=== PATIENT | male | born 1940 | race Caucasian/White ===

== ENCOUNTER 2016-11-02 13:10 | Inpatient (IN) | payer MEDICARE ==
[~2016-11-02] VITALS: Ht 172.7 cm; Wt 81.1 kg
[~2016-11-02 13:10] MED LIST: ASPI81TA45 PO; CILO100T PO; DOCU1CAP39 PO; OMEGCAP21 PO; OXYC1SOL5 PO; PRAV80TA PO; PRIN10TA PO; SPIRCAP INH; VITA-13 PO
[2016-11-02 13:11] VITALS: BP 148/79; PULSE 100; RESP 20; TEMP 97.9; O2SAT 97
--- NOTE | 2016-11-02 13:21 | PD ---
Physical Exam Date Seen by Provider: Nov 02, 2016 Time Seen by Provider: 13:13 Narrative 76 y/o male with Hx Kidney cancer followed by Dr. Leung presents to the ED with Reports of weakness and Low WBC in recent labs. Patient has been cancer free for the past 1.5 years. recently he has been having a flair of his chronic back pain, and recently saw his PCP for his regular check-up, which is why he had his labs drawn. Patient denies fever, chills or other acute complaint. Patient reports diarrhea for the past several weeks. Patient not currently on Chemotherapy. V/S stable. Cardiac Protocals ordered. Patient awaiting Med Bed Placement. Data Data Last Documented VS Vital Signs Date Time Temp Pulse Resp B/P Pulse Ox O2 Delivery O2 Flow Rate FiO2 11/02/16 13:11 97.9 100 20 148/79 97 Room Air [facility] Medical Record Reviewed: Yes Supervised Visit with FARAZ: Yes Condition: Stable Matt Tyson Nov 02, 2016 13:20
[2016-11-02 13:55] LABS: HEMATOCRIT 32.3 % (39.0-51.0); MEAN CORPUSCULAR HGB CONC 34.8 % (32.0-36.0); PLATELET COUNT 84 TH/MM3 (150-450); RED CELL DISTRIBUTION WIDTH 14.5 % (11.6-17.2); WHITE BLOOD COUNT 0.7 TH/MM3 (4.0-11.0)
[2016-11-02 13:57] LABS: HEMO FLAGS AUTO DIFF
[2016-11-02 14:10] VITALS: BP 178/84; PULSE 83; RESP 18; O2SAT 96
[2016-11-02 14:23] LABS: ANION GAP 7 MEQ/L (5-15); BANDS 4 % (0-6); BLOOD UREA NITROGEN 35 MG/DL (7-18); CHLORIDE 112 MEQ/L (98-107); GLOMERULAR FILTRATION RATE 28 ML/MIN (>89); POLYS (SEG NEUTROPHILS) 60 % (16-70); POTASSIUM 4.7 MEQ/L (3.5-5.1); SODIUM (NA) 138 MEQ/L (136-145); WBC DIFF SAMPLE 50
[2016-11-02 14:24] VITALS: RESP 18; O2SAT 96
[2016-11-02 14:24] LABS: PLATELET ESTIMATE SMEAR LOW (NORMAL); PLATELET MORPHOLOGY NORMAL (NORMAL); SCAN/DIFF FINAL DIFF MANUAL
[2016-11-02 14:25] LABS: CREATINE KINASE 155 U/L (39-308)
[2016-11-02 14:31] LABS: NEUTROPHIL # MANUAL DIFF 0.4 TH/MM3 (1.8-7.7)
[2016-11-02] MEDS ORDERED: OMEGCAP21 PO (14:33)
[2016-11-02] MEDS ORDERED: ASPI81TA11 PO (14:33)
[2016-11-02] MEDS ORDERED: SPIRCAP INH (14:33)
[2016-11-02] MEDS ORDERED: PRAV40TA2 PO (14:33)
[2016-11-02] MEDS ORDERED: D31000TA PO (14:33)
[2016-11-02] MEDS ORDERED: CILO100T PO (14:33)
[2016-11-02 14:41] LABS: CKMB 3.4 NG/ML (0.5-3.6)
--- NOTE | 2016-11-02 14:54 | PD ---
HPI Chief Complaint: Abnormal Results Time Seen by Provider: 14:05 Travel History International Travel<30 days: No Contact w/Intl Traveler<30days: No Traveled to known affect area: No History of Present Illness HPI Patient is a 76-year-old male presenting to the emergency department on the advice of his physician due to abnormal labs. Patient also reports feeling dizzy, generally weak, with severe back pain. He also reports loose stools for the last several days as well. He denies any appetite disturbance, fevers, chills, nausea, vomiting, chest pain or shortness of breath. Patient states he has a history of chronic back pain however for the last few weeks and exacerbated and unrelieved by his normal therapies. Patient has a history of renal cell carcinoma with a right nephrectomy. He's been in remission for a year and a half. He is followed by Dr. Jayro Canales his primary doctor as well as Dr. Palacios. [facility] Past Medical History Cancer: Yes (RIGHT KIDNEY) Cardiovascular Problems: Yes (PVD) COPD: Yes Diabetes: No Endocrine: No Glaucoma: No Genitourinary: No Hepatitis: No Hiatal Hernia: No Hypertension: Yes Immune Disorder: No Musculoskeletal: Yes (PSEUDO GOUT) Neurologic: No Psychiatric: No Thyroid Disease: No Tetanus Vaccination: > 5 Years Influenza Vaccination: No Past Surgical History AICD: No Body Medical Devices: STENTS LEGS Joint Replacement: No Pacemaker: No Other Surgery: Yes (right nephrectomy) Social History Alcohol Use: No Tobacco Use: No (QUIT ONE MONTH AGO) Substance Use: No Allergies-Medications (Allergen,Severity, Reaction): Coded Allergies: Penicillin (Unverified Allergy, Severe, ITCH, 11/02/16) Reported Meds & Prescriptions Reported Meds & Active Scripts Active Reported Spiriva Handihaler (Tiotropium Inh) 18 Mcg Cap 18 Mcg INH DAILY PRN 1 capsule = 18 mcg Pravastatin 40 Mg Tab 40 Mg PO HS Hm Marina-3-6-9 Fatty Acid (Marina 3 Fatty Acids-Marina 6 FA) 1 Cap Cap 1 Cap PO HS Cilostazol 100 Mg Tab 100 Mg PO HS D3 (Cholecalciferol) 1,000 Unit Tab 1,000 Units PO HS Aspirin EC (Aspirin) 81 Mg Tabdr 81 Mg PO HS Review of Systems Except as stated in HPI: all other systems reviewed are Neg General / Constitutional: No: Fever HENT: No: Headaches Cardiovascular: No: Chest Pain or Discomfort Respiratory: No: Shortness of Breath Gastrointestinal: Positive: Diarrhea (loose stools) Musculoskeletal: Positive: Myalgias, Pain (lower back) Neurologic: Positive: Weakness, Dizziness Physical Exam Narrative GENERAL: Well-developed, well-nourished, alert elderly gentleman. Resting comfortably in no acute distress. SKIN: Focused skin assessment warm/dry. HEAD: Atraumatic. Normocephalic. EYES: Pupils equal and round. No scleral icterus. No injection or drainage. ENT: No nasal bleeding or discharge. Mucous membranes pink and moist. NECK: Trachea midline. No JVD. CARDIOVASCULAR: Regular rate and rhythm. No murmur appreciated. RESPIRATORY: No accessory muscle use. Clear to auscultation. Breath sounds equal bilaterally. GASTROINTESTINAL: Abdomen soft, non-tender, nondistended. Hepatic and splenic margins not palpable. MUSCULOSKELETAL: No obvious deformities. No clubbing. No cyanosis. No edema. No spinal tenderness over lumbar spine, no step-off noted. NEUROLOGICAL: Awake and alert. No obvious cranial nerve deficits. Motor grossly within normal limits. Normal speech. PSYCHIATRIC: Appropriate mood and affect; insight and judgment normal. Data Data Last Documented VS Vital Signs Date Time Temp Pulse Resp B/P Pulse Ox O2 Delivery O2 Flow Rate FiO2 11/02/16 14:24 18 96 Room Air 11/02/16 14:10 83 178/84 11/02/16 13:11 97.9 Orders Electrocardiogram (11/02/16 13:18) Complete Blood Count With Diff (11/02/16 13:18) Basic Metabolic Panel (Bmp) (11/02/16 13:18) Ckmb (Isoenzyme) Profile (11/02/16 13:18) Chest, Pa & Lat (11/02/16 ) Iv Access Insert/Monitor (11/02/16 14:06) Oximetry (11/02/16 14:06) Urinalysis - C+S If Indicated (11/02/16 14:06) Ecg Monitoring (11/02/16 14:06) CKMB (11/02/16 13:29) CKMB% (11/02/16 13:29) Alkaline Phosphatase (11/02/16 14:48) Hepatic Functional Panel (11/02/16 14:48) Ct Abd/Pel W/O Iv Contrast (11/02/16 ) Ct Lumb Spine W/O Contrast (11/02/16 ) Admit Order (Ed Use Only) (11/02/16 16:46) Labs Laboratory Tests Test 11/02/16 11/02/16 11/02/16 13:29 14:26 15:00 White Blood Count 0.7 TH/MM3 Red Blood Count 3.40 MIL/MM3 Hemoglobin 11.2 GM/DL Hematocrit 32.3 % Mean Corpuscular Volume 95.0 FL Mean Corpuscular Hemoglobin 33.0 PG Mean Corpuscular Hemoglobin 34.8 % Concent Red Cell Distribution Width 14.5 % Platelet Count 84 TH/MM3 Mean Platelet Volume 7.4 FL Neutrophils (%) (Auto) % Lymphocytes (%) (Auto) % Monocytes (%) (Auto) % Eosinophils (%) (Auto) % Basophils (%) (Auto) % Neutrophils # (Auto) TH/MM3 Lymphocytes # (Auto) TH/MM3 Monocytes # (Auto) TH/MM3 Eosinophils # (Auto) TH/MM3 Basophils # (Auto) TH/MM3 CBC Comment AUTO DIFF Differential Total Cells 50 Counted Neutrophils % (Manual) 60 % Band Neutrophils % 4 % Lymphocytes % 34 % Monocytes % 2 % Neutrophils # (Manual) 0.4 TH/MM3 Differential Comment FINAL DIFF MANUAL Platelet Estimate LOW Platelet Morphology Comment NORMAL Red Cell Morphology Comment NORMAL Sodium Level 138 MEQ/L Potassium Level 4.7 MEQ/L Chloride Level 112 MEQ/L Carbon Dioxide Level 19.0 MEQ/L Anion Gap 7 MEQ/L Blood Urea Nitrogen 35 MG/DL Creatinine 2.24 MG/DL Estimat Glomerular Filtration 28 ML/MIN Rate Random Glucose 138 MG/DL Calcium Level 8.4 MG/DL Total Creatine Kinase 155 U/L Creatine Kinase MB 3.4 NG/ML Urine Color LIGHT-YELLOW Urine Turbidity CLEAR Urine pH 5.0 Urine Specific [place] 1.012 Urine Protein 30 mg/dL Urine Glucose (UA) NEG mg/dL Urine Ketones NEG mg/dL Urine Occult Blood SMALL Urine Nitrite NEG Urine Bilirubin NEG Urine Urobilinogen LESS THAN 2.0 MG/DL Urine Leukocyte Esterase NEG Urine RBC 2 /hpf Urine WBC LESS THAN 1 /hpf Urine Hyaline Casts 1 /lpf Urine Mucus FEW /lpf Microscopic Urinalysis Comment CULT NOT INDICATED Total Bilirubin 0.3 MG/DL Direct Bilirubin 0.1 MG/DL Indirect Bilirubin 0.2 MG/DL Aspartate Amino Transf 20 U/L (AST/SGOT) Alanine Aminotransferase 29 U/L (ALT/SGPT) Alkaline Phosphatase 103 U/L Total Protein 7.3 GM/DL Albumin 3.9 GM/DL MDM Medical Decision Making Medical Screen Exam Complete: Yes Emergency Medical Condition: Yes Medical Record Reviewed: Yes Interpretation(s) Vital Signs Date Time Temp Pulse Resp B/P Pulse Ox O2 Delivery O2 Flow Rate FiO2 11/02/16 14:24 18 96 Room Air 11/02/16 14:10 83 18 178/84 96 Room Air 11/02/16 14:05 85 18 96 Room Air 11/02/16 13:11 97.9 100 20 148/79 97 Room Air Differential Diagnosis Neutropenia versus malignancy versus blood disorder versus other Narrative Course Patient is a 76-year-old male presenting to the emergency department due to abnormal labs. Patient's vital signs are stable. at bedside. Labs and imaging ordered and pending. CBC with a white count of 0.7, neutrophils 0.4 Chemistry is unremarkable Urinalysis is unremarkable CT abdomen and pelvis shows a left parapelvic cyst and low-density lesion of the lower pole a solitary left kidney similar to prior in August 2015. It also shows bilateral adrenal lesions low-density in the right, intermediate density in the left. There is a 4.2 distal abdominal aortic aneurysm, bilateral iliac stents are in place. And significant spondylolisthesis at L5 to S1. Chest x-ray shows no acute disease CT lumbar spine shows chronic bilateral pars defect at L5 to S1 with associated significant spondylolisthesis and hypertrophic changes in the posterior elements. It also shows advanced discogenic degenerative disease is at L2 to S1 left lumbar scoliosis, moderately large left-sided disc protrusion at L2 to 3 causing probable neural impingement. Discussed findings and plan of care with patient and his . Patient will be admitted for further evaluation and management. Dr. Ma accepted admission. Diagnosis Primary Impression: Neutropenia Qualified Code: D70.9 - Neutropenia, unspecified type Additional Impression: Weakness generalized Admitting Information Admitting Physician Requests: Admit Condition: Stable Lis Domingo Piper CODY Nov 02, 2016 14:53
--- NOTE | 2016-11-02 15:20 | RADRPT ---
EXAM DATE/TIME: 11/02/2016 14:37 [facility] COMPARISON: No previous studies available for comparison. INDICATIONS : Weakness, Nutropenia conditions MEDICAL HISTORY : Renal cell carcinoma. Hypertension SURGICAL HISTORY : Nephrectomy, right. ENCOUNTER: Initial ACUITY: 1 day PAIN SCORE: 0/10 LOCATION: Bilateral chest FINDINGS: PA and lateral views of the chest demonstrate the lungs to be symmetrically aerated without evidence of mass, infiltrate or effusion. There is moderate tortuosity of the descending thoracic aorta. Hea rt size is normal. Osseous structures are intact. CONCLUSION: No acute cardiopulmonary disease. Lam Parrish MD on November 02, 2016 at 15:17 Board Certified Radiologist. This report was verified electronically.
[2016-11-02 15:33] LABS: BLOOD, URINE SMALL (NEG); COMMENT (UR) CULT NOT INDICATED; CULTURE IF INDICATED CULT NOT INDICATED; GLUCOSE,URINE NEG (NEG); HYALINE CAST, URINE 1 /lpf (RARE); KETONE, URINE NEG (NEG); MUCUS URINE FEW /lpf (OCC); NITRITE,URINE NEG (NEG); URINE COLOR LIGHT-YELLOW (YELLW/STRAW)
[2016-11-02 15:41] LABS: INDIRECT BILIRUBIN 0.2 MG/DL (0.0-0.8); TOTAL BILIRUBIN ADULT 0.3 MG/DL (0.2-1.0)
--- NOTE | 2016-11-02 16:13 | RADRPT ---
EXAM DATE/TIME: 11/02/2016 15:10 [facility] COMPARISON: CT NEEDLE BIOPSY RENAL, LEFT, August 21, 2015, 14:01. CT GUIDED CRYO ABLATION RENAL, LEFT, 2015, 14:01. INDICATIONS : Abdomen pain. ORAL CONTRAST: No oral contrast ingested. RADIATION DOSE: 9.96 CTDIvol (mGy) MEDICAL HISTORY : Chronic obstructive pulmonary disease. Carcinoma; renal. SURGICAL HISTORY : None. ENCOUNTER: Initial ACUITY: 1 day PAIN SCALE: 5/10 LOCATION: Bilateral abdomen. TECHNIQUE: Volumetric scanning of the abdomen and pelvis was performed. Using automated exposure control and ad justment of the mA and/or kV according to patient size, radiation dose was kept as low as reasonably achievable to obtain optimal diagnostic quality images. FINDINGS: Patient has history of right renal cell carcinoma and nephrectomy. Patient underwent cryoablation of a lesion in the lower pole of the left kidney in August 2015. The lower pole lesion is bilobed an d cystic, measuring 1.7 cm, having similar appearance to the images from the cryoablation. There is also a parapelvic cyst in the midpole which measures 5 cm, similar in size and appearance to the prio r exam in August 2015. Some vascular calcification about the segmental arterials in the left kidne y are unchanged. The liver, spleen, and pancreas are unremarkable for noncontrast technique. The right adrenal gland contains a 1.2 cm low density lesion, best seen on image #22. The left adrenal gland contains a 1.6 cm intermediate density nodule which appears to arise from the medial crux. Bilateral iliac stents i n place. The distal aorta is aneurysmally dilated and measures 4.3 cm in oblique dimension. The fat about the distal dome is intact. Loops of small large bowel are normal in diameter. A few small diverticula in the sigmoid colon with out radiographic evidence of diverticulitis. Urinary bladder margins are smooth. The prostate gland is enlarged measuring 6.2 cm in width and causing a mild indentation on the base of the bladder. No evidence of retroperitoneal or inguinal adenopathy. The visualized lower lungs are clear. Wide w indows for bony detail demonstrate the osseous structures to be intact without evidence of expansile or cystic lesions. Bilateral pars defects at L5-S1 with significant spondylolisthesis. CONCLUSION: 1. Left parapelvic cyst and a low density lesion lower pole of the solitary left kidney are similar t o images from a prior cryoablation in August 2015. 2. Bilateral adrenal lesions, low density in the right and intermediate density on the left. Recomme nd correlation with outside prior imaging studies to see if this is a new or old finding. 3. 4.2 cm distal abdominal aortic aneurysm. Bilaterally iliac stents in place. 4. Significant spondylolisthesis at L5-S1 with bilateral pars defects. Lam Parrish MD on November 02, 2016 at 16:01 Board Certified Radiologist. This report was verified electronically.
--- NOTE | 2016-11-02 16:18 | RADRPT ---
EXAM DATE/TIME: 11/02/2016 15:10 [facility] COMPARISON: No previous studies available for comparison. INDICATIONS : Abdomen pain. RADIATION DOSE: ; Reconstructed from previous dataset MEDICAL HISTORY : Carcinoma; renal. SURGICAL HISTORY : None. ENCOUNTER: Initial ACUITY: 1 day PAIN SCALE: 5/10 LOCATION: Bilateral Lumbar. TECHNIQUE: Volumetric scanning of the lumbar spine was performed. Multiplanar reconstructions in the sagittal, coronal and oblique axial planes were performed. Using automated exposure control and adjustment of the mA and/or kV according to patient size, radiation dose was kept as low as reasonably achievable t o obtain optimal diagnostic quality images. FINDINGS: There is 1.4 cm anterolisthesis of L5 with respect to S1 (on the borderline between grade 1 and grade 2) with associated bilateral pars interarticularis defects. The defects have surrounding sclerosis suggesting that this is chronic. There is marked narrowing of the L1-2, L2-3, L3-4, L4-5, and L5-S1 interspaces with vacuum phenomenon at L2-3, L3-4, and L4-5, and moderately prominent anterior paravertebral ossification at all levels. Posterior paravertebral osteophytes are present at L2-3 and L4-5. There is moderate severity scoli osis of the lumbar spine convex to the left with associated increased sclerosis along the inner curva ture of the scoliosis. The transverse processes and spinous processes are intact. No fracture is se en. The visualized portion of the sacrum is intact. At L2-3, there is protrusion of the disc into the neural foramen on the left side, moderate in size. At L3-4, there is bilateral bony neural foraminal stenosis and broad-based bulging of the disc. At L4-5, there is broad-based bulging of the disc and moderate bilateral bony neuroforaminal stenosis. At L5-S1 (the level of the spondylolisthesis, the thecal sac is normal in AP dimension and there is m oderate bilateral neuroforaminal stenosis. CONCLUSION: 1. Chronic bilateral pars defects at L5-S1 with associated significant spondylolisthesis and hypertro phic changes in the posterior elements. 2. Advanced discogenic degenerative changes from L2-S1, left lumbar scoliosis, and a moderately large left-sided disc protrusion at L2-3 causing probable neural impingement. Lam Parrish MD on November 02, 2016 at 16:11 Board Certified Radiologist. This report was verified electronically.
[2016-11-02 17:25] VITALS: BP 169/68; PULSE 86; RESP 18; O2SAT 96
[2016-11-02] MEDS ORDERED: BISACODYL 10 MG SUPP RECTAL PRN (18:00)
[2016-11-02] MEDS ORDERED: NALOXONE HCL 0.4 MG/ML AMP IV PRN (18:00)
[2016-11-02] MEDS ORDERED: TIOTROPIUM BROMIDE 18 MCG INH INH PRN (18:00)
[2016-11-02] MEDS ORDERED: TEMAZEPAM 15 MG CAP PO PRN (18:00)
[2016-11-02] MEDS ORDERED: ACETAMINOPHEN 325 MG TAB PO PRN (18:00)
--- NOTE | 2016-11-02 18:00 | HHI.HP ---
HPI Service [facility] Hospitalists Primary Care Physician Jayro Canales MD Admission Diagnosis NEUTROPENIA Chief Complaint: Sent by doctor to er for severe neutropenia and weakness Travel History International Travel<30 Days: No Contact w/Intl Traveler <30 Da: No Traveled to Known Affected Are: No History of Present Illness Patient is a 76-year-old male presenting to the emergency department on the advice of his physician due to abnormal labs. Patient also reports feeling dizzy, generally weak, with severe back pain. He also reports loose stools for the last several days as well. He denies any appetite disturbance, fevers, chills, nausea, vomiting, chest pain or shortness of breath. Patient states he has a history of chronic back pain however for the last few weeks and exacerbated and unrelieved by his normal therapies. Patient has a history of renal cell carcinoma with a right nephrectomy. He's been in remission for a year and a half. On lab work has WBC count at.8 with plt<80 will admit for hematology evaluation note normal cbc earlier this year. Review of Systems Constitutional: COMPLAINS OF: Fatigue Past Family Social History Past Medical History PCCVD,HTN,renal cell ca s/p nephrectomy,pseudogout Past Surgical History rt nephrectomy,stents in legs Reported Medications spiriva,pravasatin,cilostazol asa Allergies: Coded Allergies: Penicillin (Unverified Allergy, Severe, ITCH, 11/02/16) Social History stop smoking 1 month ago Physical Exam Vital Signs Vital Signs Date Time Temp Pulse Resp B/P Pulse Ox O2 Delivery O2 Flow Rate FiO2 11/02/16 17:25 86 18 169/68 96 Room Air 11/02/16 14:24 18 96 Room Air 11/02/16 14:10 83 18 178/84 96 Room Air 11/02/16 14:05 85 18 96 Room Air 11/02/16 13:11 97.9 100 20 148/79 97 Room Air Physical Exam GENERAL: This is a well-nourished, well-developed patient, in no apparent distress. SKIN: No rashes, ecchymoses or lesions. Cool and dry. HEAD: Atraumatic. Normocephalic. No temporal or scalp tenderness. EYES: Pupils equal round and reactive. Extraocular motions intact. No scleral icterus. No injection or drainage. ENT: Nose without bleeding, purulent drainage or septal hematoma. Throat without erythema, tonsillar hypertrophy or exudate. Uvula midline. Airway patent. NECK: Trachea midline. No JVD or lymphadenopathy. Supple, nontender, no meningeal signs. CARDIOVASCULAR: Regular rate and rhythm without murmurs, gallops, or rubs. RESPIRATORY: Clear to auscultation. Breath sounds equal bilaterally. No wheezes , rales, or rhonchi. GASTROINTESTINAL: Abdomen soft, non-tender, nondistended. No hepato-splenomegaly , or palpable masses. No guarding. MUSCULOSKELETAL: Extremities without clubbing, cyanosis, or edema. No joint tenderness, effusion, or edema noted. No calf tenderness. Negative Homans sign bilaterally. NEUROLOGICAL: Awake and alert. Cranial nerves II through XII intact. Motor and sensory grossly within normal limits. Five out of 5 muscle strength in all muscle groups. Normal speech. Laboratory Laboratory Tests Test 11/02/16 11/02/16 11/02/16 13:29 14:26 15:00 White Blood Count 0.7 Red Blood Count 3.40 Hemoglobin 11.2 Hematocrit 32.3 Mean Corpuscular Volume 95.0 Mean Corpuscular Hemoglobin 33.0 Mean Corpuscular Hemoglobin 34.8 Concent Red Cell Distribution Width 14.5 Platelet Count 84 Mean Platelet Volume 7.4 Neutrophils (%) (Auto) Lymphocytes (%) (Auto) Monocytes (%) (Auto) Eosinophils (%) (Auto) Basophils (%) (Auto) Neutrophils # (Auto) Lymphocytes # (Auto) Monocytes # (Auto) Eosinophils # (Auto) Basophils # (Auto) CBC Comment AUTO DIFF Differential Total Cells 50 Counted Neutrophils % (Manual) 60 Band Neutrophils % 4 Lymphocytes % 34 Monocytes % 2 Neutrophils # (Manual) 0.4 Differential Comment FINAL DIFF MANUAL Platelet Estimate LOW Platelet Morphology Comment NORMAL Red Cell Morphology Comment NORMAL Sodium Level 138 Potassium Level 4.7 Chloride Level 112 Carbon Dioxide Level 19.0 Anion Gap 7 Blood Urea Nitrogen 35 Creatinine 2.24 Estimat Glomerular Filtration 28 Rate Random Glucose 138 Calcium Level 8.4 Total Creatine Kinase 155 Creatine Kinase MB 3.4 Urine Color LIGHT-YELLOW Urine Turbidity CLEAR Urine pH 5.0 Urine Specific [place] 1.012 Urine Protein 30 Urine Glucose (UA) NEG Urine Ketones NEG Urine Occult Blood SMALL Urine Nitrite NEG Urine Bilirubin NEG Urine Urobilinogen LESS THAN 2.0 Urine Leukocyte Esterase NEG Urine RBC 2 Urine WBC LESS THAN 1 Urine Hyaline Casts 1 Urine Mucus FEW Microscopic Urinalysis Comment CULT NOT INDICATED Total Bilirubin 0.3 Direct Bilirubin 0.1 Indirect Bilirubin 0.2 Aspartate Amino Transf 20 (AST/SGOT) Alanine Aminotransferase 29 (ALT/SGPT) Alkaline Phosphatase 103 Total Protein 7.3 Albumin 3.9 Result Diagram: 11/02/16 1329 11/02/16 1329 Imaging Last 24 hours Impressions Lumbar Spine CT 11/02/16 0000 Signed Impressions: Service Date/Time: Wednesday, November 02, 2016 15:10 - CONCLUSION: 1. Chronic bilateral pars defects at L5-S1 with associated significant spondylolisthesis and hypertrophic changes in the posterior elements. 2. Advanced discogenic degenerative changes from L2-S1, left lumbar scoliosis, and a moderately large left-sided disc protrusion at L2-3 causing probable neural impingement. Lam Parrish MD Chest X-Ray 11/02/16 0000 Signed Impressions: Service Date/Time: Wednesday, November 02, 2016 14:37 - CONCLUSION: No acute cardiopulmonary disease. Lam Parrish MD Abdomen/Pelvis CT 11/02/16 0000 Signed Impressions: Service Date/Time: Wednesday, November 02, 2016 15:10 - CONCLUSION: 1. Left parapelvic cyst and a low density lesion lower pole of the solitary left kidney are similar to images from a prior cryoablation in August 2015. 2. Bilateral adrenal lesions, low density in the right and intermediate density on the left. Recommend correlation with outside prior imaging studies to see if this is a new or old finding. 3. 4.2 cm distal abdominal aortic aneurysm. Bilaterally iliac stents in place. 4. Significant spondylolisthesis at L5-S1 with bilateral pars defects. Lam Parrish MD Assessment and Plan Problem List: (1) Neutropenia Status: Acute Plan: will follow labs hematology consult (2) Weakness generalized Status: Acute Plan: related to abnormal labs will follow (3) Renal cell carcinoma Status: Chronic Plan: has some abnormalities on CT scan but appear stable when compared to earlier scans await hematology evaluation Assessment and Plan further plan as case develops Code Status full Discussed Condition With patient Physician Certification 2 Midnight Certification Type: Admission for Inpatient Services Order for Inpatient Services The services are ordered in accordance with Medicare regulations or non- Medicare payer requirements, as applicable. In the case of services not specified as inpatient-only, they are appropriately provided as inpatient services in accordance with the 2-midnight benchmark. Estimated LOS (days): 3 3 days is the estimated time the patient will need to remain in the hospital, assuming treatment plan goals are met and no additional complications. Post-Hospital Plan: Not yet determined Problem Qualifiers (1) Neutropenia: Qualified Code: D70.9 - Neutropenia, unspecified type Conrad Alves MD Nov 02, 2016 18:00
[2016-11-02 19:17] VITALS: BP 167/79; PULSE 80; RESP 17; O2SAT 97
[2016-11-02 21:00] VITALS: BP 124/79; PULSE 93; RESP 18; TEMP 98; O2SAT 97
[2016-11-02] MEDS: CHOLECALCIFEROL (VIT D3) 1000 UNIT TAB PO SCH (21:00)
[2016-11-02] MEDS: PRAVASTATIN SOD 40 MG TAB PO SCH (21:18)
[2016-11-02] MEDS: SODIUM CHLORIDE 0.9% FLUSH 10 ML FLUSH IV FLUSH SCH (21:19)
[2016-11-03] VITALS: BP 133/82; PULSE 79; RESP 18; TEMP 97.2; O2SAT 96
[2016-11-03 04:00] VITALS: BP 140/75; PULSE 76; RESP 17; TEMP 96; O2SAT 96
[2016-11-03 07:02] LABS: AUTOMATED NEUTROPHIL # 0.2 TH/MM3 (1.8-7.7); BASOPHIL % 2.1 % (0.0-2.0); EOSINOPHIL % 0.5 % (0.0-4.0); HEMATOCRIT 34.5 % (39.0-51.0); LYMPHOCYTE # 0.3 TH/MM3 (1.0-4.8); MEAN CORPUSCULAR HEMOGLOBIN 32.1 PG (27.0-34.0); MEAN CORPUSCULAR HGB CONC 33.8 % (32.0-36.0); NEUT % 38.4 % (16.0-70.0); PLATELET COUNT 82 TH/MM3 (150-450); RED BLOOD COUNT 3.63 MIL/MM3 (4.50-5.90); RED CELL DISTRIBUTION WIDTH 14.7 % (11.6-17.2); WHITE BLOOD COUNT 0.6 TH/MM3 (4.0-11.0)
[2016-11-03 07:11] LABS: HEMO FLAGS AUTO DIFF
[2016-11-03 07:42] LABS: BICARBONATE 19.6 MEQ/L (21.0-32.0)
[2016-11-03 07:50] VITALS: BP 173/89; PULSE 87; RESP 20; TEMP 97.3; O2SAT 98
[2016-11-03] MEDS: SODIUM CHLORIDE 0.9% FLUSH 10 ML FLUSH IV FLUSH SCH ×2 (08:51→21:21)
--- NOTE | 2016-11-03 09:26 | HHI.PR ---
Subjective Remarks has been having diarrhea at home but now overnight over 10 times. yellow to clear. no abdomen pain. thought it was lactose intolerance initially. Objective Vitals heart reg lung cta abd s/nt ext no edema Vital Signs Date Time Temp Pulse Resp B/P Pulse Ox O2 Delivery O2 Flow Rate FiO2 11/03/16 04:00 96.0 76 17 140/75 96 11/03/16 00:00 97.2 79 18 133/82 96 11/02/16 21:00 98.0 93 18 124/79 97 11/02/16 19:17 80 17 167/79 97 Room Air 11/02/16 17:25 86 18 169/68 96 Room Air 11/02/16 14:24 18 96 Room Air 11/02/16 14:10 83 18 178/84 96 Room Air 11/02/16 14:05 85 18 96 Room Air 11/02/16 13:11 97.9 100 20 148/79 97 Room Air 11/02/16 11/02/16 11/03/16 15:00 23:00 07:00 Intake Total 240 ml 240 ml Balance 240 ml 240 ml Intake Oral 240 ml 240 ml # Voids 2 Result Diagram: 11/03/16 0611 11/03/16 0611 Imaging Last 24 hours Impressions Lumbar Spine CT 11/02/16 0000 Signed Impressions: Service Date/Time: Wednesday, November 02, 2016 15:10 - CONCLUSION: 1. Chronic bilateral pars defects at L5-S1 with associated significant spondylolisthesis and hypertrophic changes in the posterior elements. 2. Advanced discogenic degenerative changes from L2-S1, left lumbar scoliosis, and a moderately large left-sided disc protrusion at L2-3 causing probable neural impingement. Lam Parrish MD Chest X-Ray 11/02/16 0000 Signed Impressions: Service Date/Time: Wednesday, November 02, 2016 14:37 - CONCLUSION: No acute cardiopulmonary disease. Lam Parrish MD Abdomen/Pelvis CT 11/02/16 0000 Signed Impressions: Service Date/Time: Wednesday, November 02, 2016 15:10 - CONCLUSION: 1. Left parapelvic cyst and a low density lesion lower pole of the solitary left kidney are similar to images from a prior cryoablation in August 2015. 2. Bilateral adrenal lesions, low density in the right and intermediate density on the left. Recommend correlation with outside prior imaging studies to see if this is a new or old finding. 3. 4.2 cm distal abdominal aortic aneurysm. Bilaterally iliac stents in place. 4. Significant spondylolisthesis at L5-S1 with bilateral pars defects. 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 and cryoablation on left denies hx chemoradiation. Has ckd 3 Pt c/o diarrhea for months but suddently worsened and up to 10x last night. nonbloody. Found to have pancytopenia with neutropenia on labwork. no fevers or chills. ct a/p noted to have AAA 4.2cm and val adrenal lesions..?new. hematology consulted to assist in etiology of pancytopenia. ?MDS or infiltrative process. will check vitamin level. tsh and viral studies.denies any new medications or known viral illness. stool cx's, bacterial and parasite ivf. immodium if no cdiff. (2) Diarrhea Status: Acute Plan: see above (3) Neutropenia Status: Acute Plan: see above (4) Weakness generalized Status: Acute Plan: see above (5) Renal cell carcinoma Status: Resolved Plan: see above (6) Hypertension Status: Chronic (7) PAD (peripheral artery disease) Status: Chronic Plan: pad..5 stents in lower ext. (8) copd Status: Chronic (9) CKD (chronic kidney disease) stage 3, GFR 30-59 ml/min Status: Chronic Problem Qualifiers (1) Neutropenia: Qualified Code: D70.9 - Neutropenia, unspecified type Leonid Ma MD Nov 03, 2016 09:26
[2016-11-03 09:37] LABS: BASOPHILS 1 % (0-2); EOSINOPHILS 1 % (0-4); POLYS (SEG NEUTROPHILS) 39 % (16-70); WBC DIFF SAMPLE 100
[2016-11-03 09:42] LABS: NEUTROPHIL # MANUAL DIFF 0.2 TH/MM3 (1.8-7.7); PLATELET ESTIMATE SMEAR LOW (NORMAL); PLATELET MORPHOLOGY NORMAL (NORMAL); SCAN/DIFF FINAL DIFF MANUAL
--- NOTE | 2016-11-03 10:04 | PD.CONS ---
History of Present Illness Service Hematology/Oncology Consult Requested By Hospitalist service Reason for Consult Pancytopenia with severe neutropenia; unexplained. 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 Primary Care Physician Jayro Canales MD Diagnoses: (1) Renal cell carcinoma (2) Pancytopenia History of Present Illness Chief complaint: Generalized fatigue for the past 3 weeks. Decreased appetite. History of present illness: Patient is 76 years old, he reports being in his usual fair state of health up until about a month ago and has since felt generalized fatigue and weakness without concomitant fevers, chills, night sweats or recently diagnosed infections or vital syndromes. Patient reports seeing his primary care physician ; Dr. Jayro Canales for evaluation and was recommended blood work. Blood work revealed pancytopenia with severe neutropenia and the patient was therefore recommended evaluation at [facility] where he presented last night. Upon presentation his absolute neutrophil count was 0.4, over the next 12 hours the ANC has dropped down to 0.2. He also has mild thrombocytopenia and mild normocytic anemia. From an oncologic standpoint, the patient has a history of papillary renal carcinoma, he initially presented with a right renal mass in 2014 and for this he underwent a radical right nephrectomy. In the summer of 2015 he was found to have a lesion involving the left kidney, this was biopsied and found to be consistent with papillary renal cell carcinoma and this was treated with cryoablation. Presently he appears to be in remission as far as renal cell carcinomas concerned. Review of Systems Constitutional: COMPLAINS OF: Fatigue, Weight loss, Change in appetite ( decreased), DENIES: Diaphoretic episodes, Fever, Weight gain, Chills, Dizziness , Night Sweats Endocrine: DENIES: Heat/cold intolerance, Polydipsia, Polyuria, Polyphagia Eyes: DENIES: Blurred vision, Diplopia, Eye inflammation, Eye pain, Vision loss , Photosensitivity, Double Vision Ears, nose, mouth, throat: DENIES: Tinnitus, Hearing loss, Vertigo, Nasal discharge, Oral lesions, Throat pain, Ear Pain, Running Nose, Epistaxis, Sinus Pain, Toothache, Odynophagia Respiratory: DENIES: Apneas, Cough, Snoring, Wheezing, Hemoptysis, Sputum production, Shortness of breath Cardiovascular: COMPLAINS OF: Dyspnea on Exertion, DENIES: Chest pain, Palpitations, Syncope, PND, Lower Extremity Edema, Orthopnea, Claudication Gastrointestinal: DENIES: Abdominal pain, Black stools, Bloody stools, Constipation, Diarrhea, Nausea, Vomiting, Difficulty Swallowing, Anorexia Genitourinary: DENIES: Sexual dysfunction, Urinary frequency, Urinary incontinence, Urgency, Hematuria, Dysuria, Nocturia, Penile Discharge, Testicular Pain, Testicular Swelling Musculoskeletal: DENIES: Joint pain, Muscle aches, Stiffness, Joint Swelling, Back pain, Neck pain Integumentary: DENIES: Abnormal pigmentation, Nail changes, Pruritus, Rash Hematologic/lymphatic: DENIES: Bruising, Lymphadenopathy Immunologic/allergic: DENIES: Eczema, Urticaria Neurologic: DENIES: Abnormal gait, Headache, Localized weakness, Paresthesias, Seizures, Speech Problems, Tremor Psychiatric: DENIES: Anxiety, Confusion, Mood changes, Depression, Hallucinations, Agitation, Suicidal Ideation, Homicidal Ideation, Delusions Except as stated in HPI: all other systems reviewed are Neg Past Family Social History Allergies: Coded Allergies: Penicillin (Unverified Allergy, Severe, ITCH, 11/02/16) Past Medical History Personal history tobaccoism Peripheral arterial disease COPD 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 50 mg by mouth every 4 hours as needed for fever Dulcolax suppository 10 mg per rectal as needed for constipation Vitamin D3 1000 units orally daily Pravastatin 40 mg by mouth daily at bedtime Spiriva 18 g inhaled daily Restoril 15 mg by mouth daily at bedtime as needed for insomnia Family History Mother at the age of 90 Father of ALS Brother at the age of 49 of alcohol abuse No known oncologic diagnoses and family Social History Patient lives at home with his . 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 He has 2 adult children. Patient reports formally being a smoker but quit about 8 years ago; all in all he smoked over 50 years. Physical Exam Vital Signs Vital Signs Date Time Temp Pulse Resp B/P Pulse Ox O2 Delivery O2 Flow Rate FiO2 11/03/16 04:00 96.0 76 17 140/75 96 11/03/16 00:00 97.2 79 18 133/82 96 11/02/16 21:00 98.0 93 18 124/79 97 11/02/16 19:17 80 17 167/79 97 Room Air 11/02/16 17:25 86 18 169/68 96 Room Air 11/02/16 14:24 18 96 Room Air 11/02/16 14:10 83 18 178/84 96 Room Air 11/02/16 14:05 85 18 96 Room Air 11/02/16 13:11 97.9 100 20 148/79 97 Room Air Physical Exam GENERAL: Elderly male, pleasant disposition, coughs frequently. This is a well- nourished, well-developed patient, in no apparent distress. SKIN: No rashes, ecchymoses or lesions. Cool and dry. HEAD: Atraumatic. Normocephalic. No temporal or scalp tenderness. EYES: Pupils equal round and reactive. Extraocular motions intact. No scleral icterus. No injection or drainage. ENT: Nose without bleeding, purulent drainage or septal hematoma. Throat without erythema, tonsillar hypertrophy or exudate. Uvula midline. Airway patent. NECK: Trachea midline. No JVD or lymphadenopathy. Supple, nontender, no meningeal signs. CARDIOVASCULAR: Regular rate and rhythm without murmurs, gallops, or rubs. RESPIRATORY: Prolonged expiratory phase, disbursed crackles occasional rhonchi. GASTROINTESTINAL: Abdomen soft, non-tender, nondistended. No hepato-splenomegaly , or palpable masses. No guarding. MUSCULOSKELETAL: Extremities without clubbing, cyanosis, or edema. No joint tenderness, effusion, or edema noted. No calf tenderness. Negative Homans sign bilaterally. NEUROLOGICAL: Awake and alert. Cranial nerves II through XII intact. Motor and sensory grossly within normal limits. Five out of 5 muscle strength in all muscle groups. Normal speech. Laboratory Laboratory Tests Test 11/02/16 11/02/16 11/02/16 11/03/16 13:29 14:26 15:00 06:11 White Blood Count 0.7 0.6 Red Blood Count 3.40 3.63 Hemoglobin 11.2 11.7 Hematocrit 32.3 34.5 Mean Corpuscular Volume 95.0 95.0 Mean Corpuscular Hemoglobin 33.0 32.1 Mean Corpuscular Hemoglobin 34.8 33.8 Concent Red Cell Distribution Width 14.5 14.7 Platelet Count 84 82 Mean Platelet Volume 7.4 7.5 Neutrophils (%) (Auto) 38.4 Lymphocytes (%) (Auto) 55.0 Monocytes (%) (Auto) 4.0 Eosinophils (%) (Auto) 0.5 Basophils (%) (Auto) 2.1 Neutrophils # (Auto) 0.2 Lymphocytes # (Auto) 0.3 Monocytes # (Auto) 0.0 Eosinophils # (Auto) 0.0 Basophils # (Auto) 0.0 CBC Comment AUTO DIFF AUTO DIFF Differential Total Cells 50 100 Counted Neutrophils % (Manual) 60 39 Band Neutrophils % 4 Lymphocytes % 34 55 Monocytes % 2 4 Neutrophils # (Manual) 0.4 0.2 Differential Comment FINAL DIFF FINAL DIFF MANUAL MANUAL Platelet Estimate LOW LOW Platelet Morphology Comment NORMAL NORMAL Red Cell Morphology Comment NORMAL Sodium Level 138 141 Potassium Level 4.7 5.0 Chloride Level 112 113 Carbon Dioxide Level 19.0 19.6 Anion Gap 7 8 Blood Urea Nitrogen 35 32 Creatinine 2.24 1.91 Estimat Glomerular Filtration 28 34 Rate Random Glucose 138 81 Calcium Level 8.4 8.7 Total Creatine Kinase 155 Creatine Kinase MB 3.4 Urine Color LIGHT-YELLOW Urine Turbidity CLEAR Urine pH 5.0 Urine Specific Hugo 1.012 Urine Protein 30 Urine Glucose (UA) NEG Urine Ketones NEG Urine Occult Blood SMALL Urine Nitrite NEG Urine Bilirubin NEG Urine Urobilinogen LESS THAN 2.0 Urine Leukocyte Esterase NEG Urine RBC 2 Urine WBC LESS THAN 1 Urine Hyaline Casts 1 Urine Mucus FEW Microscopic Urinalysis Comment CULT NOT INDICATED Total Bilirubin 0.3 Direct Bilirubin 0.1 Indirect Bilirubin 0.2 Aspartate Amino Transf 20 (AST/SGOT) Alanine Aminotransferase 29 (ALT/SGPT) Alkaline Phosphatase 103 Total Protein 7.3 Albumin 3.9 Eosinophils % 1 Basophils % 1 Result Diagram: 11/03/1611 11/03/16610 Imaging Chest x-ray dated 11/02/2016: No acute cardiopulmonary abnormalities. CT scan of the abdomen and pelvis: Without contrast dated 11/02/2016: Left parapelvic cyst and low density lesion in the lower pole of the left kidney is similar to previous images from August 2015. Bilateral adrenal lesions, low density on the right side and intermediate density on the left. Recommend correlation with outside prior imaging to see if these are new oral findings. 4.2 cm distal abdominal aortic aneurysm. Bilateral iliac stents in place Spondylolithiasis at L5-S1 with bilateral pars defects. Assessment and Plan Assessment and Plan 76-year-old male presenting with symptoms of fatigue and weakness and unexplained pancytopenia. He has a prior history of right and left kidney papillary carcinoma; status post right nephrectomy in 2015 and cryoablation of the left renal papillary carcinoma in 2016. Now presenting with pancytopenia with severe neutropenia associated with mild thrombocytopenia and anemia. Hematology service is been asked to see this patient to rule out an underlying primary hematologic disorder. Additional abnormalities noted on imaging scans and workup thus far indicates bilateral adrenal lesions the chronicity of which is not yet known. Plan: 1. Pancytopenia: Peripheral smear will be reviewed, bone marrow biopsy later today to rule out a high-grade primary bone marrow disorder such as myelodysplastic syndrome/acute myeloid leukemia. 2. Await results of vitamin B12 levels, folic acid levels, TSH. Problem Qualifiers (1) Renal cell carcinoma: Qualified Code: C64.9 - Renal cell carcinoma, unspecified laterality Michael Haley MD Nov 03, 2016 10:04
[2016-11-03 11:50] VITALS: BP 138/65; PULSE 81; RESP 20; TEMP 96.5; O2SAT 96
[2016-11-03] MEDS: SODIUM CHLOR 0.9% 1000 ML INJ 1,000 ML IV SCH ×2 (11:54→21:22)
[2016-11-03 12:11] LABS: C. DIFF EPI 027 PRESUMPTIVE NEGATIVE (NEGATIVE); C. DIFF TOXIN PCR NEGATIVE (NEGATIVE)
[2016-11-03 12:43] LABS: BONE MARROW PROCESSING COMPLETE; IRON STAIN DONE; JENNER GIEMSA STAIN DONE
--- NOTE | 2016-11-03 13:35 | EKG ---
Date Performed: 11/02/2016 Time Performed: 13:26:13 PTAGE: 76 years EKG: Sinus rhythm WITH OCCASIONAL SUPRAVENTRICULAR PREMATURE COMPLEXES POSSIBLE RIGHT VENTRICULAR CONDUCTION DELAY Com pared to prior tracing no significant change BORDERLINE ECG PREVIOUS TRACING : 12/26/2014 07.12 DOCTOR: Jayro Duenas Interpretating Date/Time 11/05/2016 08:11:10
[2016-11-03 15:50] VITALS: BP 152/76; PULSE 80; RESP 20; TEMP 97.5; O2SAT 97
[2016-11-03 20:00] VITALS: BP 170/81; PULSE 76; RESP 19; TEMP 96.3; O2SAT 95
[2016-11-03] MEDS: PRAVASTATIN SOD 40 MG TAB PO SCH (21:20)
[2016-11-03] MEDS: CHOLECALCIFEROL (VIT D3) 1000 UNIT TAB PO SCH (21:21)
[2016-11-04] VITALS: BP 154/76; PULSE 79; RESP 18; TEMP 96.7; O2SAT 97
[2016-11-04 04:00] VITALS: BP 138/72; PULSE 73; RESP 18; TEMP 96.8; O2SAT 97
[2016-11-04 08:00] VITALS: BP 147/65; PULSE 93; RESP 16; TEMP 97.1; O2SAT 95
--- NOTE | 2016-11-04 09:27 | HHI.PR ---
Subjective Remarks pt still with alot of diarrhea. Objective Vitals heart reg lung cta abd s;nt ext no edema Vital Signs Date Time Temp Pulse Resp B/P Pulse Ox O2 Delivery O2 Flow Rate FiO2 11/04/16 04:00 96.8 73 18 138/72 97 11/04/16 00:00 96.7 79 18 154/76 97 11/03/16 20:00 96.3 76 19 170/81 95 11/03/16 15:50 97.5 80 20 152/76 97 11/03/16 11:50 96.5 81 20 138/65 96 11/03/16 11/03/16 11/04/16 15:00 23:00 07:00 Intake Total 480 ml 480 ml 665 ml Output Total 550 ml Balance 480 ml 480 ml 115 ml Intake Oral 480 ml 480 ml 240 ml IV Total 425 ml Output Urine Total 550 ml # Voids 6 5 2 # Bowel Movements 6 Result Diagram: 11/03/16 0611 11/03/16 0611 Imaging Last 24 hours Impressions Lumbar Spine CT 11/02/16 0000 Signed Impressions: Service Date/Time: Wednesday, November 02, 2016 15:10 - CONCLUSION: 1. Chronic bilateral pars defects at L5-S1 with associated significant spondylolisthesis and hypertrophic changes in the posterior elements. 2. Advanced discogenic degenerative changes from L2-S1, left lumbar scoliosis, and a moderately large left-sided disc protrusion at L2-3 causing probable neural impingement. Lam Parrish MD Chest X-Ray 11/02/16 0000 Signed Impressions: Service Date/Time: Wednesday, November 02, 2016 14:37 - CONCLUSION: No acute cardiopulmonary disease. Lam Parrish MD Abdomen/Pelvis CT 11/02/16 0000 Signed Impressions: Service Date/Time: Wednesday, November 02, 2016 15:10 - CONCLUSION: 1. Left parapelvic cyst and a low density lesion lower pole of the solitary left kidney are similar to images from a prior cryoablation in August 2015. 2. Bilateral adrenal lesions, low density in the right and intermediate density on the left. Recommend correlation with outside prior imaging studies to see if this is a new or old finding. 3. 4.2 cm distal abdominal aortic aneurysm. Bilaterally iliac stents in place. 4. Significant spondylolisthesis at L5-S1 with bilateral pars defects. 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 and cryoablation on left denies hx chemoradiation. Has ckd 3 Pt c/o diarrhea for months but suddently worsened and up to 10x/day nonbloody. Found to have pancytopenia with neutropenia on labwork. no fevers or chills. ct a/p noted to have AAA 4.2cm and val adrenal lesions..?new. hematology consulted to assist in etiology of pancytopenia. ?MDS or infiltrative process.? ?AML will check vitamin level. tsh, hiv, hepatitis stool cx's, bacterial and parasite pending c.diff neg. start immodium s/p bone marrow bx..discussed with Dr Haley..pt could be discharged and f/u arranged in clinic later this week for results.. pt and would like to stay tonight to exclude infectious diarrhea and to get control of diarrhea before d/c ivf. (2) Diarrhea Status: Acute Plan: see above (3) Neutropenia Status: Acute Plan: see above (4) Weakness generalized Status: Acute Plan: see above (5) Renal cell carcinoma Status: Resolved Plan: see above (6) Hypertension Status: Chronic (7) PAD (peripheral artery disease) Status: Chronic Plan: pad..5 stents in lower ext. (8) copd Status: Chronic (9) CKD (chronic kidney disease) stage 3, GFR 30-59 ml/min Status: Chronic Problem Qualifiers (1) Neutropenia: Qualified Code: D70.9 - Neutropenia, unspecified type (2) Renal cell carcinoma: Qualified Code: C64.9 - Renal cell carcinoma, unspecified laterality Leonid Ma MD Nov 04, 2016 09:27
[2016-11-04] MEDS ORDERED: LOPERAMIDE HCL 2 MG CAP PO ONE (09:30)
[2016-11-04 09:31] LABS: AUTOMATED NEUTROPHIL # 0.3 TH/MM3 (1.8-7.7); BASOPHIL % 0.6 % (0.0-2.0); EOSINOPHIL % 0.2 % (0.0-4.0); LYMPHOCYTE # 0.4 TH/MM3 (1.0-4.8); MEAN CELL VOLUME 96.1 FL (80.0-100.0); MEAN CORPUSCULAR HEMOGLOBIN 32.5 PG (27.0-34.0); MEAN CORPUSCULAR HGB CONC 33.8 % (32.0-36.0); MONO % 2.7 % (0.0-8.0); NEUT % 45.5 % (16.0-70.0); PLATELET COUNT 82 TH/MM3 (150-450); RED BLOOD COUNT 3.85 MIL/MM3 (4.50-5.90); RED CELL DISTRIBUTION WIDTH 14.5 % (11.6-17.2); WHITE BLOOD COUNT 0.7 TH/MM3 (4.0-11.0)
[2016-11-04 09:38] LABS: HEMO FLAGS AUTO DIFF
[2016-11-04 10:19] LABS: BANDS 1 % (0-6); EOSINOPHILS 1 % (0-4); NEUTROPHIL # MANUAL DIFF 0.4 TH/MM3 (1.8-7.7); PLATELET ESTIMATE SMEAR LOW (NORMAL); PLATELET MORPHOLOGY NORMAL (NORMAL); POLYS (SEG NEUTROPHILS) 52 % (16-70); SCAN/DIFF FINAL DIFF MANUAL; WBC DIFF SAMPLE 100
[2016-11-04 10:33] LABS: ANION GAP 9 MEQ/L (5-15); BLOOD UREA NITROGEN 35 MG/DL (7-18); CHLORIDE 112 MEQ/L (98-107); GLOMERULAR FILTRATION RATE 36 ML/MIN (>89); POTASSIUM 5.2 MEQ/L (3.5-5.1); SODIUM (NA) 140 MEQ/L (136-145)
[2016-11-04] MEDS: SODIUM CHLORIDE 0.9% FLUSH 10 ML FLUSH IV FLUSH SCH ×2 (10:46→21:00)
[2016-11-04] MEDS: SODIUM CHLOR 0.9% 1000 ML INJ 1,000 ML IV SCH (10:47)
[2016-11-04 12:00] VITALS: BP 136/91; PULSE 72; RESP 16; TEMP 97.2; O2SAT 97
[2016-11-04 16:00] VITALS: BP 137/74; PULSE 72; RESP 16; TEMP 96.9; O2SAT 97
[2016-11-04] MEDS ORDERED: TRETINOIN PO SCH (18:45)
[2016-11-04] MEDS ORDERED: predniSONE 20 MG TAB PO ONE (18:45)
--- NOTE | 2016-11-04 19:08 | PD.ONC.PN ---
Subjective Subjective Remarks Pt denies complaints reports feeling well. Denies bleeding, fevers, chills, night sweats. Does have significant diarrhea. 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 Objective Data Date Time Temp Pulse Resp B/P Pulse Ox O2 Delivery O2 Flow Rate FiO2 11/04/16 16:00 96.9 72 16 137/74 97 11/04/16 12:00 97.2 72 16 136/91 97 11/04/16 08:00 97.1 93 16 147/65 95 11/04/16 04:00 96.8 73 18 138/72 97 11/04/16 00:00 96.7 79 18 154/76 97 11/03/16 20:00 96.3 76 19 170/81 95 11/04/16 11/04/16 11/04/16 07:00 15:00 23:00 Intake Total 665 ml 1303 ml Output Total 550 ml Balance 115 ml 1303 ml Result Diagram: 11/04/16 0817 11/04/16 0814 Laboratory Results Laboratory Tests Test 11/04/16 11/04/16 08:14 08:17 Sodium Level 140 MEQ/L Potassium Level 5.2 MEQ/L Chloride Level 112 MEQ/L Carbon Dioxide Level 19.0 MEQ/L Anion Gap 9 MEQ/L Blood Urea Nitrogen 35 MG/DL Creatinine 1.84 MG/DL Estimat Glomerular Filtration 36 ML/MIN Rate Random Glucose 90 MG/DL Calcium Level 8.8 MG/DL Vitamin B12 Level GREATER THAN 2000 PG/ML Thyroid Stimulating Hormone 0.861 uIU/ML 3rd Gen White Blood Count 0.7 TH/MM3 Red Blood Count 3.85 MIL/MM3 Hemoglobin 12.5 GM/DL Hematocrit 37.0 % Mean Corpuscular Volume 96.1 FL Mean Corpuscular Hemoglobin 32.5 PG Mean Corpuscular Hemoglobin 33.8 % Concent Red Cell Distribution Width 14.5 % Platelet Count 82 TH/MM3 Mean Platelet Volume 7.4 FL Neutrophils (%) (Auto) 45.5 % Lymphocytes (%) (Auto) 51.0 % Monocytes (%) (Auto) 2.7 % Eosinophils (%) (Auto) 0.2 % Basophils (%) (Auto) 0.6 % Neutrophils # (Auto) 0.3 TH/MM3 Lymphocytes # (Auto) 0.4 TH/MM3 Monocytes # (Auto) 0.0 TH/MM3 Eosinophils # (Auto) 0.0 TH/MM3 Basophils # (Auto) 0.0 TH/MM3 CBC Comment AUTO DIFF Differential Total Cells 100 Counted Neutrophils % (Manual) 52 % Band Neutrophils % 1 % Lymphocytes % 45 % Monocytes % 1 % Eosinophils % 1 % Neutrophils # (Manual) 0.4 TH/MM3 Differential Comment FINAL DIFF MANUAL Platelet Estimate LOW Platelet Morphology Comment NORMAL Red Cell Morphology Comment NORMAL Hepatitis A IgM Antibody NEGATIVE Hepatitis B Surface Antigen NEGATIVE Hepatitis B Core IgM Antibody NEGATIVE Hepatitis C Antibody NEGATIVE HIV (1&2) Antibody REFLEX Culture Results Microbiology Date/Time Procedure Status Source Growth 11/03/16 09:20 - Final Complete Stool Stool NO ENTERIC PATHOGENS DETECTED BY PCR... 11/03/16 09:20 Cryptosporidium Exam Received Stool Stool Pending 11/03/16 09:20 Giardia Antigen (BINDU) Received Stool Stool Pending Administered Medications Medications (Trade) Dose Ordered Sig/Sowmya Route PRN Reason Start Time Stop Time Status Last Admin Dose Admin Sodium Chloride (NS Flush) 2 ml BID IV FLUSH 11/02/16 21:00 11/04/16 10:46 Pravastatin Sodium (Pravachol) 40 mg HS PO 11/02/16 21:00 11/03/16 21:20 Cholecalciferol 1000 units 1,000 units HS PO 11/02/16 21:00 11/03/16 21:21 Sodium Chloride (NS 1000 ml Inj) 1,000 ml @ 84 mls/hr [id number] IV 11/03/16 10:00 11/04/16 10:47 Objective Remarks GENERAL: Elderly male, pleasant disposition, coughs frequently. This is a well- nourished, well-developed patient, in no apparent distress. SKIN: No rashes, ecchymoses or lesions. Cool and dry. HEAD: Atraumatic. Normocephalic. No temporal or scalp tenderness. EYES: Pupils equal round and reactive. Extraocular motions intact. No scleral icterus. No injection or drainage. ENT: Nose without bleeding, purulent drainage or septal hematoma. Throat without erythema, tonsillar hypertrophy or exudate. Uvula midline. Airway patent. NECK: Trachea midline. No JVD or lymphadenopathy. Supple, nontender, no meningeal signs. CARDIOVASCULAR: Regular rate and rhythm without murmurs, gallops, or rubs. RESPIRATORY: Prolonged expiratory phase, disbursed crackles occasional rhonchi. GASTROINTESTINAL: Abdomen soft, non-tender, nondistended. No hepato-splenomegaly , or palpable masses. No guarding. MUSCULOSKELETAL: Extremities without clubbing, cyanosis, or edema. No joint tenderness, effusion, or edema noted. No calf tenderness. Negative Homans sign bilaterally. NEUROLOGICAL: Awake and alert. Cranial nerves II through XII intact. Motor and sensory grossly within normal limits. Five out of 5 muscle strength in all muscle groups. Normal speech. 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 Confirmatory testing including FISH for translocation 15; 17. He has previous history of papillary renal carcinoma, right kidney and left kidney. Plan 1. 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 Baseline EKG reviewed, no evidence of prolonged intervals. I requested the pharmacy to obtain arsenic trioxide which will be dosed at 0.5 mg/kg IV over 1 hour daily until remission is achieved. I did explain the diagnosis to the patient (in person) and his over the telephone. Tumor lysis syndrome labs; phosphorus and magnesium levels have been ordered to be drawn daily. No evidence of DIC or differentiation syndrome noted at this time. Michael Haley MD Nov 04, 2016 19:08
[2016-11-04] MEDS: CHOLECALCIFEROL (VIT D3) 1000 UNIT TAB PO SCH (21:12)
[2016-11-04] MEDS: ALLOPURINOL 300 MG TAB PO SCH (21:12)
[2016-11-04] MEDS: PRAVASTATIN SOD 40 MG TAB PO SCH (21:12)
[2016-11-04 22:00] VITALS: BP 130/63; PULSE 71; RESP 16; TEMP 97; O2SAT 97
[2016-11-05 01:15] VITALS: BP 133/66; PULSE 80; RESP 16; TEMP 96.9; O2SAT 96
[2016-11-05 04:00] VITALS: BP 149/75; PULSE 82; RESP 16; TEMP 97.5; O2SAT 97
--- NOTE | 2016-11-05 07:49 | PD.ONC.PN ---
Subjective Subjective Remarks Patient seen and examined, he reports feeling well this morning, diarrhea has resolved completely. Denies fevers, chills, night sweats, bleeding, bruising hematochezia or melena. Denies difficulty breathing, chest pain, abdominal pain or cramping or neurologic deficits. Objective Data Date Time Temp Pulse Resp B/P Pulse Ox O2 Delivery O2 Flow Rate FiO2 11/05/16 04:00 97.5 82 16 149/75 97 11/05/16 01:15 96.9 80 16 133/66 96 11/04/16 22:00 97.0 71 16 130/63 97 11/04/16 16:00 96.9 72 16 137/74 97 11/04/16 12:00 97.2 72 16 136/91 97 11/04/16 08:00 97.1 93 16 147/65 95 11/05/16 11/05/16 11/05/16 07:00 15:00 23:00 Intake Total 240 ml Balance 240 ml Result Diagram: 11/04/1617 11/04/16 0814 Laboratory Results Laboratory Tests Test 11/04/16 11/04/16 08:14 08:17 Sodium Level 140 MEQ/L Potassium Level 5.2 MEQ/L Chloride Level 112 MEQ/L Carbon Dioxide Level 19.0 MEQ/L Anion Gap 9 MEQ/L Blood Urea Nitrogen 35 MG/DL Creatinine 1.84 MG/DL Estimat Glomerular Filtration 36 ML/MIN Rate Random Glucose 90 MG/DL Calcium Level 8.8 MG/DL Lactate Dehydrogenase 197 U/L Vitamin B12 Level GREATER THAN 2000 PG/ML Thyroid Stimulating Hormone 0.861 uIU/ML 3rd Gen White Blood Count 0.7 TH/MM3 Red Blood Count 3.85 MIL/MM3 Hemoglobin 12.5 GM/DL Hematocrit 37.0 % Mean Corpuscular Volume 96.1 FL Mean Corpuscular Hemoglobin 32.5 PG Mean Corpuscular Hemoglobin 33.8 % Concent Red Cell Distribution Width 14.5 % Platelet Count 82 TH/MM3 Mean Platelet Volume 7.4 FL Neutrophils (%) (Auto) 45.5 % Lymphocytes (%) (Auto) 51.0 % Monocytes (%) (Auto) 2.7 % Eosinophils (%) (Auto) 0.2 % Basophils (%) (Auto) 0.6 % Neutrophils # (Auto) 0.3 TH/MM3 Lymphocytes # (Auto) 0.4 TH/MM3 Monocytes # (Auto) 0.0 TH/MM3 Eosinophils # (Auto) 0.0 TH/MM3 Basophils # (Auto) 0.0 TH/MM3 CBC Comment AUTO DIFF Differential Total Cells 100 Counted Neutrophils % (Manual) 52 % Band Neutrophils % 1 % Lymphocytes % 45 % Monocytes % 1 % Eosinophils % 1 % Neutrophils # (Manual) 0.4 TH/MM3 Differential Comment FINAL DIFF MANUAL Platelet Estimate LOW Platelet Morphology Comment NORMAL Red Cell Morphology Comment NORMAL Hepatitis A IgM Antibody NEGATIVE Hepatitis B Surface Antigen NEGATIVE Hepatitis B Core IgM Antibody NEGATIVE Hepatitis C Antibody NEGATIVE HIV (1&2) Antibody REFLEX Culture Results Microbiology Date/Time Procedure Status Source Growth 11/03/16 09:20 - Final Complete Stool Stool NO ENTERIC PATHOGENS DETECTED BY PCR... 11/03/16 09:20 Cryptosporidium Exam Received Stool Stool Pending 11/03/16 09:20 Giardia Antigen (BINDU) Received Stool Stool Pending Administered Medications Medications (Trade) Dose Ordered Sig/Sowmya Route PRN Reason Start Time Stop Time Status Last Admin Dose Admin Sodium Chloride (NS Flush) 2 ml BID IV FLUSH 11/02/16 21:00 11/04/16 10:46 Pravastatin Sodium (Pravachol) 40 mg HS PO 11/02/16 21:00 11/04/16 21:12 Cholecalciferol 1000 units 1,000 units HS PO 11/02/16 21:00 11/04/16 21:12 Sodium Chloride (NS 1000 ml Inj) 1,000 ml @ 84 mls/hr [id number] IV 11/03/16 10:00 11/04/16 10:47 Allopurinol (Zyloprim) 300 mg BID PO 11/04/16 21:00 11/04/16 21:12 Objective Remarks GENERAL: Elderly male, pleasant disposition, coughs frequently. This is a well- nourished, well-developed patient, in no apparent distress. SKIN: No rashes, ecchymoses or lesions. Cool and dry. HEAD: Atraumatic. Normocephalic. No temporal or scalp tenderness. EYES: Pupils equal round and reactive. Extraocular motions intact. No scleral icterus. No injection or drainage. ENT: Nose without bleeding, purulent drainage or septal hematoma. Throat without erythema, tonsillar hypertrophy or exudate. Uvula midline. Airway patent. NECK: Trachea midline. No JVD or lymphadenopathy. Supple, nontender, no meningeal signs. CARDIOVASCULAR: Regular rate and rhythm without murmurs, gallops, or rubs. RESPIRATORY: Prolonged expiratory phase, disbursed crackles occasional rhonchi. GASTROINTESTINAL: Abdomen soft, non-tender, nondistended. No hepato-splenomegaly , or palpable masses. No guarding. MUSCULOSKELETAL: Extremities without clubbing, cyanosis, or edema. No joint tenderness, effusion, or edema noted. No calf tenderness. Negative Homans sign bilaterally. NEUROLOGICAL: Awake and alert. Cranial nerves II through XII intact. Motor and sensory grossly within normal limits. Five out of 5 muscle strength in all muscle groups. Normal speech. 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 Confirmatory testing including FISH for translocation 15; 17 is pending. Plan to start ATRA today. Corticosteroids started today. Tumor lysis syndrome prophylaxis with allopurinol was initiated on 11/04/2016. Continue hydration. Initiate arsenic trioxide once this is made available over the next 24-48 hours (this will be started after FISH studies confirm presence of translocation 15; 17). Plan 1. APL on bone marrow flow cytometry: NCCN guidelines templates were reviewed, printed and placed in the chart. Start ATRA 45 mg per metered squared twice a day, prednisone 0.5 mg/kg daily, allopurinol 300 mg twice daily for tumor lysis syndrome prophylaxis. Baseline EKG reviewed, no evidence of prolonged intervals QTc: 383 ms. I requested the pharmacy to obtain arsenic trioxide which will be dosed at 0.15 mg/kg IV over 1 hour daily until remission is achieved. His BSA is 1.93 m. ATRA will be dosed at 40 mg twice daily. Prednisone will be dosed at 40 mg daily. Arsenic trioxide will be dosed at 11.85 mg intravenously daily. PICC line has been ordered and this should be placed today. Michael Haley MD Nov 05, 2016 07:49
[2016-11-05 08:00] VITALS: BP 147/84; PULSE 102; RESP 18; TEMP 96.5; O2SAT 98
[2016-11-05 08:01] LABS: MAGNESIUM 2.3 MG/DL (1.5-2.5)
--- NOTE | 2016-11-05 08:50 | EKG ---
Date Performed: 11/04/2016 Time Performed: 20:12:28 PTAGE: 76 years EKG: Sinus rhythm POSSIBLE INFERIOR MYOCARDIAL INFARCTION , PROBABLY OLD BORDERLINE ECG PREVIOUS TRACING : 11/02/2016 13.26 No significant change from previous tracing noted. DOCTOR: Mane Foy Interpretating Date/Time 11/05/2016 08:49:53
--- NOTE | 2016-11-05 09:53 | HHI.PR ---
Subjective Remarks Pt reports that he is not having any further diarrhea since yesterday Afebrile Pt having PICC line placed today Objective Vitals Vital Signs Date Time Temp Pulse Resp B/P Pulse Ox O2 Delivery O2 Flow Rate FiO2 11/05/16 08:00 96.5 102 18 147/84 98 11/05/16 04:00 97.5 82 16 149/75 97 11/05/16 01:15 96.9 80 16 133/66 96 11/04/16 22:00 97.0 71 16 130/63 97 11/04/16 16:00 96.9 72 16 137/74 97 11/04/16 12:00 97.2 72 16 136/91 97 11/04/16 11/04/16 11/05/16 15:00 23:00 07:00 Intake Total 1303 ml 480 ml 240 ml Balance 1303 ml 480 ml 240 ml Intake Oral 480 ml 240 ml IV Total 1303 ml # Voids 3 1 Result Diagram: 11/04/16 0817 11/04/16 0814 Other Results Laboratory Tests Test 11/03/16 11/04/16 11/04/16 11/05/16 11:00 08:14 08:17 05:38 Bone Marrow Immunophenotyping Sodium Level 140 MEQ/L Potassium Level 5.2 MEQ/L Chloride Level 112 MEQ/L Carbon Dioxide Level 19.0 MEQ/L Anion Gap 9 MEQ/L Blood Urea Nitrogen 35 MG/DL Creatinine 1.84 MG/DL Estimat Glomerular Filtration 36 ML/MIN Rate Random Glucose 90 MG/DL Calcium Level 8.8 MG/DL Lactate Dehydrogenase 197 U/L Vitamin B12 Level GREATER THAN 2000 PG/ML Thyroid Stimulating Hormone 0.861 uIU/ML 3rd Gen White Blood Count 0.7 TH/MM3 Red Blood Count 3.85 MIL/MM3 Hemoglobin 12.5 GM/DL Hematocrit 37.0 % Mean Corpuscular Volume 96.1 FL Mean Corpuscular Hemoglobin 32.5 PG Mean Corpuscular Hemoglobin 33.8 % Concent Red Cell Distribution Width 14.5 % Platelet Count 82 TH/MM3 Mean Platelet Volume 7.4 FL Neutrophils (%) (Auto) 45.5 % Lymphocytes (%) (Auto) 51.0 % Monocytes (%) (Auto) 2.7 % Eosinophils (%) (Auto) 0.2 % Basophils (%) (Auto) 0.6 % Neutrophils # (Auto) 0.3 TH/MM3 Lymphocytes # (Auto) 0.4 TH/MM3 Monocytes # (Auto) 0.0 TH/MM3 Eosinophils # (Auto) 0.0 TH/MM3 Basophils # (Auto) 0.0 TH/MM3 CBC Comment AUTO DIFF Differential Total Cells 100 Counted Neutrophils % (Manual) 52 % Band Neutrophils % 1 % Lymphocytes % 45 % Monocytes % 1 % Eosinophils % 1 % Neutrophils # (Manual) 0.4 TH/MM3 Differential Comment FINAL DIFF MANUAL Platelet Estimate LOW Platelet Morphology Comment NORMAL Red Cell Morphology Comment NORMAL Hepatitis A IgM Antibody NEGATIVE Hepatitis B Surface Antigen NEGATIVE Hepatitis B Core IgM Antibody NEGATIVE Hepatitis C Antibody NEGATIVE HIV (1&2) Antibody REFLEX Phosphorus Level 3.3 MG/DL Magnesium Level 2.3 MG/DL Imaging Last 24 hours Impressions [address] Spine CT 11/02/16 0000 Signed Impressions: Service Date/Time: Wednesday, November 02, 2016 15:10 - CONCLUSION: 1. Chronic bilateral pars defects at L5-S1 with associated significant spondylolisthesis and hypertrophic changes in the posterior elements. 2. Advanced discogenic degenerative changes from L2-S1, left lumbar scoliosis, and a moderately large left-sided disc protrusion at L2-3 causing probable neural impingement. Lam Parrish MD Chest X-Ray 11/02/16 0000 Signed Impressions: Service Date/Time: Wednesday, November 02, 2016 14:37 - CONCLUSION: No acute cardiopulmonary disease. Lam Parrish MD Abdomen/Pelvis CT 11/02/16 0000 Signed Impressions: Service Date/Time: Wednesday, November 02, 2016 15:10 - CONCLUSION: 1. Left parapelvic cyst and a low density lesion lower pole of the solitary left kidney are similar to images from a prior cryoablation in August 2015. 2. Bilateral adrenal lesions, low density in the right and intermediate density on the left. Recommend correlation with outside prior imaging studies to see if this is a new or old finding. 3. 4.2 cm distal abdominal aortic aneurysm. Bilaterally iliac stents in place. 4. Significant spondylolisthesis at L5-S1 with bilateral pars defects. 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 He reported that he had been having diarrhea for months but this suddenly worsened and was having up to 10x/day, nonbloody. - Labs at admission found the pt to have pancytopenia with neutropenia. No fevers or chills. - CT Abd/pelvis (11/02) noted to have AAA 4.2cm and val adrenal lesions. - Hematology was consulted to assist in etiology of pancytopenia. 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 - Pt is being started on ATRA at 40 mg twice daily, Prednisone 40 mg daily, Arsenic trioxide at 11.85 mg intravenously daily per Heme/Onc recommendations. - PICC line to be placed today - Discussed the case with Hematology today and they would like to keep the pt hospitalized for at least the first week following initiation of treatment to monitor for DIC (2) Pancytopenia Status: Acute Plan: - See above. (3) Neutropenia Status: Acute Plan: - See above (4) Diarrhea Status: Acute Plan: - Diarrhea is resolving. - Stools are negative for C. diff - Stools for cryptosporidium and Giardia are pending. (5) Weakness generalized Status: Acute Plan: - See above (6) Renal cell carcinoma Status: Resolved Plan: - See above (7) Hypertension Status: Chronic Plan: - BP is stable. (8) PAD (peripheral artery disease) Status: Chronic Plan: - Pt with hx of PAD s/p 5 stents in lower ext. (9) copd Status: Chronic (10) CKD (chronic kidney disease) stage 3, GFR 30-59 ml/min Status: Chronic Assessment and Plan Patient examined. Assessment and plan formulated with Vanita Son PA-C. I agree with the above. Problem Qualifiers (1) Neutropenia: Qualified Code: D70.9 - Neutropenia, unspecified type (2) Renal cell carcinoma: Qualified Code: C64.9 - Renal cell carcinoma, unspecified laterality Vanita Son Nov 05, 2016 09:53 Kayden Quintana DO Nov 10, 2016 10:49
[2016-11-05] MEDS: predniSONE 20 MG TAB PO SCH (10:08)
[2016-11-05] MEDS: ALLOPURINOL 300 MG TAB PO SCH ×2 (10:08→20:31)
[2016-11-05] MEDS: SODIUM CHLORIDE 0.9% FLUSH 10 ML FLUSH IV FLUSH SCH ×2 (10:13→20:34)
[2016-11-05] MEDS: SODIUM CHLOR 0.9% 1000 ML INJ 1,000 ML IV SCH ×3 (10:14→20:34)
[2016-11-05] MEDS ORDERED: SODIUM CHLORIDE 0.9% FLUSH 10 ML FLUSH IV FLUSH PRN (10:45)
[2016-11-05] MEDS ORDERED: SODIUM CHLORIDE 0.9% IV SCH (11:00)
[2016-11-05] MEDS: SODIUM CHLOR 0.9% 250 ML INJ 250 ML IV SCH (11:00)
[2016-11-05] MEDS ORDERED: [UNRECOGNIZED DRUG - OTHER] IV SCH (11:00)
[2016-11-05 11:32] LABS: HIV 1/2 AG AND AB SCREEN Negative (Negative)
--- NOTE | 2016-11-05 12:37 | RADRPT ---
EXAM DATE/TIME: 11/05/2016 11:53 [facility] COMPARISON: CHEST PA & LAT, November 02, 2016, 14:37. INDICATIONS : PICC Line Placement. MEDICAL HISTORY : Carcinoma; renal. SURGICAL HISTORY : None. ENCOUNTER: Subsequent ACUITY: 4 - 6 days PAIN SCORE: 0/10 LOCATION: Bilateral chest FINDINGS: A single view of the chest demonstrates the lungs to be symmetrically aerated without evidence of mas s, infiltrate or effusion. The cardiomediastinal contours are unremarkable. Osseous structures are intact. There is a right-sided PICC line in place with the tip projected over the superior vena cava. There are mild atherosclerotic changes in the aorta. CONCLUSION: No acute disease. Interval placement of right-sided PICC line. Des Mary MD on November 05, 2016 at 12:35 Board Certified Radiologist. This report was verified electronically.
[2016-11-05 16:00] VITALS: BP 146/80; PULSE 86; RESP 18; TEMP 96.2; O2SAT 97
[2016-11-05] MEDS: PRAVASTATIN SOD 40 MG TAB PO SCH (20:32)
[2016-11-05] MEDS: CHOLECALCIFEROL (VIT D3) 1000 UNIT TAB PO SCH (20:33)
[2016-11-05 21:00] VITALS: BP 197/88; PULSE 94; RESP 20; TEMP 96.8; O2SAT 98
[2016-11-06] VITALS (8 sets, daily range): BP systolic 147–187; BP diastolic 64–81; PULSE 73–88; RESP 18–20; TEMP 96.5–97.3; O2SAT 95–98
[2016-11-06 06:10] LABS: HEMATOCRIT 28.5 % (39.0-51.0); MEAN CELL VOLUME 95.7 FL (80.0-100.0); MEAN CORPUSCULAR HEMOGLOBIN 33.4 PG (27.0-34.0); MEAN CORPUSCULAR HGB CONC 34.9 % (32.0-36.0); PLATELET COUNT 67 TH/MM3 (150-450); RED BLOOD COUNT 2.97 MIL/MM3 (4.50-5.90); RED CELL DISTRIBUTION WIDTH 14.8 % (11.6-17.2); WHITE BLOOD COUNT 0.7 TH/MM3 (4.0-11.0)
[2016-11-06 06:12] LABS: HEMO FLAGS AUTO DIFF
[2016-11-06 06:32] LABS: ALKALINE PHOSPHATASE 85 U/L (45-117); ALT (GPT) 26 U/L (12-78); ANION GAP 8 MEQ/L (5-15); AST (GOT) 14 U/L (15-37); BICARBONATE 17.7 MEQ/L (21.0-32.0); BLOOD UREA NITROGEN 40 MG/DL (7-18); CHLORIDE 116 MEQ/L (98-107); GLOMERULAR FILTRATION RATE 37 ML/MIN (>89); POTASSIUM 4.6 MEQ/L (3.5-5.1); SODIUM (NA) 142 MEQ/L (136-145); TOTAL BILIRUBIN ADULT 0.2 MG/DL (0.2-1.0)
--- NOTE | 2016-11-06 07:51 | PD.ONC.PN ---
Subjective Subjective Remarks Patient denies acute complaints, specifically denies fevers, chills, night sweats, bruising, bleeding. His diarrhea has resolved. ATRA to start this morning. Per pharmacy BING will arrive on 11/07. Bone marrow biopsy aspirate PCR for translocation 15; 17 was positive therefore confirming the diagnosis of acute promyelocytic leukemia. Objective Data Date Time Temp Pulse Resp B/P Pulse Ox O2 Delivery O2 Flow Rate FiO2 11/06/16 04:00 96.7 74 18 148/72 98 11/06/16 00:00 96.5 79 18 154/74 97 11/05/16 21:00 96.8 94 20 197/88 98 11/05/16 16:00 96.2 86 18 146/80 97 11/05/16 08:00 96.5 102 18 147/84 98 11/06/16 11/06/16 11/06/16 07:00 15:00 23:00 Intake Total 1580 ml Balance 1580 ml Result Diagram: 11/06/16 0455 11/06/16 0455 Laboratory Results Laboratory Tests Test 11/06/16 04:55 White Blood Count 0.7 TH/MM3 Red Blood Count 2.97 MIL/MM3 Hemoglobin 9.9 GM/DL Hematocrit 28.5 % Mean Corpuscular Volume 95.7 FL Mean Corpuscular Hemoglobin 33.4 PG Mean Corpuscular Hemoglobin 34.9 % Concent Red Cell Distribution Width 14.8 % Platelet Count 67 TH/MM3 Mean Platelet Volume 7.2 FL Neutrophils (%) (Auto) % Lymphocytes (%) (Auto) % Monocytes (%) (Auto) % Eosinophils (%) (Auto) % Basophils (%) (Auto) % Neutrophils # (Auto) TH/MM3 Lymphocytes # (Auto) TH/MM3 Monocytes # (Auto) TH/MM3 Eosinophils # (Auto) TH/MM3 Basophils # (Auto) TH/MM3 CBC Comment AUTO DIFF Sodium Level 142 MEQ/L Potassium Level 4.6 MEQ/L Chloride Level 116 MEQ/L Carbon Dioxide Level 17.7 MEQ/L Anion Gap 8 MEQ/L Blood Urea Nitrogen 40 MG/DL Creatinine 1.79 MG/DL Estimat Glomerular Filtration 37 ML/MIN Rate Random Glucose 105 MG/DL Calcium Level 8.3 MG/DL Phosphorus Level 2.8 MG/DL Magnesium Level 2.0 MG/DL Total Bilirubin 0.2 MG/DL Aspartate Amino Transf 14 U/L (AST/SGOT) Alanine Aminotransferase 26 U/L (ALT/SGPT) Alkaline Phosphatase 85 U/L Total Protein 6.0 GM/DL Albumin 3.0 GM/DL Culture Results Microbiology Date/Time Procedure Status Source Growth 11/03/16 09:20 - Final Complete Stool Stool NO ENTERIC PATHOGENS DETECTED BY PCR... 11/03/16 09:20 Cryptosporidium Exam - Final Complete Stool Stool NEGATIVE - NO CRYPTOSPORIDIUM ANTIGEN... 11/03/16 09:20 Giardia Antigen (BINDU) - Final Complete Stool Stool NEGATIVE - NO GIARDIA ANTIGEN DETECTE... Administered Medications Medications (Trade) Dose Ordered Sig/Sowmya Route PRN Reason Start Time Stop Time Status Last Admin Dose Admin Sodium Chloride (NS Flush) 2 ml BID IV FLUSH 11/02/16 21:00 11/05/16 20:34 Pravastatin Sodium (Pravachol) 40 mg HS PO 11/02/16 21:00 11/05/16 20:32 Cholecalciferol 1000 units 1,000 units HS PO 11/02/16 21:00 11/05/16 20:33 Sodium Chloride (NS 1000 ml Inj) 1,000 ml @ 84 mls/hr [id number] IV 11/03/16 10:00 11/05/16 20:34 Allopurinol (Zyloprim) 300 mg BID PO 11/04/16 21:00 11/05/16 20:31 Prednisone (Deltasone) 40 mg DAILY PO 11/05/16 09:00 11/05/16 10:08 Objective Remarks GENERAL: Elderly male, pleasant disposition, coughs frequently. This is a well- nourished, well-developed patient, in no apparent distress. SKIN: No rashes, ecchymoses or lesions. Cool and dry. HEAD: Atraumatic. Normocephalic. No temporal or scalp tenderness. EYES: Pupils equal round and reactive. Extraocular motions intact. No scleral icterus. No injection or drainage. ENT: Nose without bleeding, purulent drainage or septal hematoma. Throat without erythema, tonsillar hypertrophy or exudate. Uvula midline. Airway patent. NECK: Trachea midline. No JVD or lymphadenopathy. Supple, nontender, no meningeal signs. CARDIOVASCULAR: Regular rate and rhythm without murmurs, gallops, or rubs. RESPIRATORY: Prolonged expiratory phase, disbursed crackles occasional rhonchi. GASTROINTESTINAL: Abdomen soft, non-tender, nondistended. No hepato-splenomegaly , or palpable masses. No guarding. MUSCULOSKELETAL: Extremities without clubbing, cyanosis, or edema. No joint tenderness, effusion, or edema noted. No calf tenderness. Negative Homans sign bilaterally. NEUROLOGICAL: Awake and alert. Cranial nerves II through XII intact. Motor and sensory grossly within normal limits. Five out of 5 muscle strength in all muscle groups. Normal speech. Assessment/Plan Assessment 76-year-old male presenting with pancytopenia, bone marrow biopsy performed on with marrow aspiration indicates findings diagnostic for acute promyelocytic leukemia bone marrow aspirate flow cytometry indicates 81% blasts with features of acute promyelocytic leukemia. Confirmatory testing including PCR for translocation 15; 17 is was positive. Plan to start ATRA today day 1 will be 11/06/2016. Arsenic trioxide will likely start on 11/07/2016 Corticosteroids started on 11/05/2016. Tumor lysis syndrome prophylaxis with allopurinol was initiated on 11/04/2016. Continue hydration. Plan 1. APL on bone marrow flow cytometry: NCCN guidelines templates were reviewed, printed and placed in the chart. Start ATRA 45 mg per metered squared twice a day, arsenic trioxide which will be dosed at 0.15 mg/kg IV over 1 hour daily until remission is achieved, prednisone 0.5 mg/kg daily, allopurinol 300 mg twice daily for tumor lysis syndrome prophylaxis. Baseline EKG reviewed, no evidence of prolonged intervals QTc: 383 ms. His BSA is 1.93 m. ATRA will be dosed at 40 mg twice daily. Prednisone will be dosed at 40 mg daily. Arsenic trioxide will be dosed at 10 mg intravenously daily. PICC line has been ordered and this should be placed for 30/11/2016. Low sodium bicarbonate levels noted; I have started him on oral sodium bicarbonate 325 mg 3 times a day. Low platelet levels noted; likely secondary to early DIC. PT/PTT/INR and fibrinogen levels have been ordered. He is at risk for differentiation syndrome due to maturation of large quantities of neutrophils and lysis of neutrophils with resultant release of inflammatory mediators resulting in DIC. Michael Haley MD Nov 06, 2016 07:51
[2016-11-06 08:29] LABS: BANDS 6 % (0-6); NEUTROPHIL # MANUAL DIFF 0.5 TH/MM3 (1.8-7.7); POLYS (SEG NEUTROPHILS) 67 % (16-70); WBC DIFF SAMPLE 100
[2016-11-06 08:30] LABS: OVALOCYTES 1+ (NORMAL); PLATELET ESTIMATE SMEAR LOW (NORMAL); PLATELET MORPHOLOGY NORMAL (NORMAL); SCAN/DIFF FINAL DIFF MANUAL
[2016-11-06] MEDS: SODIUM CHLORIDE 0.9% FLUSH 10 ML FLUSH IV FLUSH SCH ×3 (09:00→21:00)
[2016-11-06] MEDS: SODIUM CHLOR 0.9% 1000 ML INJ 1,000 ML IV SCH ×2 (09:30→21:43)
[2016-11-06] MEDS: SODIUM BICARBONATE 325 MG TAB PO SCH ×3 (10:48→21:39)
[2016-11-06] MEDS: predniSONE 20 MG TAB PO SCH (10:48)
[2016-11-06] MEDS: LOPERAMIDE HCL 2 MG CAP PO PRN (10:55)
[2016-11-06] MEDS: ALLOPURINOL 300 MG TAB PO SCH ×2 (10:55→21:39)
[2016-11-06] MEDS: SODIUM CHLOR 0.9% 250 ML INJ 250 ML IV SCH (11:00)
[2016-11-06 11:06] LABS: APTT (PATIENT) 25.7 SEC (24.3-30.1); INTERNATIONAL NORMALIZED RATIO 1.1 RATIO; PROTHROMBIN TIME - PATIENT 12.2 SEC (9.8-11.6)
--- NOTE | 2016-11-06 15:36 | HHI.PR ---
Subjective Remarks No new complaints Objective Vitals Vital Signs Date Time Temp Pulse Resp B/P Pulse Ox O2 Delivery O2 Flow Rate FiO2 11/06/16 12:20 97.3 76 18 147/81 96 11/06/16 10:00 156/64 11/06/16 07:50 96.9 73 20 187/77 97 11/06/16 04:00 96.7 74 18 148/72 98 11/06/16 00:00 96.5 79 18 154/74 97 11/05/16 21:00 96.8 94 20 197/88 98 11/05/16 16:00 96.2 86 18 146/80 97 11/05/16 11/05/16 11/06/16 15:00 23:00 07:00 Intake Total 960 ml 480 ml 1580 ml Balance 960 ml 480 ml 1580 ml Intake Oral 960 ml 480 ml 480 ml IV Total 1100 ml # Voids 3 2 2 # Bowel Movements 0 1 Result Diagram: 11/06/16 0455 11/06/16 0455 Other Results Laboratory Tests Test 11/05/16 11/06/16 11/06/16 05:38 04:55 10:19 Phosphorus Level 3.3 MG/DL 2.8 MG/DL Magnesium Level 2.3 MG/DL 2.0 MG/DL White Blood Count 0.7 TH/MM3 Red Blood Count 2.97 MIL/MM3 Hemoglobin 9.9 GM/DL Hematocrit 28.5 % Mean Corpuscular Volume 95.7 FL Mean Corpuscular Hemoglobin 33.4 PG Mean Corpuscular Hemoglobin 34.9 % Concent Red Cell Distribution Width 14.8 % Platelet Count 67 TH/MM3 Mean Platelet Volume 7.2 FL Neutrophils (%) (Auto) % Lymphocytes (%) (Auto) % Monocytes (%) (Auto) % Eosinophils (%) (Auto) % Basophils (%) (Auto) % Neutrophils # (Auto) TH/MM3 Lymphocytes # (Auto) TH/MM3 Monocytes # (Auto) TH/MM3 Eosinophils # (Auto) TH/MM3 Basophils # (Auto) TH/MM3 CBC Comment AUTO DIFF Differential Total Cells 100 Counted Neutrophils % (Manual) 67 % Band Neutrophils % 6 % Lymphocytes % 22 % Monocytes % 5 % Neutrophils # (Manual) 0.5 TH/MM3 Differential Comment FINAL DIFF MANUAL Platelet Estimate LOW Platelet Morphology Comment NORMAL Ovalocytes 1+ Sodium Level 142 MEQ/L Potassium Level 4.6 MEQ/L Chloride Level 116 MEQ/L Carbon Dioxide Level 17.7 MEQ/L Anion Gap 8 MEQ/L Blood Urea Nitrogen 40 MG/DL Creatinine 1.79 MG/DL Estimat Glomerular Filtration 37 ML/MIN Rate Random Glucose 105 MG/DL Calcium Level 8.3 MG/DL Total Bilirubin 0.2 MG/DL Aspartate Amino Transf 14 U/L (AST/SGOT) Alanine Aminotransferase 26 U/L (ALT/SGPT) Alkaline Phosphatase 85 U/L Total Protein 6.0 GM/DL Albumin 3.0 GM/DL Prothrombin Time 12.2 SEC Prothromb Time International 1.1 RATIO Ratio Activated Partial 25.7 SEC Thromboplast Time Fibrinogen 159 mg/dL Uric Acid 6.7 MG/DL Imaging Last 24 hours Impressions Lum[address] Spine CT 11/02/16 0000 Signed Impressions: Service Date/Time: Wednesday, November 02, 2016 15:10 - CONCLUSION: 1. Chronic bilateral pars defects at L5-S1 with associated significant spondylolisthesis and hypertrophic changes in the posterior elements. 2. Advanced discogenic degenerative changes from L2-S1, left lumbar scoliosis, and a moderately large left-sided disc protrusion at L2-3 causing probable neural impingement. Lam Parrish MD Chest X-Ray 11/02/16 0000 Signed Impressions: Service Date/Time: Wednesday, November 02, 2016 14:37 - CONCLUSION: No acute cardiopulmonary disease. Lam Parrish MD Abdomen/Pelvis CT 11/02/16 0000 Signed Impressions: Service Date/Time: Wednesday, November 02, 2016 15:10 - CONCLUSION: 1. Left parapelvic cyst and a low density lesion lower pole of the solitary left kidney are similar to images from a prior cryoablation in August 2015. 2. Bilateral adrenal lesions, low density in the right and intermediate density on the left. Recommend correlation with outside prior imaging studies to see if this is a new or old finding. 3. 4.2 cm distal abdominal aortic aneurysm. Bilaterally iliac stents in place. 4. Significant spondylolisthesis at L5-S1 with bilateral pars defects. 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 He reported that he had been having diarrhea for months but this suddenly worsened and was having up to 10x/day, nonbloody. - Labs at admission found the pt to have pancytopenia with neutropenia. No fevers or chills. - CT Abd/pelvis (11/02) noted to have AAA 4.2cm and vla adrenal lesions. - Hematology was consulted to assist in etiology of pancytopenia. 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 - Pt is being started on ATRA at 40 mg twice daily, Prednisone 40 mg daily, Arsenic trioxide at 11.85 mg intravenously daily per Heme/Onc recommendations. - PICC line to be placed on 11/05/16 - Hematology plans to keep the pt hospitalized for at least the first week following initiation of treatment to monitor for DIC - Monitor labs (2) Pancytopenia Status: Acute Plan: - See above. (3) Neutropenia Status: Acute Plan: - See above (4) Diarrhea Status: Acute Plan: - Diarrhea is resolving. - Stools are negative for C. diff - Stools for cryptosporidium and Giardia are negative (5) Weakness generalized Status: Acute Plan: - See above (6) Renal cell carcinoma Status: Resolved Plan: - See above (7) Hypertension Status: Chronic Plan: - BP is stable. (8) PAD (peripheral artery disease) Status: Chronic Plan: - Pt with hx of PAD s/p 5 stents in lower ext. (9) copd Status: Chronic (10) CKD (chronic kidney disease) stage 3, GFR 30-59 ml/min Status: Chronic Assessment and Plan Patient examined. Assessment and plan formulated with Vanita Son PA-C. I agree with the above. Problem Qualifiers (1) Neutropenia: Qualified Code: D70.9 - Neutropenia, unspecified type (2) Renal cell carcinoma: Qualified Code: C64.9 - Renal cell carcinoma, unspecified laterality Vanita Son Nov 06, 2016 15:36 Kayden Quintana DO Nov 10, 2016 10:50
[2016-11-06] MEDS: [UNRECOGNIZED DRUG - OTHER] IV SCH (16:45)
[2016-11-06] MEDS: SODIUM CHLORIDE 0.9% IV SCH (16:45)
[2016-11-06] MEDS: CHOLECALCIFEROL (VIT D3) 1000 UNIT TAB PO SCH (21:39)
[2016-11-06] MEDS: PRAVASTATIN SOD 40 MG TAB PO SCH (21:39)
[2016-11-07] VITALS (7 sets, daily range): BP systolic 120–176; BP diastolic 68–79; PULSE 73–96; RESP 16–20; TEMP 96.3–98.7; O2SAT 94–99
[2016-11-07] MEDS: SODIUM BICARBONATE 325 MG TAB PO SCH ×3 (05:06→20:15)
[2016-11-07 05:35] LABS: HEMATOCRIT 26.9 % (39.0-51.0); MEAN CELL VOLUME 95.2 FL (80.0-100.0); MEAN CORPUSCULAR HEMOGLOBIN 33.8 PG (27.0-34.0); MEAN CORPUSCULAR HGB CONC 35.5 % (32.0-36.0); PLATELET COUNT 60 TH/MM3 (150-450); RED BLOOD COUNT 2.82 MIL/MM3 (4.50-5.90); RED CELL DISTRIBUTION WIDTH 14.9 % (11.6-17.2); WHITE BLOOD COUNT 0.7 TH/MM3 (4.0-11.0)
[2016-11-07 05:42] LABS: HEMO FLAGS AUTO DIFF
[2016-11-07 07:43] LABS: BANDS 1 % (0-6); NEUTROPHIL # MANUAL DIFF 0.5 TH/MM3 (1.8-7.7); PLATELET ESTIMATE SMEAR LOW (NORMAL); PLATELET MORPHOLOGY NORMAL (NORMAL); POLYS (SEG NEUTROPHILS) 65 % (16-70); ROULEAUX PRESENT (NORMAL); SCAN/DIFF FINAL DIFF MANUAL; WBC DIFF SAMPLE 100
--- NOTE | 2016-11-07 08:44 | HHI.PR ---
Subjective Remarks No new complaints. Objective Vitals Vital Signs Date Time Temp Pulse Resp B/P Pulse Ox O2 Delivery O2 Flow Rate FiO2 11/07/16 04:30 96.3 75 16 120/68 97 11/07/16 00:00 96.5 80 18 156/72 97 11/06/16 20:30 97.0 88 18 163/78 95 11/06/16 16:28 167/78 11/06/16 15:50 96.7 77 20 170/80 98 11/06/16 12:20 97.3 76 18 147/81 96 11/06/16 10:00 156/64 11/06/16 11/06/16 11/07/16 15:00 23:00 07:00 Intake Total 480 ml 2064 ml 1079 ml Balance 480 ml 2064 ml 1079 ml Intake Oral 480 ml 720 ml 240 ml IV Total 1344 ml 839 ml # Voids 5 4 3 # Bowel Movements 2 Result Diagram: 11/07/16 0510 11/06/16 0455 Other Results Laboratory Tests Test 11/06/16 11/06/16 11/07/16 04:55 10:19 05:10 White Blood Count 0.7 TH/MM3 0.7 TH/MM3 Red Blood Count 2.97 MIL/MM3 2.82 MIL/MM3 Hemoglobin 9.9 GM/DL 9.5 GM/DL Hematocrit 28.5 % 26.9 % Mean Corpuscular Volume 95.7 FL 95.2 FL Mean Corpuscular Hemoglobin 33.4 PG 33.8 PG Mean Corpuscular Hemoglobin 34.9 % 35.5 % Concent Red Cell Distribution Width 14.8 % 14.9 % Platelet Count 67 TH/MM3 60 TH/MM3 Mean Platelet Volume 7.2 FL 7.5 FL Neutrophils (%) (Auto) % % Lymphocytes (%) (Auto) % % Monocytes (%) (Auto) % % Eosinophils (%) (Auto) % % Basophils (%) (Auto) % % Neutrophils # (Auto) TH/MM3 TH/MM3 Lymphocytes # (Auto) TH/MM3 TH/MM3 Monocytes # (Auto) TH/MM3 TH/MM3 Eosinophils # (Auto) TH/MM3 TH/MM3 Basophils # (Auto) TH/MM3 TH/MM3 CBC Comment AUTO DIFF AUTO DIFF Differential Total Cells 100 100 Counted Neutrophils % (Manual) 67 % 65 % Band Neutrophils % 6 % 1 % Lymphocytes % 22 % 31 % Monocytes % 5 % 3 % Neutrophils # (Manual) 0.5 TH/MM3 0.5 TH/MM3 Differential Comment FINAL DIFF FINAL DIFF MANUAL MANUAL Platelet Estimate LOW LOW Platelet Morphology Comment NORMAL NORMAL Ovalocytes 1+ Sodium Level 142 MEQ/L Potassium Level 4.6 MEQ/L Chloride Level 116 MEQ/L Carbon Dioxide Level 17.7 MEQ/L Anion Gap 8 MEQ/L Blood Urea Nitrogen 40 MG/DL Creatinine 1.79 MG/DL Estimat Glomerular Filtration 37 ML/MIN Rate Random Glucose 105 MG/DL Calcium Level 8.3 MG/DL Phosphorus Level 2.8 MG/DL 2.7 MG/DL Magnesium Level 2.0 MG/DL 2.0 MG/DL Total Bilirubin 0.2 MG/DL Aspartate Amino Transf 14 U/L (AST/SGOT) Alanine Aminotransferase 26 U/L (ALT/SGPT) Alkaline Phosphatase 85 U/L Total Protein 6.0 GM/DL Albumin 3.0 GM/DL Prothrombin Time 12.2 SEC Prothromb Time International 1.1 RATIO Ratio Activated Partial 25.7 SEC Thromboplast Time Fibrinogen 159 mg/dL Uric Acid 6.7 MG/DL [facility] PRESENT Imaging Last 24 hours Impressions Lumbar Spine CT 11/02/16 0000 Signed Impressions: Service Date/Time: Wednesday, November 02, 2016 15:10 - CONCLUSION: 1. Chronic bilateral pars defects at L5-S1 with associated significant spondylolisthesis and hypertrophic changes in the posterior elements. 2. Advanced discogenic degenerative changes from L2-S1, left lumbar scoliosis, and a moderately large left-sided disc protrusion at L2-3 causing probable neural impingement. Lam Parrish MD Chest X-Ray 11/02/16 0000 Signed Impressions: Service Date/Time: Wednesday, November 02, 2016 14:37 - CONCLUSION: No acute cardiopulmonary disease. Lam Parrish MD Abdomen/Pelvis CT 11/02/16 0000 Signed Impressions: Service Date/Time: Wednesday, November 02, 2016 15:10 - CONCLUSION: 1. Left parapelvic cyst and a low density lesion lower pole of the solitary left kidney are similar to images from a prior cryoablation in August 2015. 2. Bilateral adrenal lesions, low density in the right and intermediate density on the left. Recommend correlation with outside prior imaging studies to see if this is a new or old finding. 3. 4.2 cm distal abdominal aortic aneurysm. Bilaterally iliac stents in place. 4. Significant spondylolisthesis at L5-S1 with bilateral pars defects. 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 He reported that he had been having diarrhea for months but this suddenly worsened and was having up to 10x/day, nonbloody. - Labs at admission found the pt to have pancytopenia with neutropenia. No fevers or chills. - CT Abd/pelvis (11/02) noted to have AAA 4.2cm and val adrenal lesions. - Hematology was consulted to assist in etiology of pancytopenia. 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 - Pt is being started on ATRA at 40 mg twice daily, Prednisone 40 mg daily, Arsenic trioxide at 11.85 mg intravenously daily per Heme/Onc recommendations. - PICC line to be placed on 11/05/16 - Chemo regimen started on 11/06/16 - Hematology plans to keep the pt hospitalized for at least the first week following initiation of treatment to monitor for DIC - Monitor labs (2) Pancytopenia Status: Acute Plan: - See above. (3) Neutropenia Status: Acute Plan: - See above (4) Diarrhea Status: Acute Plan: - Diarrhea is resolving. - Stools are negative for C. diff - Stools for cryptosporidium and Giardia are negative (5) Weakness generalized Status: Acute Plan: - See above (6) Renal cell carcinoma Status: Resolved Plan: - See above (7) Hypertension Status: Chronic Plan: - BP is stable. (8) PAD (peripheral artery disease) Status: Chronic Plan: - Pt with hx of PAD s/p 5 stents in lower ext. (9) copd Status: Chronic (10) CKD (chronic kidney disease) stage 3, GFR 30-59 ml/min Status: Chronic Assessment and Plan Patient examined. Assessment and plan formulated with Vanita Son PA-C. I agree with the above. Problem Qualifiers (1) Neutropenia: Qualified Code: D70.9 - Neutropenia, unspecified type (2) Renal cell carcinoma: Qualified Code: C64.9 - Renal cell carcinoma, unspecified laterality Vanita Son Nov 07, 2016 08:44 Kayden Quintana DO Nov 10, 2016 10:50
[2016-11-07] MEDS: TRETINOIN PO SCH ×3 (09:00→18:49)
[2016-11-07] MEDS: SODIUM CHLORIDE 0.9% FLUSH 10 ML FLUSH IV FLUSH SCH ×3 (09:00→20:15)
--- NOTE | 2016-11-07 09:06 | HHI.PR ---
Subjective Remarks Pt c/o acid reflux last night. otherwise doing well. Objective Vitals Vital Signs Date Time Temp Pulse Resp B/P Pulse Ox O2 Delivery O2 Flow Rate FiO2 11/07/16 04:30 96.3 75 16 120/68 97 11/07/16 00:00 96.5 80 18 156/72 97 11/06/16 20:30 97.0 88 18 163/78 95 11/06/16 16:28 167/78 11/06/16 15:50 96.7 77 20 170/80 98 11/06/16 12:20 97.3 76 18 147/81 96 11/06/16 10:00 156/64 11/06/16 11/06/16 11/07/16 15:00 23:00 07:00 Intake Total 480 ml 2064 ml 1079 ml Balance 480 ml 2064 ml 1079 ml Intake Oral 480 ml 720 ml 240 ml IV Total 1344 ml 839 ml # Voids 5 4 3 # Bowel Movements 2 Result Diagram: 11/07/16 0510 11/06/16 0455 Imaging Last 24 hours Impressions Lumbar Spine CT 11/02/16 0000 Signed Impressions: Service Date/Time: Wednesday, November 02, 2016 15:10 - CONCLUSION: 1. Chronic bilateral pars defects at L5-S1 with associated significant spondylolisthesis and hypertrophic changes in the posterior elements. 2. Advanced discogenic degenerative changes from L2-S1, left lumbar scoliosis, and a moderately large left-sided disc protrusion at L2-3 causing probable neural impingement. Lam Parrish MD Chest X-Ray 11/02/16 0000 Signed Impressions: Service Date/Time: Wednesday, November 02, 2016 14:37 - CONCLUSION: No acute cardiopulmonary disease. Lam Parrish MD Abdomen/Pelvis CT 11/02/16 0000 Signed Impressions: Service Date/Time: Wednesday, November 02, 2016 15:10 - CONCLUSION: 1. Left parapelvic cyst and a low density lesion lower pole of the solitary left kidney are similar to images from a prior cryoablation in August 2015. 2. Bilateral adrenal lesions, low density in the right and intermediate density on the left. Recommend correlation with outside prior imaging studies to see if this is a new or old finding. 3. 4.2 cm distal abdominal aortic aneurysm. Bilaterally iliac stents in place. 4. Significant spondylolisthesis at L5-S1 with bilateral pars defects. 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 He reported that he had been having diarrhea for months but this suddenly worsened and was having up to 10x/day, nonbloody. - Labs at admission found the pt to have pancytopenia with neutropenia. No fevers or chills. - CT Abd/pelvis (11/02) noted to have AAA 4.2cm and val adrenal lesions. - Hematology was consulted to assist in etiology of pancytopenia. 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 - Pt is being started on ATRA at 40 mg twice daily, Prednisone 40 mg daily, Arsenic trioxide at 11.85 mg intravenously daily per Heme/Onc recommendations. - PICC line to be placed on 11/05/16 - Chemo regimen started on 11/06/16 - Hematology plans to keep the pt hospitalized for at least the first week following initiation of treatment to monitor for DIC - Monitor labs 11/07/16 - Pt interviewed and examined - continue current treatment plan as outlined above. (2) GERD (gastroesophageal reflux disease) Status: Acute Plan: - start protonix - tums prn (3) Pancytopenia Status: Acute Plan: - See above. (4) Neutropenia Status: Acute Plan: - See above (5) Diarrhea Status: Acute Plan: - Diarrhea is resolving. - Stools are negative for C. diff - Stools for cryptosporidium and Giardia are negative (6) Weakness generalized Status: Acute Plan: - See above (7) Renal cell carcinoma Status: Resolved Plan: - See above (8) Hypertension Status: Chronic Plan: - BP is stable. (9) PAD (peripheral artery disease) Status: Chronic Plan: - Pt with hx of PAD s/p 5 stents in lower ext. (10) copd Status: Chronic (11) CKD (chronic kidney disease) stage 3, GFR 30-59 ml/min Status: Chronic Problem Qualifiers (1) GERD (gastroesophageal reflux disease): Qualified Code: K21.9 - Gastroesophageal reflux disease, esophagitis presence not specified (2) Neutropenia: Qualified Code: D70.9 - Neutropenia, unspecified type (3) Renal cell carcinoma: Qualified Code: C64.9 - Renal cell carcinoma, unspecified laterality Kayden Quintana DO Nov 07, 2016 09:06
[2016-11-07] MEDS ORDERED: CALCIUM CARBONATE 500 MG CHEWABLE TAB CHEW PRN (09:15)
[2016-11-07] MEDS: PANTOPRAZOLE SOD 40 MG DELAYED RELEASE TAB PO SCH (09:30)
[2016-11-07] MEDS: ALLOPURINOL 300 MG TAB PO SCH ×2 (09:30→20:15)
[2016-11-07] MEDS: predniSONE 20 MG TAB PO SCH (09:30)
--- NOTE | 2016-11-07 15:11 | PD.ONC.PN ---
Subjective Subjective Remarks Mr. Rainey was seen and examined today at 12:45pm. He was having lunch at the time. His was in the room visiting. The patient was started on BING on 11/06. ATRA started this AM. He denies acute complaints; fevers, chills, bruising, bleeding, chest pain or PND. Objective Data Date Time Temp Pulse Resp B/P Pulse Ox O2 Delivery O2 Flow Rate FiO2 11/07/16 13:00 130/78 11/07/16 11:50 98.7 92 20 169/79 94 11/07/16 07:50 96.9 73 20 140/70 11/07/16 04:30 96.3 75 16 120/68 97 11/07/16 00:00 96.5 80 18 156/72 97 11/06/16 20:30 97.0 88 18 163/78 95 11/06/16 16:28 167/78 11/06/16 15:50 96.7 77 20 170/80 98 11/07/16 11/07/16 11/07/16 07:00 15:00 23:00 Intake Total 1079 ml Balance 1079 ml Result Diagram: 11/07/16 0510 11/06/16 0455 Laboratory Results Laboratory Tests Test 11/07/16 05:10 White Blood Count 0.7 TH/MM3 Red Blood Count 2.82 MIL/MM3 Hemoglobin 9.5 GM/DL Hematocrit 26.9 % Mean Corpuscular Volume 95.2 FL Mean Corpuscular Hemoglobin 33.8 PG Mean Corpuscular Hemoglobin 35.5 % Concent Red Cell Distribution Width 14.9 % Platelet Count 60 TH/MM3 Mean Platelet Volume 7.5 FL Neutrophils (%) (Auto) % Lymphocytes (%) (Auto) % Monocytes (%) (Auto) % Eosinophils (%) (Auto) % Basophils (%) (Auto) % Neutrophils # (Auto) TH/MM3 Lymphocytes # (Auto) TH/MM3 Monocytes # (Auto) TH/MM3 Eosinophils # (Auto) TH/MM3 Basophils # (Auto) TH/MM3 CBC Comment AUTO DIFF Differential Total Cells 100 Counted Neutrophils % (Manual) 65 % Band Neutrophils % 1 % Lymphocytes % 31 % Monocytes % 3 % Neutrophils # (Manual) 0.5 TH/MM3 Differential Comment FINAL DIFF MANUAL Platelet Estimate LOW Platelet Morphology Comment NORMAL [place]le[place] PRESENT Phosphorus Level 2.7 MG/DL Magnesium Level 2.0 MG/DL Administered Medications Medications (Trade) Dose Ordered Sig/Sowmya Route PRN Reason Start Time Stop Time Status Last Admin Dose Admin Sodium Chloride (NS Flush) 2 ml BID IV FLUSH 11/02/16 21:00 11/06/16 09:30 Pravastatin Sodium (Pravachol) 40 mg HS PO 11/02/16 21:00 11/06/16 21:39 Cholecalciferol 1000 units 1,000 units HS PO 11/02/16 21:00 11/06/16 21:39 Sodium Chloride (NS 1000 ml Inj) 1,000 ml @ 84 mls/hr [id number] IV 11/03/16 10:00 11/06/16 21:43 Loperamide HCl (Imodium) 2 mg Q4H PRN PO after each episode diarrhea 11/04/16 09:30 11/06/16 10:55 Allopurinol (Zyloprim) 300 mg BID PO 11/04/16 21:00 11/07/16 09:30 Prednisone (Deltasone) 40 mg DAILY PO 11/05/16 09:00 11/07/16 09:30 Tretinoin 40 mg 40 mg BIDPC PO 11/05/16 09:00 11/07/16 09:34 Sodium Chloride (NS 250 ml Inj) 250 ml @ 84 mls/hr Q24H IV 11/05/16 11:00 11/06/16 11:00 Sodium Bicarbonate 325 mg 325 mg Q8HR PO 11/06/16 08:00 11/07/16 05:06 Arsenic Trioxide/ Sodium Chloride (Trisenox Inj/NS 250 ml Inj) 260 ml @ 130.925 mls/hr Q24H IV 11/06/16 14:00 11/30/16 16:00 11/06/16 16:45 Pantoprazole Sodium (Protonix) 40 mg DAILY PO 11/07/16 09:15 11/07/16 09:30 Calcium Carbonate (Tums Chew) 500 mg Q2H PRN CHEW dyspepsia 11/07/16 09:15 11/07/16 09:30 Objective Remarks GENERAL: Elderly male, pleasant disposition, coughs frequently. This is a well- nourished, well-developed patient, in no apparent distress. SKIN: No rashes, ecchymoses or lesions. Cool and dry. HEAD: Atraumatic. Normocephalic. No temporal or scalp tenderness. EYES: Pupils equal round and reactive. Extraocular motions intact. No scleral icterus. No injection or drainage. ENT: Nose without bleeding, purulent drainage or septal hematoma. Throat without erythema, tonsillar hypertrophy or exudate. Uvula midline. Airway patent. NECK: Trachea midline. No JVD or lymphadenopathy. Supple, nontender, no meningeal signs. CARDIOVASCULAR: Regular rate and rhythm without murmurs, gallops, or rubs. RESPIRATORY: Prolonged expiratory phase, disbursed crackles occasional rhonchi. GASTROINTESTINAL: Abdomen soft, non-tender, nondistended. No hepato-splenomegaly , or palpable masses. No guarding. MUSCULOSKELETAL: Extremities without clubbing, cyanosis, or edema. No joint tenderness, effusion, or edema noted. No calf tenderness. Negative Homans sign bilaterally. NEUROLOGICAL: Awake and alert. Cranial nerves II through XII intact. Motor and sensory grossly within normal limits. Five out of 5 muscle strength in all muscle groups. Normal speech. Assessment/Plan Assessment 76-year-old male presenting with pancytopenia, bone marrow biopsy performed on with marrow aspiration indicates findings diagnostic for acute promyelocytic leukemia bone marrow aspirate flow cytometry indicates 81% blasts with features of acute promyelocytic leukemia. Confirmatory testing including PCR for translocation 15; 17 is was positive. Plan to start ATRA today day 1 will be 11/06/2016. Arsenic trioxide will likely start on 11/07/2016 Corticosteroids started on 11/05/2016. Tumor lysis syndrome prophylaxis with allopurinol was initiated on 11/04/2016. Continue hydration. Plan 1. 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 Start ATRA 45 mg per metered squared twice a day (Day 1 on 11/07), arsenic trioxide which will be dosed at 0.15 mg/kg IV over 1 hour daily until remission is achieved (Day 1 on 11/06), prednisone 0.5 mg/kg daily, allopurinol 300 mg twice daily for tumor lysis syndrome prophylaxis. Baseline EKG reviewed, no evidence of prolonged intervals QTc: 383 ms. His BSA is 1.93 m. Low sodium bicarbonate levels noted; I have started him on oral sodium bicarbonate 325 mg 3 times a day. 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 He is tolerating treatment well thus far. Michael Haley MD Nov 07, 2016 15:11
[2016-11-07] MEDS: [UNRECOGNIZED DRUG - OTHER] IV SCH (16:35)
[2016-11-07] MEDS: SODIUM CHLORIDE 0.9% IV SCH (16:35)
[2016-11-07] MEDS: SODIUM CHLOR 0.9% 250 ML INJ 250 ML IV SCH (16:45)
[2016-11-07] MEDS: SODIUM CHLOR 0.9% 1000 ML INJ 1,000 ML IV SCH (20:11)
[2016-11-07] MEDS: PRAVASTATIN SOD 40 MG TAB PO SCH (20:15)
[2016-11-07] MEDS: CHOLECALCIFEROL (VIT D3) 1000 UNIT TAB PO SCH (20:15)
[2016-11-08] VITALS: BP 136/64; PULSE 84; RESP 19; TEMP 97.8; O2SAT 95
[2016-11-08 04:00] VITALS: BP 130/66; PULSE 68; RESP 18; TEMP 97; O2SAT 95
[2016-11-08] MEDS: SODIUM BICARBONATE 325 MG TAB PO SCH ×3 (04:54→22:11)
[2016-11-08 06:11] LABS: HEMATOCRIT 25.3 % (39.0-51.0); MEAN CELL VOLUME 95.5 FL (80.0-100.0); MEAN CORPUSCULAR HEMOGLOBIN 33.4 PG (27.0-34.0); PLATELET COUNT 52 TH/MM3 (150-450); RED BLOOD COUNT 2.65 MIL/MM3 (4.50-5.90); RED CELL DISTRIBUTION WIDTH 14.6 % (11.6-17.2); WHITE BLOOD COUNT 0.7 TH/MM3 (4.0-11.0)
[2016-11-08 06:16] LABS: HEMO FLAGS AUTO DIFF
[2016-11-08 06:27] LABS: ALT (GPT) 28 U/L (12-78); ANION GAP 7 MEQ/L (5-15); AST (GOT) 17 U/L (15-37); BICARBONATE 21.2 MEQ/L (21.0-32.0); BLOOD UREA NITROGEN 39 MG/DL (7-18); CHLORIDE 116 MEQ/L (98-107); GLOMERULAR FILTRATION RATE 35 ML/MIN (>89); POTASSIUM 4.2 MEQ/L (3.5-5.1); SODIUM (NA) 144 MEQ/L (136-145)
[2016-11-08 06:30] LABS: ALKALINE PHOSPHATASE 77 U/L (45-117); TOTAL BILIRUBIN ADULT 0.2 MG/DL (0.2-1.0)
[2016-11-08 07:45] LABS: EOSINOPHILS 1 % (0-4); NEUTROPHIL # MANUAL DIFF 0.4 TH/MM3 (1.8-7.7); POLYS (SEG NEUTROPHILS) 52 % (16-70); WBC DIFF SAMPLE 75
[2016-11-08 07:46] LABS: PLATELET ESTIMATE SMEAR LOW (NORMAL); PLATELET MORPHOLOGY NORMAL (NORMAL); SCAN/DIFF FINAL DIFF MANUAL
[2016-11-08 08:00] VITALS: BP 143/97; PULSE 93; RESP 20; TEMP 96.7; O2SAT 97
[2016-11-08] MEDS: PANTOPRAZOLE SOD 40 MG DELAYED RELEASE TAB PO SCH (09:17)
[2016-11-08] MEDS: TRETINOIN PO SCH ×2 (09:17→22:17)
[2016-11-08] MEDS: ALLOPURINOL 300 MG TAB PO SCH (09:17)
[2016-11-08] MEDS: predniSONE 20 MG TAB PO SCH (09:18)
[2016-11-08] MEDS: SODIUM CHLOR 0.9% 1000 ML INJ 1,000 ML IV SCH ×2 (09:20→21:58)
[2016-11-08] MEDS: SODIUM CHLORIDE 0.9% FLUSH 10 ML FLUSH IV FLUSH SCH ×3 (09:20→21:57)
[2016-11-08 12:00] VITALS: BP 162/72; PULSE 95; RESP 22; TEMP 96.4; O2SAT 96
--- NOTE | 2016-11-08 15:24 | PD.ONC.PN ---
Subjective Subjective Remarks Patient was seen and examined her earlier this morning, he reports feeling well , tolerated treatment without difficulties yesterday. He denies fevers but did have a brief sensation of chills last night. Denies difficulty breathing, cough, hemoptysis, bruising. 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 Platelet count continues to decline. Objective Data Date Time Temp Pulse Resp B/P Pulse Ox O2 Delivery O2 Flow Rate FiO2 11/08/16 12:00 96.4 95 22 162/72 96 11/08/16 08:00 96.7 93 20 143/97 97 11/08/16 04:00 97.0 68 18 130/66 95 11/08/16 00:00 97.8 84 19 136/64 95 11/07/16 20:00 97.9 96 19 176/79 94 11/07/16 16:51 98.1 92 20 154/70 99 Result Diagram: 11/08/16 0500 11/08/16 0500 Laboratory Results Laboratory Tests Test 11/08/16 05:00 White Blood Count 0.7 TH/MM3 Red Blood Count 2.65 MIL/MM3 Hemoglobin 8.8 GM/DL Hematocrit 25.3 % Mean Corpuscular Volume 95.5 FL Mean Corpuscular Hemoglobin 33.4 PG Mean Corpuscular Hemoglobin 35.0 % Concent Red Cell Distribution Width 14.6 % Platelet Count 52 TH/MM3 Mean Platelet Volume 7.8 FL Neutrophils (%) (Auto) % Lymphocytes (%) (Auto) % Monocytes (%) (Auto) % Eosinophils (%) (Auto) % Basophils (%) (Auto) % Neutrophils # (Auto) TH/MM3 Lymphocytes # (Auto) TH/MM3 Monocytes # (Auto) TH/MM3 Eosinophils # (Auto) TH/MM3 Basophils # (Auto) TH/MM3 CBC Comment AUTO DIFF Differential Total Cells 75 Counted Neutrophils % (Manual) 52 % Lymphocytes % 44 % Monocytes % 3 % Eosinophils % 1 % Neutrophils # (Manual) 0.4 TH/MM3 Differential Comment FINAL DIFF MANUAL Platelet Estimate LOW Platelet Morphology Comment NORMAL Red Cell Morphology Comment NORMAL Sodium Level 144 MEQ/L Potassium Level 4.2 MEQ/L Chloride Level 116 MEQ/L Carbon Dioxide Level 21.2 MEQ/L Anion Gap 7 MEQ/L Blood Urea Nitrogen 39 MG/DL Creatinine 1.89 MG/DL Estimat Glomerular Filtration 35 ML/MIN Rate Random Glucose 89 MG/DL Calcium Level 8.3 MG/DL Total Bilirubin 0.2 MG/DL Aspartate Amino Transf 17 U/L (AST/SGOT) Alanine Aminotransferase 28 U/L (ALT/SGPT) Alkaline Phosphatase 77 U/L Total Protein 5.4 GM/DL Albumin 2.8 GM/DL Administered Medications Medications (Trade) Dose Ordered Sig/Sowmya Route PRN Reason Start Time Stop Time Status Last Admin Dose Admin Sodium Chloride (NS Flush) 2 ml BID IV FLUSH 11/02/16 21:00 11/06/16 09:30 Pravastatin Sodium (Pravachol) 40 mg HS PO 11/02/16 21:00 11/07/16 20:15 Cholecalciferol 1000 units 1,000 units HS PO 11/02/16 21:00 11/07/16 20:15 Sodium Chloride (NS 1000 ml Inj) 1,000 ml @ 84 mls/hr [id number] IV 11/03/16 10:00 11/08/16 09:20 Loperamide HCl (Imodium) 2 mg Q4H PRN PO after each episode diarrhea 11/04/16 09:30 11/06/16 10:55 Tretinoin 40 mg 40 mg BIDPC PO 11/05/16 09:00 11/08/16 09:17 Sodium Chloride (NS 250 ml Inj) 250 ml @ 84 mls/hr Q24H IV 11/05/16 11:00 11/07/16 16:45 Sodium Bicarbonate 325 mg 325 mg Q8HR PO 11/06/16 08:00 11/08/16 04:54 Arsenic Trioxide/ Sodium Chloride (Trisenox Inj/NS 250 ml Inj) 260 ml @ 130.925 mls/hr Q24H IV 11/06/16 14:00 11/30/16 16:00 11/07/16 16:35 Pantoprazole Sodium (Protonix) 40 mg DAILY PO 11/07/16 09:15 11/08/16 09:17 Calcium Carbonate (Tums Chew) 500 mg Q2H PRN CHEW dyspepsia 11/07/16 09:15 11/07/16 09:30 Allopurinol (Zyloprim) 300 mg DAILY PO 11/08/16 09:00 11/08/16 09:17 Objective Remarks GENERAL: Elderly male, pleasant disposition, coughs frequently. This is a well- nourished, well-developed patient, in no apparent distress. SKIN: No rashes, ecchymoses or lesions. Cool and dry. HEAD: Atraumatic. Normocephalic. No temporal or scalp tenderness. EYES: Pupils equal round and reactive. Extraocular motions intact. No scleral icterus. No injection or drainage. ENT: Nose without bleeding, purulent drainage or septal hematoma. Throat without erythema, tonsillar hypertrophy or exudate. Uvula midline. Airway patent. NECK: Trachea midline. No JVD or lymphadenopathy. Supple, nontender, no meningeal signs. CARDIOVASCULAR: Regular rate and rhythm without murmurs, gallops, or rubs. RESPIRATORY: Prolonged expiratory phase, disbursed crackles occasional rhonchi. GASTROINTESTINAL: Abdomen soft, non-tender, nondistended. No hepato-splenomegaly , or palpable masses. No guarding. MUSCULOSKELETAL: Extremities without clubbing, cyanosis, or edema. No joint tenderness, effusion, or edema noted. No calf tenderness. Negative Homans sign bilaterally. NEUROLOGICAL: Awake and alert. Cranial nerves II through XII intact. Motor and sensory grossly within normal limits. Five out of 5 muscle strength in all muscle groups. Normal speech. Assessment/Plan Assessment 76-year-old male presenting with pancytopenia, bone marrow biopsy performed on with marrow aspiration indicates findings diagnostic for acute promyelocytic leukemia bone marrow aspirate flow cytometry indicates 81% blasts with features of acute promyelocytic leukemia. Confirmatory testing including PCR for translocation 15; 17 is was positive. Plan to start ATRA today day 1 will be 11/06/2016. Arsenic trioxide will likely start on 11/07/2016 Corticosteroids started on 11/05/2016. Tumor lysis syndrome prophylaxis with allopurinol was initiated on 11/04/2016. Continue hydration. Plan 1. 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 Start ATRA 45 mg per metered squared twice a day (Day 1 on 11/07). Arsenic trioxide dosed at 0.15 mg/kg IV over 1 hour daily until remission is achieved (Day 1 on 11/06) Prednisone 0.5 mg/kg daily; 40 mg daily. Allopurinol 300 mg daily for tumor lysis syndrome prophylaxis. Baseline EKG reviewed, no evidence of prolonged intervals QTc: 383 ms. His BSA is 1.93 m. Low sodium bicarbonate levels noted; I have started him on oral sodium bicarbonate 325 mg 3 times a day. 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 However without evidence of respiratory symptoms. At the earliest sign of respiratory compromise or respiratory distress he ought to be initiated on dexamethasone 10 mg IV twice daily. Prednisone should be discontinued at this time should this occur. He is tolerating treatment well thus far. Disposition: Continue inpatient treatment. Daily CBC and chemistries have been ordered. Repeat PT / PTT /INR/fibrinogen ordered for 2 more morning. Tumor lysis labs including uric acid and magnesium have also been ordered for tomorrow morning. Michael Haley MD Nov 08, 2016 15:24
--- NOTE | 2016-11-08 15:40 | HHI.PR ---
Subjective Remarks No new complaints. Objective Vitals Vital Signs Date Time Temp Pulse Resp B/P Pulse Ox O2 Delivery O2 Flow Rate FiO2 11/08/16 12:00 96.4 95 22 162/72 96 11/08/16 08:00 96.7 93 20 143/97 97 11/08/16 04:00 97.0 68 18 130/66 95 11/08/16 00:00 97.8 84 19 136/64 95 11/07/16 20:00 97.9 96 19 176/79 94 11/07/16 16:51 98.1 92 20 154/70 99 11/07/16 11/07/16 11/08/16 15:00 23:00 07:00 Intake Total 500 ml 600 ml 672 ml Balance 500 ml 600 ml 672 ml Intake Oral 500 ml IV Total 600 ml 672 ml # Voids 3 # Bowel Movements 1 Result Diagram: 11/08/16 0500 11/08/16 0500 Imaging Last 24 hours Impressions Lumbar Spine CT 11/02/16 0000 Signed Impressions: Service Date/Time: Wednesday, November 02, 2016 15:10 - CONCLUSION: 1. Chronic bilateral pars defects at L5-S1 with associated significant spondylolisthesis and hypertrophic changes in the posterior elements. 2. Advanced discogenic degenerative changes from L2-S1, left lumbar scoliosis, and a moderately large left-sided disc protrusion at L2-3 causing probable neural impingement. Lam Parrish MD Chest X-Ray 11/02/16 0000 Signed Impressions: Service Date/Time: Wednesday, November 02, 2016 14:37 - CONCLUSION: No acute cardiopulmonary disease. Lam Parrish MD Abdomen/Pelvis CT 11/02/16 0000 Signed Impressions: Service Date/Time: Wednesday, November 02, 2016 15:10 - CONCLUSION: 1. Left parapelvic cyst and a low density lesion lower pole of the solitary left kidney are similar to images from a prior cryoablation in August 2015. 2. Bilateral adrenal lesions, low density in the right and intermediate density on the left. Recommend correlation with outside prior imaging studies to see if this is a new or old finding. 3. 4.2 cm distal abdominal aortic aneurysm. Bilaterally iliac stents in place. 4. Significant spondylolisthesis at L5-S1 with bilateral pars defects. 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 He reported that he had been having diarrhea for months but this suddenly worsened and was having up to 10x/day, nonbloody. - Labs at admission found the pt to have pancytopenia with neutropenia. No fevers or chills. - CT Abd/pelvis (11/02) noted to have AAA 4.2cm and val adrenal lesions. - Hematology was consulted to assist in etiology of pancytopenia. 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 - Pt is being started on ATRA at 40 mg twice daily, Prednisone 40 mg daily, Arsenic trioxide at 11.85 mg intravenously daily per Heme/Onc recommendations. - PICC line to be placed on 11/05/16 - Chemo regimen started on 11/06/16 - Hematology plans to keep the pt hospitalized for at least the first week following initiation of treatment to monitor for DIC - Monitor labs 11/08/16 - case d/w Oncology service - early DIC - PO prednisone, may need to convert to IV solumedrol - sodium bicarb - allopurinol (2) GERD (gastroesophageal reflux disease) Status: Acute Plan: - start protonix - tums prn (3) Pancytopenia Status: Acute Plan: - See above. (4) Neutropenia Status: Acute Plan: - See above (5) Diarrhea Status: Acute Plan: - Diarrhea is resolving. - Stools are negative for C. diff - Stools for cryptosporidium and Giardia are negative (6) Weakness generalized Status: Acute Plan: - See above (7) Renal cell carcinoma Status: Resolved Plan: - See above (8) Hypertension Status: Chronic Plan: - BP is stable. (9) PAD (peripheral artery disease) Status: Chronic Plan: - Pt with hx of PAD s/p 5 stents in lower ext. (10) copd Status: Chronic (11) CKD (chronic kidney disease) stage 3, GFR 30-59 ml/min Status: Chronic Problem Qualifiers (1) GERD (gastroesophageal reflux disease): Qualified Code: K21.9 - Gastroesophageal reflux disease, esophagitis presence not specified (2) Neutropenia: Qualified Code: D70.9 - Neutropenia, unspecified type (3) Renal cell carcinoma: Qualified Code: C64.9 - Renal cell carcinoma, unspecified laterality Kayden Quintana DO Nov 08, 2016 15:40
[2016-11-08 16:00] VITALS: BP 137/74; PULSE 92; RESP 20; TEMP 96.5; O2SAT 97
--- NOTE | 2016-11-08 16:54 | RADRPT ---
EXAM DATE/TIME: 11/08/2016 15:57 [facility] COMPARISON: CHEST SINGLE AP, November 05, 2016, 11:53. INDICATIONS : Cough. Evaluate PICC line position. MEDICAL HISTORY : Carcinoma, renal. SURGICAL HISTORY : None. ENCOUNTER: Subsequent ACUITY: 2 days PAIN SCORE: 0/10 LOCATION: Bilateral chest FINDINGS: A single view of the chest demonstrates the lungs to be symmetrically aerated without evidence of mas s, infiltrate or effusion. The cardiomediastinal contours are unremarkable. A right-sided PICC line is in place with the tip projected over the superior vena cava. Osseous structures are intact. CONCLUSION: 1. No acute cardiopulmonary disease. There is no evidence of pneumonia. 2. Right-sided PICC line in place. Des Mary MD on November 08, 2016 at 16:52 Board Certified Radiologist. This report was verified electronically.
--- NOTE | 2016-11-08 19:50 | RADRPT ---
EXAM DATE/TIME: 11/08/2016 19:07 [facility] COMPARISON: CHEST SINGLE AP, November 08, 2016, 15:57. INDICATIONS : PICC line placement MEDICAL HISTORY : Carcinoma, renal. SURGICAL HISTORY : None. ENCOUNTER: Initial ACUITY: 1 day PAIN SCORE: 0/10 LOCATION: Bilateral chest FINDINGS: A single view of the chest demonstrates the lungs to be symmetrically aerated without evidence of mas s, infiltrate or effusion. There is a PICC line in place from the right arm with the tip overlying t he SVC. The cardiomediastinal contours are unremarkable. Osseous structures are intact. CONCLUSION: PICC line in good position. Boo Riojas MD on November 08, 2016 at 19:48 Board Certified Radiologist. This report was verified electronically.
[2016-11-08 20:00] VITALS: BP 167/74; PULSE 96; RESP 19; TEMP 98.3; O2SAT 95
[2016-11-08] MEDS: PRAVASTATIN SOD 40 MG TAB PO SCH (21:55)
[2016-11-08] MEDS: CHOLECALCIFEROL (VIT D3) 1000 UNIT TAB PO SCH (21:55)
[2016-11-08] MEDS: SODIUM CHLOR 0.9% 250 ML INJ 250 ML IV SCH (21:58)
[2016-11-08] MEDS: SODIUM CHLORIDE 0.9% IV SCH (22:19)
[2016-11-08] MEDS: [UNRECOGNIZED DRUG - OTHER] IV SCH (22:19)
[2016-11-09] VITALS (9 sets, daily range): BP systolic 99–174; BP diastolic 54–91; PULSE 60–92; RESP 16–18; TEMP 96.9–98.5; O2SAT 95–97
[2016-11-09] MEDS: SODIUM BICARBONATE 325 MG TAB PO SCH ×3 (05:51→20:29)
[2016-11-09 07:35] LABS: HEMATOCRIT 24.4 % (39.0-51.0); MEAN CELL VOLUME 95.5 FL (80.0-100.0); MEAN CORPUSCULAR HEMOGLOBIN 33.2 PG (27.0-34.0); MEAN CORPUSCULAR HGB CONC 34.8 % (32.0-36.0); PLATELET COUNT 52 TH/MM3 (150-450); RED BLOOD COUNT 2.55 MIL/MM3 (4.50-5.90); RED CELL DISTRIBUTION WIDTH 14.9 % (11.6-17.2); WHITE BLOOD COUNT 0.7 TH/MM3 (4.0-11.0)
[2016-11-09 07:47] LABS: HEMO FLAGS AUTO DIFF
[2016-11-09 07:49] LABS: MAGNESIUM 1.9 MG/DL (1.5-2.5); POTASSIUM 3.9 MEQ/L (3.5-5.1); URIC ACID 4.8 MG/DL (2.6-7.2)
[2016-11-09 07:57] LABS: APTT (PATIENT) 28.7 SEC (24.3-30.1); INTERNATIONAL NORMALIZED RATIO 1.1 RATIO
[2016-11-09] MEDS: SODIUM CHLORIDE 0.9% FLUSH 10 ML FLUSH IV FLUSH SCH ×3 (09:00→20:30)
[2016-11-09] MEDS ORDERED: predniSONE 20 MG TAB PO SCH (09:00)
--- NOTE | 2016-11-09 09:01 | PD.ONC.PN ---
Subjective Subjective Remarks Afebrile overnight. Patient feeling well today. Denies bleed, cough, hemoptysis. Ate breakfast this morning, walked several laps around the floor. He has chronic dyspnea due to copd, but notes he is at his baseline and has not noticed any worsening shortness of breath, or more difficulty taking laps around the floor. Objective Data Date Time Temp Pulse Resp B/P Pulse Ox O2 Delivery O2 Flow Rate FiO2 11/09/16 04:00 97.5 74 18 106/57 96 11/09/16 00:00 96.9 72 18 125/58 97 11/08/16 20:00 98.3 96 19 167/74 95 11/08/16 16:00 96.5 92 20 137/74 97 11/08/16 12:00 96.4 95 22 162/72 96 11/09/16 11/09/16 11/09/16 07:00 15:00 23:00 Intake Total 1244 ml Balance 1244 ml Result Diagram: 11/09/16 0550 11/09/16 0550 Laboratory Results Laboratory Tests Test 11/09/16 05:50 White Blood Count 0.7 TH/MM3 Red Blood Count 2.55 MIL/MM3 Hemoglobin 8.5 GM/DL Hematocrit 24.4 % Mean Corpuscular Volume 95.5 FL Mean Corpuscular Hemoglobin 33.2 PG Mean Corpuscular Hemoglobin 34.8 % Concent Red Cell Distribution Width 14.9 % Platelet Count 52 TH/MM3 Mean Platelet Volume 8.2 FL Neutrophils (%) (Auto) % Lymphocytes (%) (Auto) % Monocytes (%) (Auto) % Eosinophils (%) (Auto) % Basophils (%) (Auto) % Neutrophils # (Auto) TH/MM3 Lymphocytes # (Auto) TH/MM3 Monocytes # (Auto) TH/MM3 Eosinophils # (Auto) TH/MM3 Basophils # (Auto) TH/MM3 CBC Comment AUTO DIFF Prothrombin Time 12.0 SEC Prothromb Time International 1.1 RATIO Ratio Activated Partial 28.7 SEC Thromboplast Time Fibrinogen 133 mg/dL Sodium Level 144 MEQ/L Potassium Level 3.9 MEQ/L Chloride Level 115 MEQ/L Carbon Dioxide Level 21.0 MEQ/L Anion Gap 8 MEQ/L Blood Urea Nitrogen 40 MG/DL Creatinine 1.91 MG/DL Estimat Glomerular Filtration 34 ML/MIN Rate Random Glucose 94 MG/DL Uric Acid 4.8 MG/DL Calcium Level 8.1 MG/DL Magnesium Level 1.9 MG/DL Imaging Studies Last 24 hours Impressions Chest X-Ray 11/08/16 1607 Signed Impressions: Service Date/Time: Tuesday, November 08, 2016 15:57 - CONCLUSION: 1. No acute cardiopulmonary disease. There is no evidence of pneumonia. 2. Right-sided PICC line in place. Des Mary MD Administered Medications Medications (Trade) Dose Ordered Sig/Sowmya Route PRN Reason Start Time Stop Time Status Last Admin Dose Admin Sodium Chloride (NS Flush) 2 ml BID IV FLUSH 11/02/16 21:00 11/08/16 21:57 Pravastatin Sodium (Pravachol) 40 mg HS PO 11/02/16 21:00 11/08/16 21:55 Cholecalciferol 1000 units 1,000 units HS PO 11/02/16 21:00 11/08/16 21:55 Sodium Chloride (NS 1000 ml Inj) 1,000 ml @ 84 mls/hr [id number] IV 11/03/16 10:00 11/08/16 21:58 Loperamide HCl (Imodium) 2 mg Q4H PRN PO after each episode diarrhea 11/04/16 09:30 11/06/16 10:55 Tretinoin 40 mg 40 mg BIDPC PO 11/05/16 09:00 11/08/16 22:17 Sodium Chloride (NS 250 ml Inj) 250 ml @ 84 mls/hr Q24H IV 11/05/16 11:00 11/08/16 21:58 Sodium Bicarbonate 325 mg 325 mg Q8HR PO 11/06/16 08:00 11/09/16 05:51 Arsenic Trioxide/ Sodium Chloride (Trisenox Inj/NS 250 ml Inj) 260 ml @ 130.925 mls/hr Q24H IV 11/06/16 14:00 11/30/16 16:00 11/08/16 22:19 Pantoprazole Sodium (Protonix) 40 mg DAILY PO 11/07/16 09:15 11/08/16 09:17 Calcium Carbonate (Tums Chew) 500 mg Q2H PRN CHEW dyspepsia 11/07/16 09:15 11/07/16 09:30 Allopurinol (Zyloprim) 300 mg DAILY PO 11/08/16 09:00 11/08/16 09:17 Objective Remarks GENERAL: Pleasant, jovial elderly male, well-appearing. He is sitting up in chair next to bed, reading. SKIN: Warm and dry. PICC line in place, right arm. small bruise inferior to the PICC line. no bleeding or erythema HEAD: Normocephalic. EYES: No injection or drainage. NECK: Supple, trachea midline. CARDIOVASCULAR: Regular rate and rhythm RESPIRATORY: Breath sounds equal bilaterally. No accessory muscle use. GASTROINTESTINAL: Abdomen soft, non-tender, nondistended. EXTREMITIES: No cyanosis NEUROLOGICAL: No obvious focal deficit. Awake, alert, and oriented x3. Assessment/Plan Assessment 76-year-old male presenting with pancytopenia, bone marrow biopsy performed on with marrow aspiration indicates findings diagnostic for acute promyelocytic leukemia bone marrow aspirate flow cytometry indicates 81% blasts with features of acute promyelocytic leukemia. Confirmatory testing including PCR for translocation 15;17 is was positive. Plan to start ATRA today day 1 will be 11/06/2016. Arsenic trioxide will likely start on 11/07/2016 Corticosteroids(Prednisone, 40mg PO daily) started on 11/05/2016. Tumor lysis syndrome prophylaxis with allopurinol was initiated on 11/04/2016. hydration: NS @84cc/hr sodium bicarbonate 325mg PO TID Plan 1. APL: today is day #4. continue Arsenic/ATRA combination. 2. 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 monitor for bleeding. fibrinogen 133. will hold off on transfusion of cryo at this point, monitor. Attending Statement first nose blled this evening. Recheck CBC and fibrinogen. Give cryo d/w pt, RN and Dr pate. Allyn Evangelista Nov 09, 2016 09:01 Margaret Maria MD Nov 09, 2016 18:24
[2016-11-09] MEDS: predniSONE 20 MG TAB PO SCH (09:33)
[2016-11-09] MEDS: PANTOPRAZOLE SOD 40 MG DELAYED RELEASE TAB PO SCH (09:33)
[2016-11-09] MEDS: ALLOPURINOL 300 MG TAB PO SCH (09:33)
[2016-11-09] MEDS: TRETINOIN PO SCH ×2 (09:37→18:47)
[2016-11-09 11:34] LABS: BANDS 1 % (0-6); NEUTROPHIL # MANUAL DIFF 0.4 TH/MM3 (1.8-7.7); OVALOCYTES 1+ (NORMAL); PLATELET ESTIMATE SMEAR LOW (NORMAL); PLATELET MORPHOLOGY NORMAL (NORMAL); POLYS (SEG NEUTROPHILS) 57 % (16-70); SCAN/DIFF FINAL DIFF MANUAL; WBC DIFF SAMPLE 100
--- NOTE | 2016-11-09 17:33 | HHI.PR ---
Subjective Remarks Pt c/o epistaxis Objective Vitals Vital Signs Date Time Temp Pulse Resp B/P Pulse Ox O2 Delivery O2 Flow Rate FiO2 11/09/16 13:06 98.5 83 18 161/85 95 11/09/16 09:12 97.5 73 18 139/72 95 11/09/16 04:00 97.5 74 18 106/57 96 11/09/16 00:00 96.9 72 18 125/58 97 11/08/16 20:00 98.3 96 19 167/74 95 11/08/16 11/08/16 11/09/16 15:00 23:00 07:00 Intake Total 952 ml 240 ml 1244 ml Balance 952 ml 240 ml 1244 ml Intake Oral 240 ml 240 ml IV Total 952 ml 1004 ml # Voids 7 4 # Bowel Movements 3 Result Diagram: 11/09/16 0550 11/09/16 0550 Imaging Last 24 hours Impressions Lumbar Spine CT 11/02/16 0000 Signed Impressions: Service Date/Time: Wednesday, November 02, 2016 15:10 - CONCLUSION: 1. Chronic bilateral pars defects at L5-S1 with associated significant spondylolisthesis and hypertrophic changes in the posterior elements. 2. Advanced discogenic degenerative changes from L2-S1, left lumbar scoliosis, and a moderately large left-sided disc protrusion at L2-3 causing probable neural impingement. Lam Parrish MD Chest X-Ray 11/02/16 0000 Signed Impressions: Service Date/Time: Wednesday, November 02, 2016 14:37 - CONCLUSION: No acute cardiopulmonary disease. Lam Parrish MD Abdomen/Pelvis CT 11/02/16 0000 Signed Impressions: Service Date/Time: Wednesday, November 02, 2016 15:10 - CONCLUSION: 1. Left parapelvic cyst and a low density lesion lower pole of the solitary left kidney are similar to images from a prior cryoablation in August 2015. 2. Bilateral adrenal lesions, low density in the right and intermediate density on the left. Recommend correlation with outside prior imaging studies to see if this is a new or old finding. 3. 4.2 cm distal abdominal aortic aneurysm. Bilaterally iliac stents in place. 4. Significant spondylolisthesis at L5-S1 with bilateral pars defects. 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 He reported that he had been having diarrhea for months but this suddenly worsened and was having up to 10x/day, nonbloody. - Labs at admission found the pt to have pancytopenia with neutropenia. No fevers or chills. - CT Abd/pelvis (11/02) noted to have AAA 4.2cm and val adrenal lesions. - Hematology was consulted to assist in etiology of pancytopenia. 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 - Pt is being started on ATRA at 40 mg twice daily, Prednisone 40 mg daily, Arsenic trioxide at 11.85 mg intravenously daily per Heme/Onc recommendations. - PICC line to be placed on 11/05/16 - Chemo regimen started on 11/06/16 - Hematology plans to keep the pt hospitalized for at least the first week following initiation of treatment to monitor for DIC - Monitor labs 11/09/16 - case d/w Oncology service (11/08/16) - early DIC - PO prednisone, may need to convert to IV solumedrol - sodium bicarb - allopurinol - supportive care (2) GERD (gastroesophageal reflux disease) Status: Acute Plan: - start protonix - tums prn (3) Pancytopenia Status: Acute Plan: - See above. (4) Neutropenia Status: Acute Plan: - See above (5) Diarrhea Status: Acute Plan: - Diarrhea is resolving. - Stools are negative for C. diff - Stools for cryptosporidium and Giardia are negative (6) Weakness generalized Status: Acute Plan: - See above (7) Renal cell carcinoma Status: Resolved Plan: - See above (8) Hypertension Status: Chronic Plan: - BP is stable. (9) PAD (peripheral artery disease) Status: Chronic Plan: - Pt with hx of PAD s/p 5 stents in lower ext. (10) copd Status: Chronic (11) CKD (chronic kidney disease) stage 3, GFR 30-59 ml/min Status: Chronic Problem Qualifiers (1) GERD (gastroesophageal reflux disease): Qualified Code: K21.9 - Gastroesophageal reflux disease, esophagitis presence not specified (2) Neutropenia: Qualified Code: D70.9 - Neutropenia, unspecified type (3) Renal cell carcinoma: Qualified Code: C64.9 - Renal cell carcinoma, unspecified laterality Kayden Quintana DO Nov 09, 2016 17:33
[2016-11-09] MEDS ORDERED: SODIUM CHLOR 0.9% 250 ML INJ 250 ML IV ONE (18:30)
[2016-11-09] MEDS: SODIUM CHLOR 0.9% 1000 ML INJ 1,000 ML IV SCH ×2 (18:44→20:30)
[2016-11-09] MEDS: cloNIDine HCL 0.2 MG TAB PO PRN (19:46)
[2016-11-09] MEDS: CHOLECALCIFEROL (VIT D3) 1000 UNIT TAB PO SCH (20:29)
[2016-11-09] MEDS: PRAVASTATIN SOD 40 MG TAB PO SCH (20:29)
[2016-11-09] MEDS ORDERED: diphenhydrAMINE HCL 50 MG CAP PO ONE (20:30)
[2016-11-09] MEDS: SODIUM CHLOR 0.9% 250 ML INJ 250 ML IV SCH (20:32)
[2016-11-09] MEDS: [UNRECOGNIZED DRUG - OTHER] IV SCH (23:03)
[2016-11-09] MEDS: SODIUM CHLORIDE 0.9% IV SCH (23:03)
[2016-11-10] VITALS: BP 112/60; PULSE 77; RESP 18; TEMP 96.4; O2SAT 98
[2016-11-10 01:45] LABS: HEMATOCRIT 22.7 % (39.0-51.0); MEAN CELL VOLUME 96.7 FL (80.0-100.0); MEAN CORPUSCULAR HEMOGLOBIN 32.7 PG (27.0-34.0); MEAN CORPUSCULAR HGB CONC 33.8 % (32.0-36.0); PLATELET COUNT 48 TH/MM3 (150-450); RED BLOOD COUNT 2.35 MIL/MM3 (4.50-5.90); RED CELL DISTRIBUTION WIDTH 14.6 % (11.6-17.2); WHITE BLOOD COUNT 0.5 TH/MM3 (4.0-11.0)
[2016-11-10 01:47] LABS: REVIEW FLAG FINAL
[2016-11-10 04:00] VITALS: BP 112/60; PULSE 77; RESP 18; TEMP 96.4; O2SAT 98
[2016-11-10] MEDS: SODIUM BICARBONATE 325 MG TAB PO SCH ×3 (04:52→21:10)
[2016-11-10 05:52] LABS: BASOPHIL % 0.1 % (0.0-2.0); EOSINOPHIL % 0.1 % (0.0-4.0); HEMATOCRIT 23.7 % (39.0-51.0); LYMPH % 48.4 % (9.0-44.0); LYMPHOCYTE # 0.3 TH/MM3 (1.0-4.8); MEAN CELL VOLUME 96.5 FL (80.0-100.0); MEAN CORPUSCULAR HEMOGLOBIN 32.2 PG (27.0-34.0); MEAN CORPUSCULAR HGB CONC 33.4 % (32.0-36.0); MONO % 2.1 % (0.0-8.0); NEUT % 49.3 % (16.0-70.0); PLATELET COUNT 46 TH/MM3 (150-450); RED BLOOD COUNT 2.45 MIL/MM3 (4.50-5.90); RED CELL DISTRIBUTION WIDTH 14.8 % (11.6-17.2); WHITE BLOOD COUNT 0.7 TH/MM3 (4.0-11.0)
[2016-11-10 05:58] LABS: HEMO FLAGS AUTO DIFF
[2016-11-10 06:03] LABS: APTT (PATIENT) 28.9 SEC (24.3-30.1); AUTOMATED NEUTROPHIL # 0.3 TH/MM3 (1.8-7.7); INTERNATIONAL NORMALIZED RATIO 1.1 RATIO; PROTHROMBIN TIME - PATIENT 11.7 SEC (9.8-11.6)
[2016-11-10 08:00] VITALS: BP 172/76; PULSE 78; RESP 22; TEMP 96.8; O2SAT 98
[2016-11-10] MEDS: SODIUM CHLORIDE 0.9% FLUSH 10 ML FLUSH IV FLUSH SCH ×3 (08:45→21:11)
[2016-11-10] MEDS: predniSONE 20 MG TAB PO SCH (08:49)
[2016-11-10] MEDS: ALLOPURINOL 300 MG TAB PO SCH (08:49)
[2016-11-10] MEDS: PANTOPRAZOLE SOD 40 MG DELAYED RELEASE TAB PO SCH (08:49)
[2016-11-10] MEDS: cloNIDine HCL 0.2 MG TAB PO PRN ×2 (08:52→19:31)
[2016-11-10] MEDS: TRETINOIN PO SCH ×2 (08:58→19:31)
--- NOTE | 2016-11-10 10:40 | HHI.PR ---
Subjective Remarks No repeat epistaxis. Pt had a few episodes of small volume hemoptysis when he awoke. Then his sputum cleared and no further hemoptysis. Pt has COPD with frequent sputum production when he awakens in the AM. No increased SOB. Objective Vitals Vital Signs Date Time Temp Pulse Resp B/P Pulse Ox O2 Delivery O2 Flow Rate FiO2 11/10/16 08:00 96.8 78 22 172/76 98 11/10/16 04:00 96.4 77 18 112/60 98 11/09/16 22:40 97.1 60 16 109/60 97 11/09/16 21:31 97.6 65 16 99/56 96 11/09/16 21:26 97.2 65 99/54 96 11/09/16 20:00 97.8 79 18 170/77 97 11/09/16 18:20 97.9 92 18 174/91 95 11/09/16 13:06 98.5 83 18 161/85 95 11/09/16 11/09/16 11/10/16 15:00 23:00 07:00 Intake Total 1488 ml 480 ml 240 ml Balance 1488 ml 480 ml 240 ml Intake Oral 480 ml 240 ml IV Total 1488 ml # Voids 6 4 # Bowel Movements 1 Result Diagram: 11/10/16 0500 11/09/16 0550 Imaging Last 24 hours Impressions Lumbar Spine CT 11/02/16 0000 Signed Impressions: Service Date/Time: Wednesday, November 02, 2016 15:10 - CONCLUSION: 1. Chronic bilateral pars defects at L5-S1 with associated significant spondylolisthesis and hypertrophic changes in the posterior elements. 2. Advanced discogenic degenerative changes from L2-S1, left lumbar scoliosis, and a moderately large left-sided disc protrusion at L2-3 causing probable neural impingement. Lam Parrish MD Chest X-Ray 11/02/16 0000 Signed Impressions: Service Date/Time: Wednesday, November 02, 2016 14:37 - CONCLUSION: No acute cardiopulmonary disease. Lam Parrish MD Abdomen/Pelvis CT 11/02/16 0000 Signed Impressions: Service Date/Time: Wednesday, November 02, 2016 15:10 - CONCLUSION: 1. Left parapelvic cyst and a low density lesion lower pole of the solitary left kidney are similar to images from a prior cryoablation in August 2015. 2. Bilateral adrenal lesions, low density in the right and intermediate density on the left. Recommend correlation with outside prior imaging studies to see if this is a new or old finding. 3. 4.2 cm distal abdominal aortic aneurysm. Bilaterally iliac stents in place. 4. Significant spondylolisthesis at L5-S1 with bilateral pars defects. 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 He reported that he had been having diarrhea for months but this suddenly worsened and was having up to 10x/day, nonbloody. - Labs at admission found the pt to have pancytopenia with neutropenia. No fevers or chills. - CT Abd/pelvis (11/02) noted to have AAA 4.2cm and val adrenal lesions. - Hematology was consulted to assist in etiology of pancytopenia. - Bone marrow biopsy performed on 11/03/2016 with marrow aspiration indicated acute promyelocytic leukemia bone marrow aspirate flow cytometry indicates 81% blasts most consistent with acute promyelocytic leukemia. - Pt is being started on ATRA at 40 mg twice daily, Prednisone 40 mg daily, Arsenic trioxide at 11.85 mg intravenously daily per Heme/Onc recommendations. - PICC line placed on 11/05/16 - Chemo regimen started on 11/06/16 - Hematology plans to keep the pt hospitalized for at least the first week following initiation of treatment to monitor for DIC - Monitor labs 11/10/16 - case d/w Dr. Maria (11/09/16) - early DIC - PO prednisone, may need to convert to IV solumedrol - sodium bicarb - allopurinol - received cryoprecipitate 11/09/16 - supportive care (3) GERD (gastroesophageal reflux disease) Status: Acute Plan: - improved - protonix - tums prn (4) Pancytopenia Status: Acute Plan: - See above. (5) Neutropenia Status: Acute Plan: - See above (6) Diarrhea Status: Acute Plan: - Diarrhea resolved - Stools are negative for C. diff - Stools for cryptosporidium and Giardia are negative (7) Weakness generalized Status: Acute Plan: - See above (8) Renal cell carcinoma Status: Resolved Plan: - See above (9) Hypertension Status: Chronic Plan: - BP is stable. (10) PAD (peripheral artery disease) Status: Chronic Plan: - Pt with hx of PAD s/p 5 stents in lower ext. (11) copd Status: Chronic (12) CKD (chronic kidney disease) stage 3, GFR 30-59 ml/min Status: Chronic Problem Qualifiers (1) GERD (gastroesophageal reflux disease): Qualified Code: K21.9 - Gastroesophageal reflux disease, esophagitis presence not specified (2) Neutropenia: Qualified Code: D70.9 - Neutropenia, unspecified type (3) Renal cell carcinoma: Qualified Code: C64.9 - Renal cell carcinoma, unspecified laterality Kayden Quintana DO Nov 10, 2016 10:40
--- NOTE | 2016-11-10 11:39 | PD.ONC.PN ---
Subjective Subjective Remarks Afebrile overnight. patient walked his laps this morning. He feels good. He coughs up sputum regularly as part of copd. This morning when he coughed up sputum there were a few globs of blood in it. Then when he coughed again, the sputum came up clear. He also had a sore throat this morning, which has improved since he ate breakfast. Objective Data Date Time Temp Pulse Resp B/P Pulse Ox O2 Delivery O2 Flow Rate FiO2 11/10/16 08:00 96.8 78 22 172/76 98 11/10/16 04:00 96.4 77 18 112/60 98 11/09/16 22:40 97.1 60 16 109/60 97 11/09/16 21:31 97.6 65 16 99/56 96 11/09/16 21:26 97.2 65 99/54 96 11/09/16 20:00 97.8 79 18 170/77 97 11/09/16 18:20 97.9 92 18 174/91 95 11/09/16 13:06 98.5 83 18 161/85 95 11/10/16 11/10/16 11/10/16 07:00 15:00 23:00 Intake Total 240 ml Balance 240 ml Result Diagram: 11/10/16 0500 11/09/16 0550 Laboratory Results Laboratory Tests Test 11/09/16 11/10/16 11/10/16 18:24 01:20 05:00 Blood Bank Comment White Blood Count 0.5 TH/MM3 0.7 TH/MM3 Red Blood Count 2.35 MIL/MM3 2.45 MIL/MM3 Hemoglobin 7.7 GM/DL 7.9 GM/DL Hematocrit 22.7 % 23.7 % Mean Corpuscular Volume 96.7 FL 96.5 FL Mean Corpuscular Hemoglobin 32.7 PG 32.2 PG Mean Corpuscular Hemoglobin 33.8 % 33.4 % Concent Red Cell Distribution Width 14.6 % 14.8 % Platelet Count 48 TH/MM3 46 TH/MM3 Mean Platelet Volume 8.0 FL 7.9 FL Fibrinogen 173 mg/dL 167 mg/dL Neutrophils (%) (Auto) 49.3 % Lymphocytes (%) (Auto) 48.4 % Monocytes (%) (Auto) 2.1 % Eosinophils (%) (Auto) 0.1 % Basophils (%) (Auto) 0.1 % Neutrophils # (Auto) 0.3 TH/MM3 Lymphocytes # (Auto) 0.3 TH/MM3 Monocytes # (Auto) 0.0 TH/MM3 Eosinophils # (Auto) 0.0 TH/MM3 Basophils # (Auto) 0.0 TH/MM3 CBC Comment AUTO DIFF Prothrombin Time 11.7 SEC Prothromb Time International 1.1 RATIO Ratio Activated Partial 28.9 SEC Thromboplast Time Administered Medications Medications (Trade) Dose Ordered Sig/Sowmya Route PRN Reason Start Time Stop Time Status Last Admin Dose Admin Sodium Chloride (NS Flush) 2 ml BID IV FLUSH 11/02/16 21:00 11/08/16 21:57 Acetaminophen (Tylenol) 650 mg Q4H PRN PO TEMP > 100.4 11/02/16 18:00 11/09/16 20:29 Pravastatin Sodium (Pravachol) 40 mg HS PO 11/02/16 21:00 11/09/16 20:29 Cholecalciferol 1000 units 1,000 units HS PO 11/02/16 21:00 11/09/16 20:29 Sodium Chloride (NS 1000 ml Inj) 1,000 ml @ 84 mls/hr [id number] IV 11/03/16 10:00 11/09/16 20:30 Loperamide HCl (Imodium) 2 mg Q4H PRN PO after each episode diarrhea 11/04/16 09:30 11/06/16 10:55 Tretinoin 40 mg 40 mg BIDPC PO 11/05/16 09:00 11/10/16 08:58 Sodium Chloride (NS 250 ml Inj) 250 ml @ 84 mls/hr Q24H IV 11/05/16 11:00 11/09/16 20:32 Sodium Bicarbonate (Sodium Bicarbonate) 325 mg Q8HR PO 11/06/16 08:00 11/10/16 04:52 Clonidine (Catapres) 0.2 mg Q6H PRN PO SBP above 160 11/06/16 16:45 11/10/16 08:52 Pantoprazole Sodium (Protonix) 40 mg DAILY PO 11/07/16 09:15 11/10/16 08:49 Calcium Carbonate (Tums Chew) 500 mg Q2H PRN CHEW dyspepsia 11/07/16 09:15 11/07/16 09:30 Allopurinol (Zyloprim) 300 mg DAILY PO 11/08/16 09:00 11/10/16 08:49 Prednisone 40 mg 40 mg DAILY PO 11/09/16 09:00 11/10/16 08:49 Arsenic Trioxide/ Sodium Chloride (Trisenox Inj/NS 250 ml Inj) 260 ml @ 130.925 mls/hr Q24H IV 11/09/16 22:00 12/01/16 00:00 11/09/16 23:03 Objective Remarks GENERAL: Elderly male, sitting up in chair [facility] to [facility]. SKIN: Warm and dry. HEAD: Normocephalic. EYES: No injection or drainage. NECK: Supple, trachea midline. CARDIOVASCULAR: Regular rate and rhythm RESPIRATORY: Breath sounds equal bilaterally. No accessory muscle use. GASTROINTESTINAL: Abdomen soft, non-tender, nondistended. EXTREMITIES: No cyanosis NEUROLOGICAL: awake and alert, normal speech. moving extremities. Assessment/Plan Assessment 76-year-old male presenting with pancytopenia, bone marrow biopsy performed on with marrow aspiration indicates findings diagnostic for acute promyelocytic leukemia bone marrow aspirate flow cytometry indicates 81% blasts with features of acute promyelocytic leukemia. Confirmatory testing including PCR for translocation 15;17 is was positive. Plan to start ATRA today day 1 was 11/06/2016. Arsenic trioxide will likely start on 11/07/2016 Corticosteroids(Prednisone, 40mg PO daily) started on 11/05/2016. Tumor lysis syndrome prophylaxis with allopurinol was initiated on 11/04/2016. hydration: NS @84cc/hr sodium bicarbonate 325mg PO TID Plan 1. APL: today is day #5. continue Arsenic/ATRA combination. 2. 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 Hemoptysis/sore throat--I think this is due to the nosebleed the patient had last night. sore throat is gone. will check chest x-ray. continue Prednisone for prophylaxis. Attending Statement c/o sorethroat and hemoptysis this morning. Resolved now. No more nose Bleed. doing well so far. Had cryo yesterday. d/w pt regarding further treatment plan. The exam, history, and the medical decision-making described in the above note were completed with the assistance of the mid-level provider. I reviewed and agree with the findings presented. I attest that I had a [id number] encounter with the patient on the same day, and personally performed and documented my assessment and findings in the medical record. Allyn Evangelista Nov 10, 2016 11:38 Margaret Maria MD Nov 10, 2016 22:39
[2016-11-10] MEDS: SODIUM CHLOR 0.9% 1000 ML INJ 1,000 ML IV SCH ×2 (11:49→21:11)
[2016-11-10 12:00] VITALS: BP 137/65; PULSE 67; RESP 20; TEMP 96.1; O2SAT 95
[2016-11-10 12:03] LABS: BANDS 2 % (0-6); POLYS (SEG NEUTROPHILS) 53 % (16-70); WBC DIFF SAMPLE 100
[2016-11-10 12:04] LABS: NEUTROPHIL # MANUAL DIFF 0.4 TH/MM3 (1.8-7.7)
[2016-11-10 12:05] LABS: KERATOCYTES OCC (NORMAL); OVALOCYTES 1+ (NORMAL); PLATELET ESTIMATE SMEAR LOW (NORMAL); PLATELET MORPHOLOGY NORMAL (NORMAL); SCAN/DIFF FINAL DIFF MANUAL
--- NOTE | 2016-11-10 12:51 | RADRPT ---
EXAM DATE/TIME: 11/10/2016 11:48 [facility] COMPARISON: CHEST SINGLE AP, November 08, 2016, 19:07. INDICATIONS : Hemoptysis. MEDICAL HISTORY : Carcinoma; renal. SURGICAL HISTORY : None. ENCOUNTER: Subsequent ACUITY: 1 week PAIN SCORE: 0/10 LOCATION: Bilateral chest FINDINGS: Single AP view of the chest. Right-sided PICC line remains in place. The lungs are clear. Cardiomedia stinal silhouette within normal limits. No evidence of pleural effusion or pneumothorax. CONCLUSION: No acute cardiopulmonary disease identified. Arturo Serrano MD on November 10, 2016 at 12:48 Board Certified Radiologist. This report was verified electronically.
[2016-11-10 16:48] VITALS: BP 133/69; PULSE 86; RESP 18; TEMP 96.8; O2SAT 96
[2016-11-10 20:00] VITALS: BP 180/86; PULSE 80; RESP 21; TEMP 97.1; O2SAT 95
[2016-11-10] MEDS: PRAVASTATIN SOD 40 MG TAB PO SCH (21:10)
[2016-11-10] MEDS: CHOLECALCIFEROL (VIT D3) 1000 UNIT TAB PO SCH (21:10)
[2016-11-10] MEDS: SODIUM CHLORIDE 0.9% IV SCH (22:29)
[2016-11-10] MEDS: [UNRECOGNIZED DRUG - OTHER] IV SCH (22:29)
[2016-11-10] MEDS: SODIUM CHLOR 0.9% 250 ML INJ 250 ML IV SCH (22:30)
[2016-11-11] VITALS: BP 114/63; PULSE 61; RESP 20; TEMP 96.9; O2SAT 95
[2016-11-11 04:00] VITALS: BP 126/67; PULSE 58; RESP 21; TEMP 96.4; O2SAT 96
[2016-11-11] MEDS: SODIUM BICARBONATE 325 MG TAB PO SCH ×3 (05:03→21:15)
[2016-11-11 06:00] LABS: MEAN CELL VOLUME 95.9 FL (80.0-100.0); MEAN CORPUSCULAR HEMOGLOBIN 32.2 PG (27.0-34.0); MEAN CORPUSCULAR HGB CONC 33.6 % (32.0-36.0); PLATELET COUNT 50 TH/MM3 (150-450); RED CELL DISTRIBUTION WIDTH 14.9 % (11.6-17.2); WHITE BLOOD COUNT 0.6 TH/MM3 (4.0-11.0)
[2016-11-11 06:07] LABS: APTT (PATIENT) 30.2 SEC (24.3-30.1); INTERNATIONAL NORMALIZED RATIO 1.1 RATIO; PROTHROMBIN TIME - PATIENT 11.9 SEC (9.8-11.6)
[2016-11-11 06:10] LABS: HEMO FLAGS AUTO DIFF
[2016-11-11 06:20] LABS: ALKALINE PHOSPHATASE 88 U/L (45-117); ALT (GPT) 26 U/L (12-78); ANION GAP 6 MEQ/L (5-15); AST (GOT) 15 U/L (15-37); BLOOD UREA NITROGEN 37 MG/DL (7-18); CHLORIDE 114 MEQ/L (98-107); GLOMERULAR FILTRATION RATE 35 ML/MIN (>89); POTASSIUM 4.2 MEQ/L (3.5-5.1); SODIUM (NA) 142 MEQ/L (136-145); TOTAL BILIRUBIN ADULT 0.2 MG/DL (0.2-1.0)
--- NOTE | 2016-11-11 07:37 | PD.ONC.PN ---
Subjective Subjective Remarks Mr. Rainey denies complaints, he had a nose bleed from the R nose. Was given Cryoprecipitate. Afebrile. He tells me he has been walking daily. Objective Data Date Time Temp Pulse Resp B/P Pulse Ox O2 Delivery O2 Flow Rate FiO2 11/11/16 04:00 96.4 58 21 126/67 96 11/11/16 00:00 96.9 61 20 114/63 95 11/10/16 20:00 97.1 80 21 180/86 95 11/10/16 16:48 96.8 86 18 133/69 96 11/10/16 12:00 96.1 67 20 137/65 95 11/10/16 08:00 96.8 78 22 172/76 98 11/11/16 11/11/16 11/11/16 07:00 15:00 23:00 Intake Total 240 ml Balance 240 ml Result Diagram: 11/11/16 0500 11/11/16 0500 Laboratory Results Laboratory Tests Test 11/11/16 05:00 White Blood Count 0.6 TH/MM3 Red Blood Count 2.50 MIL/MM3 Hemoglobin 8.1 GM/DL Hematocrit 24.0 % Mean Corpuscular Volume 95.9 FL Mean Corpuscular Hemoglobin 32.2 PG Mean Corpuscular Hemoglobin 33.6 % Concent Red Cell Distribution Width 14.9 % Platelet Count 50 TH/MM3 Mean Platelet Volume 8.2 FL Neutrophils (%) (Auto) % Lymphocytes (%) (Auto) % Monocytes (%) (Auto) % Eosinophils (%) (Auto) % Basophils (%) (Auto) % Neutrophils # (Auto) TH/MM3 Lymphocytes # (Auto) TH/MM3 Monocytes # (Auto) TH/MM3 Eosinophils # (Auto) TH/MM3 Basophils # (Auto) TH/MM3 CBC Comment AUTO DIFF Prothrombin Time 11.9 SEC Prothromb Time International 1.1 RATIO Ratio Activated Partial 30.2 SEC Thromboplast Time Fibrinogen 157 mg/dL Sodium Level 142 MEQ/L Potassium Level 4.2 MEQ/L Chloride Level 114 MEQ/L Carbon Dioxide Level 22.0 MEQ/L Anion Gap 6 MEQ/L Blood Urea Nitrogen 37 MG/DL Creatinine 1.86 MG/DL Estimat Glomerular Filtration 35 ML/MIN Rate Random Glucose 106 MG/DL Calcium Level 7.9 MG/DL Total Bilirubin 0.2 MG/DL Aspartate Amino Transf 15 U/L (AST/SGOT) Alanine Aminotransferase 26 U/L (ALT/SGPT) Alkaline Phosphatase 88 U/L Total Protein 5.3 GM/DL Albumin 2.7 GM/DL Administered Medications Medications (Trade) Dose Ordered Sig/Sowmya Route PRN Reason Start Time Stop Time Status Last Admin Dose Admin Sodium Chloride (NS Flush) 2 ml BID IV FLUSH 11/02/16 21:00 11/10/16 21:11 Acetaminophen (Tylenol) 650 mg Q4H PRN PO TEMP > 100.4 11/02/16 18:00 11/09/16 20:29 Pravastatin Sodium (Pravachol) 40 mg HS PO 11/02/16 21:00 11/10/16 21:10 Cholecalciferol 1000 units 1,000 units HS PO 11/02/16 21:00 11/10/16 21:10 Sodium Chloride (NS 1000 ml Inj) 1,000 ml @ 84 mls/hr [id number] IV 11/03/16 10:00 11/10/16 21:11 Loperamide HCl (Imodium) 2 mg Q4H PRN PO after each episode diarrhea 11/04/16 09:30 11/06/16 10:55 Tretinoin 40 mg 40 mg BIDPC PO 11/05/16 09:00 11/10/16 19:31 Sodium Chloride (NS 250 ml Inj) 250 ml @ 84 mls/hr Q24H IV 11/05/16 11:00 11/10/16 22:30 Sodium Bicarbonate (Sodium Bicarbonate) 325 mg Q8HR PO 11/06/16 08:00 11/11/16 05:03 Clonidine (Catapres) 0.2 mg Q6H PRN PO SBP above 160 11/06/16 16:45 11/10/16 19:31 Pantoprazole Sodium (Protonix) 40 mg DAILY PO 11/07/16 09:15 11/10/16 08:49 Calcium Carbonate (Tums Chew) 500 mg Q2H PRN CHEW dyspepsia 11/07/16 09:15 11/07/16 09:30 Allopurinol (Zyloprim) 300 mg DAILY PO 11/08/16 09:00 11/10/16 08:49 Prednisone 40 mg 40 mg DAILY PO 11/09/16 09:00 11/10/16 08:49 Arsenic Trioxide/ Sodium Chloride (Trisenox Inj/NS 250 ml Inj) 260 ml @ 130.925 mls/hr Q24H IV 11/09/16 22:00 12/01/16 00:00 11/10/16 22:29 Objective Remarks GENERAL: Elderly male, pleasant disposition, coughs frequently. This is a well- nourished, well-developed patient, in no apparent distress. SKIN: No rashes, ecchymoses or lesions. Cool and dry. HEAD: Atraumatic. Normocephalic. No temporal or scalp tenderness. EYES: Pupils equal round and reactive. Extraocular motions intact. No scleral icterus. No injection or drainage. ENT: Nose without bleeding, purulent drainage or septal hematoma. Throat without erythema, tonsillar hypertrophy or exudate. Uvula midline. Airway patent. NECK: Trachea midline. No JVD or lymphadenopathy. Supple, nontender, no meningeal signs. CARDIOVASCULAR: Regular rate and rhythm without murmurs, gallops, or rubs. RESPIRATORY: Prolonged expiratory phase, disbursed crackles occasional rhonchi. GASTROINTESTINAL: Abdomen soft, non-tender, nondistended. No hepato-splenomegaly , or palpable masses. No guarding. MUSCULOSKELETAL: Extremities without clubbing, cyanosis, or edema. No joint tenderness, effusion, or edema noted. No calf tenderness. Negative Homans sign bilaterally. NEUROLOGICAL: Awake and alert. Cranial nerves II through XII intact. Motor and sensory grossly within normal limits. Five out of 5 muscle strength in all muscle groups. Normal speech. Assessment/Plan Assessment 76-year-old male presenting with pancytopenia, bone marrow biopsy performed on with marrow aspiration indicates findings diagnostic for acute promyelocytic leukemia bone marrow aspirate flow cytometry indicates 81% blasts with features of acute promyelocytic leukemia. Confirmatory testing including PCR for translocation 15;17 is was positive. Plan to start ATRA today day 1 was 11/06/2016. Arsenic trioxide will likely start on 11/07/2016 Corticosteroids(Prednisone, 40mg PO daily) started on 11/05/2016. Tumor lysis syndrome prophylaxis with allopurinol was initiated on 11/04/2016. hydration: NS @84cc/hr sodium bicarbonate 325mg PO TID Plan 1. APL: today is day #6. continue Arsenic/ATRA combination. 2. 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 S/p Cryo on 11/09. 3. Had epistaxis over the weekend. 4. Afebrile. 5. Continue Allopurinol. No evidence of TLS. Renal function and electrolytes are stable. 6. Anemia and leukopenia: Due to APL and ongoing treatment. I suspect his counts will continue to decrease for the next 5-8 days before we see an improvement. Michael Haley MD November 11, 2016 07:37
[2016-11-11 08:00] VITALS: BP 149/76; PULSE 67; RESP 18; TEMP 96.9; O2SAT 97
--- NOTE | 2016-11-11 08:04 | HHI.PR ---
Subjective Remarks minor nosebleeding over weekend and some blood tinged sputum Objective Vitals heart reg lung cta abd s/nt ext no edema Vital Signs Date Time Temp Pulse Resp B/P Pulse Ox O2 Delivery O2 Flow Rate FiO2 11/11/16 04:00 96.4 58 21 126/67 96 11/11/16 00:00 96.9 61 20 114/63 95 11/10/16 20:00 97.1 80 21 180/86 95 11/10/16 16:48 96.8 86 18 133/69 96 11/10/16 12:00 96.1 67 20 137/65 95 11/10/16 11/10/16 11/11/16 15:00 23:00 07:00 Intake Total 1342 ml 780 ml 240 ml Balance 1342 ml 780 ml 240 ml Intake Oral 780 ml 780 ml 240 ml IV Total 562 ml # Voids 5 7 3 # Bowel Movements 2 1 Result Diagram: 11/11/16 0500 11/11/16 0500 Imaging Last 24 hours Impressions Lumbar Spine CT 11/02/16 0000 Signed Impressions: Service Date/Time: Wednesday, November 02, 2016 15:10 - CONCLUSION: 1. Chronic bilateral pars defects at L5-S1 with associated significant spondylolisthesis and hypertrophic changes in the posterior elements. 2. Advanced discogenic degenerative changes from L2-S1, left lumbar scoliosis, and a moderately large left-sided disc protrusion at L2-3 causing probable neural impingement. Lam Parrish MD Chest X-Ray 11/02/16 0000 Signed Impressions: Service Date/Time: Wednesday, November 02, 2016 14:37 - CONCLUSION: No acute cardiopulmonary disease. Lam Parrish MD Abdomen/Pelvis CT 11/02/16 0000 Signed Impressions: Service Date/Time: Wednesday, November 02, 2016 15:10 - CONCLUSION: 1. Left parapelvic cyst and a low density lesion lower pole of the solitary left kidney are similar to images from a prior cryoablation in August 2015. 2. Bilateral adrenal lesions, low density in the right and intermediate density on the left. Recommend correlation with outside prior imaging studies to see if this is a new or old finding. 3. 4.2 cm distal abdominal aortic aneurysm. Bilaterally iliac stents in place. 4. Significant spondylolisthesis at L5-S1 with bilateral pars defects. 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 He reported that he had been having diarrhea for months but this suddenly worsened and was having up to 10x/day, nonbloody. - Labs at admission found the pt to have pancytopenia with neutropenia. No fevers or chills. - CT Abd/pelvis (11/02) noted to have AAA 4.2cm and val adrenal lesions. - Hematology was consulted to assist in etiology of pancytopenia. - Bone marrow biopsy performed on 11/03/2016 with marrow aspiration indicated acute promyelocytic leukemia bone marrow aspirate flow cytometry indicates 81% blasts most consistent with acute promyelocytic leukemia. - Pt is being started on ATRA at 40 mg twice daily, Prednisone 40 mg daily, Arsenic trioxide at 11.85 mg intravenously daily per Heme/Onc recommendations. - PICC line placed on 11/05/16 - Chemo regimen started on 11/06/16 - Hematology plans to keep the pt hospitalized for at least the first week following initiation of treatment to monitor for DIC - Monitor labs - received cryoprecipitate 11/09/16 for bleeding. - supportive care (2) Hemoptysis, unspecified Status: Acute Plan: - suspect old blood d/t previous epistaxis -hem/onc aware. see above (3) GERD (gastroesophageal reflux disease) Status: Acute Plan: - improved - protonix - tums prn (4) Pancytopenia Status: Acute Plan: - See above. (5) Neutropenia Status: Acute Plan: - See above (6) Diarrhea Status: Acute Plan: - Diarrhea resolved - Stools are negative for C. diff - Stools for cryptosporidium and Giardia are negative (7) Weakness generalized Status: Acute Plan: - See above (8) Renal cell carcinoma Status: Resolved Plan: - See above (9) Hypertension Status: Chronic Plan: - BP is stable. (10) PAD (peripheral artery disease) Status: Chronic Plan: - Pt with hx of PAD s/p 5 stents in lower ext. (11) copd Status: Chronic (12) CKD (chronic kidney disease) stage 3, GFR 30-59 ml/min Status: Chronic Problem Qualifiers (1) GERD (gastroesophageal reflux disease): Qualified Code: K21.9 - Gastroesophageal reflux disease, esophagitis presence not specified (2) Neutropenia: Qualified Code: D70.9 - Neutropenia, unspecified type (3) Renal cell carcinoma: Qualified Code: C64.9 - Renal cell carcinoma, unspecified laterality Leonid Ma MD November 11, 2016 08:04
[2016-11-11 08:09] LABS: CORRECTED NUCLEATED RBC 4 /100 WBC (0-0); NEUTROPHIL # MANUAL DIFF 0.4 TH/MM3 (1.8-7.7); PLATELET ESTIMATE SMEAR LOW (NORMAL); PLATELET MORPHOLOGY NORMAL (NORMAL); POLYS (SEG NEUTROPHILS) 62 % (16-70); SCAN/DIFF FINAL DIFF MANUAL; WBC DIFF SAMPLE 90
[2016-11-11] MEDS: predniSONE 20 MG TAB PO SCH (09:29)
[2016-11-11] MEDS: ALLOPURINOL 300 MG TAB PO SCH (09:29)
[2016-11-11] MEDS: PANTOPRAZOLE SOD 40 MG DELAYED RELEASE TAB PO SCH (09:29)
[2016-11-11] MEDS: SODIUM CHLORIDE 0.9% FLUSH 10 ML FLUSH IV FLUSH SCH ×3 (09:34→21:24)
[2016-11-11] MEDS: TRETINOIN PO SCH ×2 (09:35→17:16)
[2016-11-11] MEDS: SODIUM CHLOR 0.9% 1000 ML INJ 1,000 ML IV SCH ×2 (09:37→21:25)
[2016-11-11 12:00] VITALS: BP 138/76; PULSE 68; RESP 18; TEMP 97.4; O2SAT 97
[2016-11-11 16:00] VITALS: BP 165/81; PULSE 90; RESP 22; TEMP 97.7; O2SAT 97
[2016-11-11 20:00] VITALS: BP 140/78; PULSE 92; RESP 18; TEMP 97.1; O2SAT 94
[2016-11-11] MEDS: CHOLECALCIFEROL (VIT D3) 1000 UNIT TAB PO SCH (21:15)
[2016-11-11] MEDS: PRAVASTATIN SOD 40 MG TAB PO SCH (21:15)
[2016-11-11] MEDS: SODIUM CHLOR 0.9% 250 ML INJ 250 ML IV SCH (21:25)
[2016-11-11] MEDS: SODIUM CHLORIDE 0.9% IV SCH (21:31)
[2016-11-11] MEDS: [UNRECOGNIZED DRUG - OTHER] IV SCH (21:31)
[2016-11-11] MEDS ORDERED: FUROSEMIDE 20 MG/2 ML VIAL IV PUSH ONE (22:45)
[2016-11-12] VITALS (7 sets, daily range): BP systolic 158–193; BP diastolic 79–93; PULSE 73–104; RESP 17–20; TEMP 96.2–98.8; O2SAT 93–98
[2016-11-12] MEDS: SODIUM BICARBONATE 325 MG TAB PO SCH ×3 (05:24→21:05)
[2016-11-12] MEDS: SODIUM CHLOR 0.9% 1000 ML INJ 1,000 ML IV SCH (05:28)
[2016-11-12 06:53] LABS: AUTOMATED NEUTROPHIL # 0.5 TH/MM3 (1.8-7.7); BASOPHIL % 0.3 % (0.0-2.0); HEMATOCRIT 26.6 % (39.0-51.0); LYMPH % 35.5 % (9.0-44.0); LYMPHOCYTE # 0.3 TH/MM3 (1.0-4.8); MEAN CELL VOLUME 95.6 FL (80.0-100.0); MEAN CORPUSCULAR HGB CONC 35.5 % (32.0-36.0); MONO % 3.7 % (0.0-8.0); NEUT % 60.5 % (16.0-70.0); PLATELET COUNT 60 TH/MM3 (150-450); RED BLOOD COUNT 2.78 MIL/MM3 (4.50-5.90); RED CELL DISTRIBUTION WIDTH 14.9 % (11.6-17.2); WHITE BLOOD COUNT 0.8 TH/MM3 (4.0-11.0)
[2016-11-12 07:03] LABS: APTT (PATIENT) 27.8 SEC (24.3-30.1); INTERNATIONAL NORMALIZED RATIO 1.1 RATIO; PROTHROMBIN TIME - PATIENT 11.7 SEC (9.8-11.6)
[2016-11-12 07:05] LABS: HEMO FLAGS AUTO DIFF
[2016-11-12 07:28] LABS: BICARBONATE 23.4 MEQ/L (21.0-32.0); MAGNESIUM 2.1 MG/DL (1.5-2.5); POTASSIUM 3.8 MEQ/L (3.5-5.1)
--- NOTE | 2016-11-12 07:44 | PD.ONC.PN ---
Subjective Subjective Remarks Patient was seen and examined, he reports having had leg swelling last night; he describes his legs as "elephant legs ". He was given a diuretic overnight and tells me he emptied his bladder almost every 20 minutes for several hours. The swelling is much improved this morning. The patient denies difficulty breathing, chest pain, overt bleeding, hematuria, abdominal pain, nausea, vomiting, fevers or chills. Objective Data Date Time Temp Pulse Resp B/P Pulse Ox O2 Delivery O2 Flow Rate FiO2 11/12/16 04:00 96.2 73 17 158/81 97 11/12/16 00:00 96.6 78 18 163/79 98 11/11/16 20:00 97.1 92 18 140/78 94 11/11/16 16:00 97.7 90 22 165/81 97 11/11/16 12:00 97.4 68 18 138/76 97 11/11/16 08:00 96.9 67 18 149/76 97 Result Diagram: 11/12/16 0520 11/12/16 0520 Laboratory Results Laboratory Tests Test 11/12/16 05:20 White Blood Count 0.8 TH/MM3 Red Blood Count 2.78 MIL/MM3 Hemoglobin 9.4 GM/DL Hematocrit 26.6 % Mean Corpuscular Volume 95.6 FL Mean Corpuscular Hemoglobin 34.0 PG Mean Corpuscular Hemoglobin 35.5 % Concent Red Cell Distribution Width 14.9 % Platelet Count 60 TH/MM3 Mean Platelet Volume 8.2 FL Neutrophils (%) (Auto) 60.5 % Lymphocytes (%) (Auto) 35.5 % Monocytes (%) (Auto) 3.7 % Eosinophils (%) (Auto) 0.0 % Basophils (%) (Auto) 0.3 % Neutrophils # (Auto) 0.5 TH/MM3 Lymphocytes # (Auto) 0.3 TH/MM3 Monocytes # (Auto) 0.0 TH/MM3 Eosinophils # (Auto) 0.0 TH/MM3 Basophils # (Auto) 0.0 TH/MM3 CBC Comment AUTO DIFF Prothrombin Time 11.7 SEC Prothromb Time International 1.1 RATIO Ratio Activated Partial 27.8 SEC Thromboplast Time Fibrinogen 169 mg/dL Sodium Level 144 MEQ/L Potassium Level 3.8 MEQ/L Chloride Level 113 MEQ/L Carbon Dioxide Level 23.4 MEQ/L Anion Gap 8 MEQ/L Blood Urea Nitrogen 36 MG/DL Creatinine 1.90 MG/DL Estimat Glomerular Filtration 34 ML/MIN Rate Random Glucose 103 MG/DL Calcium Level 8.2 MG/DL Phosphorus Level 3.0 MG/DL Magnesium Level 2.1 MG/DL Administered Medications Medications (Trade) Dose Ordered Sig/Sowmya Route PRN Reason Start Time Stop Time Status Last Admin Dose Admin Sodium Chloride (NS Flush) 2 ml BID IV FLUSH 11/02/16 21:00 11/10/16 21:11 Acetaminophen (Tylenol) 650 mg Q4H PRN PO TEMP > 100.4 11/02/16 18:00 11/09/16 20:29 Pravastatin Sodium (Pravachol) 40 mg HS PO 11/02/16 21:00 11/11/16 21:15 Cholecalciferol 1000 units 1,000 units HS PO 11/02/16 21:00 11/11/16 21:15 Sodium Chloride (NS 1000 ml Inj) 1,000 ml @ 84 mls/hr [id number] IV 11/03/16 10:00 11/12/16 05:28 Loperamide HCl (Imodium) 2 mg Q4H PRN PO after each episode diarrhea 11/04/16 09:30 11/06/16 10:55 Tretinoin 40 mg 40 mg BIDPC PO 11/05/16 09:00 11/11/16 17:16 Sodium Chloride (NS 250 ml Inj) 250 ml @ 84 mls/hr Q24H IV 11/05/16 11:00 11/11/16 21:25 Sodium Bicarbonate (Sodium Bicarbonate) 325 mg Q8HR PO 11/06/16 08:00 11/12/16 05:24 Clonidine (Catapres) 0.2 mg Q6H PRN PO SBP above 160 11/06/16 16:45 11/10/16 19:31 Pantoprazole Sodium (Protonix) 40 mg DAILY PO 11/07/16 09:15 11/11/16 09:29 Calcium Carbonate (Tums Chew) 500 mg Q2H PRN CHEW dyspepsia 11/07/16 09:15 11/07/16 09:30 Allopurinol (Zyloprim) 300 mg DAILY PO 11/08/16 09:00 11/11/16 09:29 Prednisone 40 mg 40 mg DAILY PO 11/09/16 09:00 11/11/16 09:29 Arsenic Trioxide/ Sodium Chloride (Trisenox Inj/NS 250 ml Inj) 260 ml @ 130.925 mls/hr Q24H IV 11/09/16 22:00 12/01/16 00:00 11/11/16 21:31 Objective Remarks GENERAL: Elderly male, pleasant disposition, coughs frequently. This is a well- nourished, well-developed patient, in no apparent distress. SKIN: No rashes, ecchymoses or lesions. Cool and dry. HEAD: Atraumatic. Normocephalic. No temporal or scalp tenderness. EYES: Pupils equal round and reactive. Extraocular motions intact. No scleral icterus. No injection or drainage. ENT: Nose without bleeding, purulent drainage or septal hematoma. Throat without erythema, tonsillar hypertrophy or exudate. Uvula midline. Airway patent. NECK: Trachea midline. No JVD or lymphadenopathy. Supple, nontender, no meningeal signs. CARDIOVASCULAR: Regular rate and rhythm without murmurs, gallops, or rubs. RESPIRATORY: Prolonged expiratory phase, disbursed crackles occasional rhonchi, prolonged expiratory phase. GASTROINTESTINAL: Abdomen soft, non-tender, nondistended. No hepato-splenomegaly , or palpable masses. No guarding. MUSCULOSKELETAL: Extremities with bilateral pitting edema. No joint tenderness. No calf tenderness. Negative Homans sign bilaterally. NEUROLOGICAL: Awake and alert. Cranial nerves II through XII intact. Motor and sensory grossly within normal limits. Five out of 5 muscle strength in all muscle groups. Normal speech. Assessment/Plan Assessment 76-year-old male presenting with pancytopenia, bone marrow biopsy performed on with marrow aspiration indicates findings diagnostic for acute promyelocytic leukemia bone marrow aspirate flow cytometry indicates 81% blasts with features of acute promyelocytic leukemia. Confirmatory testing including PCR for translocation 15;17 is was positive. Plan to start ATRA today day 1 was 11/06/2016. Arsenic trioxide will likely start on 11/07/2016 Corticosteroids(Prednisone, 40mg PO daily) started on 11/05/2016. Tumor lysis syndrome prophylaxis with allopurinol was initiated on 11/04/2016. hydration: NS @84cc/hr sodium bicarbonate 325mg PO TID Plan 1. APL: today is day #7. continue Arsenic/ATRA combination. EKG has been ordered for later today to assess his QT intervals. This will be ordered weekly while he is on daily treatment and once he starts consolidation and EKG will be ordered prior to each cycle. 2. 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 S/p Cryo on 11/09. Counts appear to be slightly improved today that this may be due to volume contraction from diuresis. 3. Had epistaxis over the weekend. This has not recurred over the past 48 hours. 4. Afebrile. 5. Continue Allopurinol and oral sodium bicarbonate. No evidence of TLS. Renal function and electrolytes are stable. 6. Anemia and leukopenia: Due to APL and ongoing treatment. I suspect his counts will continue to decrease for the next 5-8 days before we see an improvement. 7. Volume overload: Likely secondary to IV fluid infusion at high rate. Normal saline infusion has been decreased to 50 mL per hour, I've also added on Lasix 20 mg by mouth twice daily with KCl 20 mEq twice daily. Michael Haley MD November 12, 2016 07:44
[2016-11-12 08:35] LABS: BANDS 2 % (0-6); CORRECTED NUCLEATED RBC 7 /100 WBC (0-0); NEUTROPHIL # MANUAL DIFF 0.5 TH/MM3 (1.8-7.7); POLYS (SEG NEUTROPHILS) 57 % (16-70); WBC DIFF SAMPLE 100
[2016-11-12 08:36] LABS: PLATELET ESTIMATE SMEAR LOW (NORMAL); PLATELET MORPHOLOGY NORMAL (NORMAL)
[2016-11-12 08:37] LABS: OVALOCYTES 1+ (NORMAL); SCAN/DIFF FINAL DIFF MANUAL
[2016-11-12] MEDS: SODIUM CHLORIDE 0.9% FLUSH 10 ML FLUSH IV FLUSH SCH ×3 (09:00→21:05)
[2016-11-12] MEDS: PANTOPRAZOLE SOD 40 MG DELAYED RELEASE TAB PO SCH (10:08)
[2016-11-12] MEDS: ALLOPURINOL 300 MG TAB PO SCH (10:08)
[2016-11-12] MEDS: POTASSIUM CHLORIDE 20 MEQ CONTROLLED RELEASE TAB PO SCH ×2 (10:08→21:05)
[2016-11-12] MEDS: predniSONE 20 MG TAB PO SCH (10:09)
[2016-11-12] MEDS: FUROSEMIDE 20 MG TAB PO SCH ×2 (10:09→18:38)
--- NOTE | 2016-11-12 10:38 | HHI.PR ---
Subjective Remarks had some lower ext edema last night.. given iv lasix Objective Vitals nad heart reg lung cta abd s/nt ext 1plus pedal edema Vital Signs Date Time Temp Pulse Resp B/P Pulse Ox O2 Delivery O2 Flow Rate FiO2 11/12/16 08:00 97.1 77 18 176/85 98 11/12/16 04:00 96.2 73 17 158/81 97 11/12/16 00:00 96.6 78 18 163/79 98 11/11/16 20:00 97.1 92 18 140/78 94 11/11/16 16:00 97.7 90 22 165/81 97 11/11/16 12:00 97.4 68 18 138/76 97 11/11/16 11/11/16 11/12/16 15:00 23:00 07:00 Intake Total 960 ml 1475 ml 922 ml Balance 960 ml 1475 ml 922 ml Intake Oral 960 ml IV Total 1475 ml 672 ml Other 250 ml # Voids 5 5 Result Diagram: 11/12/16 0520 11/12/16 0520 Imaging Last 24 hours Impressions Lumbar Spine CT 11/02/16 0000 Signed Impressions: Service Date/Time: Wednesday, November 02, 2016 15:10 - CONCLUSION: 1. Chronic bilateral pars defects at L5-S1 with associated significant spondylolisthesis and hypertrophic changes in the posterior elements. 2. Advanced discogenic degenerative changes from L2-S1, left lumbar scoliosis, and a moderately large left-sided disc protrusion at L2-3 causing probable neural impingement. Lam Parrish MD Chest X-Ray 11/02/16 0000 Signed Impressions: Service Date/Time: Wednesday, November 02, 2016 14:37 - CONCLUSION: No acute cardiopulmonary disease. Lam Parrish MD Abdomen/Pelvis CT 11/02/16 0000 Signed Impressions: Service Date/Time: Wednesday, November 02, 2016 15:10 - CONCLUSION: 1. Left parapelvic cyst and a low density lesion lower pole of the solitary left kidney are similar to images from a prior cryoablation in August 2015. 2. Bilateral adrenal lesions, low density in the right and intermediate density on the left. Recommend correlation with outside prior imaging studies to see if this is a new or old finding. 3. 4.2 cm distal abdominal aortic aneurysm. Bilaterally iliac stents in place. 4. Significant spondylolisthesis at L5-S1 with bilateral pars defects. 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 He reported that he had been having diarrhea for months but this suddenly worsened and was having up to 10x/day, nonbloody. - Labs at admission found the pt to have pancytopenia with neutropenia. No fevers or chills. - CT Abd/pelvis (11/02) noted to have AAA 4.2cm and val adrenal lesions. - Hematology was consulted to assist in etiology of pancytopenia. - Bone marrow biopsy performed on 11/03/2016 with marrow aspiration indicated acute promyelocytic leukemia bone marrow aspirate flow cytometry indicates 81% blasts most consistent with acute promyelocytic leukemia. - Pt is being started on ATRA at 40 mg twice daily, Prednisone 40 mg daily, Arsenic trioxide at 11.85 mg intravenously daily per Heme/Onc recommendations. - PICC line placed on 11/05/16 - Chemo regimen started on 11/06/16 - Hematology plans to keep the pt hospitalized for at least the first week following initiation of treatment to monitor for DIC - Monitor labs - received cryoprecipitate 11/09/16 for bleeding. - supportive care -Pt developed lower extremity edema. ivf lowered and started on scheduled lasix. monitor bmp. (2) Hemoptysis, unspecified Status: Acute Plan: - suspect old blood d/t previous epistaxis -hem/onc aware. see above (3) GERD (gastroesophageal reflux disease) Status: Acute Plan: - improved - protonix - tums prn (4) Pancytopenia Status: Acute Plan: - See above. (5) Neutropenia Status: Acute Plan: - See above (6) Diarrhea Status: Acute Plan: - Diarrhea resolved - Stools are negative for C. diff - Stools for cryptosporidium and Giardia are negative (7) Weakness generalized Status: Acute Plan: - See above (8) Renal cell carcinoma Status: Resolved Plan: - See above (9) Hypertension Status: Chronic Plan: - BP is stable. (10) PAD (peripheral artery disease) Status: Chronic Plan: - Pt with hx of PAD s/p 5 stents in lower ext. (11) copd Status: Chronic (12) CKD (chronic kidney disease) stage 3, GFR 30-59 ml/min Status: Chronic Problem Qualifiers (1) GERD (gastroesophageal reflux disease): Qualified Code: K21.9 - Gastroesophageal reflux disease, esophagitis presence not specified (2) Neutropenia: Qualified Code: D70.9 - Neutropenia, unspecified type (3) Renal cell carcinoma: Qualified Code: C64.9 - Renal cell carcinoma, unspecified laterality Leonid Ma MD November 12, 2016 10:38
[2016-11-12] MEDS: TRETINOIN PO SCH ×2 (11:47→18:41)
[2016-11-12] MEDS: CHOLECALCIFEROL (VIT D3) 1000 UNIT TAB PO SCH (21:05)
[2016-11-12] MEDS: PRAVASTATIN SOD 40 MG TAB PO SCH (21:05)
[2016-11-12] MEDS: SODIUM CHLORIDE 0.9% IV SCH (22:33)
[2016-11-12] MEDS: [UNRECOGNIZED DRUG - OTHER] IV SCH (22:33)
[2016-11-12] MEDS: SODIUM CHLOR 0.9% 250 ML INJ 250 ML IV SCH (22:34)
[2016-11-13] VITALS: BP 160/77; PULSE 85; RESP 17; TEMP 97.1; O2SAT 97
[2016-11-13 04:00] VITALS: BP 155/78; PULSE 76; RESP 18; TEMP 97.6; O2SAT 96
[2016-11-13] MEDS: SODIUM CHLOR 0.9% 1000 ML INJ 1,000 ML IV SCH (04:57)
[2016-11-13] MEDS: SODIUM BICARBONATE 325 MG TAB PO SCH ×3 (05:00→22:35)
[2016-11-13 07:15] LABS: BICARBONATE 26.8 MEQ/L (21.0-32.0); POTASSIUM 3.8 MEQ/L (3.5-5.1)
[2016-11-13 07:50] VITALS: BP 184/90; PULSE 78; RESP 20; TEMP 96.8; O2SAT 97
--- NOTE | 2016-11-13 08:05 | PD.ONC.PN ---
Subjective Subjective Remarks Patient seen and examined, vital signs labs and medications reviewed. Subjectively the patient reports having continue diuresis though not quite as frequent urination as the night before. He tells me that the edema in his legs has noticeably decreased. He continues to walk 10-12 laps daily around the floor. Denies fevers, chills, night sweats, difficulty breathing, chest pain, abdominal pain, diarrhea, overt bleeding. Objective Data Date Time Temp Pulse Resp B/P Pulse Ox O2 Delivery O2 Flow Rate FiO2 11/13/16 04:00 97.6 76 18 155/78 96 11/13/16 00:00 97.1 85 17 160/77 97 11/12/16 21:00 160/85 11/12/16 20:00 97.4 104 18 193/93 93 11/12/16 16:00 97.3 92 18 163/80 95 11/12/16 12:00 98.8 85 20 170/90 96 Result Diagram: 11/12/16 0520 11/13/16 0500 Laboratory Results Laboratory Tests Test 11/13/16 05:00 Sodium Level 144 MEQ/L Potassium Level 3.8 MEQ/L Chloride Level 111 MEQ/L Carbon Dioxide Level 26.8 MEQ/L Anion Gap 6 MEQ/L Blood Urea Nitrogen 40 MG/DL Creatinine 1.95 MG/DL Estimat Glomerular Filtration 33 ML/MIN Rate Random Glucose 99 MG/DL Calcium Level 8.1 MG/DL Administered Medications Medications (Trade) Dose Ordered Sig/Sowmya Route PRN Reason Start Time Stop Time Status Last Admin Dose Admin Sodium Chloride (NS Flush) 2 ml BID IV FLUSH 11/02/16 21:00 11/10/16 21:11 Acetaminophen (Tylenol) 650 mg Q4H PRN PO TEMP > 100.4 11/02/16 18:00 11/09/16 20:29 Pravastatin Sodium (Pravachol) 40 mg HS PO 11/02/16 21:00 11/12/16 21:05 Cholecalciferol 1000 units 1,000 units HS PO 11/02/16 21:00 11/12/16 21:05 Sodium Chloride (NS 1000 ml Inj) 1,000 ml @ 50 mls/hr Q20H IV 11/03/16 10:00 11/13/16 04:57 Loperamide HCl (Imodium) 2 mg Q4H PRN PO after each episode diarrhea 11/04/16 09:30 11/06/16 10:55 Tretinoin 40 mg 40 mg BIDPC PO 11/05/16 09:00 11/12/16 18:41 Sodium Chloride (NS 250 ml Inj) 250 ml @ 84 mls/hr Q24H IV 11/05/16 11:00 11/12/16 22:34 Sodium Bicarbonate (Sodium Bicarbonate) 325 mg Q8HR PO 11/06/16 08:00 11/13/16 05:00 Clonidine (Catapres) 0.2 mg Q6H PRN PO SBP above 160 11/06/16 16:45 11/10/16 19:31 Pantoprazole Sodium (Protonix) 40 mg DAILY PO 11/07/16 09:15 11/12/16 10:08 Calcium Carbonate (Tums Chew) 500 mg Q2H PRN CHEW dyspepsia 11/07/16 09:15 11/07/16 09:30 Allopurinol (Zyloprim) 300 mg DAILY PO 11/08/16 09:00 11/12/16 10:08 Prednisone 40 mg 40 mg DAILY PO 11/09/16 09:00 11/12/16 10:09 Arsenic Trioxide/ Sodium Chloride (Trisenox Inj/NS 250 ml Inj) 260 ml @ 130.925 mls/hr Q24H IV 11/09/16 22:00 12/01/16 00:00 11/12/16 22:33 Furosemide (Lasix) 20 mg BID@09,18 PO 11/12/16 09:00 11/12/16 18:38 Potassium Chloride (KCl) 20 meq Q12HR PO 11/12/16 09:00 11/12/16 21:05 Objective Remarks GENERAL: Elderly male, pleasant disposition, coughs frequently. This is a well- nourished, well-developed patient, in no apparent distress. SKIN: No rashes, ecchymoses or lesions. Cool and dry. HEAD: Atraumatic. Normocephalic. No temporal or scalp tenderness. EYES: Pupils equal round and reactive. Extraocular motions intact. No scleral icterus. No injection or drainage. ENT: Nose without bleeding, purulent drainage or septal hematoma. Throat without erythema, tonsillar hypertrophy or exudate. Uvula midline. Airway patent. NECK: Trachea midline. No JVD or lymphadenopathy. Supple, nontender, no meningeal signs. CARDIOVASCULAR: Regular rate and rhythm without murmurs, gallops, or rubs. RESPIRATORY: Prolonged expiratory phase, disbursed crackles occasional rhonchi, prolonged expiratory phase. GASTROINTESTINAL: Abdomen soft, non-tender, nondistended. No hepato-splenomegaly , or palpable masses. No guarding. MUSCULOSKELETAL: Edema resolved in the right leg, mild residual edema in the left leg. No joint tenderness. No calf tenderness. Negative Homans sign bilaterally. NEUROLOGICAL: Awake and alert. Cranial nerves II through XII intact. Motor and sensory grossly within normal limits. Five out of 5 muscle strength in all muscle groups. Normal speech. Assessment/Plan Assessment 76-year-old male presenting with pancytopenia, bone marrow biopsy performed on with marrow aspiration indicates findings diagnostic for acute promyelocytic leukemia bone marrow aspirate flow cytometry indicates 81% blasts with features of acute promyelocytic leukemia. Confirmatory testing including PCR for translocation 15;17 is was positive. Plan to start ATRA today day 1 was 11/06/2016. Arsenic trioxide will likely start on 11/07/2016 Corticosteroids(Prednisone, 40mg PO daily) started on 11/05/2016. Tumor lysis syndrome prophylaxis with allopurinol was initiated on 11/04/2016. hydration: NS @84cc/hr sodium bicarbonate 325mg PO TID Plan 1. APL: today is day #8. continue Arsenic/ATRA combination. 2. 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 S/p Cryo on 11/09. Counts appear to be slightly improved today that this may be due to volume contraction from diuresis. 3. Had epistaxis over the weekend. This has not recurred over the past 48 hours. 4. Afebrile. 5. Continue Allopurinol and oral sodium bicarbonate. No evidence of TLS. Renal function and electrolytes are stable. 6. Anemia and leukopenia: Due to APL and ongoing treatment. I suspect his counts will continue to decrease for the next 5-8 days before we see an improvement. 7. Volume overload: Likely secondary to IV fluid infusion at high rate. Normal saline infusion has been decreased to 50 mL per hour, Lasix dose adjusted ; now on 10 mg twice daily by mouth. Michael Haley MD November 13, 2016 08:05
[2016-11-13] MEDS: SODIUM CHLORIDE 0.9% FLUSH 10 ML FLUSH IV FLUSH SCH ×3 (08:57→19:51)
[2016-11-13] MEDS: ALLOPURINOL 300 MG TAB PO SCH (09:07)
[2016-11-13] MEDS: cloNIDine HCL 0.2 MG TAB PO PRN (09:08)
[2016-11-13] MEDS: PANTOPRAZOLE SOD 40 MG DELAYED RELEASE TAB PO SCH (09:08)
[2016-11-13] MEDS: POTASSIUM CHLORIDE 20 MEQ CONTROLLED RELEASE TAB PO SCH ×2 (09:08→19:53)
[2016-11-13] MEDS: predniSONE 20 MG TAB PO SCH (09:08)
[2016-11-13] MEDS: FUROSEMIDE 20 MG TAB PO SCH ×2 (09:08→18:09)
[2016-11-13] MEDS: TRETINOIN PO SCH ×2 (09:15→18:09)
--- NOTE | 2016-11-13 09:37 | HHI.PR ---
Subjective Remarks no complaints. swelling better eating breakfast. ambulating. Objective Vitals heart reg lung cta abd s/nt ext trace edema Vital Signs Date Time Temp Pulse Resp B/P Pulse Ox O2 Delivery O2 Flow Rate FiO2 11/13/16 04:00 97.6 76 18 155/78 96 11/13/16 00:00 97.1 85 17 160/77 97 11/12/16 21:00 160/85 11/12/16 20:00 97.4 104 18 193/93 93 11/12/16 16:00 97.3 92 18 163/80 95 11/12/16 12:00 98.8 85 20 170/90 96 11/12/16 11/12/16 11/13/16 15:00 23:00 07:00 Intake Total 1600 ml 650 ml Balance 1600 ml 650 ml Intake Oral 1200 ml IV Total 400 ml 650 ml # Voids 7 2 # Bowel Movements 1 Result Diagram: 11/12/16 0520 11/13/16 0500 Imaging Last 24 hours Impressions Lumbar Spine CT 11/02/16 0000 Signed Impressions: Service Date/Time: Wednesday, November 02, 2016 15:10 - CONCLUSION: 1. Chronic bilateral pars defects at L5-S1 with associated significant spondylolisthesis and hypertrophic changes in the posterior elements. 2. Advanced discogenic degenerative changes from L2-S1, left lumbar scoliosis, and a moderately large left-sided disc protrusion at L2-3 causing probable neural impingement. Lam Parrish MD Chest X-Ray 11/02/16 0000 Signed Impressions: Service Date/Time: Wednesday, November 02, 2016 14:37 - CONCLUSION: No acute cardiopulmonary disease. Lam Parrish MD Abdomen/Pelvis CT 11/02/16 0000 Signed Impressions: Service Date/Time: Wednesday, November 02, 2016 15:10 - CONCLUSION: 1. Left parapelvic cyst and a low density lesion lower pole of the solitary left kidney are similar to images from a prior cryoablation in August 2015. 2. Bilateral adrenal lesions, low density in the right and intermediate density on the left. Recommend correlation with outside prior imaging studies to see if this is a new or old finding. 3. 4.2 cm distal abdominal aortic aneurysm. Bilaterally iliac stents in place. 4. Significant spondylolisthesis at L5-S1 with bilateral pars defects. 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 He reported that he had been having diarrhea for months but this suddenly worsened and was having up to 10x/day, nonbloody. - Labs at admission found the pt to have pancytopenia with neutropenia. No fevers or chills. - CT Abd/pelvis (11/02) noted to have AAA 4.2cm and val adrenal lesions. - Hematology was consulted to assist in etiology of pancytopenia. - Bone marrow biopsy performed on 11/03/2016 with marrow aspiration indicated acute promyelocytic leukemia bone marrow aspirate flow cytometry indicates 81% blasts most consistent with acute promyelocytic leukemia. - Pt started on ATRA at 40 mg twice daily, Prednisone 40 mg daily, Arsenic trioxide at 11.85 mg intravenously daily per Heme/Onc - PICC line placed on 11/05/16 - Chemo regimen started on 11/06/16 - received cryoprecipitate 11/09/16 for bleeding and DIC concerns - supportive care -Pt developed lower extremity edema. ivf lowered and started on scheduled lasix. monitor bmp. stable. -monitor cbc/bmp. d/c when ok with hem/onc. repeat bx planned after rx. (2) Hemoptysis, unspecified Status: Acute Plan: - suspect old blood d/t previous epistaxis -hem/onc aware. see above (3) GERD (gastroesophageal reflux disease) Status: Acute Plan: - improved - protonix - tums prn (4) Pancytopenia Status: Acute Plan: - See above. (5) Neutropenia Status: Acute Plan: - See above (6) Diarrhea Status: Acute Plan: - Diarrhea resolved - Stools are negative for C. diff - Stools for cryptosporidium and Giardia are negative (7) Weakness generalized Status: Acute Plan: - See above (8) Renal cell carcinoma Status: Resolved Plan: - See above (9) Hypertension Status: Chronic Plan: - BP is stable. (10) PAD (peripheral artery disease) Status: Chronic Plan: - Pt with hx of PAD s/p 5 stents in lower ext. (11) copd Status: Chronic (12) CKD (chronic kidney disease) stage 3, GFR 30-59 ml/min Status: Chronic Problem Qualifiers (1) GERD (gastroesophageal reflux disease): Qualified Code: K21.9 - Gastroesophageal reflux disease, esophagitis presence not specified (2) Neutropenia: Qualified Code: D70.9 - Neutropenia, unspecified type (3) Renal cell carcinoma: Qualified Code: C64.9 - Renal cell carcinoma, unspecified laterality Leonid Ma MD November 13, 2016 09:37
--- NOTE | 2016-11-13 09:56 | EKG ---
Date Performed: 11/12/2016 Time Performed: 11:46:34 PTAGE: 76 years EKG: Sinus rhythm NORMAL ECG PREVIOUS TRACING : 11/04/2016 20.12 DOCTOR: Luis Alberto Ivey Interpretating Date/Time 11/13/2016 09:54:49
[2016-11-13] MEDS: SODIUM CHLOR 0.9% 250 ML INJ 250 ML IV SCH (11:00)
[2016-11-13 11:50] VITALS: BP 136/65; PULSE 87; RESP 20; TEMP 97.1; O2SAT 97
[2016-11-13] MEDS ORDERED: LISI-515 PO (13:25)
[2016-11-13 15:50] VITALS: BP 144/75; PULSE 85; RESP 20; TEMP 98.2; O2SAT 96
[2016-11-13] MEDS: CHOLECALCIFEROL (VIT D3) 1000 UNIT TAB PO SCH (19:53)
[2016-11-13] MEDS: PRAVASTATIN SOD 40 MG TAB PO SCH (19:53)
[2016-11-13] MEDS: LISINOPRIL 10 MG TAB PO SCH (19:53)
[2016-11-13 20:00] VITALS: BP 135/66; PULSE 82; RESP 17; TEMP 97.1; O2SAT 95
[2016-11-13] MEDS: SODIUM CHLORIDE 0.9% IV SCH (22:34)
[2016-11-13] MEDS: [UNRECOGNIZED DRUG - OTHER] IV SCH (22:34)
[2016-11-14] VITALS: BP 152/72; PULSE 84; RESP 17; TEMP 96.2; O2SAT 95
[2016-11-14] MEDS: SODIUM CHLOR 0.9% 1000 ML INJ 1,000 ML IV SCH ×2 (00:30→22:13)
[2016-11-14] MEDS: SODIUM BICARBONATE 325 MG TAB PO SCH ×3 (04:52→22:12)
[2016-11-14 05:20] VITALS: BP 124/70; PULSE 72; RESP 18; TEMP 96.2; O2SAT 96
[2016-11-14 06:59] LABS: ALKALINE PHOSPHATASE 91 U/L (45-117); ALT (GPT) 31 U/L (12-78); ANION GAP 9 MEQ/L (5-15); AST (GOT) 21 U/L (15-37); BICARBONATE 24.5 MEQ/L (21.0-32.0); BLOOD UREA NITROGEN 39 MG/DL (7-18); CHLORIDE 110 MEQ/L (98-107); GLOMERULAR FILTRATION RATE 33 ML/MIN (>89); MAGNESIUM 2.1 MG/DL (1.5-2.5); POTASSIUM 3.8 MEQ/L (3.5-5.1); SODIUM (NA) 143 MEQ/L (136-145); TOTAL BILIRUBIN ADULT 0.3 MG/DL (0.2-1.0)
[2016-11-14 07:01] LABS: AUTOMATED NEUTROPHIL # 0.3 TH/MM3 (1.8-7.7); BASOPHIL % 0.5 % (0.0-2.0); EOSINOPHIL % 0.8 % (0.0-4.0); HEMATOCRIT 24.2 % (39.0-51.0); LYMPH % 40.9 % (9.0-44.0); LYMPHOCYTE # 0.2 TH/MM3 (1.0-4.8); MEAN CELL VOLUME 97.5 FL (80.0-100.0); MEAN CORPUSCULAR HEMOGLOBIN 33.3 PG (27.0-34.0); MEAN CORPUSCULAR HGB CONC 34.2 % (32.0-36.0); MONO % 2.6 % (0.0-8.0); NEUT % 55.2 % (16.0-70.0); PLATELET COUNT 59 TH/MM3 (150-450); RED BLOOD COUNT 2.49 MIL/MM3 (4.50-5.90); RED CELL DISTRIBUTION WIDTH 15.1 % (11.6-17.2); WHITE BLOOD COUNT 0.6 TH/MM3 (4.0-11.0)
[2016-11-14 07:04] LABS: APTT (PATIENT) 24.5 SEC (24.3-30.1); INTERNATIONAL NORMALIZED RATIO 1.1 RATIO; PROTHROMBIN TIME - PATIENT 12.1 SEC (9.8-11.6)
[2016-11-14 07:39] LABS: HEMO FLAGS AUTO DIFF
--- NOTE | 2016-11-14 07:40 | PD.ONC.PN ---
Subjective Subjective Remarks Patient seen and examined, labs and medications, vital signs reviewed. Patient reports having had a small nosebleed from the right nostril yesterday, he tells me the volume was not quite a teaspoon. He denies having had fevers, chills, night sweats, denies difficulty breathing, chest pain. He does however report having sensation of lightheadedness and thinks it may be due to his new blood pressure medicine. Per the MAR he was initiated on clonidine for management of hypertension if his systolic blood pressures greater than 160. Objective Data Date Time Temp Pulse Resp B/P Pulse Ox O2 Delivery O2 Flow Rate FiO2 11/14/16 05:20 96.2 72 18 124/70 96 11/14/16 00:00 96.2 84 17 152/72 95 11/13/16 20:00 97.1 82 17 135/66 95 11/13/16 15:50 98.2 85 20 144/75 96 11/13/16 11:50 97.1 87 20 136/65 97 11/13/16 07:50 96.8 78 20 184/90 97 Automatic Cuff Result Diagram: 11/12/16 0520 11/14/16 0516 Laboratory Results Laboratory Tests Test 11/14/16 05:16 Prothrombin Time 12.1 SEC Prothromb Time International 1.1 RATIO Ratio Activated Partial 24.5 SEC Thromboplast Time Fibrinogen 157 mg/dL Sodium Level 143 MEQ/L Potassium Level 3.8 MEQ/L Chloride Level 110 MEQ/L Carbon Dioxide Level 24.5 MEQ/L Anion Gap 9 MEQ/L Blood Urea Nitrogen 39 MG/DL Creatinine 1.96 MG/DL Estimat Glomerular Filtration 33 ML/MIN Rate Random Glucose 102 MG/DL Calcium Level 7.9 MG/DL Phosphorus Level 3.0 MG/DL Magnesium Level 2.1 MG/DL Total Bilirubin 0.3 MG/DL Aspartate Amino Transf 21 U/L (AST/SGOT) Alanine Aminotransferase 31 U/L (ALT/SGPT) Alkaline Phosphatase 91 U/L Total Protein 5.6 GM/DL Albumin 2.9 GM/DL Administered Medications Medications (Trade) Dose Ordered Sig/Sowmya Route PRN Reason Start Time Stop Time Status Last Admin Dose Admin Sodium Chloride (NS Flush) 2 ml BID IV FLUSH 11/02/16 21:00 11/10/16 21:11 Acetaminophen (Tylenol) 650 mg Q4H PRN PO TEMP > 100.4 11/02/16 18:00 11/09/16 20:29 Pravastatin Sodium (Pravachol) 40 mg HS PO 11/02/16 21:00 11/13/16 19:53 Cholecalciferol 1000 units 1,000 units HS PO 11/02/16 21:00 11/13/16 19:53 Sodium Chloride (NS 1000 ml Inj) 1,000 ml @ 50 mls/hr Q20H IV 11/03/16 10:00 11/14/16 00:30 Loperamide HCl (Imodium) 2 mg Q4H PRN PO after each episode diarrhea 11/04/16 09:30 11/06/16 10:55 Tretinoin 40 mg 40 mg BIDPC PO 11/05/16 09:00 11/13/16 18:09 Sodium Chloride (NS 250 ml Inj) 250 ml @ 84 mls/hr Q24H IV 11/05/16 11:00 11/13/16 11:00 Sodium Bicarbonate (Sodium Bicarbonate) 325 mg Q8HR PO 11/06/16 08:00 11/14/16 04:52 Clonidine (Catapres) 0.2 mg Q6H PRN PO SBP above 160 11/06/16 16:45 11/13/16 09:08 Pantoprazole Sodium (Protonix) 40 mg DAILY PO 11/07/16 09:15 11/13/16 09:08 Calcium Carbonate (Tums Chew) 500 mg Q2H PRN CHEW dyspepsia 11/07/16 09:15 11/07/16 09:30 Allopurinol (Zyloprim) 300 mg DAILY PO 11/08/16 09:00 11/13/16 09:07 Prednisone 40 mg 40 mg DAILY PO 11/09/16 09:00 11/13/16 09:08 Arsenic Trioxide/ Sodium Chloride (Trisenox Inj/NS 250 ml Inj) 260 ml @ 130.925 mls/hr Q24H IV 11/09/16 22:00 12/01/16 00:00 11/13/16 22:34 Potassium Chloride (KCl) 20 meq Q12HR PO 11/12/16 09:00 11/13/16 19:53 Furosemide (Lasix) 10 mg BID@,18 PO 11/13/16 09:00 11/13/16 18:09 Lisinopril (Prinivil) 10 mg Q12HR PO 11/13/16 21:00 11/13/16 19:53 Objective Remarks GENERAL: Elderly male, pleasant disposition, coughs frequently. This is a well- nourished, well-developed patient, in no apparent distress. SKIN: No rashes, ecchymoses or lesions. Cool and dry. HEAD: Atraumatic. Normocephalic. No temporal or scalp tenderness. EYES: Pupils equal round and reactive. Extraocular motions intact. No scleral icterus. No injection or drainage. ENT: Nose without bleeding, purulent drainage or septal hematoma. Throat without erythema, tonsillar hypertrophy or exudate. Uvula midline. Airway patent. NECK: Trachea midline. No JVD or lymphadenopathy. Supple, nontender, no meningeal signs. CARDIOVASCULAR: Regular rate and rhythm without murmurs, gallops, or rubs. RESPIRATORY: Prolonged expiratory phase, disbursed crackles occasional rhonchi, prolonged expiratory phase. GASTROINTESTINAL: Abdomen soft, non-tender, nondistended. No hepato-splenomegaly , or palpable masses. No guarding. MUSCULOSKELETAL: Edema resolved in the right leg, mild residual edema in the left leg. No joint tenderness. No calf tenderness. Negative Homans sign bilaterally. NEUROLOGICAL: Awake and alert. Cranial nerves II through XII intact. Motor and sensory grossly within normal limits. Five out of 5 muscle strength in all muscle groups. Normal speech. Assessment/Plan Assessment 76-year-old male presenting with pancytopenia, bone marrow biopsy performed on with marrow aspiration indicates findings diagnostic for acute promyelocytic leukemia bone marrow aspirate flow cytometry indicates 81% blasts with features of acute promyelocytic leukemia. Confirmatory testing including PCR for translocation 15;17 is was positive. Plan to start ATRA today day 1 was 11/06/2016. Arsenic trioxide will likely start on 11/07/2016 Corticosteroids(Prednisone, 40mg PO daily) started on 11/05/2016. Tumor lysis syndrome prophylaxis with allopurinol was initiated on 11/04/2016. hydration: NS @84cc/hr sodium bicarbonate 325mg PO TID Plan 1. APL: today is day #9. continue Arsenic/ATRA combination. Await results of CBC drawn this morning. 2. 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 S/p Cryo on 11/09. Counts appear to be slightly improved today that this may be due to volume contraction from diuresis. 3. Had epistaxis over the weekend. This has not recurred over the past 48 hours. 4. Afebrile. 5. Continue Allopurinol and oral sodium bicarbonate. No evidence of TLS. Renal function and electrolytes are stable. 6. Anemia and leukopenia: Due to APL and ongoing treatment. I suspect his counts will continue to decrease for the next 5-8 days before we see an improvement. 7. Volume overload: Likely secondary to IV fluid infusion at high rate. Normal saline infusion has been decreased to 50 mL per hour, Lasix dose adjusted ; now on 10 mg twice daily by mouth. Disposition: Continue current treatment. Monitor blood counts. As his platelet count, neutrophil count and hemoglobin approach posterior normal levels he will be transitioned outpatient treatment. Michael Haley MD November 14, 2016 07:40
[2016-11-14 07:50] VITALS: BP 147/75; PULSE 87; RESP 20; TEMP 96.4; O2SAT 98
[2016-11-14] MEDS: SODIUM CHLORIDE 0.9% FLUSH 10 ML FLUSH IV FLUSH SCH ×3 (09:00→20:06)
[2016-11-14] MEDS ORDERED: NIFEdipine 30 MG SUSTAINED RELEASE TAB PO SCH (09:00)
[2016-11-14] MEDS: POTASSIUM CHLORIDE 20 MEQ CONTROLLED RELEASE TAB PO SCH ×2 (09:00→20:03)
[2016-11-14] MEDS: ALLOPURINOL 300 MG TAB PO SCH (09:10)
[2016-11-14] MEDS: PANTOPRAZOLE SOD 40 MG DELAYED RELEASE TAB PO SCH (09:10)
[2016-11-14] MEDS: LISINOPRIL 10 MG TAB PO SCH ×2 (09:11→20:04)
[2016-11-14] MEDS: predniSONE 20 MG TAB PO SCH (09:11)
[2016-11-14] MEDS: FUROSEMIDE 20 MG TAB PO SCH ×2 (09:11→17:47)
[2016-11-14] MEDS: TRETINOIN PO SCH ×2 (09:13→17:45)
[2016-11-14] MEDS ORDERED: ALTEPLASE RECOMBINANT 2 MG VIAL IV FLUSH PRN (09:30)
--- NOTE | 2016-11-14 09:51 | HHI.PR ---
Subjective Remarks pt doing ok. no new complaints Objective Vitals heart reg lung cta abd s/nt ext trace pedal edema Vital Signs Date Time Temp Pulse Resp B/P Pulse Ox O2 Delivery O2 Flow Rate FiO2 11/14/16 05:20 96.2 72 18 124/70 96 11/14/16 00:00 96.2 84 17 152/72 95 11/13/16 20:00 97.1 82 17 135/66 95 11/13/16 15:50 98.2 85 20 144/75 96 11/13/16 11:50 97.1 87 20 136/65 97 11/13/16 11/13/16 11/14/16 15:00 23:00 07:00 Intake Total 360 ml Balance 360 ml Intake Oral 360 ml # Voids 8 5 # Bowel Movements 2 Result Diagram: 11/14/16 0516 11/14/16 0516 Imaging Last 24 hours Impressions [address]ine CT 11/02/16 0000 Signed Impressions: Service Date/Time: Wednesday, November 02, 2016 15:10 - CONCLUSION: 1. Chronic bilateral pars defects at L5-S1 with associated significant spondylolisthesis and hypertrophic changes in the posterior elements. 2. Advanced discogenic degenerative changes from L2-S1, left lumbar scoliosis, and a moderately large left-sided disc protrusion at L2-3 causing probable neural impingement. Lam Parrish MD Chest X-Ray 11/02/16 0000 Signed Impressions: Service Date/Time: Wednesday, November 02, 2016 14:37 - CONCLUSION: No acute cardiopulmonary disease. Lam Parrish MD Abdomen/Pelvis CT 11/02/16 0000 Signed Impressions: Service Date/Time: Wednesday, November 02, 2016 15:10 - CONCLUSION: 1. Left parapelvic cyst and a low density lesion lower pole of the solitary left kidney are similar to images from a prior cryoablation in August 2015. 2. Bilateral adrenal lesions, low density in the right and intermediate density on the left. Recommend correlation with outside prior imaging studies to see if this is a new or old finding. 3. 4.2 cm distal abdominal aortic aneurysm. Bilaterally iliac stents in place. 4. Significant spondylolisthesis at L5-S1 with bilateral pars defects. 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 He reported that he had been having diarrhea for months but this suddenly worsened and was having up to 10x/day, nonbloody. - Labs at admission found the pt to have pancytopenia with neutropenia. No fevers or chills. - CT Abd/pelvis (11/02) noted to have AAA 4.2cm and val adrenal lesions. - Hematology was consulted to assist in etiology of pancytopenia. - Bone marrow biopsy performed on 11/03/2016 with marrow aspiration indicated acute promyelocytic leukemia bone marrow aspirate flow cytometry indicates 81% blasts most consistent with acute promyelocytic leukemia. - Pt started on ATRA at 40 mg twice daily, Prednisone 40 mg daily, Arsenic trioxide at 11.85 mg intravenously daily per Heme/Onc - PICC line placed on 11/05/16 - Chemo regimen started on 11/06/16 - received cryoprecipitate 11/09/16 for bleeding and DIC concerns - supportive care -Pt developed lower extremity edema. ivf lowered and started on scheduled lasix. monitor bmp. stable. -monitor cbc/bmp. -lisinipril scheduled started for htn..better. d/c prn clonidine per pt request. d/c when ok with hem/onc. repeat bx planned after rx. (2) Hemoptysis, unspecified Status: Acute Plan: - suspect old blood d/t previous epistaxis -hem/onc aware. see above (3) GERD (gastroesophageal reflux disease) Status: Acute Plan: - improved - protonix - tums prn (4) Pancytopenia Status: Acute Plan: - See above. (5) Neutropenia Status: Acute Plan: - See above (6) Diarrhea Status: Acute Plan: - Diarrhea resolved - Stools are negative for C. diff - Stools for cryptosporidium and Giardia are negative (7) Weakness generalized Status: Acute Plan: - See above (8) Renal cell carcinoma Status: Resolved Plan: - See above (9) Hypertension Status: Chronic Plan: - BP is stable. (10) PAD (peripheral artery disease) Status: Chronic Plan: - Pt with hx of PAD s/p 5 stents in lower ext. (11) copd Status: Chronic (12) CKD (chronic kidney disease) stage 3, GFR 30-59 ml/min Status: Chronic Problem Qualifiers (1) GERD (gastroesophageal reflux disease): Qualified Code: K21.9 - Gastroesophageal reflux disease, esophagitis presence not specified (2) Neutropenia: Qualified Code: D70.9 - Neutropenia, unspecified type (3) Renal cell carcinoma: Qualified Code: C64.9 - Renal cell carcinoma, unspecified laterality Leonid Ma MD November 14, 2016 09:51
[2016-11-14 10:00] LABS: NEUTROPHIL # MANUAL DIFF 0.3 TH/MM3 (1.8-7.7)
[2016-11-14 10:01] LABS: CORRECTED NUCLEATED RBC 3 /100 WBC (0-0); EOSINOPHILS 2 % (0-4); POLYS (SEG NEUTROPHILS) 52 % (16-70); WBC DIFF SAMPLE 60
[2016-11-14 10:02] LABS: PLATELET ESTIMATE SMEAR LOW (NORMAL); PLATELET MORPHOLOGY NORMAL (NORMAL); SCAN/DIFF FINAL DIFF MANUAL
[2016-11-14 11:50] VITALS: BP 137/75; PULSE 92; RESP 20; TEMP 97.5; O2SAT 95
[2016-11-14 16:57] VITALS: BP 167/86; PULSE 80; RESP 18; TEMP 97.4; O2SAT 98
[2016-11-14 20:00] VITALS: BP 166/73; PULSE 93; RESP 18; TEMP 97.6; O2SAT 95
[2016-11-14] MEDS: CHOLECALCIFEROL (VIT D3) 1000 UNIT TAB PO SCH (20:03)
[2016-11-14] MEDS: PRAVASTATIN SOD 40 MG TAB PO SCH (20:04)
[2016-11-14] MEDS: [UNRECOGNIZED DRUG - OTHER] IV SCH (22:03)
[2016-11-14] MEDS: SODIUM CHLOR 0.9% 250 ML INJ 250 ML IV SCH (22:03)
[2016-11-14] MEDS: SODIUM CHLORIDE 0.9% IV SCH (22:03)
[2016-11-15] VITALS (8 sets, daily range): BP systolic 132–171; BP diastolic 67–78; PULSE 75–98; RESP 16–23; TEMP 96.9–98.2; O2SAT 94–99
[2016-11-15] MEDS: SODIUM BICARBONATE 325 MG TAB PO SCH ×3 (05:46→22:00)
[2016-11-15] MEDS: predniSONE 20 MG TAB PO SCH (09:00)
[2016-11-15] MEDS: FUROSEMIDE 20 MG TAB PO SCH ×2 (09:00→19:20)
[2016-11-15] MEDS: SODIUM CHLORIDE 0.9% FLUSH 10 ML FLUSH IV FLUSH SCH ×3 (09:00→20:07)
--- NOTE | 2016-11-15 09:22 | HHI.PR ---
Subjective Remarks doing well. no bleeding. Objective Vitals heart reg lung cta abd s/nt ext no edema Vital Signs Date Time Temp Pulse Resp B/P Pulse Ox O2 Delivery O2 Flow Rate FiO2 11/15/16 08:00 97.6 75 18 153/75 97 11/15/16 04:00 97.1 78 16 143/78 97 11/15/16 00:00 97.2 80 16 135/69 97 11/14/16 20:00 97.6 93 18 166/73 95 11/14/16 16:57 97.4 80 18 167/86 98 11/14/16 11:50 97.5 92 20 137/75 95 11/14/16 11/14/16 11/15/16 15:00 23:00 07:00 Intake Total 480 ml 889 ml 981 ml Balance 480 ml 889 ml 981 ml Intake Oral 480 ml 250 ml IV Total 889 ml 731 ml # Voids 6 1 # Bowel Movements 2 Result Diagram: 11/14/16 0516 11/14/16 0516 Imaging Last 24 hours Impressions Lumbar Spine CT 11/02/16 0000 Signed Impressions: Service Date/Time: Wednesday, November 02, 2016 15:10 - CONCLUSION: 1. Chronic bilateral pars defects at L5-S1 with associated significant spondylolisthesis and hypertrophic changes in the posterior elements. 2. Advanced discogenic degenerative changes from L2-S1, left lumbar scoliosis, and a moderately large left-sided disc protrusion at L2-3 causing probable neural impingement. Lam Parrish MD Chest X-Ray 11/02/16 0000 Signed Impressions: Service Date/Time: Wednesday, November 02, 2016 14:37 - CONCLUSION: No acute cardiopulmonary disease. Lam Parrish MD Abdomen/Pelvis CT 11/02/16 0000 Signed Impressions: Service Date/Time: Wednesday, November 02, 2016 15:10 - CONCLUSION: 1. Left parapelvic cyst and a low density lesion lower pole of the solitary left kidney are similar to images from a prior cryoablation in August 2015. 2. Bilateral adrenal lesions, low density in the right and intermediate density on the left. Recommend correlation with outside prior imaging studies to see if this is a new or old finding. 3. 4.2 cm distal abdominal aortic aneurysm. Bilaterally iliac stents in place. 4. Significant spondylolisthesis at L5-S1 with bilateral pars defects. 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 He reported that he had been having diarrhea for months but this suddenly worsened and was having up to 10x/day, nonbloody. - Labs at admission found the pt to have pancytopenia with neutropenia. No fevers or chills. - CT Abd/pelvis (11/02) noted to have AAA 4.2cm and val adrenal lesions. - Hematology was consulted to assist in etiology of pancytopenia. - Bone marrow biopsy performed on 11/03/2016 with marrow aspiration indicated acute promyelocytic leukemia bone marrow aspirate flow cytometry indicates 81% blasts most consistent with acute promyelocytic leukemia. - Pt started on ATRA at 40 mg twice daily, Prednisone 40 mg daily, Arsenic trioxide at 11.85 mg intravenously daily per Heme/Onc - PICC line placed on 11/05/16 - Chemo regimen started on 11/06/16 - received cryoprecipitate 11/09/16 for bleeding and DIC concerns - supportive care -Pt developed lower extremity edema. ivf lowered and started on scheduled lasix. monitor bmp. stable. -monitor cbc/bmp. -lisinipril scheduled started for htn..better. d/c prn clonidine per pt request. d/c when ok with hem/onc. repeat bx planned after rx. stable today (2) Hemoptysis, unspecified Status: Acute Plan: - suspect old blood d/t previous epistaxis -hem/onc aware. see above (3) GERD (gastroesophageal reflux disease) Status: Acute Plan: - improved - protonix - tums prn (4) Pancytopenia Status: Acute Plan: - See above. (5) Neutropenia Status: Acute Plan: - See above (6) Diarrhea Status: Acute Plan: - Diarrhea resolved - Stools are negative for C. diff - Stools for cryptosporidium and Giardia are negative (7) Weakness generalized Status: Acute Plan: - See above (8) Renal cell carcinoma Status: Resolved Plan: - See above (9) Hypertension Status: Chronic Plan: - BP is stable. (10) PAD (peripheral artery disease) Status: Chronic Plan: - Pt with hx of PAD s/p 5 stents in lower ext. (11) copd Status: Chronic (12) CKD (chronic kidney disease) stage 3, GFR 30-59 ml/min Status: Chronic Problem Qualifiers (1) GERD (gastroesophageal reflux disease): Qualified Code: K21.9 - Gastroesophageal reflux disease, esophagitis presence not specified (2) Neutropenia: Qualified Code: D70.9 - Neutropenia, unspecified type (3) Renal cell carcinoma: Qualified Code: C64.9 - Renal cell carcinoma, unspecified laterality Leonid Ma MD November 15, 2016 09:22
[2016-11-15] MEDS: PANTOPRAZOLE SOD 40 MG DELAYED RELEASE TAB PO SCH (10:26)
[2016-11-15] MEDS: ALLOPURINOL 300 MG TAB PO SCH (10:26)
[2016-11-15] MEDS: POTASSIUM CHLORIDE 20 MEQ CONTROLLED RELEASE TAB PO SCH ×2 (10:26→20:05)
[2016-11-15] MEDS: LISINOPRIL 10 MG TAB PO SCH ×2 (10:26→20:05)
[2016-11-15] MEDS: TRETINOIN PO SCH ×2 (14:11→19:20)
--- NOTE | 2016-11-15 17:52 | PD.ONC.PN ---
Subjective Subjective Remarks Patient denies acute complaints, specifically denies fevers, chills, difficulty breathing, chest pain, diarrhea, overt bleeding. He has had no further episodes of nosebleeds. Tells me his appetite is excellent, he has been ambulating in the hallways several times a day. Objective Data Date Time Temp Pulse Resp B/P Pulse Ox O2 Delivery O2 Flow Rate FiO2 11/15/16 16:00 98.2 83 23 132/69 94 11/15/16 14:52 98.0 81 18 155/72 99 11/15/16 12:00 97.9 88 16 171/78 96 11/15/16 08:00 97.6 75 18 153/75 97 11/15/16 04:00 97.1 78 16 143/78 97 11/15/16 00:00 97.2 80 16 135/69 97 11/14/16 20:00 97.6 93 18 166/73 95 11/15/16 11/15/16 11/15/16 07:00 15:00 23:00 Intake Total 981 ml Balance 981 ml Result Diagram: 11/14/16 0516 11/14/16 0516 Administered Medications Medications (Trade) Dose Ordered Sig/Sowmya Route PRN Reason Start Time Stop Time Status Last Admin Dose Admin Sodium Chloride (NS Flush) 2 ml BID IV FLUSH 11/02/16 21:00 11/14/16 20:06 Acetaminophen (Tylenol) 650 mg Q4H PRN PO TEMP > 100.4 11/02/16 18:00 11/09/16 20:29 Pravastatin Sodium (Pravachol) 40 mg HS PO 11/02/16 21:00 11/14/16 20:04 Cholecalciferol 1000 units 1,000 units HS PO 11/02/16 21:00 11/14/16 20:03 Sodium Chloride (NS 1000 ml Inj) 1,000 ml @ 50 mls/hr Q20H IV 11/03/16 10:00 11/14/16 22:13 Loperamide HCl (Imodium) 2 mg Q4H PRN PO after each episode diarrhea 11/04/16 09:30 11/06/16 10:55 Tretinoin 40 mg 40 mg BIDPC PO 11/05/16 09:00 11/15/16 14:11 Sodium Chloride (NS 250 ml Inj) 250 ml @ 84 mls/hr Q24H IV 11/05/16 11:00 11/14/16 22:03 Sodium Bicarbonate (Sodium Bicarbonate) 325 mg Q8HR PO 11/06/16 08:00 11/15/16 14:08 Pantoprazole Sodium (Protonix) 40 mg DAILY PO 11/07/16 09:15 11/15/16 10:26 Calcium Carbonate (Tums Chew) 500 mg Q2H PRN CHEW dyspepsia 11/07/16 09:15 11/07/16 09:30 Allopurinol (Zyloprim) 300 mg DAILY PO 11/08/16 09:00 11/15/16 10:26 Prednisone 40 mg 40 mg DAILY PO 11/09/16 09:00 11/15/16 09:00 Arsenic Trioxide/ Sodium Chloride (Trisenox Inj/NS 250 ml Inj) 260 ml @ 130.925 mls/hr Q24H IV 11/09/16 22:00 12/01/16 00:00 11/14/16 22:03 Potassium Chloride (KCl) 20 meq Q12HR PO 11/12/16 09:00 11/15/16 10:26 Furosemide (Lasix) 10 mg BID@09,18 PO 11/13/16 09:00 11/15/16 09:00 Lisinopril (Prinivil) 10 mg Q12HR PO 11/13/16 21:00 11/15/16 10:26 Alteplase, Recombinant (Cathflo Activase Inj) 2 mg UNSCH PRN IV FLUSH FOR CLOGGED CENTRAL LINE 11/14/16 09:30 11/14/16 10:43 Objective Remarks GENERAL: Elderly male, pleasant disposition, coughs frequently. This is a well- nourished, well-developed patient, in no apparent distress. SKIN: No rashes, ecchymoses or lesions. Cool and dry. HEAD: Atraumatic. Normocephalic. No temporal or scalp tenderness. EYES: Pupils equal round and reactive. Extraocular motions intact. No scleral icterus. No injection or drainage. ENT: Nose without bleeding, purulent drainage or septal hematoma. Throat without erythema, tonsillar hypertrophy or exudate. Uvula midline. Airway patent. NECK: Trachea midline. No JVD or lymphadenopathy. Supple, nontender, no meningeal signs. CARDIOVASCULAR: Regular rate and rhythm without murmurs, gallops, or rubs. RESPIRATORY: Prolonged expiratory phase, disbursed crackles occasional rhonchi, prolonged expiratory phase. GASTROINTESTINAL: Abdomen soft, non-tender, nondistended. No hepato-splenomegaly , or palpable masses. No guarding. MUSCULOSKELETAL: Edema resolved in the right leg, mild residual edema in the left leg. No joint tenderness. No calf tenderness. Negative Homans sign bilaterally. NEUROLOGICAL: Awake and alert. Cranial nerves II through XII intact. Motor and sensory grossly within normal limits. Five out of 5 muscle strength in all muscle groups. Normal speech. Assessment/Plan Assessment 76-year-old male presenting with pancytopenia, bone marrow biopsy performed on with marrow aspiration indicates findings diagnostic for acute promyelocytic leukemia bone marrow aspirate flow cytometry indicates 81% blasts with features of acute promyelocytic leukemia. Confirmatory testing including PCR for translocation 15;17 is was positive. Plan to start ATRA today day 1 was 11/06/2016. Arsenic trioxide will likely start on 11/07/2016 Corticosteroids(Prednisone, 40mg PO daily) started on 11/05/2016. Tumor lysis syndrome prophylaxis with allopurinol was initiated on 11/04/2016. hydration: NS @84cc/hr sodium bicarbonate 325mg PO TID Plan 1. APL (low risk): today is day #10. continue Arsenic/ATRA combination. Await results of CBC drawn this morning. 2. 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 S/p Cryo on 11/09. Counts appear to be slightly improved today that this may be due to volume contraction from diuresis. 3. Had epistaxis over the weekend. This has not recurred over the past 48 hours. 4. Afebrile. 5. Continue Allopurinol and oral sodium bicarbonate. No evidence of TLS. Renal function and electrolytes are stable. 6. Anemia and leukopenia: Due to APL and ongoing treatment. I suspect his counts will continue to decrease for the next 5-8 days before we see an improvement. 7. Volume overload: Likely secondary to IV fluid infusion at high rate. Normal saline infusion has been decreased to 50 mL per hour, Lasix dose adjusted ; now on 10 mg twice daily by mouth. Disposition: Continue current treatment. Monitor blood counts. As his platelet count, neutrophil count and hemoglobin approach posterior normal levels he will be transitioned outpatient treatment. Michael Haley MD November 15, 2016 17:52
[2016-11-15] MEDS: PRAVASTATIN SOD 40 MG TAB PO SCH (20:05)
[2016-11-15] MEDS: CHOLECALCIFEROL (VIT D3) 1000 UNIT TAB PO SCH (20:05)
[2016-11-15] MEDS: [UNRECOGNIZED DRUG - OTHER] IV SCH (22:05)
[2016-11-15] MEDS: SODIUM CHLORIDE 0.9% IV SCH (22:05)
[2016-11-15] MEDS: SODIUM CHLOR 0.9% 250 ML INJ 250 ML IV SCH (22:05)
[2016-11-16] VITALS: BP 145/67; PULSE 87; RESP 18; TEMP 96.9; O2SAT 96
[2016-11-16 04:00] VITALS: BP 154/78; PULSE 88; RESP 18; TEMP 97.8; O2SAT 95
[2016-11-16 04:42] LABS: HEMATOCRIT 25.3 % (39.0-51.0); MEAN CELL VOLUME 96.7 FL (80.0-100.0); MEAN CORPUSCULAR HEMOGLOBIN 33.2 PG (27.0-34.0); MEAN CORPUSCULAR HGB CONC 34.3 % (32.0-36.0); PLATELET COUNT 54 TH/MM3 (150-450); RED BLOOD COUNT 2.62 MIL/MM3 (4.50-5.90); RED CELL DISTRIBUTION WIDTH 15.2 % (11.6-17.2); WHITE BLOOD COUNT 1.3 TH/MM3 (4.0-11.0)
[2016-11-16 04:51] LABS: APTT (PATIENT) 29.4 SEC (24.3-30.1); INTERNATIONAL NORMALIZED RATIO 1.1 RATIO; PROTHROMBIN TIME - PATIENT 11.8 SEC (9.8-11.6)
[2016-11-16 04:54] LABS: HEMO FLAGS AUTO DIFF
[2016-11-16 05:13] LABS: ALT (GPT) 48 U/L (12-78); ANION GAP 9 MEQ/L (5-15); AST (GOT) 39 U/L (15-37); BLOOD UREA NITROGEN 34 MG/DL (7-18); CHLORIDE 111 MEQ/L (98-107); GLOMERULAR FILTRATION RATE 34 ML/MIN (>89); POTASSIUM 4.1 MEQ/L (3.5-5.1); SODIUM (NA) 145 MEQ/L (136-145)
[2016-11-16 05:15] LABS: ALKALINE PHOSPHATASE 94 U/L (45-117); TOTAL BILIRUBIN ADULT 0.3 MG/DL (0.2-1.0)
[2016-11-16 05:52] LABS: BANDS 3 % (0-6); BASOPHILS 1 % (0-2); CORRECTED NUCLEATED RBC 18 /100 WBC (0-0); METAMYELOCYTES 2 % (0-1); MYELOCYTES 4 % (0-0); NEUTROPHIL # MANUAL DIFF 0.5 TH/MM3 (1.8-7.7); POLYS (SEG NEUTROPHILS) 29 % (16-70); PROMYELOCYTES 2 % (0-0); SCAN/DIFF FINAL DIFF MANUAL; WBC DIFF SAMPLE 100
[2016-11-16 05:53] LABS: PLATELET ESTIMATE SMEAR LOW (NORMAL); PLATELET MORPHOLOGY NORMAL (NORMAL)
[2016-11-16] MEDS: SODIUM BICARBONATE 325 MG TAB PO SCH ×3 (06:16→22:09)
[2016-11-16 08:10] VITALS: BP 147/89; PULSE 87; RESP 18; TEMP 97.6; O2SAT 97
[2016-11-16] MEDS: PANTOPRAZOLE SOD 40 MG DELAYED RELEASE TAB PO SCH (08:11)
[2016-11-16] MEDS: POTASSIUM CHLORIDE 20 MEQ CONTROLLED RELEASE TAB PO SCH ×2 (08:11→20:10)
[2016-11-16] MEDS: predniSONE 20 MG TAB PO SCH (08:11)
[2016-11-16] MEDS: LISINOPRIL 10 MG TAB PO SCH ×2 (08:11→20:10)
[2016-11-16] MEDS: ALLOPURINOL 300 MG TAB PO SCH (08:11)
[2016-11-16] MEDS: FUROSEMIDE 20 MG TAB PO SCH ×2 (08:11→18:20)
[2016-11-16] MEDS: TRETINOIN PO SCH ×2 (08:21→18:30)
[2016-11-16] MEDS: SODIUM CHLORIDE 0.9% FLUSH 10 ML FLUSH IV FLUSH SCH ×3 (09:00→20:12)
--- NOTE | 2016-11-16 10:27 | HHI.PR ---
Subjective Remarks no complaints. good spirits. Objective Vitals heart reg lung cta abd s/nt ext trace edema Vital Signs Date Time Temp Pulse Resp B/P Pulse Ox O2 Delivery O2 Flow Rate FiO2 11/16/16 08:10 97.6 87 18 147/89 97 11/16/16 04:00 97.8 88 18 154/78 95 11/16/16 00:00 96.9 87 18 145/67 96 11/15/16 20:00 97.9 98 19 152/70 96 11/15/16 16:00 98.2 83 23 132/69 94 11/15/16 14:52 98.0 81 18 155/72 99 11/15/16 12:00 97.9 88 16 171/78 96 11/15/16 11/15/16 11/16/16 15:00 23:00 07:00 Intake Total 960 ml 480 ml 1804 ml Balance 960 ml 480 ml 1804 ml Intake Oral 960 ml 480 ml 240 ml IV Total 1564 ml # Voids 12 7 4 # Bowel Movements 1 2 Result Diagram: 11/16/16 0359 11/16/16 0359 Imaging Last 24 hours Impressions Lumbar Spine CT 11/02/16 0000 Signed Impressions: Service Date/Time: Wednesday, November 02, 2016 15:10 - CONCLUSION: 1. Chronic bilateral pars defects at L5-S1 with associated significant spondylolisthesis and hypertrophic changes in the posterior elements. 2. Advanced discogenic degenerative changes from L2-S1, left lumbar scoliosis, and a moderately large left-sided disc protrusion at L2-3 causing probable neural impingement. Lam Parrish MD Chest X-Ray 11/02/16 0000 Signed Impressions: Service Date/Time: Wednesday, November 02, 2016 14:37 - CONCLUSION: No acute cardiopulmonary disease. aLm Parrish MD Abdomen/Pelvis CT 11/02/16 0000 Signed Impressions: Service Date/Time: Wednesday, November 02, 2016 15:10 - CONCLUSION: 1. Left parapelvic cyst and a low density lesion lower pole of the solitary left kidney are similar to images from a prior cryoablation in August 2015. 2. Bilateral adrenal lesions, low density in the right and intermediate density on the left. Recommend correlation with outside prior imaging studies to see if this is a new or old finding. 3. 4.2 cm distal abdominal aortic aneurysm. Bilaterally iliac stents in place. 4. Significant spondylolisthesis at L5-S1 with bilateral pars defects. 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 He reported that he had been having diarrhea for months but this suddenly worsened and was having up to 10x/day, nonbloody. - Labs at admission found the pt to have pancytopenia with neutropenia. No fevers or chills. - CT Abd/pelvis (11/02) noted to have AAA 4.2cm and val adrenal lesions. - Hematology was consulted to assist in etiology of pancytopenia. - Bone marrow biopsy performed on 11/03/2016 with marrow aspiration indicated acute promyelocytic leukemia bone marrow aspirate flow cytometry indicates 81% blasts most consistent with acute promyelocytic leukemia. - Pt started on ATRA at 40 mg twice daily, Prednisone 40 mg daily, Arsenic trioxide at 11.85 mg intravenously daily per Heme/Onc - PICC line placed on 11/05/16 - Chemo regimen started on 11/06/16 - received cryoprecipitate 11/09/16 for bleeding and DIC concerns - supportive care -Pt developed lower extremity edema. ivf lowered and started on scheduled lasix. monitor bmp. stable. -monitor cbc/bmp. -lisinipril scheduled started for htn..better. d/c prn clonidine per pt request. d/c when ok with hem/onc. repeat bx planned after rx. stable today. ambulating in hallway regularly (2) Hemoptysis, unspecified Status: Acute Plan: - suspect old blood d/t previous epistaxis -hem/onc aware. see above (3) GERD (gastroesophageal reflux disease) Status: Acute Plan: - improved - protonix - tums prn (4) Pancytopenia Status: Acute Plan: - See above. (5) Neutropenia Status: Acute Plan: - See above (6) Diarrhea Status: Acute Plan: - Diarrhea resolved - Stools are negative for C. diff - Stools for cryptosporidium and Giardia are negative (7) Weakness generalized Status: Acute Plan: - See above (8) Renal cell carcinoma Status: Resolved Plan: - See above (9) Hypertension Status: Chronic Plan: - BP is stable. (10) PAD (peripheral artery disease) Status: Chronic Plan: - Pt with hx of PAD s/p 5 stents in lower ext. (11) copd Status: Chronic (12) CKD (chronic kidney disease) stage 3, GFR 30-59 ml/min Status: Chronic Problem Qualifiers (1) GERD (gastroesophageal reflux disease): Qualified Code: K21.9 - Gastroesophageal reflux disease, esophagitis presence not specified (2) Neutropenia: Qualified Code: D70.9 - Neutropenia, unspecified type (3) Renal cell carcinoma: Qualified Code: C64.9 - Renal cell carcinoma, unspecified laterality Leonid Ma MD November 16, 2016 10:27
--- NOTE | 2016-11-16 10:28 | PD.ONC.PN ---
Subjective Subjective Remarks Afebrile overnight. Pt sitting up in chair at bedside in no distress. He states he "feels great." He has had no ill effects due to the chemotherapy. Objective Data Date Time Temp Pulse Resp B/P Pulse Ox O2 Delivery O2 Flow Rate FiO2 11/16/16 08:10 97.6 87 18 147/89 97 11/16/16 04:00 97.8 88 18 154/78 95 11/16/16 00:00 96.9 87 18 145/67 96 11/15/16 20:00 97.9 98 19 152/70 96 11/15/16 16:00 98.2 83 23 132/69 94 11/15/16 14:52 98.0 81 18 155/72 99 11/15/16 12:00 97.9 88 16 171/78 96 11/16/16 11/16/16 11/16/16 07:00 15:00 23:00 Intake Total 1804 ml Balance 1804 ml Result Diagram: 11/16/16 0359 11/16/16 0359 Laboratory Results Laboratory Tests Test 11/16/16 03:59 White Blood Count 1.3 TH/MM3 Red Blood Count 2.62 MIL/MM3 Hemoglobin 8.7 GM/DL Hematocrit 25.3 % Mean Corpuscular Volume 96.7 FL Mean Corpuscular Hemoglobin 33.2 PG Mean Corpuscular Hemoglobin 34.3 % Concent Red Cell Distribution Width 15.2 % Platelet Count 54 TH/MM3 Mean Platelet Volume 7.6 FL Neutrophils (%) (Auto) % Lymphocytes (%) (Auto) % Monocytes (%) (Auto) % Eosinophils (%) (Auto) % Basophils (%) (Auto) % Neutrophils # (Auto) TH/MM3 Lymphocytes # (Auto) TH/MM3 Monocytes # (Auto) TH/MM3 Eosinophils # (Auto) TH/MM3 Basophils # (Auto) TH/MM3 CBC Comment AUTO DIFF Differential Total Cells 100 Counted Neutrophils % (Manual) 29 % Band Neutrophils % 3 % Lymphocytes % 55 % Monocytes % 4 % Basophils % 1 % Neutrophils # (Manual) 0.5 TH/MM3 Metamyelocytes 2 % Myelocytes 4 % Promyelocytes 2 % Nucleated Red Blood Cells 18 /100 WBC Differential Comment FINAL DIFF MANUAL Platelet Estimate LOW Platelet Morphology Comment NORMAL Prothrombin Time 11.8 SEC Prothromb Time International 1.1 RATIO Ratio Activated Partial 29.4 SEC Thromboplast Time Fibrinogen 188 mg/dL Sodium Level 145 MEQ/L Potassium Level 4.1 MEQ/L Chloride Level 111 MEQ/L Carbon Dioxide Level 25.0 MEQ/L Anion Gap 9 MEQ/L Blood Urea Nitrogen 34 MG/DL Creatinine 1.92 MG/DL Estimat Glomerular Filtration 34 ML/MIN Rate Random Glucose 85 MG/DL Calcium Level 8.1 MG/DL Total Bilirubin 0.3 MG/DL Aspartate Amino Transf 39 U/L (AST/SGOT) Alanine Aminotransferase 48 U/L (ALT/SGPT) Alkaline Phosphatase 94 U/L Total Protein 5.4 GM/DL Albumin 2.8 GM/DL Administered Medications Medications (Trade) Dose Ordered Sig/Sowmya Route PRN Reason Start Time Stop Time Status Last Admin Dose Admin Sodium Chloride (NS Flush) 2 ml BID IV FLUSH 11/02/16 21:00 11/15/16 20:07 Acetaminophen (Tylenol) 650 mg Q4H PRN PO TEMP > 100.4 11/02/16 18:00 11/09/16 20:29 Pravastatin Sodium (Pravachol) 40 mg HS PO 11/02/16 21:00 11/15/16 20:05 Cholecalciferol 1000 units 1,000 units HS PO 11/02/16 21:00 11/15/16 20:05 Sodium Chloride (NS 1000 ml Inj) 1,000 ml @ 50 mls/hr Q20H IV 11/03/16 10:00 11/14/16 22:13 Loperamide HCl (Imodium) 2 mg Q4H PRN PO after each episode diarrhea 11/04/16 09:30 11/06/16 10:55 Tretinoin 40 mg 40 mg BIDPC PO 11/05/16 09:00 11/16/16 08:21 Sodium Chloride (NS 250 ml Inj) 250 ml @ 84 mls/hr Q24H IV 11/05/16 11:00 11/15/16 22:05 Sodium Bicarbonate (Sodium Bicarbonate) 325 mg Q8HR PO 11/06/16 08:00 11/16/16 06:16 Pantoprazole Sodium (Protonix) 40 mg DAILY PO 11/07/16 09:15 11/16/16 08:11 Calcium Carbonate (Tums Chew) 500 mg Q2H PRN CHEW dyspepsia 11/07/16 09:15 11/07/16 09:30 Allopurinol (Zyloprim) 300 mg DAILY PO 11/08/16 09:00 11/16/16 08:11 Prednisone 40 mg 40 mg DAILY PO 11/09/16 09:00 11/16/16 08:11 Arsenic Trioxide/ Sodium Chloride (Trisenox Inj/NS 250 ml Inj) 260 ml @ 130.925 mls/hr Q24H IV 11/09/16 22:00 12/01/16 00:00 11/15/16 22:05 Potassium Chloride (KCl) 20 meq Q12HR PO 11/12/16 09:00 11/16/16 08:11 Furosemide (Lasix) 10 mg BID@,18 PO 11/13/16 09:00 11/16/16 08:11 Lisinopril (Prinivil) 10 mg Q12HR PO 11/13/16 21:00 11/16/16 08:11 Alteplase, Recombinant (Cathflo Activase Inj) 2 mg UNSCH PRN IV FLUSH FOR CLOGGED CENTRAL LINE 11/14/16 09:30 11/14/16 10:43 Objective Remarks GENERAL: Older male, sitting up in chair at bedside in no distress. SKIN: Warm and dry. HEAD: Normocephalic. EYES: No injection or drainage. NECK: Supple, trachea midline. CARDIOVASCULAR: Regular rate and rhythm without murmurs. RESPIRATORY: Scattered rhonchi. GASTROINTESTINAL: Abdomen soft, non-tender, nondistended. EXTREMITIES: No cyanosis, or edema. MUSCULOSKELETAL: Adequate muscle tone. NEUROLOGICAL: No obvious focal deficit. Awake, alert, and oriented x3. Assessment/Plan Problem List: (1) Acute promyelocytic leukemia Status: Acute Plan: 11/16/16: Today is day #11 of ATRA/Arsenic combo. Tolerating well. Assessment 76-year-old male presenting with pancytopenia, bone marrow biopsy performed on with marrow aspiration indicates findings diagnostic for acute promyelocytic leukemia bone marrow aspirate flow cytometry indicates 81% blasts with features of acute promyelocytic leukemia. Confirmatory testing including PCR for translocation 15;17 is was positive. ATRA day 1 was 11/06/2016. Arsenic trioxide day 1 was 11/09/2016 Corticosteroids(Prednisone, 40mg PO daily) started on 11/05/2016. Tumor lysis syndrome prophylaxis with allopurinol was initiated on 11/04/2016. hydration: NS @84cc/hr sodium bicarbonate 325mg PO TID Plan 1. Continue Arsenic/ATRA combination. 2. 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 3. Monitor for bleeding. 4. Continue Allopurinol and oral sodium bicarbonate. No evidence of TLS. Renal function and electrolytes are stable. 5. Monitor CBC. 6. Will likely transition him to outpatient treatment once counts are back to baseline. Attending Statement The exam, history, and the medical decision-making described in the above note were completed with the assistance of the mid-level provider. I reviewed and agree with the findings presented. I attest that I had a [id number] encounter with the patient on the same day, and personally performed and documented my assessment and findings in the medical record. Not experiencing any side effect with chemo. Counts stable. No transfusion needed today. Continue supporitve care. Gladys Sanchez November 16, 2016 10:28 George Vo MD November 16, 2016 11:55
[2016-11-16 12:27] VITALS: BP 145/75; PULSE 90; RESP 18; TEMP 96.7; O2SAT 96
[2016-11-16] MEDS: SODIUM CHLOR 0.9% 1000 ML INJ 1,000 ML IV SCH (14:19)
[2016-11-16 16:10] VITALS: BP 139/77; PULSE 84; RESP 18; TEMP 97.2; O2SAT 96
[2016-11-16 20:00] VITALS: BP 156/72; PULSE 86; RESP 19; TEMP 97; O2SAT 94
[2016-11-16] MEDS: PRAVASTATIN SOD 40 MG TAB PO SCH (20:10)
[2016-11-16] MEDS: CHOLECALCIFEROL (VIT D3) 1000 UNIT TAB PO SCH (20:10)
[2016-11-16] MEDS: SODIUM CHLORIDE 0.9% IV SCH (22:08)
[2016-11-16] MEDS: SODIUM CHLOR 0.9% 250 ML INJ 250 ML IV SCH (22:08)
[2016-11-16] MEDS: [UNRECOGNIZED DRUG - OTHER] IV SCH (22:08)
[2016-11-17] VITALS: BP 167/80; PULSE 95; RESP 18; TEMP 97; O2SAT 94
[2016-11-17 04:00] VITALS: BP 145/90; PULSE 99; RESP 18; TEMP 96.3; O2SAT 96
[2016-11-17] MEDS: SODIUM BICARBONATE 325 MG TAB PO SCH ×3 (05:23→21:42)
[2016-11-17 05:54] LABS: AUTOMATED NEUTROPHIL # 0.5 TH/MM3 (1.8-7.7); BASOPHIL % 0.7 % (0.0-2.0); EOSINOPHIL % 0.3 % (0.0-4.0); LYMPH % 31.7 % (9.0-44.0); LYMPHOCYTE # 0.3 TH/MM3 (1.0-4.8); MEAN CELL VOLUME 96.9 FL (80.0-100.0); MEAN CORPUSCULAR HEMOGLOBIN 33.8 PG (27.0-34.0); MEAN CORPUSCULAR HGB CONC 34.9 % (32.0-36.0); MONO % 8.6 % (0.0-8.0); NEUT % 58.7 % (16.0-70.0); PLATELET COUNT 60 TH/MM3 (150-450); RED BLOOD COUNT 2.48 MIL/MM3 (4.50-5.90); RED CELL DISTRIBUTION WIDTH 15.3 % (11.6-17.2); WHITE BLOOD COUNT 0.9 TH/MM3 (4.0-11.0)
[2016-11-17 06:23] LABS: HEMO FLAGS AUTO DIFF
[2016-11-17 06:25] LABS: ALKALINE PHOSPHATASE 97 U/L (45-117); ALT (GPT) 49 U/L (12-78); ANION GAP 5 MEQ/L (5-15); AST (GOT) 41 U/L (15-37); BICARBONATE 28.6 MEQ/L (21.0-32.0); BLOOD UREA NITROGEN 32 MG/DL (7-18); CHLORIDE 111 MEQ/L (98-107); GLOMERULAR FILTRATION RATE 36 ML/MIN (>89); POTASSIUM 3.8 MEQ/L (3.5-5.1); SODIUM (NA) 145 MEQ/L (136-145); TOTAL BILIRUBIN ADULT 0.3 MG/DL (0.2-1.0)
[2016-11-17 08:00] VITALS: BP 203/91; PULSE 99; RESP 20; TEMP 97.8; O2SAT 99
[2016-11-17] MEDS: SODIUM CHLOR 0.9% 1000 ML INJ 1,000 ML IV SCH ×2 (08:30→08:47)
[2016-11-17] MEDS: LISINOPRIL 10 MG TAB PO SCH ×2 (08:46→21:41)
[2016-11-17] MEDS: predniSONE 20 MG TAB PO SCH (08:46)
[2016-11-17] MEDS: ALLOPURINOL 300 MG TAB PO SCH (08:47)
[2016-11-17] MEDS: POTASSIUM CHLORIDE 20 MEQ CONTROLLED RELEASE TAB PO SCH ×2 (08:47→21:41)
[2016-11-17] MEDS: PANTOPRAZOLE SOD 40 MG DELAYED RELEASE TAB PO SCH (08:47)
[2016-11-17] MEDS: FUROSEMIDE 20 MG TAB PO SCH ×2 (08:47→17:29)
[2016-11-17] MEDS: SODIUM CHLORIDE 0.9% FLUSH 10 ML FLUSH IV FLUSH SCH ×3 (08:48→22:06)
[2016-11-17] MEDS: TRETINOIN PO SCH ×2 (08:53→17:33)
[2016-11-17 09:31] LABS: BANDS 2 % (0-6)
[2016-11-17 09:35] LABS: BASOPHILS 1 % (0-2); CORRECTED NUCLEATED RBC 10 /100 WBC (0-0); METAMYELOCYTES 1 % (0-1); MYELOCYTES 11 % (0-0); POLYS (SEG NEUTROPHILS) 23 % (16-70); PROMYELOCYTES 8 % (0-0); WBC DIFF SAMPLE 100
[2016-11-17 09:41] LABS: NEUTROPHIL # MANUAL DIFF 0.4 TH/MM3 (1.8-7.7)
[2016-11-17 09:42] LABS: PLATELET ESTIMATE SMEAR LOW (NORMAL); PLATELET MORPHOLOGY NORMAL (NORMAL); SCAN/DIFF FINAL DIFF MANUAL
--- NOTE | 2016-11-17 10:33 | PD.ONC.PN ---
Subjective Subjective Remarks Afebrile overnight. Pt doing very well, he has taken 10 laps around nursing unit this am. Objective Data Date Time Temp Pulse Resp B/P Pulse Ox O2 Delivery O2 Flow Rate FiO2 11/17/16 08:00 97.8 99 20 203/91 99 11/17/16 04:00 96.3 99 18 145/90 96 11/17/16 00:00 97.0 95 18 167/80 94 11/16/16 20:00 97.0 86 19 156/72 94 11/16/16 16:10 97.2 84 18 139/77 96 11/16/16 12:27 96.7 90 18 145/75 96 11/17/16 11/17/16 11/17/16 07:00 15:00 23:00 Intake Total 956 ml Balance 956 ml Result Diagram: 11/17/16 0525 11/17/16 0525 Laboratory Results Laboratory Tests Test 11/17/16 05:25 White Blood Count 0.9 TH/MM3 Red Blood Count 2.48 MIL/MM3 Hemoglobin 8.4 GM/DL Hematocrit 24.0 % Mean Corpuscular Volume 96.9 FL Mean Corpuscular Hemoglobin 33.8 PG Mean Corpuscular Hemoglobin 34.9 % Concent Red Cell Distribution Width 15.3 % Platelet Count 60 TH/MM3 Mean Platelet Volume 7.8 FL Neutrophils (%) (Auto) 58.7 % Lymphocytes (%) (Auto) 31.7 % Monocytes (%) (Auto) 8.6 % Eosinophils (%) (Auto) 0.3 % Basophils (%) (Auto) 0.7 % Neutrophils # (Auto) 0.5 TH/MM3 Lymphocytes # (Auto) 0.3 TH/MM3 Monocytes # (Auto) 0.1 TH/MM3 Eosinophils # (Auto) 0.0 TH/MM3 Basophils # (Auto) 0.0 TH/MM3 CBC Comment AUTO DIFF Differential Total Cells 100 Counted Neutrophils % (Manual) 23 % Band Neutrophils % 2 % Lymphocytes % 44 % Monocytes % 10 % Basophils % 1 % Neutrophils # (Manual) 0.4 TH/MM3 Metamyelocytes 1 % Myelocytes 11 % Promyelocytes 8 % Nucleated Red Blood Cells 10 /100 WBC Differential Comment FINAL DIFF MANUAL Platelet Estimate LOW Platelet Morphology Comment NORMAL Sodium Level 145 MEQ/L Potassium Level 3.8 MEQ/L Chloride Level 111 MEQ/L Carbon Dioxide Level 28.6 MEQ/L Anion Gap 5 MEQ/L Blood Urea Nitrogen 32 MG/DL Creatinine 1.81 MG/DL Estimat Glomerular Filtration 36 ML/MIN Rate Random Glucose 95 MG/DL Calcium Level 8.1 MG/DL Total Bilirubin 0.3 MG/DL Aspartate Amino Transf 41 U/L (AST/SGOT) Alanine Aminotransferase 49 U/L (ALT/SGPT) Alkaline Phosphatase 97 U/L Total Protein 5.7 GM/DL Albumin 2.9 GM/DL Administered Medications Medications (Trade) Dose Ordered Sig/Sowmya Route PRN Reason Start Time Stop Time Status Last Admin Dose Admin Sodium Chloride (NS Flush) 2 ml BID IV FLUSH 11/02/16 21:00 11/16/16 20:12 Acetaminophen (Tylenol) 650 mg Q4H PRN PO TEMP > 100.4 11/02/16 18:00 11/09/16 20:29 Pravastatin Sodium (Pravachol) 40 mg HS PO 11/02/16 21:00 11/16/16 20:10 Cholecalciferol 1000 units 1,000 units HS PO 11/02/16 21:00 11/16/16 20:10 Sodium Chloride (NS 1000 ml Inj) 1,000 ml @ 50 mls/hr Q20H IV 11/03/16 10:00 11/17/16 08:30 Loperamide HCl (Imodium) 2 mg Q4H PRN PO after each episode diarrhea 11/04/16 09:30 11/06/16 10:55 Tretinoin 40 mg 40 mg BIDPC PO 11/05/16 09:00 11/17/16 08:53 Sodium Chloride (NS 250 ml Inj) 250 ml @ 84 mls/hr Q24H IV 11/05/16 11:00 11/16/16 22:08 Sodium Bicarbonate (Sodium Bicarbonate) 325 mg Q8HR PO 11/06/16 08:00 11/17/16 08:51 Pantoprazole Sodium (Protonix) 40 mg DAILY PO 11/07/16 09:15 11/17/16 08:47 Calcium Carbonate (Tums Chew) 500 mg Q2H PRN CHEW dyspepsia 11/07/16 09:15 11/07/16 09:30 Allopurinol (Zyloprim) 300 mg DAILY PO 11/08/16 09:00 11/17/16 08:47 Prednisone 40 mg 40 mg DAILY PO 11/09/16 09:00 11/17/16 08:46 Arsenic Trioxide/ Sodium Chloride (Trisenox Inj/NS 250 ml Inj) 260 ml @ 130.925 mls/hr Q24H IV 11/09/16 22:00 12/01/16 00:00 11/16/16 22:08 Potassium Chloride (KCl) 20 meq Q12HR PO 11/12/16 09:00 11/17/16 08:47 Furosemide (Lasix) 10 mg BID@09,18 PO 11/13/16 09:00 11/17/16 08:47 Lisinopril (Prinivil) 10 mg Q12HR PO 11/13/16 21:00 11/17/16 08:46 Alteplase, Recombinant (Cathflo Activase Inj) 2 mg UNSCH PRN IV FLUSH FOR CLOGGED CENTRAL LINE 11/14/16 09:30 11/14/16 10:43 Objective Remarks GENERAL: Older male, sitting up in chair at bedside in no distress. SKIN: Warm and dry. HEAD: Normocephalic. EYES: No injection or drainage. NECK: Supple, trachea midline. CARDIOVASCULAR: Regular rate and rhythm without murmurs. RESPIRATORY: Scattered rhonchi. GASTROINTESTINAL: Abdomen soft, non-tender, nondistended. EXTREMITIES: No cyanosis, or edema. MUSCULOSKELETAL: Adequate muscle tone. NEUROLOGICAL: No obvious focal deficit. Awake, alert, and oriented x3. Assessment/Plan Problem List: (1) Acute promyelocytic leukemia Status: Acute Plan: 11/17/16: Today is day #12 of ATRA/Arsenic combo. Tolerating well. Assessment 76-year-old male presenting with pancytopenia, bone marrow biopsy performed on with marrow aspiration indicates findings diagnostic for acute promyelocytic leukemia bone marrow aspirate flow cytometry indicates 81% blasts with features of acute promyelocytic leukemia. Confirmatory testing including PCR for translocation 15;17 is was positive. ATRA day 1 was 11/06/2016. Arsenic trioxide day 1 was 11/09/2016 Corticosteroids(Prednisone, 40mg PO daily) started on 11/05/2016. Tumor lysis syndrome prophylaxis with allopurinol was initiated on 11/04/2016. hydration: NS @84cc/hr sodium bicarbonate 325mg PO TID Plan 1. Continue Arsenic/ATRA combination. 2. No evidence of bleeding. 3. No evidence of tumor lysis syndrome. 4. Monitor electrolytes, blood counts. 5. Will likely transition him to outpatient treatment once counts have improved , possibly sometime this upcoming week. Attending Statement The exam, history, and the medical decision-making described in the above note were completed with the assistance of the mid-level provider. I reviewed and agree with the findings presented. I attest that I had a [id number] encounter with the patient on the same day, and personally performed and documented my assessment and findings in the medical record. Feeling stronger. No new c/o. Blood counts stable. Continue current tx. Gladys Sanchez November 17, 2016 10:33 George Vo MD November 17, 2016 11:17
--- NOTE | 2016-11-17 10:46 | HHI.PR ---
Subjective Remarks doing great . no new problems Objective Vitals heart reg lung cta abd s/nt ext trace edema Vital Signs Date Time Temp Pulse Resp B/P Pulse Ox O2 Delivery O2 Flow Rate FiO2 11/17/16 08:00 97.8 99 20 203/91 99 11/17/16 04:00 96.3 99 18 145/90 96 11/17/16 00:00 97.0 95 18 167/80 94 11/16/16 20:00 97.0 86 19 156/72 94 11/16/16 16:10 97.2 84 18 139/77 96 11/16/16 12:27 96.7 90 18 145/75 96 11/16/16 11/16/16 11/17/16 15:00 23:00 07:00 Intake Total 580 ml 600 ml 956 ml Output Total 7 ml Balance 580 ml 593 ml 956 ml Intake Oral 580 ml 600 ml 240 ml IV Total 716 ml Output Urine Total 7 ml # Voids 3 2 5 # Bowel Movements 2 Result Diagram: 11/17/16 0525 11/17/16 0525 Imaging Last 24 hours Impressions Lumbar Spine CT 11/02/16 0000 Signed Impressions: Service Date/Time: Wednesday, November 02, 2016 15:10 - CONCLUSION: 1. Chronic bilateral pars defects at L5-S1 with associated significant spondylolisthesis and hypertrophic changes in the posterior elements. 2. Advanced discogenic degenerative changes from L2-S1, left lumbar scoliosis, and a moderately large left-sided disc protrusion at L2-3 causing probable neural impingement. Lam Parrish MD Chest X-Ray 11/02/16 0000 Signed Impressions: Service Date/Time: Wednesday, November 02, 2016 14:37 - CONCLUSION: No acute cardiopulmonary disease. Lam Parrish MD Abdomen/Pelvis CT 11/02/16 0000 Signed Impressions: Service Date/Time: Wednesday, November 02, 2016 15:10 - CONCLUSION: 1. Left parapelvic cyst and a low density lesion lower pole of the solitary left kidney are similar to images from a prior cryoablation in August 2015. 2. Bilateral adrenal lesions, low density in the right and intermediate density on the left. Recommend correlation with outside prior imaging studies to see if this is a new or old finding. 3. 4.2 cm distal abdominal aortic aneurysm. Bilaterally iliac stents in place. 4. Significant spondylolisthesis at L5-S1 with bilateral pars defects. 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 He reported that he had been having diarrhea for months but this suddenly worsened and was having up to 10x/day, nonbloody. - Labs at admission found the pt to have pancytopenia with neutropenia. No fevers or chills. - CT Abd/pelvis (11/02) noted to have AAA 4.2cm and val adrenal lesions. - Hematology was consulted to assist in etiology of pancytopenia. - Bone marrow biopsy performed on 11/03/2016 with marrow aspiration indicated acute promyelocytic leukemia bone marrow aspirate flow cytometry indicates 81% blasts most consistent with acute promyelocytic leukemia. - Pt started on ATRA at 40 mg twice daily, Prednisone 40 mg daily, Arsenic trioxide at 11.85 mg intravenously daily per Heme/Onc - PICC line placed on 11/05/16 - Chemo regimen started on 11/06/16 - received cryoprecipitate 11/09/16 for bleeding and DIC concerns - supportive care -Pt developed lower extremity edema. ivf lowered and started on scheduled lasix. monitor bmp. stable. -monitor cbc/bmp. -lisinipril scheduled started for htn..better. d/c prn clonidine per pt request. d/c when ok with hem/onc. repeat bx planned after rx. stable again today. ambulating in hallway regularly (2) Hemoptysis, unspecified Status: Acute Plan: - suspect old blood d/t previous epistaxis -hem/onc aware. see above (3) GERD (gastroesophageal reflux disease) Status: Acute Plan: - improved - protonix - tums prn (4) Pancytopenia Status: Acute Plan: - See above. (5) Neutropenia Status: Acute Plan: - See above (6) Diarrhea Status: Acute Plan: - Diarrhea resolved - Stools are negative for C. diff - Stools for cryptosporidium and Giardia are negative (7) Weakness generalized Status: Acute Plan: - See above (8) Renal cell carcinoma Status: Resolved Plan: - See above (9) Hypertension Status: Chronic Plan: - BP is stable. (10) PAD (peripheral artery disease) Status: Chronic Plan: - Pt with hx of PAD s/p 5 stents in lower ext. (11) copd Status: Chronic (12) CKD (chronic kidney disease) stage 3, GFR 30-59 ml/min Status: Chronic Problem Qualifiers (1) GERD (gastroesophageal reflux disease): Qualified Code: K21.9 - Gastroesophageal reflux disease, esophagitis presence not specified (2) Neutropenia: Qualified Code: D70.9 - Neutropenia, unspecified type (3) Renal cell carcinoma: Qualified Code: C64.9 - Renal cell carcinoma, unspecified laterality Leonid Ma MD November 17, 2016 10:46
[2016-11-17 12:00] VITALS: BP 181/83; PULSE 99; RESP 20; TEMP 95.4
[2016-11-17 16:00] VITALS: BP 167/78; PULSE 88; RESP 20; TEMP 96.3; O2SAT 97
[2016-11-17 20:00] VITALS: BP 170/79; PULSE 91; RESP 18; TEMP 96.9; O2SAT 98
[2016-11-17] MEDS: CHOLECALCIFEROL (VIT D3) 1000 UNIT TAB PO SCH (21:41)
[2016-11-17] MEDS: PRAVASTATIN SOD 40 MG TAB PO SCH (21:45)
[2016-11-17] MEDS: SODIUM CHLOR 0.9% 250 ML INJ 250 ML IV SCH (22:05)
[2016-11-17] MEDS: SODIUM CHLORIDE 0.9% IV SCH (22:08)
[2016-11-17] MEDS: [UNRECOGNIZED DRUG - OTHER] IV SCH (22:08)
[2016-11-18] VITALS: BP 167/81; PULSE 92; RESP 19; TEMP 96.5; O2SAT 97
[2016-11-18] MEDS: SODIUM CHLOR 0.9% 1000 ML INJ 1,000 ML IV SCH ×2 (03:21→23:35)
[2016-11-18] MEDS: SODIUM CHLORIDE 0.9% FLUSH 10 ML FLUSH IV FLUSH PRN (03:21)
[2016-11-18 04:00] VITALS: BP 127/68; PULSE 80; RESP 18; TEMP 96.5; O2SAT 97
[2016-11-18 04:40] LABS: MEAN CELL VOLUME 97.5 FL (80.0-100.0); MEAN CORPUSCULAR HEMOGLOBIN 32.5 PG (27.0-34.0); MEAN CORPUSCULAR HGB CONC 33.4 % (32.0-36.0); PLATELET COUNT 53 TH/MM3 (150-450); RED BLOOD COUNT 2.47 MIL/MM3 (4.50-5.90); WHITE BLOOD COUNT 1.3 TH/MM3 (4.0-11.0)
[2016-11-18 04:44] LABS: HEMO FLAGS AUTO DIFF
[2016-11-18] MEDS: SODIUM BICARBONATE 325 MG TAB PO SCH ×3 (06:31→22:40)
[2016-11-18 07:19] LABS: BANDS 7 % (0-6); CORRECTED NUCLEATED RBC 10 /100 WBC (0-0); MYELOCYTES 22 % (0-0); POLYS (SEG NEUTROPHILS) 44 % (16-70); PROMYELOCYTES 4 % (0-0); WBC DIFF SAMPLE 100
[2016-11-18 07:20] LABS: OVALOCYTES 1+ (NORMAL); PLATELET ESTIMATE SMEAR LOW (NORMAL); PLATELET MORPHOLOGY NORMAL (NORMAL); SCAN/DIFF FINAL DIFF MANUAL
--- NOTE | 2016-11-18 07:46 | PD.ONC.PN ---
Subjective Subjective Remarks Patient denies acute complaints, reports feeling well. He tells me he walked 40 laps around [address] yesterday, this is equivalent to 4 miles. He denies fevers, chills, difficulty breathing, chest pain, lower extremity edema. He denies overt bleeding, bruising, hematochezia, melena, diarrhea. There were no acute events over the past 48 hours. Objective Data Date Time Temp Pulse Resp B/P Pulse Ox O2 Delivery O2 Flow Rate FiO2 11/18/16 04:00 96.5 80 18 127/68 97 11/18/16 00:00 96.5 92 19 167/81 97 11/17/16 20:00 96.9 91 18 170/79 98 11/17/16 16:00 96.3 88 20 167/78 97 11/17/16 12:00 95.4 99 20 181/83 11/17/16 08:00 97.8 99 20 203/91 99 11/18/16 11/18/16 11/18/16 07:00 15:00 23:00 Intake Total 1175 ml Balance 1175 ml Result Diagram: 11/18/16 0320 11/17/16 0525 Laboratory Results Laboratory Tests Test 11/18/16 03:20 White Blood Count 1.3 TH/MM3 Red Blood Count 2.47 MIL/MM3 Hemoglobin 8.0 GM/DL Hematocrit 24.0 % Mean Corpuscular Volume 97.5 FL Mean Corpuscular Hemoglobin 32.5 PG Mean Corpuscular Hemoglobin 33.4 % Concent Red Cell Distribution Width 15.0 % Platelet Count 53 TH/MM3 Mean Platelet Volume 8.2 FL Neutrophils (%) (Auto) % Lymphocytes (%) (Auto) % Monocytes (%) (Auto) % Eosinophils (%) (Auto) % Basophils (%) (Auto) % Neutrophils # (Auto) TH/MM3 Lymphocytes # (Auto) TH/MM3 Monocytes # (Auto) TH/MM3 Eosinophils # (Auto) TH/MM3 Basophils # (Auto) TH/MM3 CBC Comment AUTO DIFF Differential Total Cells 100 Counted Neutrophils % (Manual) 44 % Band Neutrophils % 7 % Lymphocytes % 22 % Monocytes % 1 % Neutrophils # (Manual) 1.0 TH/MM3 Myelocytes 22 % Promyelocytes 4 % Nucleated Red Blood Cells 10 /100 WBC Differential Comment FINAL DIFF MANUAL Platelet Estimate LOW Platelet Morphology Comment NORMAL Ovalocytes 1+ Administered Medications Medications (Trade) Dose Ordered Sig/Sowmya Route PRN Reason Start Time Stop Time Status Last Admin Dose Admin Sodium Chloride (NS Flush) 2 ml UNSCH PRN IV FLUSH FLUSH AFTER USING IV ACCESS 11/02/16 18:00 11/18/16 03:21 Sodium Chloride (NS Flush) 2 ml BID IV FLUSH 11/02/16 21:00 11/17/16 22:06 Acetaminophen (Tylenol) 650 mg Q4H PRN PO TEMP > 100.4 11/02/16 18:00 11/09/16 20:29 Pravastatin Sodium (Pravachol) 40 mg HS PO 11/02/16 21:00 11/17/16 21:45 Cholecalciferol 1000 units 1,000 units HS PO 11/02/16 21:00 11/17/16 21:41 Sodium Chloride (NS 1000 ml Inj) 1,000 ml @ 50 mls/hr Q20H IV 11/03/16 10:00 11/17/16 08:30 Loperamide HCl (Imodium) 2 mg Q4H PRN PO after each episode diarrhea 11/04/16 09:30 11/06/16 10:55 Tretinoin 40 mg 40 mg BIDPC PO 11/05/16 09:00 11/17/16 17:33 Sodium Chloride (NS 250 ml Inj) 250 ml @ 84 mls/hr Q24H IV 11/05/16 11:00 11/17/16 22:05 Sodium Chloride (NS Flush) UNSCH PRN IV FLUSH SEE PROTOCOL TABLE 11/05/16 10:45 11/18/16 03:20 Sodium Bicarbonate (Sodium Bicarbonate) 325 mg Q8HR PO 11/06/16 08:00 11/18/16 06:31 Pantoprazole Sodium (Protonix) 40 mg DAILY PO 11/07/16 09:15 11/17/16 08:47 Calcium Carbonate (Tums Chew) 500 mg Q2H PRN CHEW dyspepsia 11/07/16 09:15 11/07/16 09:30 Allopurinol (Zyloprim) 300 mg DAILY PO 11/08/16 09:00 11/17/16 08:47 Prednisone 40 mg 40 mg DAILY PO 11/09/16 09:00 11/17/16 08:46 Arsenic Trioxide/ Sodium Chloride (Trisenox Inj/NS 250 ml Inj) 260 ml @ 130.925 mls/hr Q24H IV 11/09/16 22:00 12/01/16 00:00 11/17/16 22:08 Potassium Chloride (KCl) 20 meq Q12HR PO 11/12/16 09:00 11/17/16 21:41 Furosemide (Lasix) 10 mg BID@09,18 PO 11/13/16 09:00 11/17/16 17:29 Lisinopril (Prinivil) 10 mg Q12HR PO 11/13/16 21:00 11/17/16 21:41 Alteplase, Recombinant (Cathflo Activase Inj) 2 mg UNSCH PRN IV FLUSH FOR CLOGGED CENTRAL LINE 11/14/16 09:30 11/14/16 10:43 Objective Remarks GENERAL: Elderly male, pleasant disposition, coughs frequently. This is a well- nourished, well-developed patient, in no apparent distress. SKIN: No rashes, ecchymoses or lesions. Cool and dry. HEAD: Atraumatic. Normocephalic. No temporal or scalp tenderness. EYES: Pupils equal round and reactive. Extraocular motions intact. No scleral icterus. No injection or drainage. ENT: Nose without bleeding, purulent drainage or septal hematoma. Throat without erythema, tonsillar hypertrophy or exudate. Uvula midline. Airway patent. NECK: Trachea midline. No JVD or lymphadenopathy. Supple, nontender, no meningeal signs. CARDIOVASCULAR: Regular rate and rhythm without murmurs, gallops, or rubs. RESPIRATORY: Prolonged expiratory phase, disbursed crackles occasional rhonchi, prolonged expiratory phase. GASTROINTESTINAL: Abdomen soft, non-tender, nondistended. No hepato-splenomegaly , or palpable masses. No guarding. MUSCULOSKELETAL: Edema resolved in the right leg, mild residual edema in the left leg. No joint tenderness. No calf tenderness. Negative Homans sign bilaterally. NEUROLOGICAL: Awake and alert. Cranial nerves II through XII intact. Motor and sensory grossly within normal limits. Five out of 5 muscle strength in all muscle groups. Normal speech. Assessment/Plan Problem List: (1) Acute promyelocytic leukemia Status: Acute Assessment 76-year-old male presenting with pancytopenia, bone marrow biopsy performed on with marrow aspiration indicates findings diagnostic for acute promyelocytic leukemia bone marrow aspirate flow cytometry indicates 81% blasts with features of acute promyelocytic leukemia. Confirmatory testing including PCR for translocation 15;17 is was positive. ATRA day 1 was 11/06/2016. Arsenic trioxide day 1 was 11/09/2016 Corticosteroids(Prednisone, 40mg PO daily) started on 11/05/2016. Tumor lysis syndrome prophylaxis with allopurinol was initiated on 11/04/2016. hydration: NS @84cc/hr sodium bicarbonate 325mg PO TID Plan 1. Continue Arsenic/ATRA combination. Today will be day 12-13 of treatment. CBC reviewed, WBC count is improving, increased numbers of myelocytes and metamyelocytes are in circulation. 2. Coags reviewed, no evidence of DIC or ATRA syndrome at this time. 3. No evidence of tumor lysis syndrome. Renal function and electrolytes remain stable. 4. Monitor electrolytes, blood counts. 5. Given the improvement in his CBC and WBC count particular I will at this point initiate transition to outpatient treatment. In order to successfully transition him to outpatient therapy I will need to organize outpatient delivery of ATRA 40 MG by mouth twice a day tablets as well as insure arsenic trioxide is approved by his insurance company for outpatient delivery, additionally I will need to make sure that our pharmacy carries this medication. During the induction phase, treatment ought to continue 7 days week. I suspect once we do transitioning to outpatient therapy he will receive treatment 6 days weekly i.e. Friday through Friday at our outpatient clinic and then at the infusion center in the professional building on Saturdays. 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
[2016-11-18 08:00] VITALS: BP 181/88; PULSE 82; RESP 20; TEMP 96.6; O2SAT 99
[2016-11-18] MEDS: TRETINOIN PO SCH ×2 (08:13→18:02)
[2016-11-18] MEDS: POTASSIUM CHLORIDE 20 MEQ CONTROLLED RELEASE TAB PO SCH (08:14)
[2016-11-18] MEDS: predniSONE 20 MG TAB PO SCH (08:14)
[2016-11-18] MEDS: FUROSEMIDE 20 MG TAB PO SCH (08:14)
[2016-11-18] MEDS: LISINOPRIL 10 MG TAB PO SCH (08:14)
[2016-11-18] MEDS: ALLOPURINOL 300 MG TAB PO SCH (08:14)
[2016-11-18] MEDS: PANTOPRAZOLE SOD 40 MG DELAYED RELEASE TAB PO SCH (08:14)
[2016-11-18] MEDS: SODIUM CHLORIDE 0.9% FLUSH 10 ML FLUSH IV FLUSH SCH ×3 (08:23→22:45)
[2016-11-18] MEDS ORDERED: PILL SPLITTER OTHER PRN (09:00)
--- NOTE | 2016-11-18 11:12 | EKG ---
Date Performed: 11/18/2016 Time Performed: 08:00:21 PTAGE: 76 years EKG: Sinus rhythm POSSIBLE RIGHT VENTRICULAR CONDUCTION DELAY BORDERLINE ECG INTERPRETATION BASED ON A DEFAULT AGE OF 40 YEARS NO PREVIOUS TRACING DOCTOR: Manolo Dave Interpretating Date/Time 11/18/2016 11:11:25
[2016-11-18 12:00] VITALS: BP 148/78; PULSE 93; RESP 22; TEMP 96.3; O2SAT 96
--- NOTE | 2016-11-18 12:16 | HHI.PR ---
Subjective Remarks No complaints. Pt feeling very well. He is walking 4 miles per day around 7e per the pt. Objective Vitals Vital Signs Date Time Temp Pulse Resp B/P Pulse Ox O2 Delivery O2 Flow Rate FiO2 11/18/16 08:00 96.6 82 20 181/88 99 11/18/16 04:00 96.5 80 18 127/68 97 11/18/16 00:00 96.5 92 19 167/81 97 11/17/16 20:00 96.9 91 18 170/79 98 11/17/16 16:00 96.3 88 20 167/78 97 11/17/16 11/17/16 11/18/16 14:59 22:59 06:59 Intake Total 1555 ml 1175 ml Balance 1555 ml 1175 ml Intake Oral 1200 ml 240 ml IV Total 355 ml 935 ml # Voids 12 4 # Bowel Movements 2 Result Diagram: 11/18/16 0320 11/17/16 0525 Other Results Laboratory Tests Test 11/17/16 11/18/16 05:25 03:20 White Blood Count 0.9 TH/MM3 1.3 TH/MM3 Red Blood Count 2.48 MIL/MM3 2.47 MIL/MM3 Hemoglobin 8.4 GM/DL 8.0 GM/DL Hematocrit 24.0 % 24.0 % Mean Corpuscular Volume 96.9 FL 97.5 FL Mean Corpuscular Hemoglobin 33.8 PG 32.5 PG Mean Corpuscular Hemoglobin 34.9 % 33.4 % Concent Red Cell Distribution Width 15.3 % 15.0 % Platelet Count 60 TH/MM3 53 TH/MM3 Mean Platelet Volume 7.8 FL 8.2 FL Neutrophils (%) (Auto) 58.7 % % Lymphocytes (%) (Auto) 31.7 % % Monocytes (%) (Auto) 8.6 % % Eosinophils (%) (Auto) 0.3 % % Basophils (%) (Auto) 0.7 % % Neutrophils # (Auto) 0.5 TH/MM3 TH/MM3 Lymphocytes # (Auto) 0.3 TH/MM3 TH/MM3 Monocytes # (Auto) 0.1 TH/MM3 TH/MM3 Eosinophils # (Auto) 0.0 TH/MM3 TH/MM3 Basophils # (Auto) 0.0 TH/MM3 TH/MM3 CBC Comment AUTO DIFF AUTO DIFF Differential Total Cells 100 100 Counted Neutrophils % (Manual) 23 % 44 % Band Neutrophils % 2 % 7 % Lymphocytes % 44 % 22 % Monocytes % 10 % 1 % Basophils % 1 % Neutrophils # (Manual) 0.4 TH/MM3 1.0 TH/MM3 Metamyelocytes 1 % Myelocytes 11 % 22 % Promyelocytes 8 % 4 % Nucleated Red Blood Cells 10 /100 WBC 10 /100 WBC Differential Comment FINAL DIFF FINAL DIFF MANUAL MANUAL Platelet Estimate LOW LOW Platelet Morphology Comment NORMAL NORMAL Sodium Level 145 MEQ/L Potassium Level 3.8 MEQ/L Chloride Level 111 MEQ/L Carbon Dioxide Level 28.6 MEQ/L Anion Gap 5 MEQ/L Blood Urea Nitrogen 32 MG/DL Creatinine 1.81 MG/DL Estimat Glomerular Filtration 36 ML/MIN Rate Random Glucose 95 MG/DL Calcium Level 8.1 MG/DL Total Bilirubin 0.3 MG/DL Aspartate Amino Transf 41 U/L (AST/SGOT) Alanine Aminotransferase 49 U/L (ALT/SGPT) Alkaline Phosphatase 97 U/L Total Protein 5.7 GM/DL Albumin 2.9 GM/DL Ovalocytes 1+ Imaging Last 24 hours Impressions Lum[address] Spine CT 11/02/16 0000 Signed Impressions: Service Date/Time: Wednesday, November 02, 2016 15:10 - CONCLUSION: 1. Chronic bilateral pars defects at L5-S1 with associated significant spondylolisthesis and hypertrophic changes in the posterior elements. 2. Advanced discogenic degenerative changes from L2-S1, left lumbar scoliosis, and a moderately large left-sided disc protrusion at L2-3 causing probable neural impingement. Lam Parrish MD Chest X-Ray 11/02/16 0000 Signed Impressions: Service Date/Time: Wednesday, November 02, 2016 14:37 - CONCLUSION: No acute cardiopulmonary disease. Lam Parrish MD Abdomen/Pelvis CT 11/02/16 0000 Signed Impressions: Service Date/Time: Wednesday, November 02, 2016 15:10 - CONCLUSION: 1. Left parapelvic cyst and a low density lesion lower pole of the solitary left kidney are similar to images from a prior cryoablation in August 2015. 2. Bilateral adrenal lesions, low density in the right and intermediate density on the left. Recommend correlation with outside prior imaging studies to see if this is a new or old finding. 3. 4.2 cm distal abdominal aortic aneurysm. Bilaterally iliac stents in place. 4. Significant spondylolisthesis at L5-S1 with bilateral pars defects. 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 He reported that he had been having diarrhea for months but this suddenly worsened and was having up to 10x/day, nonbloody. - Labs at admission found the pt to have pancytopenia with neutropenia. No fevers or chills. - CT Abd/pelvis (11/02) noted to have AAA 4.2cm and val adrenal lesions. - Hematology was consulted to assist in etiology of pancytopenia. - Bone marrow biopsy performed on 11/03/2016 with marrow aspiration indicated acute promyelocytic leukemia bone marrow aspirate flow cytometry indicates 81% blasts most consistent with acute promyelocytic leukemia. - Pt started on ATRA at 40 mg twice daily, Prednisone 40 mg daily, Arsenic trioxide at 11.85 mg intravenously daily per Heme/Onc - PICC line placed on 11/05/16 - Chemo regimen started on 11/06/16 - Received cryoprecipitate 11/09/16 for bleeding and DIC concerns -Pt developed lower extremity edema and IVF lowered and he was started on scheduled Lasix. The LE edema is resolved and Creatinine is stable. - Monitor CBC/BMP. - Lisinopril was scheduled started for htn but BP still running higher, we will increase to 20mg po BID - Clonidine d/c per pt request. - Hem/onc making arrangements for transition to outpt setting. - Anticipate discharge in the next few days once arrangements are made. (2) Hemoptysis, unspecified Status: Acute Plan: - suspect old blood d/t previous epistaxis -hem/onc aware. see above (3) GERD (gastroesophageal reflux disease) Status: Acute Plan: - improved - protonix - tums prn (4) Pancytopenia Status: Acute Plan: - See above. (5) Neutropenia Status: Acute Plan: - See above (6) Diarrhea Status: Acute Plan: - Diarrhea resolved - Stools are negative for C. diff - Stools for cryptosporidium and Giardia are negative (7) Weakness generalized Status: Acute Plan: - See above (8) Renal cell carcinoma Status: Resolved Plan: - See above (9) Hypertension Status: Chronic Plan: - See above. (10) PAD (peripheral artery disease) Status: Chronic Plan: - Pt with hx of PAD s/p 5 stents in lower ext. (11) copd Status: Chronic (12) CKD (chronic kidney disease) stage 3, GFR 30-59 ml/min Status: Chronic Assessment and Plan Patient examined. Assessment and plan formulated with Vanita Son PA-C. I agree with the above. Pt in good spirits. No new complaints. Continue current treatment plan per Dr. Haley. 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
[2016-11-18 16:00] VITALS: BP 136/80; PULSE 80; RESP 20; TEMP 96.6; O2SAT 97
[2016-11-18 20:00] VITALS: BP 158/72; PULSE 86; RESP 18; TEMP 97.6; O2SAT 96
[2016-11-18] MEDS: SODIUM CHLORIDE 0.9% IV SCH (22:30)
[2016-11-18] MEDS: [UNRECOGNIZED DRUG - OTHER] IV SCH (22:30)
[2016-11-18] MEDS: LISINOPRIL 20 MG TAB PO SCH (22:40)
[2016-11-18] MEDS: CHOLECALCIFEROL (VIT D3) 1000 UNIT TAB PO SCH (22:40)
[2016-11-18] MEDS: PRAVASTATIN SOD 40 MG TAB PO SCH (22:40)
[2016-11-18] MEDS: SODIUM CHLOR 0.9% 250 ML INJ 250 ML IV SCH (22:46)
[2016-11-19] VITALS: BP 154/71; PULSE 84; RESP 18; TEMP 96.9; O2SAT 96
[2016-11-19 05:00] VITALS: BP 137/76; PULSE 75; RESP 16; TEMP 96.4; O2SAT 96
[2016-11-19] MEDS: SODIUM CHLORIDE 0.9% FLUSH 10 ML FLUSH IV FLUSH PRN (05:01)
[2016-11-19] MEDS: SODIUM BICARBONATE 325 MG TAB PO SCH ×3 (05:04→22:22)
[2016-11-19 07:06] LABS: HEMATOCRIT 24.1 % (39.0-51.0); MEAN CELL VOLUME 98.4 FL (80.0-100.0); MEAN CORPUSCULAR HEMOGLOBIN 32.5 PG (27.0-34.0); PLATELET COUNT 56 TH/MM3 (150-450); RED BLOOD COUNT 2.45 MIL/MM3 (4.50-5.90); RED CELL DISTRIBUTION WIDTH 15.6 % (11.6-17.2); WHITE BLOOD COUNT 1.7 TH/MM3 (4.0-11.0)
[2016-11-19 07:15] LABS: HEMO FLAGS AUTO DIFF
[2016-11-19 07:38] LABS: BICARBONATE 26.3 MEQ/L (21.0-32.0); POTASSIUM 3.9 MEQ/L (3.5-5.1)
--- NOTE | 2016-11-19 07:50 | PD.ONC.PN ---
Subjective Subjective Remarks Patient was seen and examined, denies complaints, tells me he walked equivalent to 4 miles in the hallways yesterday. He specifically denies fevers, chills, night sweats, overt bleeding, difficulty breathing, chest pain, diarrhea, hematochezia or melena. He tells me he was contacted by an outpatient pharmacy and his insurance company regarding the ATRA outpatient dosing and was informed that he would have a copayment of more than $2000 per month. Objective Data Date Time Temp Pulse Resp B/P Pulse Ox O2 Delivery O2 Flow Rate FiO2 11/19/16 05:00 96.4 75 16 137/76 96 11/19/16 00:00 96.9 84 18 154/71 96 11/18/16 20:00 97.6 86 18 158/72 96 11/18/16 16:00 96.6 80 20 136/80 97 11/18/16 12:00 96.3 93 22 148/78 96 11/18/16 08:00 96.6 82 20 181/88 99 11/19/16 11/19/16 11/19/16 07:00 15:00 23:00 Intake Total 1950 ml Balance 1950 ml Result Diagram: 11/19/16 0500 11/19/16 0500 Laboratory Results Laboratory Tests Test 11/19/16 05:00 White Blood Count 1.7 TH/MM3 Red Blood Count 2.45 MIL/MM3 Hemoglobin 8.0 GM/DL Hematocrit 24.1 % Mean Corpuscular Volume 98.4 FL Mean Corpuscular Hemoglobin 32.5 PG Mean Corpuscular Hemoglobin 33.0 % Concent Red Cell Distribution Width 15.6 % Platelet Count 56 TH/MM3 Mean Platelet Volume 8.4 FL Neutrophils (%) (Auto) % Lymphocytes (%) (Auto) % Monocytes (%) (Auto) % Eosinophils (%) (Auto) % Basophils (%) (Auto) % Neutrophils # (Auto) TH/MM3 Lymphocytes # (Auto) TH/MM3 Monocytes # (Auto) TH/MM3 Eosinophils # (Auto) TH/MM3 Basophils # (Auto) TH/MM3 CBC Comment AUTO DIFF Sodium Level 146 MEQ/L Potassium Level 3.9 MEQ/L Chloride Level 112 MEQ/L Carbon Dioxide Level 26.3 MEQ/L Anion Gap 8 MEQ/L Blood Urea Nitrogen 31 MG/DL Creatinine 1.70 MG/DL Estimat Glomerular Filtration 39 ML/MIN Rate Random Glucose 89 MG/DL Calcium Level 8.2 MG/DL Administered Medications Medications (Trade) Dose Ordered Sig/Sowmya Route PRN Reason Start Time Stop Time Status Last Admin Dose Admin Sodium Chloride (NS Flush) 2 ml UNSCH PRN IV FLUSH FLUSH AFTER USING IV ACCESS 11/02/16 18:00 11/19/16 05:01 Sodium Chloride (NS Flush) 2 ml BID IV FLUSH 11/02/16 21:00 11/18/16 22:45 Acetaminophen (Tylenol) 650 mg Q4H PRN PO TEMP > 100.4 11/02/16 18:00 11/09/16 20:29 Pravastatin Sodium (Pravachol) 40 mg HS PO 11/02/16 21:00 11/18/16 22:40 Cholecalciferol 1000 units 1,000 units HS PO 11/02/16 21:00 11/18/16 22:40 Sodium Chloride (NS 1000 ml Inj) 1,000 ml @ 50 mls/hr Q20H IV 11/03/16 10:00 11/17/16 08:30 Loperamide HCl (Imodium) 2 mg Q4H PRN PO after each episode diarrhea 11/04/16 09:30 11/06/16 10:55 Tretinoin 40 mg 40 mg BIDPC PO 11/05/16 09:00 11/18/16 18:02 Sodium Chloride (NS 250 ml Inj) 250 ml @ 84 mls/hr Q24H IV 11/05/16 11:00 11/18/16 22:46 Sodium Chloride (NS Flush) UNSCH PRN IV FLUSH SEE PROTOCOL TABLE 11/05/16 10:45 11/19/16 05:01 Sodium Bicarbonate (Sodium Bicarbonate) 325 mg Q8HR PO 11/06/16 08:00 11/19/16 05:04 Pantoprazole Sodium (Protonix) 40 mg DAILY PO 11/07/16 09:15 11/18/16 08:14 Calcium Carbonate (Tums Chew) 500 mg Q2H PRN CHEW dyspepsia 11/07/16 09:15 11/07/16 09:30 Allopurinol 300 mg 300 mg DAILY PO 11/08/16 09:00 11/18/16 08:14 Arsenic Trioxide/ Sodium Chloride (Trisenox Inj/NS 250 ml Inj) 260 ml @ 130.925 mls/hr Q24H IV 11/09/16 22:00 12/01/16 00:00 11/18/16 22:30 Alteplase, Recombinant (Cathflo Activase Inj) 2 mg UNSCH PRN IV FLUSH FOR CLOGGED CENTRAL LINE 11/14/16 09:30 11/14/16 10:43 Furosemide (Lasix) 10 mg DAILY PO 11/18/16 09:00 11/18/16 08:14 Potassium Chloride (KCl) 20 meq DAILY PO 11/18/16 09:00 11/18/16 08:14 Lisinopril (Prinivil) 20 mg Q12HR PO 11/18/16 21:00 11/18/16 22:40 Objective Remarks GENERAL: Elderly male, pleasant disposition, coughs frequently. This is a well- nourished, well-developed patient, in no apparent distress. SKIN: No rashes, ecchymoses or lesions. Cool and dry. HEAD: Atraumatic. Normocephalic. No temporal or scalp tenderness. EYES: Pupils equal round and reactive. Extraocular motions intact. No scleral icterus. No injection or drainage. ENT: Nose without bleeding, purulent drainage or septal hematoma. Throat without erythema, tonsillar hypertrophy or exudate. Uvula midline. Airway patent. NECK: Trachea midline. No JVD or lymphadenopathy. Supple, nontender, no meningeal signs. CARDIOVASCULAR: Regular rate and rhythm without murmurs, gallops, or rubs. RESPIRATORY: Prolonged expiratory phase, disbursed crackles occasional rhonchi, prolonged expiratory phase. GASTROINTESTINAL: Abdomen soft, non-tender, nondistended. No hepato-splenomegaly , or palpable masses. No guarding. MUSCULOSKELETAL: Edema resolved in the right leg, mild residual edema in the left leg. No joint tenderness. No calf tenderness. Negative Homans sign bilaterally. NEUROLOGICAL: Awake and alert. Cranial nerves II through XII intact. Motor and sensory grossly within normal limits. Five out of 5 muscle strength in all muscle groups. Normal speech. Assessment/Plan Problem List: (1) Acute promyelocytic leukemia Status: Acute Assessment 76-year-old male presenting with pancytopenia, bone marrow biopsy performed on with marrow aspiration indicates findings diagnostic for acute promyelocytic leukemia bone marrow aspirate flow cytometry indicates 81% blasts with features of acute promyelocytic leukemia. Confirmatory testing including PCR for translocation 15;17 is was positive. ATRA day 1 was 11/06/2016. Arsenic trioxide day 1 was 11/09/2016 Corticosteroids(Prednisone, 40mg PO daily) started on 11/05/2016. Tumor lysis syndrome prophylaxis with allopurinol was initiated on 11/04/2016. hydration: NS @84cc/hr sodium bicarbonate 325mg PO TID Plan 1. Continue Arsenic/ATRA combination. Today will be day 13-14 of treatment. CBC reviewed, WBC count is improving, increased numbers of myelocytes and metamyelocytes are in circulation. 2. Coags reviewed, no evidence of DIC or ATRA syndrome at this time. I'm decreasing the dose of prednisone from 40 mg daily to 30 mg daily. 3. No evidence of tumor lysis syndrome. Renal function and electrolytes remain stable. 4. Monitor electrolytes, blood counts. 5. Given the improvement in his CBC and WBC count particular I will at this point initiate transition to outpatient treatment. In order to successfully transition him to outpatient therapy I will need to organize outpatient delivery of ATRA 40 MG by mouth twice a day tablets as well as insure arsenic trioxide is approved by his insurance company for outpatient delivery, additionally I will need to make sure that our pharmacy carries this medication. During the induction phase, treatment ought to continue 7 days week. I suspect once we do transitioning to outpatient therapy he will receive treatment 6 days weekly i.e. Friday through Friday at our outpatient clinic and then at the infusion center in the professional building on Saturdays. 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
[2016-11-19 08:00] VITALS: BP 159/77; PULSE 78; RESP 18; TEMP 96.7; O2SAT 96
[2016-11-19 08:57] LABS: BANDS 4 % (0-6); CORRECTED NUCLEATED RBC 5 /100 WBC (0-0); DOHLE BODIES PRESENT (NONE SEEN); METAMYELOCYTES 9 % (0-1); MYELOCYTES 20 % (0-0); NEUTROPHIL # MANUAL DIFF 1.1 TH/MM3 (1.8-7.7); PLATELET ESTIMATE SMEAR LOW (NORMAL); PLATELET MORPHOLOGY NORMAL (NORMAL); POLYS (SEG NEUTROPHILS) 32 % (16-70); SCAN/DIFF FINAL DIFF MANUAL; WBC DIFF SAMPLE 100
[2016-11-19] MEDS: PANTOPRAZOLE SOD 40 MG DELAYED RELEASE TAB PO SCH (09:16)
[2016-11-19] MEDS: TRETINOIN PO SCH ×2 (09:16→17:56)
[2016-11-19] MEDS: ALLOPURINOL 300 MG TAB PO SCH (09:17)
[2016-11-19] MEDS: predniSONE 10 MG TAB PO SCH (09:17)
[2016-11-19] MEDS: FUROSEMIDE 20 MG TAB PO SCH (09:17)
[2016-11-19] MEDS: LISINOPRIL 20 MG TAB PO SCH ×2 (09:17→21:53)
[2016-11-19] MEDS: POTASSIUM CHLORIDE 20 MEQ CONTROLLED RELEASE TAB PO SCH (09:17)
[2016-11-19] MEDS: SODIUM CHLORIDE 0.9% FLUSH 10 ML FLUSH IV FLUSH SCH ×3 (09:21→21:54)
--- NOTE | 2016-11-19 11:05 | HHI.PR ---
Subjective Remarks No new complaints. Objective Vitals Vital Signs Date Time Temp Pulse Resp B/P Pulse Ox O2 Delivery O2 Flow Rate FiO2 11/19/16 08:00 96.7 78 18 159/77 96 11/19/16 05:00 96.4 75 16 137/76 96 11/19/16 00:00 96.9 84 18 154/71 96 11/18/16 20:00 97.6 86 18 158/72 96 11/18/16 16:00 96.6 80 20 136/80 97 11/18/16 12:00 96.3 93 22 148/78 96 11/18/16 11/18/16 11/19/16 15:00 23:00 07:00 Intake Total 720 ml 1950 ml Balance 720 ml 1950 ml Intake Oral 720 ml 480 ml IV Total 1470 ml # Voids 5 3 # Bowel Movements 2 Result Diagram: 11/19/16 0500 11/19/16 0500 Other Results Laboratory Tests Test 11/18/16 11/19/16 03:20 05:00 White Blood Count 1.3 TH/MM3 1.7 TH/MM3 Red Blood Count 2.47 MIL/MM3 2.45 MIL/MM3 Hemoglobin 8.0 GM/DL 8.0 GM/DL Hematocrit 24.0 % 24.1 % Mean Corpuscular Volume 97.5 FL 98.4 FL Mean Corpuscular Hemoglobin 32.5 PG 32.5 PG Mean Corpuscular Hemoglobin 33.4 % 33.0 % Concent Red Cell Distribution Width 15.0 % 15.6 % Platelet Count 53 TH/MM3 56 TH/MM3 Mean Platelet Volume 8.2 FL 8.4 FL Neutrophils (%) (Auto) % % Lymphocytes (%) (Auto) % % Monocytes (%) (Auto) % % Eosinophils (%) (Auto) % % Basophils (%) (Auto) % % Neutrophils # (Auto) TH/MM3 TH/MM3 Lymphocytes # (Auto) TH/MM3 TH/MM3 Monocytes # (Auto) TH/MM3 TH/MM3 Eosinophils # (Auto) TH/MM3 TH/MM3 Basophils # (Auto) TH/MM3 TH/MM3 CBC Comment AUTO DIFF AUTO DIFF Differential Total Cells 100 100 Counted Neutrophils % (Manual) 44 % 32 % Band Neutrophils % 7 % 4 % Lymphocytes % 22 % 32 % Monocytes % 1 % 3 % Neutrophils # (Manual) 1.0 TH/MM3 1.1 TH/MM3 Myelocytes 22 % 20 % Promyelocytes 4 % Nucleated Red Blood Cells 10 /100 WBC 5 /100 WBC Differential Comment FINAL DIFF FINAL DIFF MANUAL MANUAL Platelet Estimate LOW LOW Platelet Morphology Comment NORMAL NORMAL Ovalocytes 1+ Metamyelocytes 9 % Dohle Bodies PRESENT Sodium Level 146 MEQ/L Potassium Level 3.9 MEQ/L Chloride Level 112 MEQ/L Carbon Dioxide Level 26.3 MEQ/L Anion Gap 8 MEQ/L Blood Urea Nitrogen 31 MG/DL Creatinine 1.70 MG/DL Estimat Glomerular Filtration 39 ML/MIN Rate Random Glucose 89 MG/DL Calcium Level 8.2 MG/DL Imaging Last 24 hours Impressions Lum[address] Spine CT 11/02/16 0000 Signed Impressions: Service Date/Time: Wednesday, November 02, 2016 15:10 - CONCLUSION: 1. Chronic bilateral pars defects at L5-S1 with associated significant spondylolisthesis and hypertrophic changes in the posterior elements. 2. Advanced discogenic degenerative changes from L2-S1, left lumbar scoliosis, and a moderately large left-sided disc protrusion at L2-3 causing probable neural impingement. Lam Parrish MD Chest X-Ray 11/02/16 0000 Signed Impressions: Service Date/Time: Wednesday, November 02, 2016 14:37 - CONCLUSION: No acute cardiopulmonary disease. Lam Parrish MD Abdomen/Pelvis CT 11/02/16 0000 Signed Impressions: Service Date/Time: Wednesday, November 02, 2016 15:10 - CONCLUSION: 1. Left parapelvic cyst and a low density lesion lower pole of the solitary left kidney are similar to images from a prior cryoablation in August 2015. 2. Bilateral adrenal lesions, low density in the right and intermediate density on the left. Recommend correlation with outside prior imaging studies to see if this is a new or old finding. 3. 4.2 cm distal abdominal aortic aneurysm. Bilaterally iliac stents in place. 4. Significant spondylolisthesis at L5-S1 with bilateral pars defects. 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 He reported that he had been having diarrhea for months but this suddenly worsened and was having up to 10x/day, nonbloody. - Labs at admission found the pt to have pancytopenia with neutropenia. No fevers or chills. - CT Abd/pelvis (11/02) noted to have AAA 4.2cm and val adrenal lesions. - Hematology was consulted to assist in etiology of pancytopenia. - Bone marrow biopsy performed on 11/03/2016 with marrow aspiration indicated acute promyelocytic leukemia bone marrow aspirate flow cytometry indicates 81% blasts most consistent with acute promyelocytic leukemia. - Pt started on ATRA at 40 mg twice daily, Prednisone 40 mg daily, Arsenic trioxide at 11.85 mg intravenously daily per Heme/Onc - PICC line placed on 11/05/16 - Chemo regimen started on 11/06/16 - Received cryoprecipitate 11/09/16 for bleeding and DIC concerns - Pt developed lower extremity edema and IVF lowered and he was started on scheduled Lasix. The LE edema is resolved and Creatinine is stable. - Monitor CBC/BMP. - Lisinopril was scheduled started for HTN but BP still running higher, this was increased to 20mg po BID on 11/18 - Clonidine d/c per pt request. - Hem/onc making arrangements for transition to outpt setting. - Prednisone decreased to 30mg po daily on 11/19 - Anticipate discharge in the next few days once arrangements are made. - Pt informed by outpt [facility] pharmacy that the ATRA will cost $2,000/month [facility]. - Spoke with [facility] CM and they are trying to work with [facility] to get final prices and availability for the Arsenic trioxide as well. - Will discuss with Dr. Haley the length of treatment anticipated. (2) Hemoptysis, unspecified Status: Acute Plan: - suspect old blood d/t previous epistaxis -hem/onc aware. see above (3) GERD (gastroesophageal reflux disease) Status: Acute Plan: - improved - protonix - tums prn (4) Pancytopenia Status: Acute Plan: - See above. (5) Neutropenia Status: Acute Plan: - See above (6) Diarrhea Status: Acute Plan: - Diarrhea resolved - Stools are negative for C. diff - Stools for cryptosporidium and Giardia are negative (7) Weakness generalized Status: Acute Plan: - See above (8) Renal cell carcinoma Status: Resolved Plan: - See above (9) Hypertension Status: Chronic Plan: - See above. (10) PAD (peripheral artery disease) Status: Chronic Plan: - Pt with hx of PAD s/p 5 stents in lower ext. (11) copd Status: Chronic (12) CKD (chronic kidney disease) stage 3, GFR 30-59 ml/min Status: Chronic Assessment and Plan Patient examined. Assessment and plan formulated with Vanita Son PA-C. I agree with the above. Pt in good spirits. Case d/w Dr. Haley (11/19/16). His office is working on outpt arrangements. 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
[2016-11-19 12:00] VITALS: BP 148/75; PULSE 85; RESP 18; TEMP 96.4; O2SAT 95
[2016-11-19 16:00] VITALS: BP 123/65; PULSE 86; RESP 20; TEMP 96.6; O2SAT 96
[2016-11-19 20:00] VITALS: BP 148/68; PULSE 92; RESP 18; TEMP 97; O2SAT 97
[2016-11-19] MEDS: SODIUM CHLOR 0.9% 1000 ML INJ 1,000 ML IV SCH (20:30)
[2016-11-19] MEDS: PRAVASTATIN SOD 40 MG TAB PO SCH (21:53)
[2016-11-19] MEDS: CHOLECALCIFEROL (VIT D3) 1000 UNIT TAB PO SCH (21:53)
[2016-11-19] MEDS: SODIUM CHLOR 0.9% 250 ML INJ 250 ML IV SCH (22:02)
[2016-11-19] MEDS: [UNRECOGNIZED DRUG - OTHER] IV SCH (22:11)
[2016-11-19] MEDS: SODIUM CHLORIDE 0.9% IV SCH (22:11)
[2016-11-20] VITALS (9 sets, daily range): BP systolic 137–178; BP diastolic 73–87; PULSE 77–99; RESP 16–20; TEMP 96.4–97.8; O2SAT 93–97
[2016-11-20] MEDS: SODIUM CHLOR 0.9% 1000 ML INJ 1,000 ML IV SCH (00:36)
[2016-11-20] MEDS: SODIUM CHLORIDE 0.9% FLUSH 10 ML FLUSH IV FLUSH PRN (04:01)
[2016-11-20] MEDS: SODIUM BICARBONATE 325 MG TAB PO SCH ×3 (05:08→22:34)
[2016-11-20 05:51] LABS: HEMATOCRIT 23.4 % (39.0-51.0); MEAN CELL VOLUME 98.1 FL (80.0-100.0); MEAN CORPUSCULAR HEMOGLOBIN 33.8 PG (27.0-34.0); MEAN CORPUSCULAR HGB CONC 34.5 % (32.0-36.0); PLATELET COUNT 59 TH/MM3 (150-450); RED BLOOD COUNT 2.38 MIL/MM3 (4.50-5.90); RED CELL DISTRIBUTION WIDTH 15.2 % (11.6-17.2); WHITE BLOOD COUNT 1.5 TH/MM3 (4.0-11.0)
[2016-11-20 05:54] LABS: HEMO FLAGS AUTO DIFF
--- NOTE | 2016-11-20 07:40 | PD.ONC.PN ---
Subjective Subjective Remarks Patient seen and examined, he denies acute complaints, continues to walk up to 40 laps around the floor daily. He denies fevers, chills, night sweats, difficulty breathing, palpitations, dizziness. He denies overt bleeding specifically nosebleeds, blood in the stools or hematuria. Objective Data Date Time Temp Pulse Resp B/P Pulse Ox O2 Delivery O2 Flow Rate FiO2 11/20/16 04:00 97.8 77 16 143/73 96 11/20/16 00:00 96.4 87 16 145/78 97 11/19/16 20:00 97.0 92 18 148/68 97 11/19/16 16:00 96.6 86 20 123/65 96 11/19/16 12:00 96.4 85 18 148/75 95 11/19/16 08:00 96.7 78 18 159/77 96 11/20/16 11/20/16 11/20/16 07:00 15:00 23:00 Intake Total 835 ml Balance 835 ml Result Diagram: 11/20/16 0540 11/19/16 0500 Laboratory Results Laboratory Tests Test 11/20/16 05:40 White Blood Count 1.5 TH/MM3 Red Blood Count 2.38 MIL/MM3 Hemoglobin 8.1 GM/DL Hematocrit 23.4 % Mean Corpuscular Volume 98.1 FL Mean Corpuscular Hemoglobin 33.8 PG Mean Corpuscular Hemoglobin 34.5 % Concent Red Cell Distribution Width 15.2 % Platelet Count 59 TH/MM3 Mean Platelet Volume 8.4 FL Neutrophils (%) (Auto) % Lymphocytes (%) (Auto) % Monocytes (%) (Auto) % Eosinophils (%) (Auto) % Basophils (%) (Auto) % Neutrophils # (Auto) TH/MM3 Lymphocytes # (Auto) TH/MM3 Monocytes # (Auto) TH/MM3 Eosinophils # (Auto) TH/MM3 Basophils # (Auto) TH/MM3 CBC Comment AUTO DIFF Administered Medications Medications (Trade) Dose Ordered Sig/Sowmya Route PRN Reason Start Time Stop Time Status Last Admin Dose Admin Sodium Chloride (NS Flush) 2 ml UNSCH PRN IV FLUSH FLUSH AFTER USING IV ACCESS 11/02/16 18:00 11/20/16 04:01 Sodium Chloride (NS Flush) 2 ml BID IV FLUSH 11/02/16 21:00 11/19/16 21:54 Acetaminophen (Tylenol) 650 mg Q4H PRN PO TEMP > 100.4 11/02/16 18:00 11/09/16 20:29 Pravastatin Sodium (Pravachol) 40 mg HS PO 11/02/16 21:00 11/19/16 21:53 Cholecalciferol 1000 units 1,000 units HS PO 11/02/16 21:00 11/19/16 21:53 Sodium Chloride (NS 1000 ml Inj) 1,000 ml @ 50 mls/hr Q20H IV 11/03/16 10:00 11/20/16 00:36 Loperamide HCl (Imodium) 2 mg Q4H PRN PO after each episode diarrhea 11/04/16 09:30 11/06/16 10:55 Tretinoin 40 mg 40 mg BIDPC PO 11/05/16 09:00 11/19/16 17:56 Sodium Chloride (NS 250 ml Inj) 250 ml @ 84 mls/hr Q24H IV 11/05/16 11:00 11/19/16 22:02 Sodium Chloride (NS Flush) UNSCH PRN IV FLUSH SEE PROTOCOL TABLE 11/05/16 10:45 11/20/16 03:56 Sodium Bicarbonate (Sodium Bicarbonate) 325 mg Q8HR PO 11/06/16 08:00 11/20/16 05:08 Pantoprazole Sodium (Protonix) 40 mg DAILY PO 11/07/16 09:15 11/19/16 09:16 Calcium Carbonate (Tums Chew) 500 mg Q2H PRN CHEW dyspepsia 11/07/16 09:15 11/07/16 09:30 Allopurinol 300 mg 300 mg DAILY PO 11/08/16 09:00 11/19/16 09:17 Arsenic Trioxide/ Sodium Chloride (Trisenox Inj/NS 250 ml Inj) 260 ml @ 130.925 mls/hr Q24H IV 11/09/16 22:00 12/01/16 00:00 11/19/16 22:11 Alteplase, Recombinant (Cathflo Activase Inj) 2 mg UNSCH PRN IV FLUSH FOR CLOGGED CENTRAL LINE 11/14/16 09:30 11/14/16 10:43 Furosemide (Lasix) 10 mg DAILY PO 11/18/16 09:00 11/19/16 09:17 Potassium Chloride (KCl) 20 meq DAILY PO 11/18/16 09:00 11/19/16 09:17 Lisinopril (Prinivil) 20 mg Q12HR PO 11/18/16 21:00 11/19/16 21:53 Prednisone (Deltasone) 30 mg DAILY PO 11/19/16 09:00 11/19/16 09:17 Objective Remarks GENERAL: Elderly male, pleasant disposition, coughs frequently. This is a well- nourished, well-developed patient, in no apparent distress. SKIN: No rashes, ecchymoses or lesions. Cool and dry. HEAD: Atraumatic. Normocephalic. No temporal or scalp tenderness. EYES: Pupils equal round and reactive. Extraocular motions intact. No scleral icterus. No injection or drainage. ENT: Nose without bleeding, purulent drainage or septal hematoma. Throat without erythema, tonsillar hypertrophy or exudate. Uvula midline. Airway patent. NECK: Trachea midline. No JVD or lymphadenopathy. Supple, nontender, no meningeal signs. CARDIOVASCULAR: Regular rate and rhythm without murmurs, gallops, or rubs. RESPIRATORY: Prolonged expiratory phase, disbursed crackles occasional rhonchi, prolonged expiratory phase. GASTROINTESTINAL: Abdomen soft, non-tender, nondistended. No hepato-splenomegaly , or palpable masses. No guarding. MUSCULOSKELETAL: Edema resolved in the right leg, mild residual edema in the left leg. No joint tenderness. No calf tenderness. Negative Homans sign bilaterally. NEUROLOGICAL: Awake and alert. Cranial nerves II through XII intact. Motor and sensory grossly within normal limits. Five out of 5 muscle strength in all muscle groups. Normal speech. Assessment/Plan Problem List: (1) Acute promyelocytic leukemia Status: Acute Assessment 76-year-old male presenting with pancytopenia, bone marrow biopsy performed on with marrow aspiration indicates findings diagnostic for acute promyelocytic leukemia bone marrow aspirate flow cytometry indicates 81% blasts with features of acute promyelocytic leukemia. Confirmatory testing including PCR for translocation 15;17 is was positive. ATRA day 1 was 11/06/2016. Arsenic trioxide day 1 was 11/09/2016 Corticosteroids(Prednisone, 40mg PO daily) started on 11/05/2016. Tumor lysis syndrome prophylaxis with allopurinol was initiated on 11/04/2016. hydration: NS @84cc/hr sodium bicarbonate 325mg PO TID Plan 1. Continue Arsenic/ATRA combination. Today will be day 14-15 of treatment. CBC reviewed, WBC count is improving, increased numbers of myelocytes and metamyelocytes are in circulation. 2. Coags reviewed, no evidence of DIC or ATRA syndrome at this time. I'm decreasing the dose of prednisone from 40 mg daily to 30 mg daily. 3. No evidence of tumor lysis syndrome. Renal function and electrolytes remain stable. 4. Monitor electrolytes, blood counts. 5. Progressive prolongation of QTC since initiation of arsenic; QTC prior to starting treatment was less than 390 ms, this is prolonged to 440 ms over the past 2 weeks. I'm concerned that there will be continued prolongation as treatment continues which will put the patient at risk for cardiac arrhythmias including torsades. athletic monitor was ordered, cardiology consult has also been requested. 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
[2016-11-20 08:39] LABS: BANDS 2 % (0-6)
[2016-11-20 08:44] LABS: CORRECTED NUCLEATED RBC 3 /100 WBC (0-0); METAMYELOCYTES 7 % (0-1); MYELOCYTES 15 % (0-0); NEUTROPHIL # MANUAL DIFF 0.8 TH/MM3 (1.8-7.7); PLATELET MORPHOLOGY NORMAL (NORMAL); POLYS (SEG NEUTROPHILS) 29 % (16-70); PROMYELOCYTES 2 % (0-0); SCAN/DIFF FINAL DIFF MANUAL; WBC DIFF SAMPLE 100
[2016-11-20 08:45] LABS: PLATELET ESTIMATE SMEAR LOW (NORMAL)
[2016-11-20] MEDS: SODIUM CHLORIDE 0.9% FLUSH 10 ML FLUSH IV FLUSH SCH ×3 (09:00→21:00)
[2016-11-20] MEDS: FUROSEMIDE 20 MG TAB PO SCH (09:09)
[2016-11-20] MEDS: LISINOPRIL 20 MG TAB PO SCH ×2 (09:09→20:36)
[2016-11-20] MEDS: PANTOPRAZOLE SOD 40 MG DELAYED RELEASE TAB PO SCH (09:09)
[2016-11-20] MEDS: predniSONE 10 MG TAB PO SCH (09:09)
[2016-11-20] MEDS: ALLOPURINOL 300 MG TAB PO SCH (09:09)
[2016-11-20] MEDS: POTASSIUM CHLORIDE 20 MEQ CONTROLLED RELEASE TAB PO SCH (09:09)
[2016-11-20] MEDS: TRETINOIN PO SCH ×2 (09:14→19:18)
--- NOTE | 2016-11-20 10:50 | MB ---
cc: MELCHOR PYLE MD DATE OF CONSULTATION: 11/20/2016 HISTORY OF PRESENT ILLNESS This is a 76-year-old gentleman who was admitted to the hospital with weakness and found to have pancytopenia secondary to promyelocytic leukemia. He has undergone therapy with arsenic. We have been asked to see him in that his QTC has weakened. Initially when he started therapy it was less than 390 milliseconds and has gone up to 440 milliseconds over the past two weeks. His last value was 412 milliseconds. He is walking on a regular basis, at least a mile four times a day here in the hallways. No history of heart disease has been present. He denies any symptoms of chest pain. He does have some mild shortness of breath on exertion which has been attributed to COPD. No prior history of heart failure has been present. He denies any symptoms to suggest CHF. He has had no palpitations, lightheadedness or dizziness. PAST MEDICAL HISTORY His past medical history is otherwise significant for hypertension. He was found to have renal cell carcinoma in 2014 with nephrectomy which normalized his blood pressure. A recurrence of his renal cell carcinoma was seen in the right kidney which was treated with cryoablation and apparently is in remission from that as well. Past medical history is otherwise significant for COPD. He is a former smoker, having stopped seven years ago. ALLERGIES PENICILLIN. SOCIAL HISTORY The patient stopped smoking as noted above. He does not drink or use recreational drugs. PHYSICAL EXAMINATION GENERAL: He is awake and alert. He is in no distress. VITAL SIGNS: Blood pressure 140/70, pulse 70 and regular. NECK: There is no neck vein distension. LUNGS: Clear. CARDIOVASCULAR: Regular rate and rhythm with no murmur, gallop or rub. ASSESSMENT The patient's QTC has apparently normalized in the low 400s. At this point in time I do not feel he presents a substantial risk for life-threatening arrhythmias and would continue his treatment as is. He is anticipating discharge Friday or Friday and we will repeat an electrocardiogram on Friday and perhaps every two weeks for monitoring purposes. MD JAMIE Xiong/[place] /10:10 AM /10:41 AM
[2016-11-20] MEDS: SODIUM CHLOR 0.9% 250 ML INJ 250 ML IV SCH (11:00)
--- NOTE | 2016-11-20 16:18 | HHI.PR ---
Subjective Remarks No new complaints. Objective Vitals Vital Signs Date Time Temp Pulse Resp B/P Pulse Ox O2 Delivery O2 Flow Rate FiO2 11/20/16 12:50 97 147/73 11/20/16 11:50 96.6 94 20 178/87 93 11/20/16 09:06 93 11/20/16 07:50 96.7 98 20 141/76 96 11/20/16 04:00 97.8 77 16 143/73 96 11/20/16 00:00 96.4 87 16 145/78 97 11/19/16 20:00 97.0 92 18 148/68 97 11/19/16 11/19/16 11/20/16 14:59 22:59 06:59 Intake Total 720 ml 1330 ml 835 ml Balance 720 ml 1330 ml 835 ml Intake Oral 720 ml 480 ml 240 ml IV Total 850 ml 595 ml # Voids 10 3 2 # Bowel Movements 1 1 Result Diagram: 11/20/16 0540 11/19/16 0500 Imaging Last 24 hours Impressions Lumbar Spine CT 11/02/16 0000 Signed Impressions: Service Date/Time: Wednesday, November 02, 2016 15:10 - CONCLUSION: 1. Chronic bilateral pars defects at L5-S1 with associated significant spondylolisthesis and hypertrophic changes in the posterior elements. 2. Advanced discogenic degenerative changes from L2-S1, left lumbar scoliosis, and a moderately large left-sided disc protrusion at L2-3 causing probable neural impingement. Lam Parrish MD Chest X-Ray 11/02/16 0000 Signed Impressions: Service Date/Time: Wednesday, November 02, 2016 14:37 - CONCLUSION: No acute cardiopulmonary disease. Lam Parrish MD Abdomen/Pelvis CT 11/02/16 0000 Signed Impressions: Service Date/Time: Wednesday, November 02, 2016 15:10 - CONCLUSION: 1. Left parapelvic cyst and a low density lesion lower pole of the solitary left kidney are similar to images from a prior cryoablation in August 2015. 2. Bilateral adrenal lesions, low density in the right and intermediate density on the left. Recommend correlation with outside prior imaging studies to see if this is a new or old finding. 3. 4.2 cm distal abdominal aortic aneurysm. Bilaterally iliac stents in place. 4. Significant spondylolisthesis at L5-S1 with bilateral pars defects. 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 He reported that he had been having diarrhea for months but this suddenly worsened and was having up to 10x/day, nonbloody. - Labs at admission found the pt to have pancytopenia with neutropenia. No fevers or chills. - CT Abd/pelvis (11/02) noted to have AAA 4.2cm and val adrenal lesions. - Hematology was consulted to assist in etiology of pancytopenia. - Bone marrow biopsy performed on 11/03/2016 with marrow aspiration indicated acute promyelocytic leukemia bone marrow aspirate flow cytometry indicates 81% blasts most consistent with acute promyelocytic leukemia. - Pt started on ATRA at 40 mg twice daily, Prednisone 40 mg daily, Arsenic trioxide at 11.85 mg intravenously daily per Heme/Onc - PICC line placed on 11/05/16 - Chemo regimen started on 11/06/16 - Received cryoprecipitate 11/09/16 for bleeding and DIC concerns - Pt developed lower extremity edema and IVF lowered and he was started on scheduled Lasix. The LE edema is resolved and Creatinine is stable. - Monitor CBC/BMP. - Lisinopril was scheduled started for HTN but BP still running higher, this was increased to 20mg po BID on 11/18 - Clonidine d/c per pt request. - Hem/onc making arrangements for transition to outpt setting. - Prednisone decreased to 30mg po daily on 11/19 - Anticipate discharge in the next few days once arrangements are made. - Spoke with [facility] CM and they are trying to work with [facility] to get final prices and availability for the Arsenic trioxide as well. - Will discuss with Dr. Haley the length of treatment anticipated. - continue current treatment plan as outlined above. (2) QT prolongation Status: Acute Plan: - stable - case reviewed by Cardiology - EKG q2 weeks during treatment (3) GERD (gastroesophageal reflux disease) Status: Acute Plan: - improved - protonix - tums prn (4) Pancytopenia Status: Acute Plan: - See above. (5) Neutropenia Status: Acute Plan: - See above (6) Diarrhea Status: Resolved Plan: - Diarrhea resolved - Stools are negative for C. diff - Stools for cryptosporidium and Giardia are negative (7) Weakness generalized Status: Acute Plan: - See above (8) Renal cell carcinoma Status: Resolved Plan: - See above (9) Hypertension Status: Chronic Plan: - See above. (10) PAD (peripheral artery disease) Status: Chronic Plan: - Pt with hx of PAD s/p 5 stents in lower ext. 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
[2016-11-20] MEDS: PRAVASTATIN SOD 40 MG TAB PO SCH (20:36)
[2016-11-20] MEDS: CHOLECALCIFEROL (VIT D3) 1000 UNIT TAB PO SCH (20:36)
[2016-11-20] MEDS: [UNRECOGNIZED DRUG - OTHER] IV SCH (22:36)
[2016-11-20] MEDS: SODIUM CHLORIDE 0.9% IV SCH (22:36)
[2016-11-21] VITALS (8 sets, daily range): BP systolic 139–174; BP diastolic 70–93; PULSE 78–106; RESP 16–20; TEMP 96–98.8; O2SAT 94–98
[2016-11-21] MEDS: SODIUM CHLOR 0.9% 1000 ML INJ 1,000 ML IV SCH ×2 (00:30→18:51)
[2016-11-21] MEDS: SODIUM BICARBONATE 325 MG TAB PO SCH ×3 (04:56→22:42)
--- NOTE | 2016-11-21 08:22 | PD.ONC.PN ---
Subjective Subjective Remarks Mr. Rainey was seen and examined this AM, he reports feeling well. He had "a few drops" of blood from each nostril yesterday. The bleeding was self limited. He denies fevers, chills, difficulty breathing, chest pain, N/V/D, bruising, hematochezia and melena. He continues to walk 3-4 miles daily in the hallways. Objective Data Date Time Temp Pulse Resp B/P Pulse Ox O2 Delivery O2 Flow Rate FiO2 11/21/16 04:30 97.0 78 16 142/71 96 11/21/16 00:00 96.8 82 16 146/70 96 11/20/16 20:08 78 11/20/16 20:00 97.8 99 18 162/78 96 11/20/16 15:50 97.2 91 20 137/75 95 11/20/16 12:50 97 147/73 11/20/16 11:50 96.6 94 20 178/87 93 11/20/16 09:06 93 11/21/16 11/21/16 11/21/16 07:00 15:00 23:00 Intake Total 983 ml Balance 983 ml Result Diagram: 11/20/16 0540 11/19/16 0500 Administered Medications Medications (Trade) Dose Ordered Sig/Sowmya Route PRN Reason Start Time Stop Time Status Last Admin Dose Admin Sodium Chloride (NS Flush) 2 ml UNSCH PRN IV FLUSH FLUSH AFTER USING IV ACCESS 11/02/16 18:00 11/20/16 04:01 Sodium Chloride (NS Flush) 2 ml BID IV FLUSH 11/02/16 21:00 11/19/16 21:54 Acetaminophen (Tylenol) 650 mg Q4H PRN PO TEMP > 100.4 11/02/16 18:00 11/09/16 20:29 Pravastatin Sodium (Pravachol) 40 mg HS PO 11/02/16 21:00 11/20/16 20:36 Cholecalciferol 1000 units 1,000 units HS PO 11/02/16 21:00 11/20/16 20:36 Sodium Chloride (NS 1000 ml Inj) 1,000 ml @ 50 mls/hr Q20H IV 11/03/16 10:00 11/21/16 00:30 Loperamide HCl (Imodium) 2 mg Q4H PRN PO after each episode diarrhea 11/04/16 09:30 11/06/16 10:55 Tretinoin 40 mg 40 mg BIDPC PO 11/05/16 09:00 11/20/16 19:18 Sodium Chloride (NS 250 ml Inj) 250 ml @ 84 mls/hr Q24H IV 11/05/16 11:00 11/20/16 11:00 Sodium Chloride (NS Flush) UNSCH PRN IV FLUSH SEE PROTOCOL TABLE 11/05/16 10:45 11/20/16 03:56 Sodium Bicarbonate (Sodium Bicarbonate) 325 mg Q8HR PO 11/06/16 08:00 11/21/16 04:56 Pantoprazole Sodium (Protonix) 40 mg DAILY PO 11/07/16 09:15 11/20/16 09:09 Calcium Carbonate (Tums Chew) 500 mg Q2H PRN CHEW dyspepsia 11/07/16 09:15 11/07/16 09:30 Allopurinol 300 mg 300 mg DAILY PO 11/08/16 09:00 11/20/16 09:09 Arsenic Trioxide/ Sodium Chloride (Trisenox Inj/NS 250 ml Inj) 260 ml @ 130.925 mls/hr Q24H IV 11/09/16 22:00 12/01/16 00:00 11/20/16 22:36 Alteplase, Recombinant (Cathflo Activase Inj) 2 mg UNSCH PRN IV FLUSH FOR CLOGGED CENTRAL LINE 11/14/16 09:30 11/14/16 10:43 Furosemide (Lasix) 10 mg DAILY PO 11/18/16 09:00 11/20/16 09:09 Potassium Chloride (KCl) 20 meq DAILY PO 11/18/16 09:00 11/20/16 09:09 Lisinopril (Prinivil) 20 mg Q12HR PO 11/18/16 21:00 11/20/16 20:36 Prednisone (Deltasone) 30 mg DAILY PO 11/19/16 09:00 11/20/16 09:09 Objective Remarks GENERAL: Elderly male, pleasant disposition, coughs frequently. This is a well- nourished, well-developed patient, in no apparent distress. SKIN: No rashes, ecchymoses or lesions. Cool and dry. HEAD: Atraumatic. Normocephalic. No temporal or scalp tenderness. EYES: Pupils equal round and reactive. Extraocular motions intact. No scleral icterus. No injection or drainage. ENT: Nose without active bleeding, some dried blood in the nares, purulent drainage or septal hematoma. Throat without erythema, tonsillar hypertrophy or exudate. Uvula midline. Airway patent. NECK: Trachea midline. No JVD or lymphadenopathy. Supple, nontender, no meningeal signs. CARDIOVASCULAR: Regular rate and rhythm without murmurs, gallops, or rubs. RESPIRATORY: Prolonged expiratory phase, disbursed crackles occasional rhonchi, prolonged expiratory phase. GASTROINTESTINAL: Abdomen soft, non-tender, nondistended. No hepato-splenomegaly , or palpable masses. No guarding. MUSCULOSKELETAL: Edema resolved in the right leg, mild residual edema in the left leg. No joint tenderness. No calf tenderness. Negative Homans sign bilaterally. NEUROLOGICAL: Awake and alert. Cranial nerves II through XII intact. Motor and sensory grossly within normal limits. Five out of 5 muscle strength in all muscle groups. Normal speech. Assessment/Plan Problem List: (1) Acute promyelocytic leukemia Status: Acute Assessment 76-year-old male presenting with pancytopenia, bone marrow biopsy performed on with marrow aspiration indicates findings diagnostic for acute promyelocytic leukemia bone marrow aspirate flow cytometry indicates 81% blasts with features of acute promyelocytic leukemia. Confirmatory testing including PCR for translocation 15;17 is was positive. ATRA day 1 was 11/06/2016. Arsenic trioxide day 1 was 11/09/2016 Corticosteroids(Prednisone, 40mg PO daily) started on 11/05/2016. Tumor lysis syndrome prophylaxis with allopurinol was initiated on 11/04/2016. hydration: NS @84cc/hr sodium bicarbonate 325mg PO TID Plan 1. Continue Arsenic/ATRA combination. Today will be day 15-16 of treatment. CBC reviewed, WBC count is improving, increased numbers of myelocytes and metamyelocytes are in circulation. 2. Coags reviewed, no evidence of DIC or ATRA syndrome at this time. I have decreased the dose of prednisone from 40 mg daily to 30 mg daily. 3. No evidence of tumor lysis syndrome. Renal function and electrolytes remain stable. 4. Monitor electrolytes, blood counts. 5. QTc was noted to be 440ms, pt evaluated by cardiology, we have been advised to continue treatment as is for the time, I will continue EKGs every 7-14 days for now. 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
[2016-11-21] MEDS: ALLOPURINOL 300 MG TAB PO SCH (09:25)
[2016-11-21] MEDS: POTASSIUM CHLORIDE 20 MEQ CONTROLLED RELEASE TAB PO SCH (09:25)
[2016-11-21] MEDS: LISINOPRIL 20 MG TAB PO SCH ×2 (09:25→20:29)
[2016-11-21] MEDS: PANTOPRAZOLE SOD 40 MG DELAYED RELEASE TAB PO SCH (09:25)
[2016-11-21] MEDS: FUROSEMIDE 20 MG TAB PO SCH (09:25)
[2016-11-21] MEDS: predniSONE 10 MG TAB PO SCH (09:26)
[2016-11-21] MEDS: TRETINOIN PO SCH ×2 (09:31→18:52)
[2016-11-21] MEDS: SODIUM CHLORIDE 0.9% FLUSH 10 ML FLUSH IV FLUSH SCH ×3 (09:32→20:31)
[2016-11-21 10:25] LABS: APTT (PATIENT) 27.8 SEC (24.3-30.1); PROTHROMBIN TIME - PATIENT 11.4 SEC (9.8-11.6)
[2016-11-21 10:34] LABS: ALT (GPT) 82 U/L (12-78); ANION GAP 8 MEQ/L (5-15); AST (GOT) 55 U/L (15-37); BICARBONATE 24.6 MEQ/L (21.0-32.0); BLOOD UREA NITROGEN 30 MG/DL (7-18); CHLORIDE 111 MEQ/L (98-107); GLOMERULAR FILTRATION RATE 37 ML/MIN (>89); SODIUM (NA) 144 MEQ/L (136-145)
[2016-11-21 10:36] LABS: ALKALINE PHOSPHATASE 111 U/L (45-117); TOTAL BILIRUBIN ADULT 0.4 MG/DL (0.2-1.0)
[2016-11-21] MEDS ORDERED: cloNIDine HCL 0.1 MG TAB PO PRN (15:00)
--- NOTE | 2016-11-21 17:23 | HHI.PR ---
Subjective Remarks No new complaints. Objective Vitals Vital Signs Date Time Temp Pulse Resp B/P Pulse Ox O2 Delivery O2 Flow Rate FiO2 11/21/16 15:50 97.3 101 20 139/93 98 11/21/16 11:50 98.8 106 20 162/78 94 11/21/16 08:36 92 11/21/16 07:20 96.0 88 20 174/88 97 11/21/16 04:30 97.0 78 16 142/71 96 11/21/16 00:00 96.8 82 16 146/70 96 11/20/16 20:08 78 11/20/16 20:00 97.8 99 18 162/78 96 11/20/16 11/20/16 11/21/16 15:00 23:00 07:00 Intake Total 720 ml 983 ml Balance 720 ml 983 ml Intake Oral 720 ml 480 ml IV Total 503 ml # Voids 7 2 # Bowel Movements 2 Result Diagram: 11/20/16 0540 11/21/16 0928 Imaging Last 24 hours Impressions Lumbar Spine CT 11/02/16 0000 Signed Impressions: Service Date/Time: Wednesday, November 02, 2016 15:10 - CONCLUSION: 1. Chronic bilateral pars defects at L5-S1 with associated significant spondylolisthesis and hypertrophic changes in the posterior elements. 2. Advanced discogenic degenerative changes from L2-S1, left lumbar scoliosis, and a moderately large left-sided disc protrusion at L2-3 causing probable neural impingement. Lam Parrish MD Chest X-Ray 11/02/16 0000 Signed Impressions: Service Date/Time: Wednesday, November 02, 2016 14:37 - CONCLUSION: No acute cardiopulmonary disease. Lam Parrish MD Abdomen/Pelvis CT 11/02/16 0000 Signed Impressions: Service Date/Time: Wednesday, November 02, 2016 15:10 - CONCLUSION: 1. Left parapelvic cyst and a low density lesion lower pole of the solitary left kidney are similar to images from a prior cryoablation in August 2015. 2. Bilateral adrenal lesions, low density in the right and intermediate density on the left. Recommend correlation with outside prior imaging studies to see if this is a new or old finding. 3. 4.2 cm distal abdominal aortic aneurysm. Bilaterally iliac stents in place. 4. Significant spondylolisthesis at L5-S1 with bilateral pars defects. 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 He reported that he had been having diarrhea for months but this suddenly worsened and was having up to 10x/day, nonbloody. - Labs at admission found the pt to have pancytopenia with neutropenia. No fevers or chills. - CT Abd/pelvis (11/02) noted to have AAA 4.2cm and val adrenal lesions. - Hematology was consulted to assist in etiology of pancytopenia. - Bone marrow biopsy performed on 11/03/2016 with marrow aspiration indicated acute promyelocytic leukemia bone marrow aspirate flow cytometry indicates 81% blasts most consistent with acute promyelocytic leukemia. - Pt started on ATRA at 40 mg twice daily, Prednisone 30 mg daily, Arsenic trioxide at 11.85 mg intravenously daily per Heme/Onc - PICC line placed on 11/05/16 - Chemo regimen started on 11/06/16 - Received cryoprecipitate 11/09/16 for bleeding and DIC concerns - Pt developed lower extremity edema and IVF lowered and he was started on scheduled Lasix. The LE edema is resolved and Creatinine is stable. - Monitor CBC/BMP. - Lisinopril 20mg BID - may require second BP medication, observe - Clonidine d/c per pt request. - Hem/onc making arrangements for transition to outpt setting. - continue current treatment plan as outlined above. 11/21/16 - pt interviewed and examined - no new complaints - continue current treatment plan as outlined above (2) QT prolongation Status: Acute Plan: - stable - case reviewed by Cardiology - EKG q2 weeks during treatment (3) GERD (gastroesophageal reflux disease) Status: Acute Plan: - improved - protonix - tums prn (4) Pancytopenia Status: Acute Plan: - See above. (5) Neutropenia Status: Acute Plan: - See above (6) Diarrhea Status: Resolved Plan: - Diarrhea resolved - Stools are negative for C. diff - Stools for cryptosporidium and Giardia are negative (7) Weakness generalized Status: Acute Plan: - See above (8) Renal cell carcinoma Status: Resolved Plan: - See above (9) Hypertension Status: Chronic Plan: - lisinopril 20mg BID - consider additional agent - observe (10) PAD (peripheral artery disease) Status: Chronic Plan: - Pt with hx of PAD s/p 5 stents in lower ext. 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
[2016-11-21] MEDS: CHOLECALCIFEROL (VIT D3) 1000 UNIT TAB PO SCH (20:29)
[2016-11-21] MEDS: PRAVASTATIN SOD 40 MG TAB PO SCH (20:29)
[2016-11-21] MEDS: [UNRECOGNIZED DRUG - OTHER] IV SCH (21:56)
[2016-11-21] MEDS: SODIUM CHLORIDE 0.9% IV SCH (21:56)
[2016-11-22] VITALS (9 sets, daily range): BP systolic 114–178; BP diastolic 57–88; PULSE 84–108; RESP 16–19; TEMP 96.3–98; O2SAT 95–98
[2016-11-22] MEDS: SODIUM BICARBONATE 325 MG TAB PO SCH ×3 (04:54→21:42)
[2016-11-22 07:33] LABS: HEMATOCRIT 23.7 % (39.0-51.0); MEAN CELL VOLUME 98.8 FL (80.0-100.0); MEAN CORPUSCULAR HEMOGLOBIN 33.6 PG (27.0-34.0); PLATELET COUNT 67 TH/MM3 (150-450); WHITE BLOOD COUNT 2.1 TH/MM3 (4.0-11.0)
[2016-11-22 07:35] LABS: HEMO FLAGS AUTO DIFF
[2016-11-22 08:27] LABS: BANDS 1 % (0-6); CORRECTED NUCLEATED RBC 7 /100 WBC (0-0); METAMYELOCYTES 7 % (0-1); MYELOCYTES 31 % (0-0); NEUTROPHIL # MANUAL DIFF 1.4 TH/MM3 (1.8-7.7); POLYS (SEG NEUTROPHILS) 25 % (16-70); PROMYELOCYTES 3 % (0-0); WBC DIFF SAMPLE 100
[2016-11-22 08:29] LABS: KERATOCYTES OCC (NORMAL); PLATELET ESTIMATE SMEAR LOW (NORMAL); PLATELET MORPHOLOGY NORMAL (NORMAL); SCAN/DIFF FINAL DIFF MANUAL
[2016-11-22] MEDS: SODIUM CHLORIDE 0.9% FLUSH 10 ML FLUSH IV FLUSH SCH ×3 (09:00→21:00)
[2016-11-22] MEDS: TRETINOIN PO SCH ×2 (10:21→18:26)
[2016-11-22] MEDS: predniSONE 10 MG TAB PO SCH (10:21)
[2016-11-22] MEDS: FUROSEMIDE 20 MG TAB PO SCH (10:21)
[2016-11-22] MEDS: PANTOPRAZOLE SOD 40 MG DELAYED RELEASE TAB PO SCH (10:21)
[2016-11-22] MEDS: POTASSIUM CHLORIDE 20 MEQ CONTROLLED RELEASE TAB PO SCH (10:21)
[2016-11-22] MEDS: ALLOPURINOL 300 MG TAB PO SCH (10:22)
[2016-11-22] MEDS: LISINOPRIL 20 MG TAB PO SCH ×2 (10:22→21:42)
--- NOTE | 2016-11-22 11:51 | PD.ONC.PN ---
Subjective Subjective Remarks Afebrile overnight. Patient took several laps in the hallways this morning. He states he feels great. Objective Data Date Time Temp Pulse Resp B/P Pulse Ox O2 Delivery O2 Flow Rate FiO2 11/22/16 08:00 96.7 84 16 178/88 95 11/22/16 07:31 87 11/22/16 04:00 96.3 88 18 159/82 96 11/22/16 00:00 96.4 88 19 147/73 98 11/21/16 20:13 88 11/21/16 20:00 97.5 93 18 145/71 96 11/21/16 15:50 97.3 101 20 139/93 98 11/21/16 11:50 98.8 106 20 162/78 94 11/22/16 11/22/16 11/22/16 06:59 14:59 22:59 Intake Total 1675 ml Balance 1675 ml Result Diagram: 11/22/16 0450 11/21/16 0928 Laboratory Results Laboratory Tests Test 11/22/16 04:50 White Blood Count 2.1 TH/MM3 Red Blood Count 2.40 MIL/MM3 Hemoglobin 8.1 GM/DL Hematocrit 23.7 % Mean Corpuscular Volume 98.8 FL Mean Corpuscular Hemoglobin 33.6 PG Mean Corpuscular Hemoglobin 34.0 % Concent Red Cell Distribution Width 15.0 % Platelet Count 67 TH/MM3 Mean Platelet Volume 8.7 FL Neutrophils (%) (Auto) % Lymphocytes (%) (Auto) % Monocytes (%) (Auto) % Eosinophils (%) (Auto) % Basophils (%) (Auto) % Neutrophils # (Auto) TH/MM3 Lymphocytes # (Auto) TH/MM3 Monocytes # (Auto) TH/MM3 Eosinophils # (Auto) TH/MM3 Basophils # (Auto) TH/MM3 CBC Comment AUTO DIFF Differential Total Cells 100 Counted Neutrophils % (Manual) 25 % Band Neutrophils % 1 % Lymphocytes % 31 % Monocytes % 2 % Neutrophils # (Manual) 1.4 TH/MM3 Metamyelocytes 7 % Myelocytes 31 % Promyelocytes 3 % Nucleated Red Blood Cells 7 /100 WBC Differential Comment FINAL DIFF MANUAL Platelet Estimate LOW Platelet Morphology Comment NORMAL Keratocytes OCC Administered Medications Medications (Trade) Dose Ordered Sig/Sowmya Route PRN Reason Start Time Stop Time Status Last Admin Dose Admin Sodium Chloride (NS Flush) 2 ml UNSCH PRN IV FLUSH FLUSH AFTER USING IV ACCESS 11/02/16 18:00 11/20/16 04:01 Sodium Chloride (NS Flush) 2 ml BID IV FLUSH 11/02/16 21:00 11/19/16 21:54 Acetaminophen (Tylenol) 650 mg Q4H PRN PO TEMP > 100.4 11/02/16 18:00 11/09/16 20:29 Pravastatin Sodium (Pravachol) 40 mg HS PO 11/02/16 21:00 11/21/16 20:29 Cholecalciferol 1000 units 1,000 units HS PO 11/02/16 21:00 11/21/16 20:29 Sodium Chloride (NS 1000 ml Inj) 1,000 ml @ 50 mls/hr Q20H IV 11/03/16 10:00 11/21/16 18:51 Loperamide HCl (Imodium) 2 mg Q4H PRN PO after each episode diarrhea 11/04/16 09:30 11/06/16 10:55 Tretinoin 40 mg 40 mg BIDPC PO 11/05/16 09:00 11/22/16 10:21 Sodium Chloride (NS 250 ml Inj) 250 ml @ 84 mls/hr Q24H IV 11/05/16 11:00 11/20/16 11:00 Sodium Chloride (NS Flush) UNSCH PRN IV FLUSH SEE PROTOCOL TABLE 11/05/16 10:45 11/20/16 03:56 Sodium Bicarbonate (Sodium Bicarbonate) 325 mg Q8HR PO 11/06/16 08:00 11/22/16 04:54 Pantoprazole Sodium (Protonix) 40 mg DAILY PO 11/07/16 09:15 11/22/16 10:21 Calcium Carbonate (Tums Chew) 500 mg Q2H PRN CHEW dyspepsia 11/07/16 09:15 11/07/16 09:30 Allopurinol 300 mg 300 mg DAILY PO 11/08/16 09:00 11/22/16 10:22 Arsenic Trioxide/ Sodium Chloride (Trisenox Inj/NS 250 ml Inj) 260 ml @ 130.925 mls/hr Q24H IV 11/09/16 22:00 12/01/16 00:00 11/21/16 21:56 Alteplase, Recombinant (Cathflo Activase Inj) 2 mg UNSCH PRN IV FLUSH FOR CLOGGED CENTRAL LINE 11/14/16 09:30 11/14/16 10:43 Furosemide (Lasix) 10 mg DAILY PO 11/18/16 09:00 11/22/16 10:21 Potassium Chloride (KCl) 20 meq DAILY PO 11/18/16 09:00 11/22/16 10:21 Lisinopril (Prinivil) 20 mg Q12HR PO 11/18/16 21:00 11/22/16 10:22 Prednisone (Deltasone) 30 mg DAILY PO 11/19/16 09:00 11/22/16 10:21 Objective Remarks GENERAL: Pleasant elderly male, sitting up in chair reading book SKIN: Warm and dry. PICC line right arm. HEAD: Normocephalic. EYES: No injection or drainage. NECK: Supple, trachea midline. CARDIOVASCULAR: Regular rate and rhythm without murmurs. RESPIRATORY: Breath sounds equal bilaterally. No accessory muscle use. GASTROINTESTINAL: Abdomen soft, non-tender, nondistended. EXTREMITIES: No cyanosis NEUROLOGICAL: No obvious focal deficit. Awake, alert, and oriented x3. Assessment/Plan Problem List: (1) Acute promyelocytic leukemia Status: Acute Assessment 76-year-old male presenting with pancytopenia, bone marrow biopsy performed on with marrow aspiration indicates findings diagnostic for acute promyelocytic leukemia bone marrow aspirate flow cytometry indicates 81% blasts with features of acute promyelocytic leukemia. Confirmatory testing including PCR for translocation 15;17 is was positive. ATRA day 1 was 11/06/2016. Arsenic trioxide day 1 was 11/09/2016 Corticosteroids(Prednisone, 40mg PO daily) started on 11/05/2016. Tumor lysis syndrome prophylaxis with allopurinol was initiated on 11/04/2016. hydration: NS @84cc/hr sodium bicarbonate 325mg PO TID Plan 1. Continue Arsenic/ATRA combination. Today will be day 16-17 of treatment. WBC improving. platelet count improving. 2. coags checked yesterday. continue Prednisone 30mg PO daily. will check coags again Friday. 3. monitor electrolytes, no evidence of TLS 4. monitor ECG q 7-14 days for prolonged QTc, cardiology following (last ECG on 11/18) Attending Statement The exam, history, and the medical decision-making described in the above note were completed with the assistance of the mid-level provider. I reviewed and agree with the findings presented. I attest that I had a [id number] encounter with the patient on the same day, and personally performed and documented my assessment and findings in the medical record. Patient seen and examined. at bedside at the time of interview. Patient reports feeling well. Blood pressure is been high. Continues to walk in the hallways without difficulty. Has remained afebrile, without evidence of bleeding, denies difficulty breathing , chest pain, hematochezia or melena. Day 16 ATRA/arsenic trioxide. Continue treatment as counts trend up. He will be able to transition to outpatient therapy next week when he has the ATRA delivered to his home. May discharge next week once transition to outpatient treatment is complete. To accomplish this outpatient ATRA and arsenic trioxide will need to be arranged. The arsenic trioxide is stocked at our outpatient pharmacy and can be delivered at the [facility] office a dose of 10 mg IV daily Friday-Friday. The ATRA May below the more difficult to transition to an outpatient because of the exorbitant cost. I will ask my resource nurses to help assist the patient secure a John to help with the copayment (if possible). In the upcoming 2 weeks he will be restaged with a bone marrow biopsy to assess for remission. Once remission is confirmed, he will be initiated on consolidation dosing of BING and ATRA. 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
[2016-11-22] MEDS: SODIUM CHLOR 0.9% 1000 ML INJ 1,000 ML IV SCH (13:29)
--- NOTE | 2016-11-22 17:17 | HHI.PR ---
Subjective Remarks No new complaints. Objective Vitals Vital Signs Date Time Temp Pulse Resp B/P Pulse Ox O2 Delivery O2 Flow Rate FiO2 11/22/16 16:00 97.2 94 16 144/68 97 11/22/16 12:00 96.4 94 17 138/81 96 11/22/16 08:00 96.7 84 16 178/88 95 11/22/16 07:31 87 11/22/16 04:00 96.3 88 18 159/82 96 11/22/16 00:00 96.4 88 19 147/73 98 11/21/16 20:13 88 11/21/16 20:00 97.5 93 18 145/71 96 11/21/16 11/21/16 11/22/16 15:00 23:00 07:00 Intake Total 480 ml 480 ml 1675 ml Balance 480 ml 480 ml 1675 ml Intake Oral 480 ml 480 ml 240 ml IV Total 1435 ml # Voids 7 7 3 # Bowel Movements 1 0 0 Result Diagram: 11/22/16 0450 11/21/16 0928 Imaging Last 24 hours Impressions Lumbar Spine CT 11/02/16 0000 Signed Impressions: Service Date/Time: Wednesday, November 02, 2016 15:10 - CONCLUSION: 1. Chronic bilateral pars defects at L5-S1 with associated significant spondylolisthesis and hypertrophic changes in the posterior elements. 2. Advanced discogenic degenerative changes from L2-S1, left lumbar scoliosis, and a moderately large left-sided disc protrusion at L2-3 causing probable neural impingement. Lam Parrish MD Chest X-Ray 11/02/16 0000 Signed Impressions: Service Date/Time: Wednesday, November 02, 2016 14:37 - CONCLUSION: No acute cardiopulmonary disease. Lam Parrish MD Abdomen/Pelvis CT 11/02/16 0000 Signed Impressions: Service Date/Time: Wednesday, November 02, 2016 15:10 - CONCLUSION: 1. Left parapelvic cyst and a low density lesion lower pole of the solitary left kidney are similar to images from a prior cryoablation in August 2015. 2. Bilateral adrenal lesions, low density in the right and intermediate density on the left. Recommend correlation with outside prior imaging studies to see if this is a new or old finding. 3. 4.2 cm distal abdominal aortic aneurysm. Bilaterally iliac stents in place. 4. Significant spondylolisthesis at L5-S1 with bilateral pars defects. 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 He reported that he had been having diarrhea for months but this suddenly worsened and was having up to 10x/day, nonbloody. - Labs at admission found the pt to have pancytopenia with neutropenia. No fevers or chills. - CT Abd/pelvis (11/02) noted to have AAA 4.2cm and val adrenal lesions. - Hematology was consulted to assist in etiology of pancytopenia. - Bone marrow biopsy performed on 11/03/2016 with marrow aspiration indicated acute promyelocytic leukemia bone marrow aspirate flow cytometry indicates 81% blasts most consistent with acute promyelocytic leukemia. - Pt started on ATRA at 40 mg twice daily, Prednisone 30 mg daily, Arsenic trioxide at 11.85 mg intravenously daily per Heme/Onc - PICC line placed on 11/05/16 - Chemo regimen started on 11/06/16 - Received cryoprecipitate 11/09/16 for bleeding and DIC concerns - Pt developed lower extremity edema and IVF lowered and he was started on scheduled Lasix. The LE edema is resolved and Creatinine is stable. - Monitor CBC/BMP. - Lisinopril 20mg BID - may require second BP medication, observe - Clonidine d/c per pt request. - Hem/onc making arrangements for transition to outpt setting. - continue current treatment plan as outlined above. 11/22/16 - pt interviewed and examined - no new complaints - continue current treatment plan as outlined above (2) QT prolongation Status: Acute Plan: - stable - case reviewed by Cardiology - EKG q2 weeks during treatment (3) GERD (gastroesophageal reflux disease) Status: Acute Plan: - improved - protonix - tums prn (4) Pancytopenia Status: Acute Plan: - See above. (5) Neutropenia Status: Acute Plan: - See above (6) Diarrhea Status: Resolved Plan: - Diarrhea resolved - Stools are negative for C. diff - Stools for cryptosporidium and Giardia are negative (7) Weakness generalized Status: Acute Plan: - See above (8) Renal cell carcinoma Status: Resolved Plan: - See above (9) Hypertension Status: Chronic Plan: - lisinopril 20mg BID - consider additional agent - observe (10) PAD (peripheral artery disease) Status: Chronic Plan: - Pt with hx of PAD s/p 5 stents in lower ext. 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
[2016-11-22] MEDS: PRAVASTATIN SOD 40 MG TAB PO SCH (21:42)
[2016-11-22] MEDS: CHOLECALCIFEROL (VIT D3) 1000 UNIT TAB PO SCH (21:42)
[2016-11-22] MEDS: [UNRECOGNIZED DRUG - OTHER] IV SCH (22:26)
[2016-11-22] MEDS: SODIUM CHLORIDE 0.9% IV SCH (22:26)
[2016-11-22] MEDS: SODIUM CHLOR 0.9% 250 ML INJ 250 ML IV SCH (22:36)
[2016-11-23] VITALS (9 sets, daily range): BP systolic 125–157; BP diastolic 72–86; PULSE 80–97; RESP 17–20; TEMP 96.2–97.1; O2SAT 95–97
[2016-11-23] MEDS: SODIUM CHLOR 0.9% 1000 ML INJ 1,000 ML IV SCH (04:43)
[2016-11-23] MEDS: SODIUM BICARBONATE 325 MG TAB PO SCH ×3 (04:43→21:53)
[2016-11-23 05:08] LABS: AUTOMATED NEUTROPHIL # 1.5 TH/MM3 (1.8-7.7); BASOPHIL % 0.7 % (0.0-2.0); EOSINOPHIL % 0.1 % (0.0-4.0); HEMATOCRIT 23.1 % (39.0-51.0); LYMPH % 25.7 % (9.0-44.0); LYMPHOCYTE # 0.5 TH/MM3 (1.0-4.8); MEAN CELL VOLUME 98.9 FL (80.0-100.0); MEAN CORPUSCULAR HEMOGLOBIN 32.7 PG (27.0-34.0); MONO % 1.5 % (0.0-8.0); PLATELET COUNT 69 TH/MM3 (150-450); RED BLOOD COUNT 2.34 MIL/MM3 (4.50-5.90); RED CELL DISTRIBUTION WIDTH 15.6 % (11.6-17.2); WHITE BLOOD COUNT 2.1 TH/MM3 (4.0-11.0)
[2016-11-23 05:12] LABS: HEMO FLAGS AUTO DIFF
[2016-11-23 05:14] LABS: ALT (GPT) 62 U/L (12-78); ANION GAP 6 MEQ/L (5-15); AST (GOT) 42 U/L (15-37); BICARBONATE 25.9 MEQ/L (21.0-32.0); BLOOD UREA NITROGEN 32 MG/DL (7-18); CHLORIDE 114 MEQ/L (98-107); GLOMERULAR FILTRATION RATE 38 ML/MIN (>89); SODIUM (NA) 146 MEQ/L (136-145)
[2016-11-23 05:16] LABS: ALKALINE PHOSPHATASE 97 U/L (45-117); TOTAL BILIRUBIN ADULT 0.3 MG/DL (0.2-1.0)
[2016-11-23] MEDS: SODIUM CHLORIDE 0.9% FLUSH 10 ML FLUSH IV FLUSH SCH ×3 (08:07→21:53)
[2016-11-23] MEDS: TRETINOIN PO SCH ×2 (08:15→17:48)
[2016-11-23] MEDS: ALLOPURINOL 300 MG TAB PO SCH (08:16)
[2016-11-23] MEDS: LISINOPRIL 20 MG TAB PO SCH ×2 (08:16→21:53)
[2016-11-23] MEDS: PANTOPRAZOLE SOD 40 MG DELAYED RELEASE TAB PO SCH (08:16)
[2016-11-23] MEDS: predniSONE 10 MG TAB PO SCH (08:16)
[2016-11-23] MEDS: POTASSIUM CHLORIDE 20 MEQ CONTROLLED RELEASE TAB PO SCH (08:16)
[2016-11-23] MEDS: FUROSEMIDE 20 MG TAB PO SCH (08:16)
[2016-11-23 09:41] LABS: BANDS 5 % (0-6); CORRECTED NUCLEATED RBC 10 /100 WBC (0-0); METAMYELOCYTES 2 % (0-1); MYELOCYTES 22 % (0-0); NEUTROPHIL # MANUAL DIFF 1.2 TH/MM3 (1.8-7.7); POLYS (SEG NEUTROPHILS) 24 % (16-70); PROMYELOCYTES 6 % (0-0); WBC DIFF SAMPLE 100
[2016-11-23 09:43] LABS: PLATELET ESTIMATE SMEAR LOW (NORMAL); PLATELET MORPHOLOGY NORMAL (NORMAL)
[2016-11-23 09:44] LABS: SCAN/DIFF FINAL DIFF MANUAL
--- NOTE | 2016-11-23 11:16 | PD.ONC.PN ---
Subjective Subjective Remarks Afebrile overnight. Patient resting comfortably. He walked several laps around the floor today. He denies bleeding or obvious blood in stool. he denies dyspnea or feeling more winded with movement. Objective Data Date Time Temp Pulse Resp B/P Pulse Ox O2 Delivery O2 Flow Rate FiO2 11/23/16 08:10 92 11/23/16 07:52 96.5 85 18 156/86 96 11/23/16 04:00 96.7 82 18 147/76 95 11/23/16 00:45 80 11/23/16 00:00 96.2 97 18 147/73 96 11/22/16 22:32 98.0 95 17 114/57 97 11/22/16 20:06 108 11/22/16 20:00 98.0 102 19 141/83 96 11/22/16 16:00 97.2 94 16 144/68 97 11/22/16 12:00 96.4 94 17 138/81 96 11/23/16 11/23/16 11/23/16 07:00 15:00 23:00 Intake Total 908 ml Balance 908 ml Result Diagram: 11/23/16 0435 11/23/16 0435 Laboratory Results Laboratory Tests Test 11/23/16 04:35 White Blood Count 2.1 TH/MM3 Red Blood Count 2.34 MIL/MM3 Hemoglobin 7.6 GM/DL Hematocrit 23.1 % Mean Corpuscular Volume 98.9 FL Mean Corpuscular Hemoglobin 32.7 PG Mean Corpuscular Hemoglobin 33.0 % Concent Red Cell Distribution Width 15.6 % Platelet Count 69 TH/MM3 Mean Platelet Volume 8.3 FL Neutrophils (%) (Auto) 72.0 % Lymphocytes (%) (Auto) 25.7 % Monocytes (%) (Auto) 1.5 % Eosinophils (%) (Auto) 0.1 % Basophils (%) (Auto) 0.7 % Neutrophils # (Auto) 1.5 TH/MM3 Lymphocytes # (Auto) 0.5 TH/MM3 Monocytes # (Auto) 0.0 TH/MM3 Eosinophils # (Auto) 0.0 TH/MM3 Basophils # (Auto) 0.0 TH/MM3 CBC Comment AUTO DIFF Differential Total Cells 100 Counted Neutrophils % (Manual) 24 % Band Neutrophils % 5 % Lymphocytes % 39 % Monocytes % 2 % Neutrophils # (Manual) 1.2 TH/MM3 Metamyelocytes 2 % Myelocytes 22 % Promyelocytes 6 % Nucleated Red Blood Cells 10 /100 WBC Differential Comment FINAL DIFF MANUAL Platelet Estimate LOW Platelet Morphology Comment NORMAL Sodium Level 146 MEQ/L Potassium Level 4.0 MEQ/L Chloride Level 114 MEQ/L Carbon Dioxide Level 25.9 MEQ/L Anion Gap 6 MEQ/L Blood Urea Nitrogen 32 MG/DL Creatinine 1.76 MG/DL Estimat Glomerular Filtration 38 ML/MIN Rate Random Glucose 96 MG/DL Calcium Level 7.8 MG/DL Total Bilirubin 0.3 MG/DL Aspartate Amino Transf 42 U/L (AST/SGOT) Alanine Aminotransferase 62 U/L (ALT/SGPT) Alkaline Phosphatase 97 U/L Total Protein 5.6 GM/DL Albumin 3.0 GM/DL Administered Medications Medications (Trade) Dose Ordered Sig/Sowmya Route PRN Reason Start Time Stop Time Status Last Admin Dose Admin Sodium Chloride (NS Flush) 2 ml UNSCH PRN IV FLUSH FLUSH AFTER USING IV ACCESS 11/02/16 18:00 11/20/16 04:01 Sodium Chloride (NS Flush) 2 ml BID IV FLUSH 11/02/16 21:00 11/19/16 21:54 Acetaminophen (Tylenol) 650 mg Q4H PRN PO TEMP > 100.4 11/02/16 18:00 11/09/16 20:29 Pravastatin Sodium (Pravachol) 40 mg HS PO 11/02/16 21:00 11/22/16 21:42 Cholecalciferol 1000 units 1,000 units HS PO 11/02/16 21:00 11/22/16 21:42 Sodium Chloride (NS 1000 ml Inj) 1,000 ml @ 50 mls/hr Q20H IV 11/03/16 10:00 11/23/16 04:43 Loperamide HCl (Imodium) 2 mg Q4H PRN PO after each episode diarrhea 11/04/16 09:30 11/06/16 10:55 Tretinoin 40 mg 40 mg BIDPC PO 11/05/16 09:00 11/23/16 08:15 Sodium Chloride (NS 250 ml Inj) 250 ml @ 84 mls/hr Q24H IV 11/05/16 11:00 11/22/16 22:36 Sodium Chloride (NS Flush) UNSCH PRN IV FLUSH SEE PROTOCOL TABLE 11/05/16 10:45 11/20/16 03:56 Sodium Bicarbonate (Sodium Bicarbonate) 325 mg Q8HR PO 11/06/16 08:00 11/23/16 04:43 Pantoprazole Sodium (Protonix) 40 mg DAILY PO 11/07/16 09:15 11/23/16 08:16 Calcium Carbonate (Tums Chew) 500 mg Q2H PRN CHEW dyspepsia 11/07/16 09:15 11/07/16 09:30 Allopurinol 300 mg 300 mg DAILY PO 11/08/16 09:00 11/23/16 08:16 Arsenic Trioxide/ Sodium Chloride (Trisenox Inj/NS 250 ml Inj) 260 ml @ 130.925 mls/hr Q24H IV 11/09/16 22:00 12/01/16 00:00 11/22/16 22:26 Alteplase, Recombinant (Cathflo Activase Inj) 2 mg UNSCH PRN IV FLUSH FOR CLOGGED CENTRAL LINE 11/14/16 09:30 11/14/16 10:43 Furosemide (Lasix) 10 mg DAILY PO 11/18/16 09:00 11/23/16 08:16 Potassium Chloride (KCl) 20 meq DAILY PO 11/18/16 09:00 11/23/16 08:16 Lisinopril (Prinivil) 20 mg Q12HR PO 11/18/16 21:00 11/23/16 08:16 Prednisone (Deltasone) 30 mg DAILY PO 11/19/16 09:00 11/23/16 08:16 Objective Remarks GENERAL: Pleasant elderly male, walking around floor in [facility] SKIN: Warm and dry. PICC line right arm. no bleeding HEAD: Normocephalic. EYES: No injection or drainage. NECK: Supple, trachea midline. CARDIOVASCULAR: Regular rate and rhythm without murmurs. RESPIRATORY: Breath sounds equal bilaterally. No accessory muscle use. GASTROINTESTINAL: Abdomen soft, non-tender, nondistended. EXTREMITIES: No cyanosis NEUROLOGICAL: awake and alert, normal speech. moving all extremities. Assessment/Plan Assessment 76-year-old male presenting with pancytopenia, bone marrow biopsy performed on with marrow aspiration indicates findings diagnostic for acute promyelocytic leukemia bone marrow aspirate flow cytometry indicates 81% blasts with features of acute promyelocytic leukemia. Confirmatory testing including PCR for translocation 15;17 is was positive. ATRA day 1 was 11/06/2016. Arsenic trioxide day 1 was 11/09/2016 Plan 1. Continue Arsenic/ATRA combination. Today will be day 17-18 of treatment. monitor CBC 2. will check coags tomorrow. continue Prednisone 30mg PO daily. 3. monitor electrolytes, no evidence of TLS 4. monitor ECG q 7-14 days for prolonged QTc, cardiology following (last ECG on 11/18) Attending Statement The exam, history, and the medical decision-making described in the above note were completed with the assistance of the mid-level provider. I reviewed and agree with the findings presented. I attest that I had a [id number] encounter with the patient on the same day, and personally performed and documented my assessment and findings in the medical record. he is doing well and no further dic or evidence of differentiation syndrome. prognosis excellent and he is thrilled. Allyn Evangelista November 23, 2016 11:16 Leonid Woodard MD November 23, 2016 14:04
[2016-11-23 12:16] LABS: TRANSFERRIN IRON PROFILE 157 MG/DL (200-360)
[2016-11-23 12:41] LABS: FERRITIN 455 NG/ML (26-388)
--- NOTE | 2016-11-23 13:27 | HHI.PR ---
Subjective Remarks No new complaints. Objective Vitals Vital Signs Date Time Temp Pulse Resp B/P Pulse Ox O2 Delivery O2 Flow Rate FiO2 11/23/16 12:00 97.1 94 20 125/72 96 11/23/16 08:10 92 11/23/16 07:52 96.5 85 18 156/86 96 11/23/16 04:00 96.7 82 18 147/76 95 11/23/16 00:45 80 11/23/16 00:00 96.2 97 18 147/73 96 11/22/16 22:32 98.0 95 17 114/57 97 11/22/16 20:06 108 11/22/16 20:00 98.0 102 19 141/83 96 11/22/16 16:00 97.2 94 16 144/68 97 11/22/16 11/22/16 11/23/16 15:00 23:00 07:00 Intake Total 720 ml 480 ml 908 ml Balance 720 ml 480 ml 908 ml Intake Oral 720 ml 480 ml 240 ml IV Total 668 ml # Voids 7 7 5 # Bowel Movements 2 1 Result Diagram: 11/23/16 0435 11/23/16 0435 Imaging Last 24 hours Impressions Lumbar Spine CT 11/02/16 0000 Signed Impressions: Service Date/Time: Wednesday, November 02, 2016 15:10 - CONCLUSION: 1. Chronic bilateral pars defects at L5-S1 with associated significant spondylolisthesis and hypertrophic changes in the posterior elements. 2. Advanced discogenic degenerative changes from L2-S1, left lumbar scoliosis, and a moderately large left-sided disc protrusion at L2-3 causing probable neural impingement. Lam Parrish MD Chest X-Ray 11/02/16 0000 Signed Impressions: Service Date/Time: Wednesday, November 02, 2016 14:37 - CONCLUSION: No acute cardiopulmonary disease. Lam Parrish MD Abdomen/Pelvis CT 11/02/16 0000 Signed Impressions: Service Date/Time: Wednesday, November 02, 2016 15:10 - CONCLUSION: 1. Left parapelvic cyst and a low density lesion lower pole of the solitary left kidney are similar to images from a prior cryoablation in August 2015. 2. Bilateral adrenal lesions, low density in the right and intermediate density on the left. Recommend correlation with outside prior imaging studies to see if this is a new or old finding. 3. 4.2 cm distal abdominal aortic aneurysm. Bilaterally iliac stents in place. 4. Significant spondylolisthesis at L5-S1 with bilateral pars defects. 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 He reported that he had been having diarrhea for months but this suddenly worsened and was having up to 10x/day, nonbloody. - Labs at admission found the pt to have pancytopenia with neutropenia. No fevers or chills. - CT Abd/pelvis (11/02) noted to have AAA 4.2cm and val adrenal lesions. - Hematology was consulted to assist in etiology of pancytopenia. - Bone marrow biopsy performed on 11/03/2016 with marrow aspiration indicated acute promyelocytic leukemia bone marrow aspirate flow cytometry indicates 81% blasts most consistent with acute promyelocytic leukemia. - Pt started on ATRA at 40 mg twice daily, Prednisone 30 mg daily, Arsenic trioxide at 11.85 mg intravenously daily per Heme/Onc - PICC line placed on 11/05/16 - Chemo regimen started on 11/06/16 - Received cryoprecipitate 11/09/16 for bleeding and DIC concerns - Pt developed lower extremity edema and IVF lowered and he was started on scheduled Lasix. The LE edema is resolved and Creatinine is stable. - Monitor CBC/BMP. - Lisinopril 20mg BID - may require second BP medication, observe - Clonidine d/c per pt request. - Hem/onc making arrangements for transition to outpt setting. - continue current treatment plan as outlined above. 11/23/16 - pt interviewed and examined - no new complaints - continue current treatment plan as outlined above (2) QT prolongation Status: Acute Plan: - stable - case reviewed by Cardiology - EKG q2 weeks during treatment (3) GERD (gastroesophageal reflux disease) Status: Acute Plan: - improved - protonix - tums prn (4) Pancytopenia Status: Acute Plan: - See above. (5) Neutropenia Status: Acute Plan: - See above (6) Diarrhea Status: Resolved Plan: - Diarrhea resolved - Stools are negative for C. diff - Stools for cryptosporidium and Giardia are negative (7) Weakness generalized Status: Acute Plan: - See above (8) Renal cell carcinoma Status: Resolved Plan: - See above (9) Hypertension Status: Chronic Plan: - lisinopril 20mg BID - consider additional agent - observe (10) PAD (peripheral artery disease) Status: Chronic Plan: - Pt with hx of PAD s/p 5 stents in lower ext. 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
[2016-11-23] MEDS: CHOLECALCIFEROL (VIT D3) 1000 UNIT TAB PO SCH (21:53)
[2016-11-23] MEDS: PRAVASTATIN SOD 40 MG TAB PO SCH (21:53)
[2016-11-23] MEDS: [UNRECOGNIZED DRUG - OTHER] IV SCH (21:54)
[2016-11-23] MEDS: SODIUM CHLORIDE 0.9% IV SCH (21:54)
[2016-11-23] MEDS: SODIUM CHLOR 0.9% 250 ML INJ 250 ML IV SCH (22:05)
[2016-11-24] VITALS (10 sets, daily range): BP systolic 134–171; BP diastolic 70–97; PULSE 81–105; RESP 18; TEMP 96.4–98.9; O2SAT 93–98
[2016-11-24] MEDS: SODIUM CHLOR 0.9% 1000 ML INJ 1,000 ML IV SCH ×3 (00:30→21:56)
[2016-11-24] MEDS: SODIUM BICARBONATE 325 MG TAB PO SCH ×3 (05:44→21:49)
[2016-11-24 06:03] LABS: HEMATOCRIT 23.1 % (39.0-51.0); MEAN CELL VOLUME 98.1 FL (80.0-100.0); MEAN CORPUSCULAR HEMOGLOBIN 33.3 PG (27.0-34.0); MEAN CORPUSCULAR HGB CONC 33.9 % (32.0-36.0); PLATELET COUNT 77 TH/MM3 (150-450); RED BLOOD COUNT 2.35 MIL/MM3 (4.50-5.90); RED CELL DISTRIBUTION WIDTH 15.4 % (11.6-17.2); WHITE BLOOD COUNT 2.7 TH/MM3 (4.0-11.0)
[2016-11-24 06:07] LABS: HEMO FLAGS AUTO DIFF
[2016-11-24 06:18] LABS: APTT (PATIENT) 28.7 SEC (24.3-30.1); PROTHROMBIN TIME - PATIENT 11.5 SEC (9.8-11.6)
[2016-11-24] MEDS: TRETINOIN PO SCH ×2 (07:57→18:02)
[2016-11-24] MEDS: predniSONE 10 MG TAB PO SCH (07:58)
[2016-11-24] MEDS: ALLOPURINOL 300 MG TAB PO SCH (07:58)
[2016-11-24] MEDS: POTASSIUM CHLORIDE 20 MEQ CONTROLLED RELEASE TAB PO SCH (07:58)
[2016-11-24] MEDS: PANTOPRAZOLE SOD 40 MG DELAYED RELEASE TAB PO SCH (07:58)
[2016-11-24] MEDS: LISINOPRIL 20 MG TAB PO SCH ×2 (07:58→21:50)
[2016-11-24] MEDS: FUROSEMIDE 20 MG TAB PO SCH (07:59)
[2016-11-24] MEDS: SODIUM CHLORIDE 0.9% FLUSH 10 ML FLUSH IV FLUSH SCH ×3 (08:02→21:50)
[2016-11-24 09:07] LABS: ACANTHOCYTES OCC (NORMAL); BANDS 6 % (0-6); CORRECTED NUCLEATED RBC 9 /100 WBC (0-0); METAMYELOCYTES 10 % (0-1); MYELOCYTES 27 % (0-0); NEUTROPHIL # MANUAL DIFF 1.7 TH/MM3 (1.8-7.7); POLYS (SEG NEUTROPHILS) 18 % (16-70); PROMYELOCYTES 1 % (0-0); WBC DIFF SAMPLE 100
[2016-11-24 09:08] LABS: PLATELET ESTIMATE SMEAR LOW (NORMAL); PLATELET MORPHOLOGY NORMAL (NORMAL)
[2016-11-24 09:09] LABS: KERATOCYTES OCC (NORMAL); SCAN/DIFF FINAL DIFF MANUAL
--- NOTE | 2016-11-24 10:41 | PD.ONC.PN ---
Subjective Subjective Remarks Afebrile overnight. "I feel great!" patient resting in room playing cards. Objective Data Date Time Temp Pulse Resp B/P Pulse Ox O2 Delivery O2 Flow Rate FiO2 11/24/16 09:45 140/79 11/24/16 08:00 98.8 105 18 171/97 93 11/24/16 04:00 96.4 81 18 142/74 97 11/24/16 00:00 96.7 87 18 134/70 98 11/23/16 20:07 86 11/23/16 20:00 97.0 80 17 157/75 96 11/23/16 16:00 97.0 97 20 155/84 97 11/23/16 12:00 97.1 94 20 125/72 96 11/24/16 11/24/16 11/24/16 07:00 15:00 23:00 Intake Total 1942 ml Balance 1942 ml Result Diagram: 11/24/16 0545 11/23/16 0435 Laboratory Results Laboratory Tests Test 11/24/16 05:45 White Blood Count 2.7 TH/MM3 Red Blood Count 2.35 MIL/MM3 Hemoglobin 7.8 GM/DL Hematocrit 23.1 % Mean Corpuscular Volume 98.1 FL Mean Corpuscular Hemoglobin 33.3 PG Mean Corpuscular Hemoglobin 33.9 % Concent Red Cell Distribution Width 15.4 % Platelet Count 77 TH/MM3 Mean Platelet Volume 8.2 FL Neutrophils (%) (Auto) % Lymphocytes (%) (Auto) % Monocytes (%) (Auto) % Eosinophils (%) (Auto) % Basophils (%) (Auto) % Neutrophils # (Auto) TH/MM3 Lymphocytes # (Auto) TH/MM3 Monocytes # (Auto) TH/MM3 Eosinophils # (Auto) TH/MM3 Basophils # (Auto) TH/MM3 CBC Comment AUTO DIFF Differential Total Cells 100 Counted Neutrophils % (Manual) 18 % Band Neutrophils % 6 % Lymphocytes % 35 % Monocytes % 3 % Neutrophils # (Manual) 1.7 TH/MM3 Metamyelocytes 10 % Myelocytes 27 % Promyelocytes 1 % Nucleated Red Blood Cells 9 /100 WBC Differential Comment FINAL DIFF MANUAL Platelet Estimate LOW Platelet Morphology Comment NORMAL Basophilic Stippling FAINT Acanthocytes OCC Keratocytes OCC Prothrombin Time 11.5 SEC Prothromb Time International 1.0 RATIO Ratio Activated Partial 28.7 SEC Thromboplast Time Administered Medications Medications (Trade) Dose Ordered Sig/Sowmya Route PRN Reason Start Time Stop Time Status Last Admin Dose Admin Sodium Chloride (NS Flush) 2 ml UNSCH PRN IV FLUSH FLUSH AFTER USING IV ACCESS 11/02/16 18:00 11/20/16 04:01 Sodium Chloride (NS Flush) 2 ml BID IV FLUSH 11/02/16 21:00 11/23/16 21:53 Acetaminophen (Tylenol) 650 mg Q4H PRN PO TEMP > 100.4 11/02/16 18:00 11/09/16 20:29 Pravastatin Sodium (Pravachol) 40 mg HS PO 11/02/16 21:00 11/23/16 21:53 Cholecalciferol 1000 units 1,000 units HS PO 11/02/16 21:00 11/23/16 21:53 Sodium Chloride (NS 1000 ml Inj) 1,000 ml @ 50 mls/hr Q20H IV 11/03/16 10:00 11/24/16 03:06 Loperamide HCl (Imodium) 2 mg Q4H PRN PO after each episode diarrhea 11/04/16 09:30 11/06/16 10:55 Tretinoin 40 mg 40 mg BIDPC PO 11/05/16 09:00 11/24/16 07:57 Sodium Chloride (NS 250 ml Inj) 250 ml @ 84 mls/hr Q24H IV 11/05/16 11:00 11/23/16 22:05 Sodium Chloride (NS Flush) UNSCH PRN IV FLUSH SEE PROTOCOL TABLE 11/05/16 10:45 11/20/16 03:56 Sodium Bicarbonate (Sodium Bicarbonate) 325 mg Q8HR PO 11/06/16 08:00 11/24/16 05:44 Pantoprazole Sodium (Protonix) 40 mg DAILY PO 11/07/16 09:15 11/24/16 07:58 Calcium Carbonate (Tums Chew) 500 mg Q2H PRN CHEW dyspepsia 11/07/16 09:15 11/07/16 09:30 Allopurinol 300 mg 300 mg DAILY PO 11/08/16 09:00 11/24/16 07:58 Arsenic Trioxide/ Sodium Chloride (Trisenox Inj/NS 250 ml Inj) 260 ml @ 130.925 mls/hr Q24H IV 11/09/16 22:00 12/01/16 00:00 11/23/16 21:54 Alteplase, Recombinant (Cathflo Activase Inj) 2 mg UNSCH PRN IV FLUSH FOR CLOGGED CENTRAL LINE 11/14/16 09:30 11/14/16 10:43 Furosemide (Lasix) 10 mg DAILY PO 11/18/16 09:00 11/24/16 07:59 Potassium Chloride (KCl) 20 meq DAILY PO 11/18/16 09:00 11/24/16 07:58 Lisinopril (Prinivil) 20 mg Q12HR PO 11/18/16 21:00 11/24/16 07:58 Prednisone (Deltasone) 30 mg DAILY PO 11/19/16 09:00 11/24/16 07:58 Objective Remarks GENERAL: Pleasant elderly male, upright in room SKIN: Warm and dry. PICC line right arm. no bleeding HEAD: Normocephalic. EYES: No injection or drainage. NECK: Supple, trachea midline. CARDIOVASCULAR: Regular rate and rhythm RESPIRATORY: Breath sounds equal bilaterally. No accessory muscle use. GASTROINTESTINAL: Abdomen soft, non-tender, nondistended. EXTREMITIES: No cyanosis NEUROLOGICAL: aox3 normal speech. moving extremities. 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 Arsenic trioxide day 1 was 11/09/2016 Plan 1. Continue Arsenic/ATRA . day 18-19 of treatment. 2. decrease Prednisone to 20mg PO daily. coags WNL stop allopurinol 3. monitor electrolytes, awaiting BMP today Attending Statement The exam, history, and the medical decision-making described in the above note were completed with the assistance of the mid-level provider. I reviewed and agree with the findings presented. I attest that I had a [id number] encounter with the patient on the same day, and personally performed and documented my assessment and findings in the medical record. He is doing well and hopefully will be able to go home soon. Will decrease the prednisone to 20 mg daily and stop allopurinol. Allyn Evangelista November 24, 2016 10:41 Leonid Woodard MD November 24, 2016 11:22
[2016-11-24 11:35] LABS: BICARBONATE 24.1 MEQ/L (21.0-32.0); POTASSIUM 4.3 MEQ/L (3.5-5.1)
--- NOTE | 2016-11-24 16:48 | HHI.PR ---
Subjective Remarks No new complaints. Objective Vitals Vital Signs Date Time Temp Pulse Resp B/P Pulse Ox O2 Delivery O2 Flow Rate FiO2 11/24/16 12:00 98.9 101 18 164/84 98 11/24/16 09:45 140/79 11/24/16 09:10 105 11/24/16 08:00 98.8 105 18 171/97 93 11/24/16 04:00 96.4 81 18 142/74 97 11/24/16 00:00 96.7 87 18 134/70 98 11/23/16 20:07 86 11/23/16 20:00 97.0 80 17 157/75 96 11/23/16 11/23/16 11/24/16 15:00 23:00 07:00 Intake Total 1320 ml 1942 ml Balance 1320 ml 1942 ml Intake Oral 1320 ml 240 ml IV Total 1702 ml # Voids 13 5 # Bowel Movements 2 Result Diagram: 11/24/16 0545 11/24/16 1044 Imaging Last Impressions Chest X-Ray 11/10/16 0000 Signed Impressions: Service Date/Time: Thursday, November 10, 2016 11:48 - CONCLUSION: No acute cardiopulmonary disease identified. Arturo Serrano MD Lumbar Spine CT 11/02/16 0000 Signed Impressions: Service Date/Time: Wednesday, November 02, 2016 15:10 - CONCLUSION: 1. Chronic bilateral pars defects at L5-S1 with associated significant spondylolisthesis and hypertrophic changes in the posterior elements. 2. Advanced discogenic degenerative changes from L2-S1, left lumbar scoliosis, and a moderately large left-sided disc protrusion at L2-3 causing probable neural impingement. Lam Parrish MD Abdomen/Pelvis CT 11/02/16 0000 Signed Impressions: Service Date/Time: Wednesday, November 02, 2016 15:10 - CONCLUSION: 1. Left parapelvic cyst and a low density lesion lower pole of the solitary left kidney are similar to images from a prior cryoablation in August 2015. 2. Bilateral adrenal lesions, low density in the right and intermediate density on the left. Recommend correlation with outside prior imaging studies to see if this is a new or old finding. 3. 4.2 cm distal abdominal aortic aneurysm. Bilaterally iliac stents in place. 4. Significant spondylolisthesis at L5-S1 with bilateral pars defects. 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 He reported that he had been having diarrhea for months but this suddenly worsened and was having up to 10x/day, nonbloody. - Labs at admission found the pt to have pancytopenia with neutropenia. No fevers or chills. - CT Abd/pelvis (11/02) noted to have AAA 4.2cm and val adrenal lesions. - Hematology was consulted to assist in etiology of pancytopenia. - Bone marrow biopsy performed on 11/03/2016 with marrow aspiration indicated acute promyelocytic leukemia bone marrow aspirate flow cytometry indicates 81% blasts most consistent with acute promyelocytic leukemia. - Pt started on ATRA at 40 mg twice daily, Prednisone (now 20 mg daily), Arsenic trioxide at 11.85 mg intravenously daily per Heme/Onc - PICC line placed on 11/05/16 - Chemo regimen started on 11/06/16 - Received cryoprecipitate 11/09/16 for bleeding and DIC concerns - Pt developed lower extremity edema and IVF lowered and he was started on scheduled Lasix. The LE edema is resolved and Creatinine is stable. - Monitor CBC/BMP. - Hem/onc making arrangements for transition to outpt setting. - continue current treatment plan as outlined above. 11/24/16 - pt interviewed and examined - no new complaints - continue current treatment plan as outlined above (2) QT prolongation Status: Acute Plan: - stable - case reviewed by Cardiology - EKG q2 weeks during treatment (3) GERD (gastroesophageal reflux disease) Status: Acute Plan: - improved - protonix - tums prn (4) Pancytopenia Status: Acute Plan: - See above. (5) Neutropenia Status: Acute Plan: - See above (6) Diarrhea Status: Resolved Plan: - Diarrhea resolved - Stools are negative for C. diff - Stools for cryptosporidium and Giardia are negative (7) Weakness generalized Status: Acute Plan: - See above (8) Renal cell carcinoma Status: Resolved Plan: - See above (9) Hypertension Status: Chronic Plan: - Lisinopril 20mg BID - may require second BP medication, observe - Clonidine d/c per pt request. (10) PAD (peripheral artery disease) Status: Chronic Plan: - Pt with hx of PAD s/p 5 stents in lower ext. 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
[2016-11-24] MEDS: amLODIPine BESYLATE 5 MG TAB PO SCH (18:02)
[2016-11-24] MEDS: CHOLECALCIFEROL (VIT D3) 1000 UNIT TAB PO SCH (21:49)
[2016-11-24] MEDS: PRAVASTATIN SOD 40 MG TAB PO SCH (21:50)
[2016-11-24] MEDS: SODIUM CHLOR 0.9% 250 ML INJ 250 ML IV SCH (21:59)
[2016-11-24] MEDS: [UNRECOGNIZED DRUG - OTHER] IV SCH (22:12)
[2016-11-24] MEDS: SODIUM CHLORIDE 0.9% IV SCH (22:12)
[2016-11-25] VITALS (8 sets, daily range): BP systolic 132–148; BP diastolic 71–86; PULSE 82–109; RESP 18–20; TEMP 96.1–97.6; O2SAT 94–98
[2016-11-25 05:52] LABS: HEMATOCRIT 22.8 % (39.0-51.0); MEAN CORPUSCULAR HEMOGLOBIN 33.7 PG (27.0-34.0); PLATELET COUNT 84 TH/MM3 (150-450); RED CELL DISTRIBUTION WIDTH 15.4 % (11.6-17.2); WHITE BLOOD COUNT 2.8 TH/MM3 (4.0-11.0)
[2016-11-25 05:57] LABS: HEMO FLAGS AUTO DIFF
[2016-11-25] MEDS: SODIUM BICARBONATE 325 MG TAB PO SCH ×3 (06:17→20:50)
[2016-11-25 06:18] LABS: BICARBONATE 24.2 MEQ/L (21.0-32.0); POTASSIUM 4.3 MEQ/L (3.5-5.1)
[2016-11-25 06:47] LABS: BANDS 4 % (0-6); CORRECTED NUCLEATED RBC 9 /100 WBC (0-0); METAMYELOCYTES 3 % (0-1); MYELOCYTES 10 % (0-0); NEUTROPHIL # MANUAL DIFF 1.1 TH/MM3 (1.8-7.7); POLYS (SEG NEUTROPHILS) 24 % (16-70); WBC DIFF SAMPLE 100
[2016-11-25 06:50] LABS: PLATELET ESTIMATE SMEAR LOW (NORMAL); PLATELET MORPHOLOGY NORMAL (NORMAL); SCAN/DIFF FINAL DIFF MANUAL
[2016-11-25] MEDS ORDERED: predniSONE 20 MG TAB PO SCH (09:00)
--- NOTE | 2016-11-25 09:46 | PD.ONC.PN ---
Subjective Subjective Remarks Afebrile overnight. States he woke up early to walk the halls No complaints. Objective Data Date Time Temp Pulse Resp B/P Pulse Ox O2 Delivery O2 Flow Rate FiO2 11/25/16 08:00 96.9 87 18 146/86 95 11/25/16 04:00 96.4 87 18 141/83 97 11/25/16 00:00 96.1 82 19 134/75 98 11/24/16 21:33 97 11/24/16 20:07 83 11/24/16 20:00 97.0 85 18 144/74 96 11/24/16 17:00 97.0 83 18 170/97 98 11/24/16 12:00 98.9 101 18 164/84 98 11/24/16 09:45 140/79 11/25/16 11/25/16 11/25/16 07:00 15:00 23:00 Intake Total 1010 ml Balance 1010 ml Result Diagram: 11/25/16 0325 11/25/16 0325 Laboratory Results Laboratory Tests Test 11/24/16 11/25/16 10:44 03:25 Sodium Level 146 MEQ/L 145 MEQ/L Potassium Level 4.3 MEQ/L 4.3 MEQ/L Chloride Level 115 MEQ/L 115 MEQ/L Carbon Dioxide Level 24.1 MEQ/L 24.2 MEQ/L Anion Gap 7 MEQ/L 6 MEQ/L Blood Urea Nitrogen 30 MG/DL 31 MG/DL Creatinine 1.76 MG/DL 1.58 MG/DL Estimat Glomerular Filtration 38 ML/MIN 43 ML/MIN Rate Random Glucose 153 MG/DL 85 MG/DL Calcium Level 8.3 MG/DL 8.2 MG/DL White Blood Count 2.8 TH/MM3 Red Blood Count 2.30 MIL/MM3 Hemoglobin 7.7 GM/DL Hematocrit 22.8 % Mean Corpuscular Volume 99.0 FL Mean Corpuscular Hemoglobin 33.7 PG Mean Corpuscular Hemoglobin 34.0 % Concent Red Cell Distribution Width 15.4 % Platelet Count 84 TH/MM3 Mean Platelet Volume 8.8 FL Neutrophils (%) (Auto) % Lymphocytes (%) (Auto) % Monocytes (%) (Auto) % Eosinophils (%) (Auto) % Basophils (%) (Auto) % Neutrophils # (Auto) TH/MM3 Lymphocytes # (Auto) TH/MM3 Monocytes # (Auto) TH/MM3 Eosinophils # (Auto) TH/MM3 Basophils # (Auto) TH/MM3 CBC Comment AUTO DIFF Differential Total Cells 100 Counted Neutrophils % (Manual) 24 % Band Neutrophils % 4 % Lymphocytes % 55 % Monocytes % 4 % Neutrophils # (Manual) 1.1 TH/MM3 Metamyelocytes 3 % Myelocytes 10 % Nucleated Red Blood Cells 9 /100 WBC Differential Comment FINAL DIFF MANUAL Platelet Estimate LOW Platelet Morphology Comment NORMAL Administered Medications Medications (Trade) Dose Ordered Sig/Sowmya Route PRN Reason Start Time Stop Time Status Last Admin Dose Admin Sodium Chloride (NS Flush) 2 ml UNSCH PRN IV FLUSH FLUSH AFTER USING IV ACCESS 11/02/16 18:00 11/20/16 04:01 Sodium Chloride (NS Flush) 2 ml BID IV FLUSH 11/02/16 21:00 11/24/16 21:50 Acetaminophen (Tylenol) 650 mg Q4H PRN PO TEMP > 100.4 11/02/16 18:00 11/09/16 20:29 Pravastatin Sodium (Pravachol) 40 mg HS PO 11/02/16 21:00 11/24/16 21:50 Cholecalciferol 1000 units 1,000 units HS PO 11/02/16 21:00 11/24/16 21:49 Sodium Chloride (NS 1000 ml Inj) 1,000 ml @ 50 mls/hr Q20H IV 11/03/16 10:00 11/24/16 21:56 Loperamide HCl (Imodium) 2 mg Q4H PRN PO after each episode diarrhea 11/04/16 09:30 11/06/16 10:55 Tretinoin 40 mg 40 mg BIDPC PO 11/05/16 09:00 11/24/16 18:02 Sodium Chloride (NS 250 ml Inj) 250 ml @ 84 mls/hr Q24H IV 11/05/16 11:00 11/24/16 21:59 Sodium Chloride (NS Flush) See Protocol UNSCH PRN IV FLUSH SEE PROTOCOL TABLE 11/05/16 10:45 11/25/16 03:26 Sodium Chloride (NS Flush) UNSCH PRN IV FLUSH SEE PROTOCOL TABLE 11/05/16 10:45 11/25/16 03:19 Sodium Bicarbonate (Sodium Bicarbonate) 325 mg Q8HR PO 11/06/16 08:00 11/25/16 06:17 Pantoprazole Sodium (Protonix) 40 mg DAILY PO 11/07/16 09:15 11/24/16 07:58 Calcium Carbonate 500 mg 500 mg Q2H PRN CHEW dyspepsia 11/07/16 09:15 11/07/16 09:30 Arsenic Trioxide/ Sodium Chloride (Trisenox Inj/NS 250 ml Inj) 260 ml @ 130.925 mls/hr Q24H IV 11/09/16 22:00 12/01/16 00:00 11/24/16 22:12 Alteplase, Recombinant (Cathflo Activase Inj) 2 mg UNSCH PRN IV FLUSH FOR CLOGGED CENTRAL LINE 11/14/16 09:30 11/14/16 10:43 Furosemide (Lasix) 10 mg DAILY PO 11/18/16 09:00 11/24/16 07:59 Potassium Chloride (KCl) 20 meq DAILY PO 11/18/16 09:00 11/24/16 07:58 Lisinopril (Prinivil) 20 mg Q12HR PO 11/18/16 21:00 11/24/16 21:50 Amlodipine Besylate (Norvasc) 5 mg DAILY PO 11/24/16 17:00 11/24/16 18:02 Objective Remarks GENERAL: Pleasant elderly male, upright in room with visitor present. SKIN: Warm and dry. PICC line right arm. no bleeding HEAD: Normocephalic. EYES: No injection or drainage. NECK: Supple, trachea midline. CARDIOVASCULAR: Regular rate and rhythm RESPIRATORY: Expiratory wheezing. GASTROINTESTINAL: Abdomen soft, non-tender, nondistended. EXTREMITIES: No cyanosis. No edema. NEUROLOGICAL: Normal speech. A&Ox3. 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 Arsenic trioxide day 1 was 11/09/2016 Plan 1. Continue Arsenic/ATRA . 2. Will discuss with case mgmt getting his chemotherapy covered from an outpatient standpoint. 3. The Arsenic would be dosed M-F in the clinic, and the ATRA would be 40mg po BID. Attending Statement The exam, history, and the medical decision-making described in the above note were completed with the assistance of the mid-level provider. I reviewed and agree with the findings presented. I attest that I had a [id number] encounter with the patient on the same day, and personally performed and documented my assessment and findings in the medical record. Home in the next few days when we can obtain Atra and Arsenic. 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
--- NOTE | 2016-11-25 10:11 | HHI.PR ---
Subjective Remarks NO NEW PROBLEMS AMBULATING Objective Vitals heart reg lung cta abd s/nt ext no edema Vital Signs Date Time Temp Pulse Resp B/P Pulse Ox O2 Delivery O2 Flow Rate FiO2 11/25/16 08:00 96.9 87 18 146/86 95 11/25/16 04:00 96.4 87 18 141/83 97 11/25/16 00:00 96.1 82 19 134/75 98 11/24/16 21:33 97 11/24/16 20:07 83 11/24/16 20:00 97.0 85 18 144/74 96 11/24/16 17:00 97.0 83 18 170/97 98 11/24/16 12:00 98.9 101 18 164/84 98 11/24/16 11/24/16 11/25/16 15:00 23:00 07:00 Intake Total 480 ml 1295 ml 1010 ml Balance 480 ml 1295 ml 1010 ml Intake Oral 480 ml 480 ml 240 ml IV Total 815 ml 770 ml # Voids 8 7 4 # Bowel Movements 3 2 Result Diagram: 11/25/16 0325 11/25/16 0325 Imaging Last Impressions Chest X-Ray 11/10/16 0000 Signed Impressions: Service Date/Time: Thursday, November 10, 2016 11:48 - CONCLUSION: No acute cardiopulmonary disease identified. Arturo Serrano MD Lumbar Spine CT 11/02/16 0000 Signed Impressions: Service Date/Time: Wednesday, November 02, 2016 15:10 - CONCLUSION: 1. Chronic bilateral pars defects at L5-S1 with associated significant spondylolisthesis and hypertrophic changes in the posterior elements. 2. Advanced discogenic degenerative changes from L2-S1, left lumbar scoliosis, and a moderately large left-sided disc protrusion at L2-3 causing probable neural impingement. Lam Parrish MD Abdomen/Pelvis CT 11/02/16 0000 Signed Impressions: Service Date/Time: Wednesday, November 02, 2016 15:10 - CONCLUSION: 1. Left parapelvic cyst and a low density lesion lower pole of the solitary left kidney are similar to images from a prior cryoablation in August 2015. 2. Bilateral adrenal lesions, low density in the right and intermediate density on the left. Recommend correlation with outside prior imaging studies to see if this is a new or old finding. 3. 4.2 cm distal abdominal aortic aneurysm. Bilaterally iliac stents in place. 4. Significant spondylolisthesis at L5-S1 with bilateral pars defects. 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 He reported that he had been having diarrhea for months but this suddenly worsened and was having up to 10x/day, nonbloody. - Labs at admission found the pt to have pancytopenia with neutropenia. No fevers or chills. - CT Abd/pelvis (11/02) noted to have AAA 4.2cm and val adrenal lesions. - Hematology was consulted to assist in etiology of pancytopenia. - Bone marrow biopsy performed on 11/03/2016 with marrow aspiration indicated acute promyelocytic leukemia bone marrow aspirate flow cytometry indicates 81% blasts most consistent with acute promyelocytic leukemia. - Pt started on ATRA at 40 mg twice daily, Prednisone (now 20 mg daily), Arsenic trioxide at 11.85 mg intravenously daily per Heme/Onc - PICC line placed on 11/05/16 - Chemo regimen started on 11/06/16 - Received cryoprecipitate 11/09/16 for bleeding and DIC concerns - Pt developed lower extremity edema and IVF lowered and he was started on scheduled Lasix. The LE edema is resolved - Hem/onc making arrangements for transition to outpt setting. - continue current treatment plan as outlined above. d/c when ok with hem/onc and arrangements made outpt. (2) QT prolongation Status: Acute Plan: - stable - case reviewed by Cardiology - EKG q2 weeks during treatment (3) GERD (gastroesophageal reflux disease) Status: Acute Plan: - improved - protonix - tums prn (4) Pancytopenia Status: Acute Plan: - See above. (5) Neutropenia Status: Acute Plan: - See above (6) Diarrhea Status: Resolved Plan: - Diarrhea resolved - Stools are negative for C. diff - Stools for cryptosporidium and Giardia are negative (7) Weakness generalized Status: Acute Plan: - See above (8) Renal cell carcinoma Status: Resolved Plan: - See above (9) Hypertension Status: Chronic Plan: - Lisinopril 20mg BID - norvasc - Clonidine d/c per pt request. (10) PAD (peripheral artery disease) Status: Chronic Plan: - Pt with hx of PAD s/p 5 stents in lower ext. 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
[2016-11-25] MEDS: POTASSIUM CHLORIDE 20 MEQ CONTROLLED RELEASE TAB PO SCH (10:13)
[2016-11-25] MEDS: amLODIPine BESYLATE 5 MG TAB PO SCH (10:13)
[2016-11-25] MEDS: PANTOPRAZOLE SOD 40 MG DELAYED RELEASE TAB PO SCH (10:13)
[2016-11-25] MEDS: LISINOPRIL 20 MG TAB PO SCH ×2 (10:13→20:50)
[2016-11-25] MEDS: SODIUM CHLORIDE 0.9% FLUSH 10 ML FLUSH IV FLUSH SCH ×3 (10:14→20:55)
[2016-11-25] MEDS: FUROSEMIDE 20 MG TAB PO SCH (10:14)
[2016-11-25] MEDS: TRETINOIN PO SCH ×2 (11:02→18:03)
[2016-11-25] MEDS: CHOLECALCIFEROL (VIT D3) 1000 UNIT TAB PO SCH (20:50)
[2016-11-25] MEDS: PRAVASTATIN SOD 40 MG TAB PO SCH (20:50)
[2016-11-25] MEDS: SODIUM CHLOR 0.9% 250 ML INJ 250 ML IV SCH (22:37)
[2016-11-25] MEDS: SODIUM CHLOR 0.9% 1000 ML INJ 1,000 ML IV SCH (22:38)
[2016-11-25] MEDS: [UNRECOGNIZED DRUG - OTHER] IV SCH (22:49)
[2016-11-25] MEDS: SODIUM CHLORIDE 0.9% IV SCH (22:49)
[2016-11-26] VITALS (8 sets, daily range): BP systolic 108–146; BP diastolic 60–78; PULSE 82–93; RESP 18–20; TEMP 96.1–97.4; O2SAT 95–98
[2016-11-26] MEDS: SODIUM CHLORIDE 0.9% FLUSH 10 ML FLUSH IV FLUSH PRN (04:15)
[2016-11-26] MEDS: SODIUM BICARBONATE 325 MG TAB PO SCH ×3 (05:34→22:32)
[2016-11-26 05:51] LABS: BASOPHIL % 0.8 % (0.0-2.0); EOSINOPHIL % 0.2 % (0.0-4.0); HEMATOCRIT 22.2 % (39.0-51.0); LYMPH % 28.5 % (9.0-44.0); LYMPHOCYTE # 0.8 TH/MM3 (1.0-4.8); MEAN CELL VOLUME 98.8 FL (80.0-100.0); MEAN CORPUSCULAR HEMOGLOBIN 32.7 PG (27.0-34.0); MEAN CORPUSCULAR HGB CONC 33.1 % (32.0-36.0); MONO % 0.5 % (0.0-8.0); PLATELET COUNT 82 TH/MM3 (150-450); RED BLOOD COUNT 2.24 MIL/MM3 (4.50-5.90); RED CELL DISTRIBUTION WIDTH 15.3 % (11.6-17.2); WHITE BLOOD COUNT 2.9 TH/MM3 (4.0-11.0)
[2016-11-26 05:52] LABS: APTT (PATIENT) 31.1 SEC (24.3-30.1); INTERNATIONAL NORMALIZED RATIO 1.1 RATIO; PROTHROMBIN TIME - PATIENT 11.9 SEC (9.8-11.6)
[2016-11-26 06:04] LABS: HEMO FLAGS AUTO DIFF
[2016-11-26 06:12] LABS: BICARBONATE 24.6 MEQ/L (21.0-32.0)
[2016-11-26 07:06] LABS: BANDS 19 % (0-6); CORRECTED NUCLEATED RBC 9 /100 WBC (0-0); MYELOCYTES 10 % (0-0); NEUTROPHIL # MANUAL DIFF 1.5 TH/MM3 (1.8-7.7); POLYS (SEG NEUTROPHILS) 23 % (16-70); WBC DIFF SAMPLE 100
[2016-11-26 07:07] LABS: ACANTHOCYTES OCC (NORMAL)
[2016-11-26 07:10] LABS: KERATOCYTES OCC (NORMAL); OVALOCYTES 1+ (NORMAL); PLATELET ESTIMATE SMEAR LOW (NORMAL); PLATELET MORPHOLOGY NORMAL (NORMAL)
[2016-11-26 07:11] LABS: SCAN/DIFF FINAL DIFF MANUAL
[2016-11-26] MEDS: SODIUM CHLORIDE 0.9% FLUSH 10 ML FLUSH IV FLUSH SCH ×3 (09:00→22:33)
[2016-11-26] MEDS: FUROSEMIDE 20 MG TAB PO SCH (09:20)
[2016-11-26] MEDS: TRETINOIN PO SCH ×2 (09:20→18:18)
[2016-11-26] MEDS: PANTOPRAZOLE SOD 40 MG DELAYED RELEASE TAB PO SCH (09:20)
[2016-11-26] MEDS: POTASSIUM CHLORIDE 20 MEQ CONTROLLED RELEASE TAB PO SCH (09:21)
[2016-11-26] MEDS: LISINOPRIL 20 MG TAB PO SCH ×2 (09:21→22:32)
[2016-11-26] MEDS: amLODIPine BESYLATE 5 MG TAB PO SCH (09:21)
--- NOTE | 2016-11-26 10:39 | PD.ONC.PN ---
Subjective Subjective Remarks Afebrile overnight. Pt continues to walk 4 miles a day around the halls. Objective Data Date Time Temp Pulse Resp B/P Pulse Ox O2 Delivery O2 Flow Rate FiO2 11/26/16 08:00 97.4 86 18 141/78 95 11/26/16 04:00 96.6 83 18 132/69 95 11/26/16 00:00 96.2 82 18 129/63 98 11/25/16 20:41 92 11/25/16 20:00 97.6 109 20 148/72 94 11/25/16 16:00 96.5 94 20 132/71 96 11/25/16 12:00 96.5 91 18 140/73 96 11/26/16 11/26/16 11/26/16 07:00 15:00 23:00 Intake Total 1551 ml Balance 1551 ml Result Diagram: 11/26/16 0410 11/26/16 0410 Laboratory Results Laboratory Tests Test 11/26/16 04:10 White Blood Count 2.9 TH/MM3 Red Blood Count 2.24 MIL/MM3 Hemoglobin 7.3 GM/DL Hematocrit 22.2 % Mean Corpuscular Volume 98.8 FL Mean Corpuscular Hemoglobin 32.7 PG Mean Corpuscular Hemoglobin 33.1 % Concent Red Cell Distribution Width 15.3 % Platelet Count 82 TH/MM3 Mean Platelet Volume 8.6 FL Neutrophils (%) (Auto) 70.0 % Lymphocytes (%) (Auto) 28.5 % Monocytes (%) (Auto) 0.5 % Eosinophils (%) (Auto) 0.2 % Basophils (%) (Auto) 0.8 % Neutrophils # (Auto) 2.0 TH/MM3 Lymphocytes # (Auto) 0.8 TH/MM3 Monocytes # (Auto) 0.0 TH/MM3 Eosinophils # (Auto) 0.0 TH/MM3 Basophils # (Auto) 0.0 TH/MM3 CBC Comment AUTO DIFF Differential Total Cells 100 Counted Neutrophils % (Manual) 23 % Band Neutrophils % 19 % Lymphocytes % 47 % Monocytes % 1 % Neutrophils # (Manual) 1.5 TH/MM3 Myelocytes 10 % Nucleated Red Blood Cells 9 /100 WBC Differential Comment FINAL DIFF MANUAL Atypical Lymphocytes % Platelet Estimate LOW Platelet Morphology Comment NORMAL Ovalocytes 1+ Acanthocytes OCC Keratocytes OCC Prothrombin Time 11.9 SEC Prothromb Time International 1.1 RATIO Ratio Activated Partial 31.1 SEC Thromboplast Time Sodium Level 147 MEQ/L Potassium Level 4.0 MEQ/L Chloride Level 116 MEQ/L Carbon Dioxide Level 24.6 MEQ/L Anion Gap 6 MEQ/L Blood Urea Nitrogen 31 MG/DL Creatinine 1.60 MG/DL Estimat Glomerular Filtration 42 ML/MIN Rate Random Glucose 88 MG/DL Calcium Level 8.0 MG/DL Administered Medications Medications (Trade) Dose Ordered Sig/Sowmya Route PRN Reason Start Time Stop Time Status Last Admin Dose Admin Sodium Chloride (NS Flush) 2 ml UNSCH PRN IV FLUSH FLUSH AFTER USING IV ACCESS 11/02/16 18:00 11/26/16 04:15 Sodium Chloride (NS Flush) 2 ml BID IV FLUSH 11/02/16 21:00 11/24/16 21:50 Acetaminophen (Tylenol) 650 mg Q4H PRN PO TEMP > 100.4 11/02/16 18:00 11/09/16 20:29 Pravastatin Sodium (Pravachol) 40 mg HS PO 11/02/16 21:00 11/25/16 20:50 Cholecalciferol 1000 units 1,000 units HS PO 11/02/16 21:00 11/25/16 20:50 Sodium Chloride (NS 1000 ml Inj) 1,000 ml @ 50 mls/hr Q20H IV 11/03/16 10:00 11/25/16 22:38 Loperamide HCl (Imodium) 2 mg Q4H PRN PO after each episode diarrhea 11/04/16 09:30 11/06/16 10:55 Tretinoin 40 mg 40 mg BIDPC PO 11/05/16 09:00 11/26/16 09:20 Sodium Chloride (NS 250 ml Inj) 250 ml @ 84 mls/hr Q24H IV 11/05/16 11:00 11/25/16 22:37 Sodium Chloride (NS Flush) See Protocol UNSCH PRN IV FLUSH SEE PROTOCOL TABLE 11/05/16 10:45 11/25/16 03:26 Heparin Sodium (Porcine) (Heparin Central Flush) See Protocol DAILY IV FLUSH 11/06/16 09:00 11/26/16 09:21 Sodium Chloride (NS Flush) UNSCH PRN IV FLUSH SEE PROTOCOL TABLE 11/05/16 10:45 11/26/16 04:14 Sodium Bicarbonate (Sodium Bicarbonate) 325 mg Q8HR PO 11/06/16 08:00 11/26/16 05:34 Pantoprazole Sodium (Protonix) 40 mg DAILY PO 11/07/16 09:15 11/26/16 09:20 Calcium Carbonate 500 mg 500 mg Q2H PRN CHEW dyspepsia 11/07/16 09:15 11/07/16 09:30 Arsenic Trioxide/ Sodium Chloride (Trisenox Inj/NS 250 ml Inj) 260 ml @ 130.925 mls/hr Q24H IV 11/09/16 22:00 12/01/16 00:00 11/25/16 22:49 Alteplase, Recombinant (Cathflo Activase Inj) 2 mg UNSCH PRN IV FLUSH FOR CLOGGED CENTRAL LINE 11/14/16 09:30 11/14/16 10:43 Furosemide (Lasix) 10 mg DAILY PO 11/18/16 09:00 11/26/16 09:20 Potassium Chloride (KCl) 20 meq DAILY PO 11/18/16 09:00 11/26/16 09:21 Lisinopril (Prinivil) 20 mg Q12HR PO 11/18/16 21:00 11/26/16 09:21 Amlodipine Besylate (Norvasc) 5 mg DAILY PO 11/24/16 17:00 11/26/16 09:21 Objective Remarks GENERAL: Pleasant elderly male, siting at chair at bedside. SKIN: Warm and dry. PICC line right arm. no bleeding HEAD: Normocephalic. EYES: No injection or drainage. NECK: Supple, trachea midline. CARDIOVASCULAR: Regular rate and rhythm RESPIRATORY: Expiratory wheezing. GASTROINTESTINAL: Abdomen soft, non-tender, nondistended. EXTREMITIES: No cyanosis. No edema. NEUROLOGICAL: Normal speech. A&Ox3. 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 Arsenic trioxide day 1 was 11/09/2016 Plan 1. Discussed with Miriam Goldstein about finding grants for chemotherapy so he can be transitioned to outpatient. 2. Continue Arsenic/ATRA for now. 3. Will plan to transfuse PRBC tomorrow if Hgb remains less than 7.5. Attending Statement The exam, history, and the medical decision-making described in the above note were completed with the assistance of the mid-level provider. I reviewed and agree with the findings presented. I attest that I had a [id number] encounter with the patient on the same day, and personally performed and documented my assessment and findings in the medical record. no change in exam and he feels well . awaiting arrangement for ATRA then will be able to go home with po atra and IV arsenic. 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
[2016-11-26] MEDS: SODIUM CHLOR 0.9% 1000 ML INJ 1,000 ML IV SCH (11:49)
--- NOTE | 2016-11-26 12:18 | HHI.PR ---
Subjective Remarks no new problems Objective Vitals heart reg lung cta abd s/nt ext no edema Vital Signs Date Time Temp Pulse Resp B/P Pulse Ox O2 Delivery O2 Flow Rate FiO2 11/26/16 11:52 90 11/26/16 08:00 97.4 86 18 141/78 95 11/26/16 04:00 96.6 83 18 132/69 95 11/26/16 00:00 96.2 82 18 129/63 98 11/25/16 20:41 92 11/25/16 20:00 97.6 109 20 148/72 94 11/25/16 16:00 96.5 94 20 132/71 96 11/25/16 11/25/16 11/26/16 15:00 23:00 07:00 Intake Total 840 ml 1726 ml 1551 ml Balance 840 ml 1726 ml 1551 ml Intake Oral 840 ml 360 ml 480 ml IV Total 1366 ml 1071 ml # Voids 6 2 2 # Bowel Movements 2 Result Diagram: 11/26/16 0410 11/26/16 0410 Imaging Last Impressions Chest X-Ray 11/10/16 0000 Signed Impressions: Service Date/Time: Thursday, November 10, 2016 11:48 - CONCLUSION: No acute cardiopulmonary disease identified. Arturo Serrano MD Lumbar Spine CT 11/02/16 0000 Signed Impressions: Service Date/Time: Wednesday, November 02, 2016 15:10 - CONCLUSION: 1. Chronic bilateral pars defects at L5-S1 with associated significant spondylolisthesis and hypertrophic changes in the posterior elements. 2. Advanced discogenic degenerative changes from L2-S1, left lumbar scoliosis, and a moderately large left-sided disc protrusion at L2-3 causing probable neural impingement. Lam Parrish MD Abdomen/Pelvis CT 11/02/16 0000 Signed Impressions: Service Date/Time: Wednesday, November 02, 2016 15:10 - CONCLUSION: 1. Left parapelvic cyst and a low density lesion lower pole of the solitary left kidney are similar to images from a prior cryoablation in August 2015. 2. Bilateral adrenal lesions, low density in the right and intermediate density on the left. Recommend correlation with outside prior imaging studies to see if this is a new or old finding. 3. 4.2 cm distal abdominal aortic aneurysm. Bilaterally iliac stents in place. 4. Significant spondylolisthesis at L5-S1 with bilateral pars defects. 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 He reported that he had been having diarrhea for months but this suddenly worsened and was having up to 10x/day, nonbloody. - Labs at admission found the pt to have pancytopenia with neutropenia. No fevers or chills. - CT Abd/pelvis (11/02) noted to have AAA 4.2cm and val adrenal lesions. - Hematology was consulted to assist in etiology of pancytopenia. - Bone marrow biopsy performed on 11/03/2016 with marrow aspiration indicated acute promyelocytic leukemia bone marrow aspirate flow cytometry indicates 81% blasts most consistent with acute promyelocytic leukemia. - Pt started on ATRA at 40 mg twice daily, Prednisone (now 20 mg daily), Arsenic trioxide at 11.85 mg intravenously daily per Heme/Onc - PICC line placed on 11/05/16 - Chemo regimen started on 11/06/16 - Received cryoprecipitate 11/09/16 for bleeding and DIC concerns - Pt developed lower extremity edema and IVF lowered and he was started on scheduled Lasix. The LE edema is resolved - Hem/onc making arrangements for transition to outpt setting. - continue current treatment plan as outlined above. d/c when ok with hem/onc and arrangements made outpt. trying to obtain ATRA to complete the course as outpt. (2) QT prolongation Status: Acute Plan: - stable - case reviewed by Cardiology - EKG q2 weeks during treatment (3) GERD (gastroesophageal reflux disease) Status: Acute Plan: - improved - protonix - tums prn (4) Pancytopenia Status: Acute Plan: - See above. (5) Neutropenia Status: Acute Plan: - See above (6) Diarrhea Status: Resolved Plan: - Diarrhea resolved - Stools are negative for C. diff - Stools for cryptosporidium and Giardia are negative (7) Weakness generalized Status: Acute Plan: - See above (8) Renal cell carcinoma Status: Resolved Plan: - See above (9) Hypertension Status: Chronic Plan: - Lisinopril 20mg BID - norvasc - Clonidine d/c per pt request. (10) PAD (peripheral artery disease) Status: Chronic Plan: - Pt with hx of PAD s/p 5 stents in lower ext. 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
[2016-11-26] MEDS: CHOLECALCIFEROL (VIT D3) 1000 UNIT TAB PO SCH (22:33)
[2016-11-26] MEDS: PRAVASTATIN SOD 40 MG TAB PO SCH (22:33)
[2016-11-26] MEDS: SODIUM CHLOR 0.9% 250 ML INJ 250 ML IV SCH (22:38)
[2016-11-26] MEDS: SODIUM CHLORIDE 0.9% IV SCH (22:47)
[2016-11-26] MEDS: [UNRECOGNIZED DRUG - OTHER] IV SCH (22:47)
[2016-11-27] VITALS (7 sets, daily range): BP systolic 107–150; BP diastolic 61–74; PULSE 86–95; RESP 18–20; TEMP 96.2–98.6; O2SAT 94–98
[2016-11-27 04:31] LABS: AUTOMATED NEUTROPHIL # 2.6 TH/MM3 (1.8-7.7); BASOPHIL % 0.7 % (0.0-2.0); EOSINOPHIL % 1.3 % (0.0-4.0); HEMATOCRIT 23.3 % (39.0-51.0); LYMPH % 27.9 % (9.0-44.0); LYMPHOCYTE # 1.1 TH/MM3 (1.0-4.8); MEAN CELL VOLUME 99.4 FL (80.0-100.0); MEAN CORPUSCULAR HEMOGLOBIN 32.6 PG (27.0-34.0); MEAN CORPUSCULAR HGB CONC 32.8 % (32.0-36.0); MONO % 0.3 % (0.0-8.0); NEUT % 69.8 % (16.0-70.0); PLATELET COUNT 94 TH/MM3 (150-450); RED BLOOD COUNT 2.35 MIL/MM3 (4.50-5.90); RED CELL DISTRIBUTION WIDTH 15.6 % (11.6-17.2); WHITE BLOOD COUNT 3.8 TH/MM3 (4.0-11.0)
[2016-11-27 04:33] LABS: HEMO FLAGS AUTO DIFF
[2016-11-27 04:57] LABS: BICARBONATE 24.3 MEQ/L (21.0-32.0); POTASSIUM 4.1 MEQ/L (3.5-5.1)
[2016-11-27 05:32] LABS: BANDS 13 % (0-6); BASOPHILS 1 % (0-2); CORRECTED NUCLEATED RBC 4 /100 WBC (0-0); METAMYELOCYTES 1 % (0-1); NEUTROPHIL # MANUAL DIFF 2.5 TH/MM3 (1.8-7.7); POLYS (SEG NEUTROPHILS) 51 % (16-70); WBC DIFF SAMPLE 100
[2016-11-27 05:33] LABS: PLATELET ESTIMATE SMEAR LOW (NORMAL); PLATELET MORPHOLOGY NORMAL (NORMAL); SCAN/DIFF FINAL DIFF MANUAL
[2016-11-27] MEDS: SODIUM BICARBONATE 325 MG TAB PO SCH ×3 (06:38→20:35)
--- NOTE | 2016-11-27 08:14 | PD.ONC.PN ---
Subjective Subjective Remarks Patient seen and examined, denies acute complaints other than increased difficulty breathing and pressure when he walks in his chest. He reports green nasal discharge well. Tells me his hip 7 began to hurt like they would at home. Objective Data Date Time Temp Pulse Resp B/P Pulse Ox O2 Delivery O2 Flow Rate FiO2 11/27/16 04:00 97.2 92 20 144/72 95 11/27/16 00:00 97.6 91 20 130/62 96 11/26/16 20:17 88 11/26/16 20:00 97.0 92 20 146/67 97 11/26/16 16:00 96.1 89 18 108/60 96 11/26/16 12:00 97.3 93 20 146/75 96 11/26/16 11:52 90 11/27/16 11/27/16 11/27/16 07:00 15:00 23:00 Intake Total 1040 ml Balance 1040 ml Result Diagram: 11/27/16 0405 11/27/16 0405 Laboratory Results Laboratory Tests Test 11/27/16 04:05 White Blood Count 3.8 TH/MM3 Red Blood Count 2.35 MIL/MM3 Hemoglobin 7.7 GM/DL Hematocrit 23.3 % Mean Corpuscular Volume 99.4 FL Mean Corpuscular Hemoglobin 32.6 PG Mean Corpuscular Hemoglobin 32.8 % Concent Red Cell Distribution Width 15.6 % Platelet Count 94 TH/MM3 Mean Platelet Volume 8.5 FL Neutrophils (%) (Auto) 69.8 % Lymphocytes (%) (Auto) 27.9 % Monocytes (%) (Auto) 0.3 % Eosinophils (%) (Auto) 1.3 % Basophils (%) (Auto) 0.7 % Neutrophils # (Auto) 2.6 TH/MM3 Lymphocytes # (Auto) 1.1 TH/MM3 Monocytes # (Auto) 0.0 TH/MM3 Eosinophils # (Auto) 0.0 TH/MM3 Basophils # (Auto) 0.0 TH/MM3 CBC Comment AUTO DIFF Differential Total Cells 100 Counted Neutrophils % (Manual) 51 % Band Neutrophils % 13 % Lymphocytes % 34 % Basophils % 1 % Neutrophils # (Manual) 2.5 TH/MM3 Metamyelocytes 1 % Nucleated Red Blood Cells 4 /100 WBC Differential Comment FINAL DIFF MANUAL Platelet Estimate LOW Platelet Morphology Comment NORMAL Red Cell Morphology Comment NORMAL Sodium Level 148 MEQ/L Potassium Level 4.1 MEQ/L Chloride Level 116 MEQ/L Carbon Dioxide Level 24.3 MEQ/L Anion Gap 8 MEQ/L Blood Urea Nitrogen 30 MG/DL Creatinine 1.72 MG/DL Estimat Glomerular Filtration 39 ML/MIN Rate Random Glucose 88 MG/DL Calcium Level 8.3 MG/DL Administered Medications Medications (Trade) Dose Ordered Sig/Sowmya Route PRN Reason Start Time Stop Time Status Last Admin Dose Admin Sodium Chloride (NS Flush) 2 ml UNSCH PRN IV FLUSH FLUSH AFTER USING IV ACCESS 11/02/16 18:00 11/26/16 04:15 Sodium Chloride (NS Flush) 2 ml BID IV FLUSH 11/02/16 21:00 11/26/16 22:33 Acetaminophen (Tylenol) 650 mg Q4H PRN PO TEMP > 100.4 11/02/16 18:00 11/09/16 20:29 Pravastatin Sodium (Pravachol) 40 mg HS PO 11/02/16 21:00 11/26/16 22:33 Cholecalciferol 1000 units 1,000 units HS PO 11/02/16 21:00 11/26/16 22:33 Sodium Chloride (NS 1000 ml Inj) 1,000 ml @ 50 mls/hr Q20H IV 11/03/16 10:00 11/26/16 11:49 Loperamide HCl (Imodium) 2 mg Q4H PRN PO after each episode diarrhea 11/04/16 09:30 11/06/16 10:55 Tretinoin 40 mg 40 mg BIDPC PO 11/05/16 09:00 11/26/16 18:18 Sodium Chloride (NS 250 ml Inj) 250 ml @ 84 mls/hr Q24H IV 11/05/16 11:00 11/26/16 22:38 Sodium Chloride (NS Flush) See Protocol UNSCH PRN IV FLUSH SEE PROTOCOL TABLE 11/05/16 10:45 11/25/16 03:26 Heparin Sodium (Porcine) (Heparin Central Flush) See Protocol DAILY IV FLUSH 11/06/16 09:00 11/26/16 09:21 Sodium Chloride (NS Flush) UNSCH PRN IV FLUSH SEE PROTOCOL TABLE 11/05/16 10:45 11/27/16 04:13 Sodium Bicarbonate (Sodium Bicarbonate) 325 mg Q8HR PO 11/06/16 08:00 11/27/16 06:38 Pantoprazole Sodium (Protonix) 40 mg DAILY PO 11/07/16 09:15 11/26/16 09:20 Calcium Carbonate 500 mg 500 mg Q2H PRN CHEW dyspepsia 11/07/16 09:15 11/07/16 09:30 Arsenic Trioxide/ Sodium Chloride (Trisenox Inj/NS 250 ml Inj) 260 ml @ 130.925 mls/hr Q24H IV 11/09/16 22:00 12/01/16 00:00 11/26/16 22:47 Alteplase, Recombinant (Cathflo Activase Inj) 2 mg UNSCH PRN IV FLUSH FOR CLOGGED CENTRAL LINE 11/14/16 09:30 11/14/16 10:43 Furosemide (Lasix) 10 mg DAILY PO 11/18/16 09:00 11/26/16 09:20 Potassium Chloride (KCl) 20 meq DAILY PO 11/18/16 09:00 11/26/16 09:21 Lisinopril (Prinivil) 20 mg Q12HR PO 11/18/16 21:00 11/26/16 22:32 Amlodipine Besylate (Norvasc) 5 mg DAILY PO 11/24/16 17:00 11/26/16 09:21 Objective Remarks GENERAL: Elderly male, pleasant disposition, coughs frequently. This is a well- nourished, well-developed patient, in no apparent distress. SKIN: No rashes, ecchymoses or lesions. Cool and dry. HEAD: Atraumatic. Normocephalic. No temporal or scalp tenderness. EYES: Pupils equal round and reactive. Extraocular motions intact. No scleral icterus. No injection or drainage. ENT: Nose without active bleeding, some dried blood in the nares, purulent drainage or septal hematoma. Throat without erythema, tonsillar hypertrophy or exudate. Uvula midline. Airway patent. NECK: Trachea midline. No JVD or lymphadenopathy. Supple, nontender, no meningeal signs. CARDIOVASCULAR: Regular rate and rhythm without murmurs, gallops, or rubs. RESPIRATORY: Prolonged expiratory phase, disbursed crackles occasional rhonchi, prolonged expiratory phase. GASTROINTESTINAL: Abdomen soft, non-tender, nondistended. No hepato-splenomegaly , or palpable masses. No guarding. MUSCULOSKELETAL: Edema resolved in the right leg, mild residual edema in the left leg. No joint tenderness. No calf tenderness. Negative Homans sign bilaterally. NEUROLOGICAL: Awake and alert. Cranial nerves II through XII intact. Motor and sensory grossly within normal limits. Five out of 5 muscle strength in all muscle groups. Normal speech. 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 Arsenic trioxide day 1 was 11/09/2016 Plan 1. Acute promyelocytic leukemia: His WBC count and platelet counts are normalizing, this is a sign of improvement. A bone marrow biopsy will be scheduled in the upcoming 1-2 weeks to restage him. Outpatient arsenic will be arranged Friday through Friday upon discharge. I've asked the patient and his to go ahead and order tretinoin for outpatient administration. Once the tretinoin is arranged he may be discharged. 2. Symptomatic anemia: Transfuse 1 unit packed red blood cells today for hemoglobin 7.7 g/dL. Every other day blood draws for the time being. Resume inhaled Spiriva which was his outpatient corticosteroid inhaler. Problem Qualifiers (1) Acute promyelocytic leukemia: Qualified Code: C92.40 - Acute promyelocytic leukemia not having achieved remission Michael Haley MD November 27, 2016 08:14
[2016-11-27] MEDS ORDERED: diphenhydrAMINE HCL 25 MG CAP PO PRN (08:15)
[2016-11-27] MEDS ORDERED: ACETAMINOPHEN 325 MG TAB PO PRN (08:15)
[2016-11-27] MEDS ORDERED: SODIUM CHLOR 0.9% 250 ML INJ 250 ML IV ONE (09:00)
[2016-11-27] MEDS: SODIUM CHLORIDE 0.9% FLUSH 10 ML FLUSH IV FLUSH SCH ×3 (09:00→20:37)
--- NOTE | 2016-11-27 09:38 | PD.PN.STU ---
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 Has been responding well to Tretinoin and Arsenic Trioxide therapy Did have some SOB last night which he believes is related to COPD. Improved today with Spiriva. Feeling well. No complaints. Objective Vitals General: pleasant man who is reading in his chair, appears stated age, is alert/ awake/oriented x3, does not appear to be in distress Cardiovascular: S1S2, RRR, no murmurs appreciated Pulmonary: no accessory muscle use, there is bilateral wheezing throughout the lungs Musculoskeletal: no edema Vital Signs Date Time Temp Pulse Resp B/P Pulse Ox O2 Delivery O2 Flow Rate FiO2 11/27/16 07:50 97.2 92 20 119/74 95 11/27/16 04:00 97.2 92 20 144/72 95 11/27/16 00:00 97.6 91 20 130/62 96 11/26/16 20:17 88 11/26/16 20:00 97.0 92 20 146/67 97 11/26/16 16:00 96.1 89 18 108/60 96 11/26/16 12:00 97.3 93 20 146/75 96 11/26/16 11:52 90 I/O 11/26/16 11/26/16 11/26/16 11/27/16 11/27/16 11/27/16 07:00 15:00 23:00 07:00 15:00 23:00 Intake Total 1551 ml 720 ml 1330 ml 1040 ml Balance 1551 ml 720 ml 1330 ml 1040 ml Intake Oral 480 ml 720 ml 580 ml 280 ml IV Total 1071 ml 750 ml 760 ml # Voids 2 5 2 2 # Bowel Movements 2 0 1 Result Diagram: 11/27/16 0405 11/27/16 0405 A/P Assessment and Plan (1) Acute promyelocytic leukemia Plan: Responding well to Tretinoin and Arsenic Trioxide therapy. Pancytopenia continues to improve each day. No complaints today. d/c planning as per heme/onc (2) COPD Plan: Had some SOB last night, seems to be improved today. Continue Spiriva as there is still diffuse wheezing upon auscultation. Jose A Cobian M3 November 27, 2016 09:38
[2016-11-27] MEDS: POTASSIUM CHLORIDE 20 MEQ CONTROLLED RELEASE TAB PO SCH (09:42)
[2016-11-27] MEDS: amLODIPine BESYLATE 5 MG TAB PO SCH (09:42)
[2016-11-27] MEDS: LISINOPRIL 20 MG TAB PO SCH ×2 (09:42→20:35)
[2016-11-27] MEDS: PANTOPRAZOLE SOD 40 MG DELAYED RELEASE TAB PO SCH (09:42)
[2016-11-27] MEDS: FUROSEMIDE 20 MG TAB PO SCH (09:42)
[2016-11-27] MEDS: TRETINOIN PO SCH ×2 (09:45→18:17)
[2016-11-27] MEDS: RESP: ALBUTEROL 2.5 MG/IPRATROPIUM 0.5 MG NEB (SCH) NEB ×3 (12:00→19:16)
[2016-11-27] MEDS: TIOTROPIUM BROMIDE 18 MCG INH INH SCH (13:11)
[2016-11-27] MEDS: ACETAMINOPHEN 325 MG TAB PO PRN (13:11)
[2016-11-27] MEDS: diphenhydrAMINE HCL 25 MG CAP PO PRN (13:11)
[2016-11-27] MEDS: SODIUM CHLOR 0.9% 250 ML INJ 250 ML IV SCH ×2 (13:13→22:30)
--- NOTE | 2016-11-27 17:33 | HHI.PR ---
Subjective Remarks sob overnight. Objective Vitals heart reg lung course bs abd s/nt ext no edema Vital Signs Date Time Temp Pulse Resp B/P Pulse Ox O2 Delivery O2 Flow Rate FiO2 11/27/16 15:50 98.1 86 20 116/61 94 11/27/16 14:29 98.6 90 20 107/61 96 11/27/16 11:15 96.9 95 20 150/70 98 11/27/16 07:50 97.2 92 20 119/74 95 11/27/16 04:00 97.2 92 20 144/72 95 11/27/16 00:00 97.6 91 20 130/62 96 11/26/16 20:17 88 11/26/16 20:00 97.0 92 20 146/67 97 11/26/16 11/26/16 11/27/16 15:00 23:00 07:00 Intake Total 720 ml 1330 ml 1040 ml Balance 720 ml 1330 ml 1040 ml Intake Oral 720 ml 580 ml 280 ml IV Total 750 ml 760 ml # Voids 5 2 2 # Bowel Movements 2 0 1 Result Diagram: 11/27/16 0405 11/27/16 0405 Imaging Last Impressions Chest X-Ray 11/10/16 0000 Signed Impressions: Service Date/Time: Thursday, November 10, 2016 11:48 - CONCLUSION: No acute cardiopulmonary disease identified. Arturo Serrano MD Lumbar Spine CT 11/02/16 0000 Signed Impressions: Service Date/Time: Wednesday, November 02, 2016 15:10 - CONCLUSION: 1. Chronic bilateral pars defects at L5-S1 with associated significant spondylolisthesis and hypertrophic changes in the posterior elements. 2. Advanced discogenic degenerative changes from L2-S1, left lumbar scoliosis, and a moderately large left-sided disc protrusion at L2-3 causing probable neural impingement. Lam Parrish MD Abdomen/Pelvis CT 11/02/16 0000 Signed Impressions: Service Date/Time: Wednesday, November 02, 2016 15:10 - CONCLUSION: 1. Left parapelvic cyst and a low density lesion lower pole of the solitary left kidney are similar to images from a prior cryoablation in August 2015. 2. Bilateral adrenal lesions, low density in the right and intermediate density on the left. Recommend correlation with outside prior imaging studies to see if this is a new or old finding. 3. 4.2 cm distal abdominal aortic aneurysm. Bilaterally iliac stents in place. 4. Significant spondylolisthesis at L5-S1 with bilateral pars defects. 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 He reported that he had been having diarrhea for months but this suddenly worsened and was having up to 10x/day, nonbloody. - Labs at admission found the pt to have pancytopenia with neutropenia. No fevers or chills. - CT Abd/pelvis (11/02) noted to have AAA 4.2cm and val adrenal lesions. - Hematology was consulted to assist in etiology of pancytopenia. - Bone marrow biopsy performed on 11/03/2016 with marrow aspiration indicated acute promyelocytic leukemia bone marrow aspirate flow cytometry indicates 81% blasts most consistent with acute promyelocytic leukemia. - Pt started on ATRA at 40 mg twice daily, Prednisone (now 20 mg daily), Arsenic trioxide at 11.85 mg intravenously daily per Heme/Onc - PICC line placed on 11/05/16 - Chemo regimen started on 11/06/16 - Received cryoprecipitate 11/09/16 for bleeding and DIC concerns - Pt developed lower extremity edema and IVF lowered and he was started on scheduled Lasix. The LE edema is resolved - Hem/onc making arrangements for transition to outpt setting. - continue current treatment plan as outlined above. -Pt sob last night. He will get 2 units of blood for symptomatic anemia. I ordered duonebs for his copd but he will likely refuse. -d/c when ok with hem/onc and arrangements made outpt. trying to obtain ATRA to complete the course as outpt. (2) QT prolongation Status: Acute Plan: - stable - case reviewed by Cardiology - EKG q2 weeks during treatment (3) GERD (gastroesophageal reflux disease) Status: Acute Plan: - improved - protonix - tums prn (4) Pancytopenia Status: Acute Plan: - See above. (5) Neutropenia Status: Acute Plan: - See above (6) Diarrhea Status: Resolved Plan: - Diarrhea resolved - Stools are negative for C. diff - Stools for cryptosporidium and Giardia are negative (7) Weakness generalized Status: Acute Plan: - See above (8) Renal cell carcinoma Status: Resolved Plan: - See above (9) Hypertension Status: Chronic Plan: - Lisinopril 20mg BID - norvasc - Clonidine d/c per pt request. (10) PAD (peripheral artery disease) Status: Chronic Plan: - Pt with hx of PAD s/p 5 stents in lower ext. (11) copd Status: Chronic (12) CKD (chronic kidney disease) stage 3, GFR 30-59 ml/min Status: Chronic Problem Qualifiers (1) Acute promyelocytic leukemia: Qualified Code: C92.40 - Acute promyelocytic leukemia not having achieved remission (2) GERD (gastroesophageal reflux disease): Qualified Code: K21.9 - Gastroesophageal reflux disease, esophagitis presence not specified (3) Neutropenia: Qualified Code: D70.9 - Neutropenia, unspecified type (4) Renal cell carcinoma: Qualified Code: C64.9 - Renal cell carcinoma, unspecified laterality Leonid Ma MD November 27, 2016 17:33
[2016-11-27] MEDS: PRAVASTATIN SOD 40 MG TAB PO SCH (20:35)
[2016-11-27] MEDS: CHOLECALCIFEROL (VIT D3) 1000 UNIT TAB PO SCH (20:35)
[2016-11-27] MEDS: [UNRECOGNIZED DRUG - OTHER] IV SCH (22:31)
[2016-11-27] MEDS: SODIUM CHLORIDE 0.9% IV SCH (22:31)
[2016-11-28] VITALS (9 sets, daily range): BP systolic 127–156; BP diastolic 76–86; PULSE 84–101; RESP 17–20; TEMP 96.7–97.7; O2SAT 95–97
[2016-11-28] MEDS: SODIUM BICARBONATE 325 MG TAB PO SCH ×3 (05:41→21:18)
[2016-11-28] MEDS: SODIUM CHLOR 0.9% 1000 ML INJ 1,000 ML IV SCH (05:42)
[2016-11-28 06:21] LABS: AUTOMATED NEUTROPHIL # 3.6 TH/MM3 (1.8-7.7); BASOPHIL % 0.9 % (0.0-2.0); EOSINOPHIL % 0.5 % (0.0-4.0); HEMATOCRIT 26.2 % (39.0-51.0); LYMPH % 21.4 % (9.0-44.0); MEAN CORPUSCULAR HEMOGLOBIN 33.4 PG (27.0-34.0); MEAN CORPUSCULAR HGB CONC 34.5 % (32.0-36.0); MONO % 0.2 % (0.0-8.0); PLATELET COUNT 110 TH/MM3 (150-450); RED CELL DISTRIBUTION WIDTH 16.5 % (11.6-17.2); WHITE BLOOD COUNT 4.7 TH/MM3 (4.0-11.0)
[2016-11-28 06:30] LABS: HEMO FLAGS AUTO DIFF
[2016-11-28 06:46] LABS: BICARBONATE 23.3 MEQ/L (21.0-32.0); POTASSIUM 4.1 MEQ/L (3.5-5.1)
--- NOTE | 2016-11-28 07:03 | PD.ONC.PN ---
Subjective Subjective Remarks Patient reports doing well, tolerated Red cell transfusion without difficulty yesterday. Attempts to ambulate in the hallways. He tells me his is ordered the tretinoin in to be delivered to his house, expected delivery by 11/29/2016. He expresses some anxiety about discharge home. Objective Data Date Time Temp Pulse Resp B/P Pulse Ox O2 Delivery O2 Flow Rate FiO2 11/28/16 04:00 97.0 92 17 138/76 96 11/28/16 00:42 84 11/28/16 00:00 96.7 90 18 155/78 97 11/27/16 20:00 96.2 87 18 123/71 97 11/27/16 20:00 86 11/27/16 15:50 98.1 86 20 116/61 94 11/27/16 14:29 98.6 90 20 107/61 96 11/27/16 11:15 96.9 95 20 150/70 98 11/27/16 07:50 97.2 92 20 119/74 95 11/28/16 11/28/16 11/28/16 07:00 15:00 23:00 Intake Total 240 ml Balance 240 ml Result Diagram: 11/28/16 0545 11/28/16 0545 Laboratory Results Laboratory Tests Test 11/27/16 11/28/16 10:40 05:45 Blood Type O NEGATIVE Antibody Screen NEGATIVE Crossmatch Leukocyte-Reduced Red Blood Cells Blood Bank Comment White Blood Count 4.7 TH/MM3 Red Blood Count 2.70 MIL/MM3 Hemoglobin 9.0 GM/DL Hematocrit 26.2 % Mean Corpuscular Volume 97.0 FL Mean Corpuscular Hemoglobin 33.4 PG Mean Corpuscular Hemoglobin 34.5 % Concent Red Cell Distribution Width 16.5 % Platelet Count 110 TH/MM3 Mean Platelet Volume 8.6 FL Neutrophils (%) (Auto) 77.0 % Lymphocytes (%) (Auto) 21.4 % Monocytes (%) (Auto) 0.2 % Eosinophils (%) (Auto) 0.5 % Basophils (%) (Auto) 0.9 % Neutrophils # (Auto) 3.6 TH/MM3 Lymphocytes # (Auto) 1.0 TH/MM3 Monocytes # (Auto) 0.0 TH/MM3 Eosinophils # (Auto) 0.0 TH/MM3 Basophils # (Auto) 0.0 TH/MM3 CBC Comment AUTO DIFF Sodium Level 146 MEQ/L Potassium Level 4.1 MEQ/L Chloride Level 115 MEQ/L Carbon Dioxide Level 23.3 MEQ/L Anion Gap 8 MEQ/L Blood Urea Nitrogen 30 MG/DL Creatinine 1.80 MG/DL Estimat Glomerular Filtration 37 ML/MIN Rate Random Glucose 95 MG/DL Calcium Level 8.5 MG/DL Administered Medications Medications (Trade) Dose Ordered Sig/Sowmya Route PRN Reason Start Time Stop Time Status Last Admin Dose Admin Sodium Chloride (NS Flush) 2 ml UNSCH PRN IV FLUSH FLUSH AFTER USING IV ACCESS 11/02/16 18:00 11/26/16 04:15 Sodium Chloride (NS Flush) 2 ml BID IV FLUSH 11/02/16 21:00 11/26/16 22:33 Acetaminophen (Tylenol) 650 mg Q4H PRN PO TEMP > 100.4 11/02/16 18:00 11/09/16 20:29 Pravastatin Sodium (Pravachol) 40 mg HS PO 11/02/16 21:00 11/27/16 20:35 Cholecalciferol 1000 units 1,000 units HS PO 11/02/16 21:00 11/27/16 20:35 Sodium Chloride (NS 1000 ml Inj) 1,000 ml @ 50 mls/hr Q20H IV 11/03/16 10:00 11/28/16 05:42 Loperamide HCl (Imodium) 2 mg Q4H PRN PO after each episode diarrhea 11/04/16 09:30 11/06/16 10:55 Tretinoin 40 mg 40 mg BIDPC PO 11/05/16 09:00 11/27/16 18:17 Sodium Chloride (NS 250 ml Inj) 250 ml @ 84 mls/hr Q24H IV 11/05/16 11:00 11/27/16 22:30 Sodium Chloride (NS Flush) See Protocol UNSCH PRN IV FLUSH SEE PROTOCOL TABLE 11/05/16 10:45 11/25/16 03:26 Heparin Sodium (Porcine) (Heparin Central Flush) See Protocol DAILY IV FLUSH 11/06/16 09:00 11/27/16 09:43 Sodium Chloride (NS Flush) UNSCH PRN IV FLUSH SEE PROTOCOL TABLE 11/05/16 10:45 11/27/16 04:13 Sodium Bicarbonate (Sodium Bicarbonate) 325 mg Q8HR PO 11/06/16 08:00 11/28/16 05:41 Pantoprazole Sodium (Protonix) 40 mg DAILY PO 11/07/16 09:15 11/27/16 09:42 Calcium Carbonate 500 mg 500 mg Q2H PRN CHEW dyspepsia 11/07/16 09:15 11/07/16 09:30 Arsenic Trioxide/ Sodium Chloride (Trisenox Inj/NS 250 ml Inj) 260 ml @ 130.925 mls/hr Q24H IV 11/09/16 22:00 12/01/16 00:00 11/27/16 22:31 Alteplase, Recombinant (Cathflo Activase Inj) 2 mg UNSCH PRN IV FLUSH FOR CLOGGED CENTRAL LINE 11/14/16 09:30 11/14/16 10:43 Furosemide (Lasix) 10 mg DAILY PO 11/18/16 09:00 11/27/16 09:42 Potassium Chloride (KCl) 20 meq DAILY PO 11/18/16 09:00 11/27/16 09:42 Lisinopril (Prinivil) 20 mg Q12HR PO 11/18/16 21:00 11/27/16 20:35 Amlodipine Besylate (Norvasc) 5 mg DAILY PO 11/24/16 17:00 11/27/16 09:42 Tiotropium [place] (Spiriva Inh) 18 mcg DAILY INH 11/27/16 09:00 11/27/16 13:11 Diphenhydramine HCl (Benadryl) 25 mg Q4H PRN PO PRE-MED BLOOD TRANSFUSION 11/27/16 13:15 11/27/16 13:11 Acetaminophen (Tylenol) 650 mg Q4H PRN PO PRE-MED BLOOD TRANSFUSION 11/27/16 13:15 11/27/16 13:11 Objective Remarks GENERAL: Elderly male, pleasant disposition, coughs frequently. This is a well- nourished, well-developed patient, in no apparent distress. SKIN: No rashes, ecchymoses or lesions. Cool and dry. HEAD: Atraumatic. Normocephalic. No temporal or scalp tenderness. EYES: Pupils equal round and reactive. Extraocular motions intact. No scleral icterus. No injection or drainage. ENT: Nose without active bleeding, some dried blood in the nares, purulent drainage or septal hematoma. Throat without erythema, tonsillar hypertrophy or exudate. Uvula midline. Airway patent. NECK: Trachea midline. No JVD or lymphadenopathy. Supple, nontender, no meningeal signs. CARDIOVASCULAR: Regular rate and rhythm without murmurs, gallops, or rubs. RESPIRATORY: Prolonged expiratory phase, disbursed crackles occasional rhonchi, prolonged expiratory phase. GASTROINTESTINAL: Abdomen soft, non-tender, nondistended. No hepato-splenomegaly , or palpable masses. No guarding. MUSCULOSKELETAL: Edema resolved in the right leg, mild residual edema in the left leg. No joint tenderness. No calf tenderness. Negative Homans sign bilaterally. NEUROLOGICAL: Awake and alert. Cranial nerves II through XII intact. Motor and sensory grossly within normal limits. Five out of 5 muscle strength in all muscle groups. Normal speech. 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 Arsenic trioxide day 1 was 11/09/2016 Plan 1. Acute promyelocytic leukemia: His WBC count and platelet counts are normalizing, this is a sign of improvement. A bone marrow biopsy will be scheduled in the upcoming 1-2 weeks to restage him. Outpatient arsenic will be arranged Friday through Friday upon discharge. I anticipate patient will have the tretinoin delivered by 11/29/2016, he may be discharged home at that time. I will resume systemic therapy with arsenic on Friday12/02/2016. He will continue daily tretinoin dosing at 40 mg by mouth twice a day. Every other day blood draws for the time being. Clinically doing well, and to spit discharge on 11/29/2016. PICC line to remain in place at the time of discharge, for IV arsenic trioxide administration as an outpatient. 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
[2016-11-28 07:56] LABS: BANDS 5 % (0-6); CORRECTED NUCLEATED RBC 3 /100 WBC (0-0); EOSINOPHILS 2 % (0-4); NEUTROPHIL # MANUAL DIFF 3.7 TH/MM3 (1.8-7.7); PLATELET ESTIMATE SMEAR LOW (NORMAL); PLATELET MORPHOLOGY NORMAL (NORMAL); POLYS (SEG NEUTROPHILS) 74 % (16-70); SCAN/DIFF FINAL DIFF MANUAL; WBC DIFF SAMPLE 100
[2016-11-28] MEDS: RESP: ALBUTEROL 2.5 MG/IPRATROPIUM 0.5 MG NEB (SCH) NEB ×3 (08:03→20:00)
[2016-11-28] MEDS: TIOTROPIUM BROMIDE 18 MCG INH INH SCH (08:29)
[2016-11-28] MEDS: LISINOPRIL 20 MG TAB PO SCH ×2 (08:31→21:18)
[2016-11-28] MEDS: amLODIPine BESYLATE 5 MG TAB PO SCH (08:31)
[2016-11-28] MEDS: FUROSEMIDE 20 MG TAB PO SCH (08:31)
[2016-11-28] MEDS: POTASSIUM CHLORIDE 20 MEQ CONTROLLED RELEASE TAB PO SCH (08:31)
[2016-11-28] MEDS: PANTOPRAZOLE SOD 40 MG DELAYED RELEASE TAB PO SCH (08:31)
[2016-11-28] MEDS: TRETINOIN PO SCH ×2 (08:32→17:05)
[2016-11-28] MEDS: SODIUM CHLORIDE 0.9% FLUSH 10 ML FLUSH IV FLUSH SCH ×3 (08:37→21:19)
--- NOTE | 2016-11-28 10:25 | PD.PN.STU ---
Subjective Remarks Patient reports doing well, tolerated red cell transfusion without difficulty yesterday. Spiriva improved breathing. Attempts to ambulate in the hallways. has ordered the tretinoin in to be delivered to his house, expected delivery by 11/29/2016. No acute complaints at this time. Objective Vitals General: pleasant man whoappears stated age, is alert/awake/oriented x3, does not appear to be in distress Cardiovascular: S1S2, RRR, no murmurs appreciated, no JVD Pulmonary: no accessory muscle use, wheezing has resolved since yesterday Musculoskeletal: no edema Vital Signs Date Time Temp Pulse Resp B/P Pulse Ox O2 Delivery O2 Flow Rate FiO2 11/28/16 08:00 97.4 101 20 153/86 95 11/28/16 04:00 97.0 92 17 138/76 96 11/28/16 00:42 84 11/28/16 00:00 96.7 90 18 155/78 97 11/27/16 20:00 96.2 87 18 123/71 97 11/27/16 20:00 86 11/27/16 15:50 98.1 86 20 116/61 94 11/27/16 14:29 98.6 90 20 107/61 96 11/27/16 11:15 96.9 95 20 150/70 98 I/O 11/27/16 11/27/16 11/27/16 11/28/16 11/28/16 11/28/16 07:00 15:00 23:00 07:00 15:00 23:00 Intake Total 1040 ml 877 ml 868 ml 240 ml 993 ml Balance 1040 ml 877 ml 868 ml 240 ml 993 ml Intake Oral 280 ml 480 ml 480 ml 240 ml IV Total 760 ml 397 ml 48 ml 993 ml Packed Cells 340 ml # Voids 2 2 3 2 # Bowel Movements 1 2 Result Diagram: 11/28/16 0545 11/28/16 0545 A/P Assessment and Plan (1) Acute promyelocytic leukemia Plan: Responding well to Tretinoin and Arsenic Trioxide therapy. Pancytopenia continues to improve each day. No complaints today. d/c planning as per heme/onc, should be able to d/c tomorrow if medications are delivered. (2) COPD Plan: SOB resolved with Spiriva Nebulizer prn Jose A Cobian M3 November 28, 2016 10:25
[2016-11-28] MEDS: CHOLECALCIFEROL (VIT D3) 1000 UNIT TAB PO SCH (21:18)
[2016-11-28] MEDS: PRAVASTATIN SOD 40 MG TAB PO SCH (21:18)
--- NOTE | 2016-11-28 21:38 | HHI.PR ---
Subjective Remarks doing well. sob better. Objective Vitals heart reg lung cta abd s/nt ext no edema Vital Signs Date Time Temp Pulse Resp B/P Pulse Ox O2 Delivery O2 Flow Rate FiO2 11/28/16 16:00 97.7 97 20 156/81 97 11/28/16 12:00 97.7 92 20 149/78 95 11/28/16 08:00 97.4 101 20 153/86 95 11/28/16 04:00 97.0 92 17 138/76 96 11/28/16 00:42 84 11/28/16 00:00 96.7 90 18 155/78 97 11/27/16 11/27/16 11/28/16 15:00 23:00 07:00 Intake Total 877 ml 868 ml 240 ml Balance 877 ml 868 ml 240 ml Intake Oral 480 ml 480 ml 240 ml IV Total 397 ml 48 ml Packed Cells 340 ml # Voids 2 3 2 # Bowel Movements 2 Result Diagram: 11/28/16 0545 11/28/16 0545 Imaging Last Impressions Chest X-Ray 11/10/16 0000 Signed Impressions: Service Date/Time: Thursday, November 10, 2016 11:48 - CONCLUSION: No acute cardiopulmonary disease identified. Arturo Serrano MD Lumbar Spine CT 11/02/16 0000 Signed Impressions: Service Date/Time: Wednesday, November 02, 2016 15:10 - CONCLUSION: 1. Chronic bilateral pars defects at L5-S1 with associated significant spondylolisthesis and hypertrophic changes in the posterior elements. 2. Advanced discogenic degenerative changes from L2-S1, left lumbar scoliosis, and a moderately large left-sided disc protrusion at L2-3 causing probable neural impingement. Lam Parrish MD Abdomen/Pelvis CT 11/02/16 0000 Signed Impressions: Service Date/Time: Wednesday, November 02, 2016 15:10 - CONCLUSION: 1. Left parapelvic cyst and a low density lesion lower pole of the solitary left kidney are similar to images from a prior cryoablation in August 2015. 2. Bilateral adrenal lesions, low density in the right and intermediate density on the left. Recommend correlation with outside prior imaging studies to see if this is a new or old finding. 3. 4.2 cm distal abdominal aortic aneurysm. Bilaterally iliac stents in place. 4. Significant spondylolisthesis at L5-S1 with bilateral pars defects. 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 He reported that he had been having diarrhea for months but this suddenly worsened and was having up to 10x/day, nonbloody. - Labs at admission found the pt to have pancytopenia with neutropenia. No fevers or chills. - CT Abd/pelvis (11/02) noted to have AAA 4.2cm and val adrenal lesions. - Hematology was consulted to assist in etiology of pancytopenia. - Bone marrow biopsy performed on 11/03/2016 with marrow aspiration indicated acute promyelocytic leukemia bone marrow aspirate flow cytometry indicates 81% blasts most consistent with acute promyelocytic leukemia. - Pt started on ATRA at 40 mg twice daily, Prednisone (now 20 mg daily), Arsenic trioxide at 11.85 mg intravenously daily per Heme/Onc - PICC line placed on 11/05/16 - Chemo regimen started on 11/06/16 - Received cryoprecipitate 11/09/16 for bleeding and DIC concerns - on lasix for volume overload related to ivf -symptomatic anemia better with 2 units blood 11/27. also he was resumed on spiriva. -d/c when ok with hem/onc and arrangements made outpt. trying to obtain ATRA to complete the course as outpt. (2) QT prolongation Status: Acute Plan: - stable - case reviewed by Cardiology - EKG q2 weeks during treatment (3) GERD (gastroesophageal reflux disease) Status: Acute Plan: - improved - protonix - tums prn (4) Pancytopenia Status: Acute Plan: - See above. (5) Neutropenia Status: Acute Plan: - See above (6) Diarrhea Status: Resolved Plan: - Diarrhea resolved - Stools are negative for C. diff - Stools for cryptosporidium and Giardia are negative (7) Weakness generalized Status: Acute Plan: - See above (8) Renal cell carcinoma Status: Resolved Plan: - See above (9) Hypertension Status: Chronic Plan: - Lisinopril 20mg BID - norvasc - Clonidine d/c per pt request. (10) PAD (peripheral artery disease) Status: Chronic Plan: - Pt with hx of PAD s/p 5 stents in lower ext. 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
[2016-11-28] MEDS: SODIUM CHLORIDE 0.9% IV SCH (22:00)
[2016-11-28] MEDS: [UNRECOGNIZED DRUG - OTHER] IV SCH (22:00)
[2016-11-29] MEDS: MAGNESIUM SULFATE 1 GM PREMIX 100 ML IV SCH ×2 (00:13→01:10)
[2016-11-29 01:00] VITALS: BP 154/82; PULSE 95; RESP 18; TEMP 96.8; O2SAT 96
[2016-11-29] MEDS: SODIUM CHLOR 0.9% 1000 ML INJ 1,000 ML IV SCH ×2 (01:10→21:18)
[2016-11-29 04:00] VITALS: BP 137/79; PULSE 89; RESP 18; TEMP 96.5; O2SAT 95
[2016-11-29] MEDS: SODIUM BICARBONATE 325 MG TAB PO SCH ×3 (04:53→21:17)
[2016-11-29 07:00] VITALS: BP 134/75; PULSE 84; RESP 15; TEMP 96.1; O2SAT 96
--- NOTE | 2016-11-29 07:36 | PD.ONC.PN ---
Subjective Subjective Remarks Patient denies complaints, tolerating treatment well. Last night he had a 20 beat sustained run of monomorphic V. tach, the patient was asymptomatic. This occurred prior to arsenic trioxide infusion. Arsenic was held last night, he was given magnesium sulfate 2 mg IV 1 and an EKG was obtained. QTC was 437 ms. Objective Data Date Time Temp Pulse Resp B/P Pulse Ox O2 Delivery O2 Flow Rate FiO2 11/29/16 04:00 96.5 89 18 137/79 95 11/29/16 01:00 96.8 95 18 154/82 96 11/28/16 22:41 90 11/28/16 20:06 92 11/28/16 20:00 97.5 95 18 127/76 95 11/28/16 16:00 97.7 97 20 156/81 97 11/28/16 12:00 97.7 92 20 149/78 95 11/28/16 08:00 97.4 101 20 153/86 95 Result Diagram: 11/28/16 0545 11/28/1645 Administered Medications Medications (Trade) Dose Ordered Sig/Sowmya Route PRN Reason Start Time Stop Time Status Last Admin Dose Admin Sodium Chloride (NS Flush) 2 ml UNSCH PRN IV FLUSH FLUSH AFTER USING IV ACCESS 11/02/16 18:00 11/26/16 04:15 Sodium Chloride (NS Flush) 2 ml BID IV FLUSH 11/02/16 21:00 11/28/16 21:19 Acetaminophen (Tylenol) 650 mg Q4H PRN PO TEMP > 100.4 11/02/16 18:00 11/09/16 20:29 Pravastatin Sodium (Pravachol) 40 mg HS PO 11/02/16 21:00 11/28/16 21:18 Cholecalciferol 1000 units 1,000 units HS PO 11/02/16 21:00 11/28/16 21:18 Sodium Chloride (NS 1000 ml Inj) 1,000 ml @ 50 mls/hr Q20H IV 11/03/16 10:00 11/29/16 01:10 Loperamide HCl (Imodium) 2 mg Q4H PRN PO after each episode diarrhea 11/04/16 09:30 11/06/16 10:55 Tretinoin 40 mg 40 mg BIDPC PO 11/05/16 09:00 11/28/16 17:05 Sodium Chloride (NS 250 ml Inj) 250 ml @ 84 mls/hr Q24H IV 11/05/16 11:00 11/27/16 22:30 Sodium Chloride (NS Flush) See Protocol UNSCH PRN IV FLUSH SEE PROTOCOL TABLE 11/05/16 10:45 11/25/16 03:26 Heparin Sodium (Porcine) (Heparin Central Flush) See Protocol DAILY IV FLUSH 11/06/16 09:00 11/27/16 09:43 Sodium Chloride (NS Flush) UNSCH PRN IV FLUSH SEE PROTOCOL TABLE 11/05/16 10:45 11/27/16 04:13 Sodium Bicarbonate (Sodium Bicarbonate) 325 mg Q8HR PO 11/06/16 08:00 11/29/16 04:53 Pantoprazole Sodium (Protonix) 40 mg DAILY PO 11/07/16 09:15 11/28/16 08:31 Calcium Carbonate 500 mg 500 mg Q2H PRN CHEW dyspepsia 11/07/16 09:15 11/07/16 09:30 Arsenic Trioxide/ Sodium Chloride (Trisenox Inj/NS 250 ml Inj) 260 ml @ 130.925 mls/hr Q24H IV 11/09/16 22:00 12/01/16 00:00 Hold 11/27/16 22:31 Alteplase, Recombinant (Cathflo Activase Inj) 2 mg UNSCH PRN IV FLUSH FOR CLOGGED CENTRAL LINE 11/14/16 09:30 11/14/16 10:43 Furosemide (Lasix) 10 mg DAILY PO 11/18/16 09:00 11/28/16 08:31 Potassium Chloride (KCl) 20 meq DAILY PO 11/18/16 09:00 11/28/16 08:31 Lisinopril (Prinivil) 20 mg Q12HR PO 11/18/16 21:00 11/28/16 21:18 Amlodipine Besylate (Norvasc) 5 mg DAILY PO 11/24/16 17:00 11/28/16 08:31 Tiotropium Forbes (Spiriva Inh) 18 mcg DAILY INH 11/27/16 09:00 11/28/16 08:29 Diphenhydramine HCl (Benadryl) 25 mg Q4H PRN PO PRE-MED BLOOD TRANSFUSION 11/27/16 13:15 11/27/16 13:11 Acetaminophen (Tylenol) 650 mg Q4H PRN PO PRE-MED BLOOD TRANSFUSION 11/27/16 13:15 11/27/16 13:11 Objective Remarks GENERAL: Elderly male, pleasant disposition, coughs frequently. This is a well- nourished, well-developed patient, in no apparent distress. SKIN: No rashes, ecchymoses or lesions. Cool and dry. HEAD: Atraumatic. Normocephalic. No temporal or scalp tenderness. EYES: Pupils equal round and reactive. Extraocular motions intact. No scleral icterus. No injection or drainage. ENT: Nose without active bleeding, some dried blood in the nares, purulent drainage or septal hematoma. Throat without erythema, tonsillar hypertrophy or exudate. Uvula midline. Airway patent. NECK: Trachea midline. No JVD or lymphadenopathy. Supple, nontender, no meningeal signs. CARDIOVASCULAR: Regular rate and rhythm without murmurs, gallops, or rubs. RESPIRATORY: Prolonged expiratory phase, disbursed crackles occasional rhonchi, prolonged expiratory phase. GASTROINTESTINAL: Abdomen soft, non-tender, nondistended. No hepato-splenomegaly , or palpable masses. No guarding. MUSCULOSKELETAL: Edema resolved in the right leg, mild residual edema in the left leg. No joint tenderness. No calf tenderness. Negative Homans sign bilaterally. NEUROLOGICAL: Awake and alert. Cranial nerves II through XII intact. Motor and sensory grossly within normal limits. Five out of 5 muscle strength in all muscle groups. Normal speech. 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 Arsenic trioxide day 1 was 11/09/2016 Plan 1. Acute promyelocytic leukemia: Counts are improving, he seems to be approaching remission. Induction therapy with arsenic trioxide is on hold at the present time, the concern is for cardiac arrhythmia secondary to arsenic trioxide infusions. I did notify Dr. Perkins of cardiology about the event last night, he will reevaluate Mr. Rainey. Continue tretinoin. Arsenic trioxide to remain on hold until the patient is evaluated by cardiology and the etiology of the V. tach is identified. 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
[2016-11-29] MEDS: SODIUM CHLORIDE 0.9% FLUSH 10 ML FLUSH IV FLUSH SCH ×3 (09:00→21:00)
--- NOTE | 2016-11-29 09:12 | PD.CARD.PN ---
Subjective Subjective Remarks Feels well. Had 20 beat run of V tach last. Asymptomatic. ECG shows QTc of 437 Objective Vital Signs / I&O Vital Signs Date Time Temp Pulse Resp B/P Pulse Ox O2 Delivery O2 Flow Rate FiO2 11/29/16 07:00 96.1 84 15 134/75 96 11/29/16 04:00 96.5 89 18 137/79 95 11/29/16 01:00 96.8 95 18 154/82 96 11/28/16 22:41 90 11/28/16 20:06 92 11/28/16 20:00 97.5 95 18 127/76 95 11/28/16 16:00 97.7 97 20 156/81 97 11/28/16 12:00 97.7 92 20 149/78 95 I/O 11/28/16 11/28/16 11/28/16 11/29/16 11/29/16 11/29/16 07:00 15:00 23:00 07:00 15:00 23:00 Intake Total 240 ml 1473 ml 240 ml Balance 240 ml 1473 ml 240 ml Intake Oral 240 ml 480 ml 240 ml IV Total 993 ml # Voids 2 4 1 3 # Bowel Movements 2 Physical Exam Lungs clear. RRR no murmur Assessment and Plan Assessment and Plan Will check echo and lexiscan. Add metoprolol to regimen and watch over the weekend Mikel Perkins MD November 29, 2016 09:12
[2016-11-29] MEDS: amLODIPine BESYLATE 5 MG TAB PO SCH (09:36)
[2016-11-29] MEDS: PANTOPRAZOLE SOD 40 MG DELAYED RELEASE TAB PO SCH (09:36)
[2016-11-29] MEDS: LISINOPRIL 20 MG TAB PO SCH ×2 (09:36→21:18)
[2016-11-29] MEDS: TIOTROPIUM BROMIDE 18 MCG INH INH SCH (09:36)
[2016-11-29] MEDS: FUROSEMIDE 20 MG TAB PO SCH (09:36)
[2016-11-29] MEDS: POTASSIUM CHLORIDE 20 MEQ CONTROLLED RELEASE TAB PO SCH (09:37)
[2016-11-29] MEDS: TRETINOIN PO SCH ×2 (09:38→17:43)
--- NOTE | 2016-11-29 09:40 | PD.PN.STU ---
Subjective Remarks Had 20 beat run of V tach last. Asymptomatic. ECG shows QTc of 437. Was given IV mag. Holding Arsenic therapy for now. Pt reports feelings well. No CP, SOB, abdominal pain. Objective Vitals General: pleasant man who appears stated age, is alert/awake/oriented x3, does not appear to be in distress Cardiovascular: S1S2, RRR, no murmurs appreciated, no JVD Pulmonary: no accessory muscle use, wheezing has resolved since yesterday Musculoskeletal: no edema Vital Signs Date Time Temp Pulse Resp B/P Pulse Ox O2 Delivery O2 Flow Rate FiO2 11/29/16 07:00 96.1 84 15 134/75 96 11/29/16 04:00 96.5 89 18 137/79 95 11/29/16 01:00 96.8 95 18 154/82 96 11/28/16 22:41 90 11/28/16 20:06 92 11/28/16 20:00 97.5 95 18 127/76 95 11/28/16 16:00 97.7 97 20 156/81 97 11/28/16 12:00 97.7 92 20 149/78 95 I/O 11/28/16 11/28/16 11/28/16 11/29/16 11/29/16 11/29/16 07:00 15:00 23:00 07:00 15:00 23:00 Intake Total 240 ml 1473 ml 240 ml Balance 240 ml 1473 ml 240 ml Intake Oral 240 ml 480 ml 240 ml IV Total 993 ml # Voids 2 4 1 3 # Bowel Movements 2 Result Diagram: 11/28/16 0545 11/28/16 0545 A/P Assessment and Plan (1) Acute promyelocytic leukemia Plan: Responding well to Tretinoin and Arsenic Trioxide therapy. Holding for now due to episode of V tach last night. Pancytopenia continues to improve each day. No complaints today. (2) COPD Plan: SOB resolved with Spiriva Nebulizer prn (3) V. tach Asymptomatic episode 11/28 which caused chemotherapy to be held for now Given IV mag and added metoprolol to medications Cardiology is following Jose A Cobian November 29, 2016 09:40
[2016-11-29] MEDS: METOPROLOL TARTRATE 50 MG TAB PO SCH ×2 (09:41→21:14)
[2016-11-29 11:00] VITALS: BP 132/69; PULSE 89; RESP 15; TEMP 96.6; O2SAT 96
[2016-11-29] MEDS: SODIUM CHLOR 0.9% 250 ML INJ 250 ML IV SCH (11:00)
--- NOTE | 2016-11-29 11:10 | HHI.PR ---
Subjective Remarks ASX OVERNIGHT BUT WITH VT Objective Vitals heart reg lung cta abd s/nt ext no edema Vital Signs Date Time Temp Pulse Resp B/P Pulse Ox O2 Delivery O2 Flow Rate FiO2 11/29/16 07:00 96.1 84 15 134/75 96 11/29/16 04:00 96.5 89 18 137/79 95 11/29/16 01:00 96.8 95 18 154/82 96 11/28/16 22:41 90 11/28/16 20:06 92 11/28/16 20:00 97.5 95 18 127/76 95 11/28/16 16:00 97.7 97 20 156/81 97 11/28/16 12:00 97.7 92 20 149/78 95 11/28/16 11/28/16 11/29/16 15:00 23:00 07:00 Intake Total 1473 ml 240 ml Balance 1473 ml 240 ml Intake Oral 480 ml 240 ml IV Total 993 ml # Voids 4 1 3 # Bowel Movements 2 Result Diagram: 11/28/16 0545 11/28/16 0545 Imaging Last Impressions Chest X-Ray 11/10/16 0000 Signed Impressions: Service Date/Time: Thursday, November 10, 2016 11:48 - CONCLUSION: No acute cardiopulmonary disease identified. Arturo Serrano MD Lumbar Spine CT 11/02/16 0000 Signed Impressions: Service Date/Time: Wednesday, November 02, 2016 15:10 - CONCLUSION: 1. Chronic bilateral pars defects at L5-S1 with associated significant spondylolisthesis and hypertrophic changes in the posterior elements. 2. Advanced discogenic degenerative changes from L2-S1, left lumbar scoliosis, and a moderately large left-sided disc protrusion at L2-3 causing probable neural impingement. Lam Parrish MD Abdomen/Pelvis CT 11/02/16 0000 Signed Impressions: Service Date/Time: Wednesday, November 02, 2016 15:10 - CONCLUSION: 1. Left parapelvic cyst and a low density lesion lower pole of the solitary left kidney are similar to images from a prior cryoablation in August 2015. 2. Bilateral adrenal lesions, low density in the right and intermediate density on the left. Recommend correlation with outside prior imaging studies to see if this is a new or old finding. 3. 4.2 cm distal abdominal aortic aneurysm. Bilaterally iliac stents in place. 4. Significant spondylolisthesis at L5-S1 with bilateral pars defects. 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 He reported that he had been having diarrhea for months but this suddenly worsened and was having up to 10x/day, nonbloody. - Labs at admission found the pt to have pancytopenia with neutropenia. No fevers or chills. - CT Abd/pelvis (11/02) noted to have AAA 4.2cm and val adrenal lesions. - Hematology was consulted to assist in etiology of pancytopenia. - Bone marrow biopsy performed on 11/03/2016 with marrow aspiration indicated acute promyelocytic leukemia bone marrow aspirate flow cytometry indicates 81% blasts most consistent with acute promyelocytic leukemia. - Pt started on ATRA at 40 mg twice daily, Prednisone (now 20 mg daily), Arsenic trioxide at 11.85 mg intravenously daily per Heme/Onc - PICC line placed on 11/05/16 - Chemo regimen started on 11/06/16 - Received cryoprecipitate 11/09/16 for bleeding and DIC concerns - on lasix for volume overload related to ivf -symptomatic anemia better with 2 units blood 11/27. also he was resumed on spiriva. -VT overnight. felt related to medication but eval for cardiomyopathy and ischemia. check lytes cardiology following...echo/td/bb and hold dc ordered. -d/c when ok with hem/onc and arrangements made outpt. trying to obtain ATRA to complete the course as outpt. (2) QT prolongation Status: Acute Plan: - stable - case reviewed by Cardiology - EKG q2 weeks during treatment (3) GERD (gastroesophageal reflux disease) Status: Acute Plan: - improved - protonix - tums prn (4) Pancytopenia Status: Acute Plan: - See above. (5) Neutropenia Status: Acute Plan: - See above (6) Diarrhea Status: Resolved Plan: - Diarrhea resolved - Stools are negative for C. diff - Stools for cryptosporidium and Giardia are negative (7) Weakness generalized Status: Acute Plan: - See above (8) Renal cell carcinoma Status: Resolved Plan: - See above (9) Hypertension Status: Chronic Plan: - Lisinopril 20mg BID - norvasc - Clonidine d/c per pt request. (10) PAD (peripheral artery disease) Status: Chronic Plan: - Pt with hx of PAD s/p 5 stents in lower ext. 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
--- NOTE | 2016-11-29 14:43 | EC ---
Study Study Date:11/29/2016 STUDY CONCLUSIONS SUMMARY - Left ventricle: The cavity size was normal. Wall thickness was normal. Systolic function was normal. The estimated ejection fraction was in the range of 55% to 60%. Wall motion was normal; there were no regional wall motion abnormalities. - Pericardium, extracardiac: A possible, small pericardial effusion was identified. Features were not consistent with tamponade physiology. If LV function is below 40, please consider prescribing an ACEI or ARB or document rationale for non-use. PROCEDURE DATA STUDY STATUS: Elective. Procedure: Transthoracic echocardiography. Image quality was good. Scanning was performed from the parasternal, apical, and subcostal acoustic windows. Study completion: The patient tolerated the procedure well. Transthoracic echocardiography. M-mode, complete 2D, complete spectral Doppler, and color Doppler. Patient status: Inpatient. CARDIAC ANATOMY LEFT VENTRICLE: The cavity size was normal. Wall thickness was normal. Systolic function was normal. The estimated ejection fraction was in the range of 55% to 60%. Wall motion was normal; there were no regional wall motion abnormalities. AORTIC VALVE: Trileaflet; normal thickness leaflets. Doppler: Transvalvular velocity was within the normal range. There was no stenosis. No regurgitation. AORTA: Aortic root: The aortic root was normal in size. MITRAL VALVE: Structurally normal valve. Doppler: Transvalvular velocity was within the normal range. There was no evidence for stenosis. No regurgitation. LEFT ATRIUM: The atrium was normal in size. RIGHT VENTRICLE: The cavity size was normal. Wall thickness was normal. PULMONIC VALVE: Doppler: Transvalvular velocity was within the normal range. There was no evidence for stenosis. No regurgitation. TRICUSPID VALVE: Structurally normal valve. Doppler: Transvalvular velocity was within the normal range. Trace regurgitation. PULMONARY ARTERY: The main pulmonary artery was normal-sized. Systolic pressure was within the normal range. RIGHT ATRIUM: The atrium was normal in size. PERICARDIUM: A possible, small pericardial effusion was identified. Doppler: Features were not consistent with tamponade physiology. SYSTEMIC VEINS: Inferior vena cava: The vessel was normal in size. BASIC MEASUREMENTS ADULT Normal Left ventricle LV internal dimension, ED, chordal level, 48.9 mm 43-52 PLAX LV internal dimension, ES, chordal level, 34.7 mm 23-38 PLAX Fractional shortening, chordal level, PLAX *29 % >29 LV posterior wall thickness, ED 6.72 mm IVS/LVPW ratio, ED *1.35 <1.3 Ventricular septum Septal thickness, ED 9.04 mm Aortic valve Leaflet separation 20 mm 15-26 Left atrium Anterior-posterior dimension 35 mm Right ventricle RV internal dimension, ED, PLAX *18.4 mm 19-38 BASIC MEASUREMENTS ADULT Normal Aortic valve Leaflet separation 20 mm 15-26 Aorta Root diameter, ED 34 mm 20-37 DOPPLER MEASUREMENTS ADULT Normal Mitral valve Peak E-wave velocity 59.2 cm/s Peak A-wave velocity 68.1 cm/s Peak E/A ratio 0.9 Tricuspid valve Regurgitant peak velocity 210 cm/s Peak RV-RA gradient, S 18 mm Hg LEGEND: Mean values are shown as u=mean value. Asterisk (*) donnelly values outside specified normal range. Prepared and signed by aMnolo Dave [id number]
[2016-11-29 16:00] VITALS: BP 113/55; PULSE 74; RESP 15; TEMP 96.2; O2SAT 97
[2016-11-29 20:00] VITALS: BP 129/65; PULSE 83; PULSE 86; RESP 18; TEMP 97.3; O2SAT 97
--- NOTE | 2016-11-29 21:14 | EKG ---
Date Performed: 11/28/2016 Time Performed: 23:23:13 PTAGE: 76 years EKG: Sinus rhythm POSSIBLE RIGHT VENTRICULAR CONDUCTION DELAY NONSPECIFIC T-WAVE ABNORMALITY BORDERLINE ECG INTERPRETA TION BASED ON A DEFAULT AGE OF 40 YEARS PREVIOUS TRACING : 11/18/2016 08.00 Compared to prior tracing no significant change DOCTOR: James Baker Interpretating Date/Time 11/29/2016 21:13:50
[2016-11-29] MEDS: PRAVASTATIN SOD 40 MG TAB PO SCH (21:18)
[2016-11-29] MEDS: CHOLECALCIFEROL (VIT D3) 1000 UNIT TAB PO SCH (21:18)
[2016-11-30] VITALS: BP 124/65; PULSE 74; RESP 16; TEMP 98.1; O2SAT 95
[2016-11-30 04:00] VITALS: BP 147/78; PULSE 80; RESP 18; TEMP 98.3; O2SAT 93
[2016-11-30] MEDS: SODIUM BICARBONATE 325 MG TAB PO SCH ×3 (06:00→20:06)
[2016-11-30 07:33] LABS: BICARBONATE 23.2 MEQ/L (21.0-32.0); MAGNESIUM 2.4 MG/DL (1.5-2.5); POTASSIUM 4.6 MEQ/L (3.5-5.1)
[2016-11-30 08:00] VITALS: BP 121/77; PULSE 78; PULSE 80; RESP 18; TEMP 98; O2SAT 95
[2016-11-30] MEDS: LISINOPRIL 20 MG TAB PO SCH ×2 (08:42→20:06)
[2016-11-30] MEDS: PANTOPRAZOLE SOD 40 MG DELAYED RELEASE TAB PO SCH (08:42)
[2016-11-30] MEDS: amLODIPine BESYLATE 5 MG TAB PO SCH (08:43)
[2016-11-30] MEDS: FUROSEMIDE 20 MG TAB PO SCH (08:43)
[2016-11-30] MEDS: POTASSIUM CHLORIDE 20 MEQ CONTROLLED RELEASE TAB PO SCH (08:43)
[2016-11-30] MEDS: TRETINOIN PO SCH ×2 (08:52→18:31)
[2016-11-30] MEDS: SODIUM CHLORIDE 0.9% FLUSH 10 ML FLUSH IV FLUSH SCH ×3 (09:00→20:06)
[2016-11-30] MEDS: TIOTROPIUM BROMIDE 18 MCG INH INH SCH (09:00)
--- NOTE | 2016-11-30 09:33 | HHI.PR ---
Subjective Remarks no complaints Objective Vitals heart reg lung cta abd s/nt ext no edema Vital Signs Date Time Temp Pulse Resp B/P Pulse Ox O2 Delivery O2 Flow Rate FiO2 11/30/16 08:00 98.0 78 18 121/77 95 Manual Cuff/Auscultation 11/30/16 04:00 98.3 80 18 147/78 93 11/30/16 00:00 98.1 74 16 124/65 95 11/29/16 20:00 83 11/29/16 20:00 97.3 86 18 129/65 97 11/29/16 16:00 96.2 74 15 113/55 97 11/29/16 11:00 96.6 89 15 132/69 96 11/29/16 11/29/16 11/30/16 15:00 23:00 07:00 Intake Total 734 ml 480 ml Balance 734 ml 480 ml Intake Oral 480 ml IV Total 734 ml # Voids 2 2 Result Diagram: 11/28/16 0545 11/30/16 0600 Imaging Last Impressions Chest X-Ray 11/10/16 0000 Signed Impressions: Service Date/Time: Thursday, November 10, 2016 11:48 - CONCLUSION: No acute cardiopulmonary disease identified. Arturo Serrano MD Lumbar Spine CT 11/02/16 0000 Signed Impressions: Service Date/Time: Wednesday, November 02, 2016 15:10 - CONCLUSION: 1. Chronic bilateral pars defects at L5-S1 with associated significant spondylolisthesis and hypertrophic changes in the posterior elements. 2. Advanced discogenic degenerative changes from L2-S1, left lumbar scoliosis, and a moderately large left-sided disc protrusion at L2-3 causing probable neural impingement. Lam Parrish MD Abdomen/Pelvis CT 11/02/16 0000 Signed Impressions: Service Date/Time: Wednesday, November 02, 2016 15:10 - CONCLUSION: 1. Left parapelvic cyst and a low density lesion lower pole of the solitary left kidney are similar to images from a prior cryoablation in August 2015. 2. Bilateral adrenal lesions, low density in the right and intermediate density on the left. Recommend correlation with outside prior imaging studies to see if this is a new or old finding. 3. 4.2 cm distal abdominal aortic aneurysm. Bilaterally iliac stents in place. 4. Significant spondylolisthesis at L5-S1 with bilateral pars defects. 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 He reported that he had been having diarrhea for months but this suddenly worsened and was having up to 10x/day, nonbloody. - Labs at admission found the pt to have pancytopenia with neutropenia. No fevers or chills. - CT Abd/pelvis (11/02) noted to have AAA 4.2cm and val adrenal lesions. - Hematology was consulted to assist in etiology of pancytopenia. - Bone marrow biopsy performed on 11/03/2016 with marrow aspiration indicated acute promyelocytic leukemia bone marrow aspirate flow cytometry indicates 81% blasts most consistent with acute promyelocytic leukemia. - Pt started on ATRA at 40 mg twice daily, Prednisone (now 20 mg daily), Arsenic trioxide at 11.85 mg intravenously daily per Heme/Onc - PICC line placed on 11/05/16 - Chemo regimen started on 11/06/16 - Received cryoprecipitate 11/09/16 for bleeding and DIC concerns - on lasix for volume overload related to ivf -symptomatic anemia better with 2 units blood 11/27. also he was resumed on spiriva. -VT on 11/28... felt related to medication but eval for cardiomyopathy and ischemia. lytes ok. cardiology following...echo nml lvf...td pending. arsenic on hold (2) QT prolongation Status: Acute Plan: - stable - case reviewed by Cardiology - EKG q2 weeks during treatment (3) GERD (gastroesophageal reflux disease) Status: Acute Plan: - improved - protonix - tums prn (4) Pancytopenia Status: Acute Plan: - See above. (5) Neutropenia Status: Acute Plan: - See above (6) Diarrhea Status: Resolved Plan: - Diarrhea resolved - Stools are negative for C. diff - Stools for cryptosporidium and Giardia are negative (7) Weakness generalized Status: Acute Plan: - See above (8) Renal cell carcinoma Status: Resolved Plan: - See above (9) Hypertension Status: Chronic Plan: - Lisinopril 20mg BID - norvasc - Clonidine d/c per pt request. (10) PAD (peripheral artery disease) Status: Chronic Plan: - Pt with hx of PAD s/p 5 stents in lower ext. 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
[2016-11-30] MEDS ORDERED: REGADENOSON INJ 0.4 MG/5 ML SYR ONE (09:46)
[2016-11-30] MEDS: SODIUM CHLOR 0.9% 250 ML INJ 250 ML IV SCH (11:00)
[2016-11-30] MEDS: METOPROLOL TARTRATE 50 MG TAB PO SCH ×2 (11:11→20:06)
--- NOTE | 2016-11-30 11:12 | PD.ONC.PN ---
Subjective Subjective Remarks Afebrile overnight. Patient resting comfortably without complaint. Just back from [facility] this morning. The report is not available. He says he feels well today. Objective Data Date Time Temp Pulse Resp B/P Pulse Ox O2 Delivery O2 Flow Rate FiO2 11/30/16 08:00 98.0 78 18 121/77 95 Manual Cuff/Auscultation 11/30/16 04:00 98.3 80 18 147/78 93 11/30/16 00:00 98.1 74 16 124/65 95 11/29/16 20:00 83 11/29/16 20:00 97.3 86 18 129/65 97 11/29/16 16:00 96.2 74 15 113/55 97 11/30/16 11/30/16 11/30/16 07:00 15:00 23:00 Intake Total 0 ml Balance 0 ml Result Diagram: 11/28/16 0545 11/30/16 0600 Laboratory Results Laboratory Tests Test 11/30/16 06:00 Sodium Level 145 MEQ/L Potassium Level 4.6 MEQ/L Chloride Level 113 MEQ/L Carbon Dioxide Level 23.2 MEQ/L Anion Gap 9 MEQ/L Blood Urea Nitrogen 32 MG/DL Creatinine 1.92 MG/DL Estimat Glomerular Filtration 34 ML/MIN Rate Random Glucose 94 MG/DL Calcium Level 8.4 MG/DL Magnesium Level 2.4 MG/DL Administered Medications Medications (Trade) Dose Ordered Sig/Sowmya Route PRN Reason Start Time Stop Time Status Last Admin Dose Admin Sodium Chloride (NS Flush) 2 ml UNSCH PRN IV FLUSH FLUSH AFTER USING IV ACCESS 11/02/16 18:00 11/26/16 04:15 Sodium Chloride (NS Flush) 2 ml BID IV FLUSH 11/02/16 21:00 11/29/16 13:24 Acetaminophen (Tylenol) 650 mg Q4H PRN PO TEMP > 100.4 11/02/16 18:00 11/09/16 20:29 Pravastatin Sodium (Pravachol) 40 mg HS PO 11/02/16 21:00 11/29/16 21:18 Cholecalciferol 1000 units 1,000 units HS PO 11/02/16 21:00 11/29/16 21:18 Sodium Chloride (NS 1000 ml Inj) 1,000 ml @ 50 mls/hr Q20H IV 11/03/16 10:00 11/29/16 21:18 Loperamide HCl (Imodium) 2 mg Q4H PRN PO after each episode diarrhea 11/04/16 09:30 11/06/16 10:55 Tretinoin 40 mg 40 mg BIDPC PO 11/05/16 09:00 11/30/16 08:52 Sodium Chloride (NS 250 ml Inj) 250 ml @ 84 mls/hr Q24H IV 11/05/16 11:00 11/27/16 22:30 Sodium Chloride (NS Flush) See Protocol UNSCH PRN IV FLUSH SEE PROTOCOL TABLE 11/05/16 10:45 11/25/16 03:26 Heparin Sodium (Porcine) (Heparin Central Flush) See Protocol DAILY IV FLUSH 11/06/16 09:00 11/29/16 13:24 Sodium Chloride (NS Flush) UNSCH PRN IV FLUSH SEE PROTOCOL TABLE 11/05/16 10:45 11/27/16 04:13 Sodium Bicarbonate (Sodium Bicarbonate) 325 mg Q8HR PO 11/06/16 08:00 11/29/16 21:17 Pantoprazole Sodium (Protonix) 40 mg DAILY PO 11/07/16 09:15 11/30/16 08:42 Calcium Carbonate 500 mg 500 mg Q2H PRN CHEW dyspepsia 11/07/16 09:15 11/07/16 09:30 Arsenic Trioxide/ Sodium Chloride (Trisenox Inj/NS 250 ml Inj) 260 ml @ 130.925 mls/hr Q24H IV 11/09/16 22:00 12/01/16 00:00 Hold 11/27/16 22:31 Alteplase, Recombinant (Cathflo Activase Inj) 2 mg UNSCH PRN IV FLUSH FOR CLOGGED CENTRAL LINE 11/14/16 09:30 11/14/16 10:43 Furosemide (Lasix) 10 mg DAILY PO 11/18/16 09:00 11/30/16 08:43 Potassium Chloride (KCl) 20 meq DAILY PO 11/18/16 09:00 11/30/16 08:43 Lisinopril (Prinivil) 20 mg Q12HR PO 11/18/16 21:00 11/30/16 08:42 Amlodipine Besylate (Norvasc) 5 mg DAILY PO 11/24/16 17:00 11/30/16 08:43 Tiotropium [place] (Spiriva Inh) 18 mcg DAILY INH 11/27/16 09:00 11/29/16 09:36 Diphenhydramine HCl (Benadryl) 25 mg Q4H PRN PO PRE-MED BLOOD TRANSFUSION 11/27/16 13:15 11/27/16 13:11 Acetaminophen (Tylenol) 650 mg Q4H PRN PO PRE-MED BLOOD TRANSFUSION 11/27/16 13:15 11/27/16 13:11 Metoprolol Tartrate (Lopressor) 50 mg Q12HR PO 11/29/16 09:15 11/29/16 21:14 Objective Remarks GENERAL: Elderly male, sitting up in chair next to bed in nad. SKIN: Warm and dry. HEAD: Normocephalic. EYES: No injection or drainage. NECK: Supple, trachea midline. CARDIOVASCULAR: Regular rate and rhythm RESPIRATORY: Breath sounds equal bilaterally. No accessory muscle use. GASTROINTESTINAL: Abdomen soft, non-tender, nondistended. EXTREMITIES: No cyanosis NEUROLOGICAL: awake and alert, normal speech. moving all extremities. 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 Arsenic trioxide day 1 was 11/09/2016 Plan 1. Acute promyelocytic leukemia: continue to hold Arsenic until cleared by cardiology 2. check CBC today 3. continue supportive care Attending Statement The exam, history, and the medical decision-making described in the above note were completed with the assistance of the mid-level provider. I reviewed and agree with the findings presented. I attest that I had a [id number] encounter with the patient on the same day, and personally performed and documented my assessment and findings in the medical record. Denies any chest pain. Unaware physically of tachycardia. Walks around the unit. Good appetite, food brought in from home. No SOB or chest pain. Cont Atra. 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
--- NOTE | 2016-11-30 11:42 | RADRPT ---
EXAM DATE/TIME: 11/29/2016 10:16 [facility] COMPARISON: No previous studies available for comparison. INDICATIONS : Abnormal EKG. DOSE: 30.2 mCi Tc99m Myoview at stress. 30.2 mCi Tc99m Myoview at rest. 0.4 mg Lexiscan STRESS SYMPTOMS: Short of breath. EJECTION FRACTION: > 70% MEDICAL HISTORY : Chronic obstructive pulmonary disease. Peripheral vascular disease. Leukemia. Renal cancer. SURGICAL HISTORY : Right nephrectomy. ENCOUNTER: Initial ACUITY: 1 day PAIN SCALE: 0/10 LOCATION: chest TECHNIQUE: The patient underwent pharmacologic stress with infusion of prescribed dose. Continuous ECG tracing was monitored during stress. Gated SPECT imaging was performed after stress and conventional SPECT i maging was performed at rest. The examination was performed on a SPECT/CT scanner, both attenuation and non-corrected datasets were reviewed. FINDINGS: DISTRIBUTION: The maximum perfused segment at stress is in the anterior wall. PERFUSION STUDY: The pattern of perfusion at stress is within normal limits. GATED STUDY: There is intact wall motion and thickening without hypokinetic or dyskinetic segments. CONCLUSION: No reversible perfusion defects or focal wall motion abnormalities. RISK CATEGORY: 1- Low Risk. Arturo Serrano MD on November 30, 2016 at 11:39 Board Certified Radiologist. This report was verified electronically.
[2016-11-30 12:00] VITALS: BP 102/67; PULSE 75; RESP 18; TEMP 98.1; O2SAT 95
[2016-11-30 14:02] LABS: AUTOMATED NEUTROPHIL # 4.4 TH/MM3 (1.8-7.7); BASOPHIL % 0.2 % (0.0-2.0); EOSINOPHIL % 0.7 % (0.0-4.0); HEMATOCRIT 25.4 % (39.0-51.0); HEMO FLAGS DIFF FINAL; LYMPH % 10.5 % (9.0-44.0); LYMPHOCYTE # 0.5 TH/MM3 (1.0-4.8); MEAN CELL VOLUME 98.8 FL (80.0-100.0); MEAN CORPUSCULAR HEMOGLOBIN 32.9 PG (27.0-34.0); MEAN CORPUSCULAR HGB CONC 33.3 % (32.0-36.0); MONO % 0.8 % (0.0-8.0); NEUT % 87.8 % (16.0-70.0); PLATELET COUNT 127 TH/MM3 (150-450); RED BLOOD COUNT 2.57 MIL/MM3 (4.50-5.90); RED CELL DISTRIBUTION WIDTH 16.5 % (11.6-17.2)
[2016-11-30 16:00] VITALS: BP 106/68; PULSE 75; RESP 18; TEMP 97.9; O2SAT 96
[2016-11-30] MEDS ORDERED: COLCHICINE 0.6 MG TAB PO PRN (16:15)
[2016-11-30 20:00] VITALS: BP 117/55; PULSE 75; PULSE 95; RESP 18; TEMP 99.7; O2SAT 98
[2016-11-30] MEDS: SODIUM CHLOR 0.9% 1000 ML INJ 1,000 ML IV SCH (20:05)
[2016-11-30] MEDS: CHOLECALCIFEROL (VIT D3) 1000 UNIT TAB PO SCH (20:06)
[2016-11-30] MEDS: PRAVASTATIN SOD 40 MG TAB PO SCH (20:06)
[2016-12-01] VITALS (8 sets, daily range): BP systolic 104–135; BP diastolic 58–87; PULSE 75–87; RESP 17–20; TEMP 96.9–99.2; O2SAT 93–98
[2016-12-01] MEDS: SODIUM BICARBONATE 325 MG TAB PO SCH ×3 (05:16→21:43)
[2016-12-01 06:10] LABS: AUTOMATED NEUTROPHIL # 4.3 TH/MM3 (1.8-7.7); BASOPHIL % 0.5 % (0.0-2.0); EOSINOPHIL # 0.1 TH/MM3 (0-0.4); EOSINOPHIL % 1.7 % (0.0-4.0); HEMATOCRIT 24.6 % (39.0-51.0); HEMO FLAGS DIFF FINAL; LYMPH % 14.1 % (9.0-44.0); LYMPHOCYTE # 0.7 TH/MM3 (1.0-4.8); MEAN CELL VOLUME 98.8 FL (80.0-100.0); MEAN CORPUSCULAR HEMOGLOBIN 32.9 PG (27.0-34.0); MEAN CORPUSCULAR HGB CONC 33.3 % (32.0-36.0); MONO % 0.7 % (0.0-8.0); PLATELET COUNT 127 TH/MM3 (150-450); RED BLOOD COUNT 2.49 MIL/MM3 (4.50-5.90); RED CELL DISTRIBUTION WIDTH 16.3 % (11.6-17.2); WHITE BLOOD COUNT 5.2 TH/MM3 (4.0-11.0)
[2016-12-01] MEDS ORDERED: COLCHICINE 0.6 MG TAB PO ONE ×2 (09:00→12:30)
[2016-12-01] MEDS: SODIUM CHLORIDE 0.9% FLUSH 10 ML FLUSH IV FLUSH SCH ×3 (09:00→21:43)
[2016-12-01] MEDS: TIOTROPIUM BROMIDE 18 MCG INH INH SCH (09:06)
[2016-12-01] MEDS: LISINOPRIL 20 MG TAB PO SCH ×2 (09:07→21:42)
[2016-12-01] MEDS: PANTOPRAZOLE SOD 40 MG DELAYED RELEASE TAB PO SCH (09:07)
[2016-12-01] MEDS: METOPROLOL TARTRATE 50 MG TAB PO SCH ×2 (09:07→21:43)
[2016-12-01] MEDS: POTASSIUM CHLORIDE 20 MEQ CONTROLLED RELEASE TAB PO SCH (09:08)
[2016-12-01] MEDS: FUROSEMIDE 20 MG TAB PO SCH (09:08)
[2016-12-01] MEDS: amLODIPine BESYLATE 5 MG TAB PO SCH (09:08)
[2016-12-01] MEDS: TRETINOIN PO SCH ×2 (09:13→17:23)
--- NOTE | 2016-12-01 10:03 | RADRPT ---
EXAM DATE/TIME: 12/01/2016 09:29 [facility] COMPARISON: No previous studies available for comparison. INDICATIONS : Right ankle pain. Gout. MEDICAL HISTORY : Chronic obstructive pulmonary disease. PVD. Right renal cancer. Gout. SURGICAL HISTORY : Tonsillectomy. Nephrectomy, right. ENCOUNTER: Initial ACUITY: 1 day PAIN SCORE: 4/10 LOCATION: Right leg. TECHNIQUE: Venous ultrasound of the leg was performed from the inguinal ligament to the proximal calf. Real-maría e, color Doppler and spectral tracing, compression and augmentation techniques were used. FINDINGS: There is normal compressibility of the deep venous system from the inguinal region to the proximal ca lf. No echogenic clot is seen in the lumen of the common femoral, femoral, popliteal, and posterior tibial veins. There is a normal response of the venous system to proximal and distal augmentation an d respiration. CONCLUSION: Normal examination. Ant Fraser MD on December 01, 2016 at 10:01 Board Certified Radiologist. This report was verified electronically.
--- NOTE | 2016-12-01 10:07 | PD.ONC.PN ---
Subjective Subjective Remarks Afebrile overnight. Patient feeling well. No arrhythmia overnight. He developed an acute gouty attack of his rough ankle yesterday. he has had these previously. Objective Data Date Time Temp Pulse Resp B/P Pulse Ox O2 Delivery O2 Flow Rate FiO2 12/01/16 07:50 96.9 82 20 135/64 96 12/01/16 04:00 98.7 75 18 121/79 93 12/01/16 00:00 99.2 78 17 104/58 98 11/30/16 20:00 95 11/30/16 20:00 99.7 75 18 117/55 98 11/30/16 16:00 97.9 75 18 106/68 96 11/30/16 12:00 98.1 75 18 102/67 95 Result Diagram: 12/01/16 0519 11/30/16 0600 Laboratory Results Laboratory Tests Test 11/30/16 12/01/16 13:05 05:19 White Blood Count 5.0 TH/MM3 5.2 TH/MM3 Red Blood Count 2.57 MIL/MM3 2.49 MIL/MM3 Hemoglobin 8.5 GM/DL 8.2 GM/DL Hematocrit 25.4 % 24.6 % Mean Corpuscular Volume 98.8 FL 98.8 FL Mean Corpuscular Hemoglobin 32.9 PG 32.9 PG Mean Corpuscular Hemoglobin 33.3 % 33.3 % Concent Red Cell Distribution Width 16.5 % 16.3 % Platelet Count 127 TH/MM3 127 TH/MM3 Mean Platelet Volume 8.6 FL 8.4 FL Neutrophils (%) (Auto) 87.8 % 83.0 % Lymphocytes (%) (Auto) 10.5 % 14.1 % Monocytes (%) (Auto) 0.8 % 0.7 % Eosinophils (%) (Auto) 0.7 % 1.7 % Basophils (%) (Auto) 0.2 % 0.5 % Neutrophils # (Auto) 4.4 TH/MM3 4.3 TH/MM3 Lymphocytes # (Auto) 0.5 TH/MM3 0.7 TH/MM3 Monocytes # (Auto) 0.0 TH/MM3 0.0 TH/MM3 Eosinophils # (Auto) 0.0 TH/MM3 0.1 TH/MM3 Basophils # (Auto) 0.0 TH/MM3 0.0 TH/MM3 CBC Comment DIFF FINAL DIFF FINAL Differential Comment Administered Medications Medications (Trade) Dose Ordered Sig/Sowmya Route PRN Reason Start Time Stop Time Status Last Admin Dose Admin Sodium Chloride (NS Flush) 2 ml UNSCH PRN IV FLUSH FLUSH AFTER USING IV ACCESS 11/02/16 18:00 11/26/16 04:15 Sodium Chloride (NS Flush) 2 ml BID IV FLUSH 11/02/16 21:00 11/29/16 13:24 Acetaminophen (Tylenol) 650 mg Q4H PRN PO TEMP > 100.4 11/02/16 18:00 11/09/16 20:29 Pravastatin Sodium (Pravachol) 40 mg HS PO 11/02/16 21:00 11/30/16 20:06 Cholecalciferol 1000 units 1,000 units HS PO 11/02/16 21:00 11/30/16 20:06 Sodium Chloride (NS 1000 ml Inj) 1,000 ml @ 50 mls/hr Q20H IV 11/03/16 10:00 11/30/16 20:05 Loperamide HCl (Imodium) 2 mg Q4H PRN PO after each episode diarrhea 11/04/16 09:30 11/06/16 10:55 Tretinoin 40 mg 40 mg BIDPC PO 11/05/16 09:00 12/01/16 09:13 Sodium Chloride (NS 250 ml Inj) 250 ml @ 84 mls/hr Q24H IV 11/05/16 11:00 11/27/16 22:30 Sodium Chloride (NS Flush) See Protocol UNSCH PRN IV FLUSH SEE PROTOCOL TABLE 11/05/16 10:45 11/25/16 03:26 Heparin Sodium (Porcine) (Heparin Central Flush) See Protocol DAILY IV FLUSH 11/06/16 09:00 11/29/16 13:24 Sodium Chloride (NS Flush) UNSCH PRN IV FLUSH SEE PROTOCOL TABLE 11/05/16 10:45 11/27/16 04:13 Sodium Bicarbonate (Sodium Bicarbonate) 325 mg Q8HR PO 11/06/16 08:00 12/01/16 05:16 Pantoprazole Sodium (Protonix) 40 mg DAILY PO 11/07/16 09:15 12/01/16 09:07 Calcium Carbonate 500 mg 500 mg Q2H PRN CHEW dyspepsia 11/07/16 09:15 11/07/16 09:30 Arsenic Trioxide/ Sodium Chloride (Trisenox Inj/NS 250 ml Inj) 260 ml @ 130.925 mls/hr Q24H IV 11/09/16 22:00 12/01/16 00:00 Hold 11/27/16 22:31 Alteplase, Recombinant (Cathflo Activase Inj) 2 mg UNSCH PRN IV FLUSH FOR CLOGGED CENTRAL LINE 11/14/16 09:30 11/14/16 10:43 Furosemide (Lasix) 10 mg DAILY PO 11/18/16 09:00 12/01/16 09:08 Potassium Chloride (KCl) 20 meq DAILY PO 11/18/16 09:00 12/01/16 09:08 Lisinopril (Prinivil) 20 mg Q12HR PO 11/18/16 21:00 12/01/16 09:07 Amlodipine Besylate (Norvasc) 5 mg DAILY PO 11/24/16 17:00 12/01/16 09:08 Tiotropium [place] (Spiriva Inh) 18 mcg DAILY INH 11/27/16 09:00 12/01/16 09:06 Diphenhydramine HCl (Benadryl) 25 mg Q4H PRN PO PRE-MED BLOOD TRANSFUSION 11/27/16 13:15 11/27/16 13:11 Acetaminophen (Tylenol) 650 mg Q4H PRN PO PRE-MED BLOOD TRANSFUSION 11/27/16 13:15 11/27/16 13:11 Metoprolol Tartrate (Lopressor) 50 mg Q12HR PO 11/29/16 09:15 12/01/16 09:07 Colchicine (Colchicine) 0.6 mg ONCE PRN PO gout 11/30/16 16:15 12/03/16 16:14 11/30/16 21:49 Objective Remarks GENERAL: Elderly male, reading in chair next to bed. SKIN: Warm and dry. HEAD: Normocephalic. EYES: No injection or drainage. NECK: Supple, trachea midline. CARDIOVASCULAR: Regular rate and rhythm RESPIRATORY: Breath sounds equal bilaterally. No accessory muscle use. GASTROINTESTINAL: Abdomen soft, non-tender, nondistended. EXTREMITIES: No cyanosis NEUROLOGICAL: awake and alert, normal speech. moving all extremities. 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 Arsenic trioxide day 1 was 11/09/2016 Plan 1. Acute promyelocytic leukemia: continue Tretinoin. will resume Arsenic tomorrow. 2. h/o V-tach: last run of V-tach was on 11/28. tolerating Lopressor. myocardial perfusion scan showed no reversible perfusion defect. echo showed only possible small pericardial effusion; cardiology following 3. Gout: will give a second dose of Colchicine and start PRN Lortab for pain. Attending Statement The exam, history, and the medical decision-making described in the above note were completed with the assistance of the mid-level provider. I reviewed and agree with the findings presented. I attest that I had a [id number] encounter with the patient on the same day, and personally performed and documented my assessment and findings in the medical record. Main c/o acute gout, continue colchicine. Plan to resume Arsenic/ATRA, defer to start on Weekday when full support available. Monitor for arrythmias. 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
[2016-12-01] MEDS: LOPERAMIDE HCL 2 MG CAP PO PRN (10:17)
[2016-12-01] MEDS: SODIUM CHLOR 0.9% 250 ML INJ 250 ML IV SCH (11:00)
[2016-12-01] MEDS ORDERED: ACETAMINOPHEN/HYDROcodone 325 MG/5 MG TAB PO PRN (12:15)
[2016-12-01] MEDS: SODIUM CHLOR 0.9% 1000 ML INJ 1,000 ML IV SCH (12:21)
--- NOTE | 2016-12-01 13:11 | HHI.PR ---
Subjective Remarks right ankle tender and swollen since yesterday says it's typical of his gout flares. colchicine helping. Objective Vitals heart reg lung cta abd s/nt ext right ankle swollen and tender. Vital Signs Date Time Temp Pulse Resp B/P Pulse Ox O2 Delivery O2 Flow Rate FiO2 12/01/16 11:50 97.7 78 20 127/68 95 12/01/16 08:09 77 12/01/16 07:50 96.9 82 20 135/64 96 12/01/16 04:00 98.7 75 18 121/79 93 12/01/16 00:00 99.2 78 17 104/58 98 11/30/16 20:00 95 11/30/16 20:00 99.7 75 18 117/55 98 11/30/16 16:00 97.9 75 18 106/68 96 11/30/16 11/30/16 12/01/16 14:59 22:59 06:59 Intake Total 600 ml 240 ml 1129 ml Balance 600 ml 240 ml 1129 ml Intake Oral 600 ml 240 ml 240 ml IV Total 889 ml # Voids 10 2 1 # Bowel Movements 2 0 0 Result Diagram: 12/01/16 0519 11/30/16 0600 Imaging Last Impressions Chest X-Ray 11/10/16 0000 Signed Impressions: Service Date/Time: Thursday, November 10, 2016 11:48 - CONCLUSION: No acute cardiopulmonary disease identified. Arturo Serrano MD Lumbar Spine CT 11/02/16 0000 Signed Impressions: Service Date/Time: Wednesday, November 02, 2016 15:10 - CONCLUSION: 1. Chronic bilateral pars defects at L5-S1 with associated significant spondylolisthesis and hypertrophic changes in the posterior elements. 2. Advanced discogenic degenerative changes from L2-S1, left lumbar scoliosis, and a moderately large left-sided disc protrusion at L2-3 causing probable neural impingement. Lam Parrish MD Abdomen/Pelvis CT 11/02/16 0000 Signed Impressions: Service Date/Time: Wednesday, November 02, 2016 15:10 - CONCLUSION: 1. Left parapelvic cyst and a low density lesion lower pole of the solitary left kidney are similar to images from a prior cryoablation in August 2015. 2. Bilateral adrenal lesions, low density in the right and intermediate density on the left. Recommend correlation with outside prior imaging studies to see if this is a new or old finding. 3. 4.2 cm distal abdominal aortic aneurysm. Bilaterally iliac stents in place. 4. Significant spondylolisthesis at L5-S1 with bilateral pars defects. 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 He reported that he had been having diarrhea for months but this suddenly worsened and was having up to 10x/day, nonbloody. - Labs at admission found the pt to have pancytopenia with neutropenia. No fevers or chills. - CT Abd/pelvis (11/02) noted to have AAA 4.2cm and val adrenal lesions. - Hematology was consulted to assist in etiology of pancytopenia. - Bone marrow biopsy performed on 11/03/2016 with marrow aspiration indicated acute promyelocytic leukemia bone marrow aspirate flow cytometry indicates 81% blasts most consistent with acute promyelocytic leukemia. - Pt started on ATRA , Prednisone , Arsenic trioxide daily per Heme/Onc - PICC line placed on 11/05/16 - Chemo regimen started on 11/06/16 - Received cryoprecipitate 11/09/16 for bleeding and DIC concerns - on lasix for volume overload related to ivf -symptomatic anemiaon 11/27 better with 2 units blood 11/27. also he was resumed on spiriva. -VT on 11/28... felt related to medication but eval for cardiomyopathy and ischemia. lytes ok. cardiology following...echo nml lvf...td neg for ischemia on 11/30. arsenic on hold - Gout atack right ankle 11/30. giving colchicine. u/s neg for dvt. - Await reevaluation by oncology/cardiology on 12/02 to decide on next step regarding rx of his PML (2) VT (ventricular tachycardia) Status: Acute Plan: see above (3) QT prolongation Status: Acute Plan: - stable - case reviewed by Cardiology - EKG q2 weeks during treatment (4) GERD (gastroesophageal reflux disease) Status: Acute Plan: - improved - protonix - tums prn (5) Pancytopenia Status: Acute Plan: - See above. (6) Neutropenia Status: Acute Plan: - See above (7) Diarrhea Status: Resolved Plan: - Diarrhea resolved - Stools are negative for C. diff - Stools for cryptosporidium and Giardia are negative (8) Weakness generalized Status: Acute Plan: - See above (9) Renal cell carcinoma Status: Resolved Plan: - See above (10) Hypertension Status: Chronic Plan: - Lisinopril 20mg BID - norvasc - Clonidine d/c per pt request. (11) PAD (peripheral artery disease) Status: Chronic Plan: - Pt with hx of PAD s/p 5 stents in lower ext. 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
[2016-12-01] MEDS: CHOLECALCIFEROL (VIT D3) 1000 UNIT TAB PO SCH (21:43)
[2016-12-01] MEDS: PRAVASTATIN SOD 40 MG TAB PO SCH (21:43)
[2016-12-02] VITALS (7 sets, daily range): BP systolic 106–151; BP diastolic 59–67; PULSE 71–86; RESP 16–20; TEMP 96.1–99; O2SAT 94–97
[2016-12-02] MEDS: SODIUM BICARBONATE 325 MG TAB PO SCH ×3 (05:22→22:00)
[2016-12-02 05:49] LABS: AUTOMATED NEUTROPHIL # 4.2 TH/MM3 (1.8-7.7); BASOPHIL % 0.3 % (0.0-2.0); EOSINOPHIL # 0.1 TH/MM3 (0-0.4); EOSINOPHIL % 1.4 % (0.0-4.0); HEMATOCRIT 24.6 % (39.0-51.0); HEMO FLAGS DIFF FINAL; LYMPH % 15.1 % (9.0-44.0); LYMPHOCYTE # 0.8 TH/MM3 (1.0-4.8); MEAN CELL VOLUME 98.8 FL (80.0-100.0); MEAN CORPUSCULAR HEMOGLOBIN 32.9 PG (27.0-34.0); MEAN CORPUSCULAR HGB CONC 33.3 % (32.0-36.0); MONO % 1.1 % (0.0-8.0); NEUT % 82.1 % (16.0-70.0); PLATELET COUNT 148 TH/MM3 (150-450); RED BLOOD COUNT 2.49 MIL/MM3 (4.50-5.90); RED CELL DISTRIBUTION WIDTH 16.6 % (11.6-17.2); WHITE BLOOD COUNT 5.2 TH/MM3 (4.0-11.0)
--- NOTE | 2016-12-02 07:54 | PD.ONC.PN ---
Subjective Subjective Remarks Patient denies acute complaints, he reports having had a good weekend. Denies sensation of palpitations, telemetry records indicate no repeat episodes of ventricular tachycardia. Denies fevers, chills or night sweats. Right ankle has been hurting; gout flareup. Objective Data Date Time Temp Pulse Resp B/P Pulse Ox O2 Delivery O2 Flow Rate FiO2 12/02/16 04:00 97.2 85 19 151/66 94 12/02/16 00:00 99.0 85 17 106/67 94 12/01/16 20:51 87 12/01/16 20:00 98.7 80 17 133/87 94 12/01/16 15:50 97.4 80 20 109/62 95 12/01/16 11:50 97.7 78 20 127/68 95 12/01/16 08:09 77 Result Diagram: 12/02/16 0520 11/30/16 0600 Laboratory Results Laboratory Tests Test 12/01/16 12/02/16 10:08 05:20 Uric Acid 8.3 MG/DL White Blood Count 5.2 TH/MM3 Red Blood Count 2.49 MIL/MM3 Hemoglobin 8.2 GM/DL Hematocrit 24.6 % Mean Corpuscular Volume 98.8 FL Mean Corpuscular Hemoglobin 32.9 PG Mean Corpuscular Hemoglobin 33.3 % Concent Red Cell Distribution Width 16.6 % Platelet Count 148 TH/MM3 Mean Platelet Volume 8.7 FL Neutrophils (%) (Auto) 82.1 % Lymphocytes (%) (Auto) 15.1 % Monocytes (%) (Auto) 1.1 % Eosinophils (%) (Auto) 1.4 % Basophils (%) (Auto) 0.3 % Neutrophils # (Auto) 4.2 TH/MM3 Lymphocytes # (Auto) 0.8 TH/MM3 Monocytes # (Auto) 0.1 TH/MM3 Eosinophils # (Auto) 0.1 TH/MM3 Basophils # (Auto) 0.0 TH/MM3 CBC Comment DIFF FINAL Differential Comment Administered Medications Medications (Trade) Dose Ordered Sig/Sowmya Route PRN Reason Start Time Stop Time Status Last Admin Dose Admin Sodium Chloride (NS Flush) 2 ml UNSCH PRN IV FLUSH FLUSH AFTER USING IV ACCESS 11/02/16 18:00 11/26/16 04:15 Sodium Chloride (NS Flush) 2 ml BID IV FLUSH 11/02/16 21:00 11/29/16 13:24 Acetaminophen (Tylenol) 650 mg Q4H PRN PO TEMP > 100.4 11/02/16 18:00 11/09/16 20:29 Pravastatin Sodium (Pravachol) 40 mg HS PO 11/02/16 21:00 12/01/16 21:43 Cholecalciferol 1000 units 1,000 units HS PO 11/02/16 21:00 12/01/16 21:43 Sodium Chloride (NS 1000 ml Inj) 1,000 ml @ 50 mls/hr Q20H IV 11/03/16 10:00 12/01/16 12:21 Loperamide HCl (Imodium) 2 mg Q4H PRN PO after each episode diarrhea 11/04/16 09:30 12/01/16 10:17 Tretinoin 40 mg 40 mg BIDPC PO 11/05/16 09:00 12/01/16 17:23 Sodium Chloride (NS 250 ml Inj) 250 ml @ 84 mls/hr Q24H IV 11/05/16 11:00 11/27/16 22:30 Sodium Chloride (NS Flush) See Protocol UNSCH PRN IV FLUSH SEE PROTOCOL TABLE 11/05/16 10:45 11/25/16 03:26 Heparin Sodium (Porcine) (Heparin Central Flush) See Protocol DAILY IV FLUSH 11/06/16 09:00 11/29/16 13:24 Sodium Chloride (NS Flush) UNSCH PRN IV FLUSH SEE PROTOCOL TABLE 11/05/16 10:45 11/27/16 04:13 Sodium Bicarbonate (Sodium Bicarbonate) 325 mg Q8HR PO 11/06/16 08:00 12/02/16 05:22 Pantoprazole Sodium (Protonix) 40 mg DAILY PO 11/07/16 09:15 12/01/16 09:07 Calcium Carbonate 500 mg 500 mg Q2H PRN CHEW dyspepsia 11/07/16 09:15 11/07/16 09:30 Arsenic Trioxide/ Sodium Chloride (Trisenox Inj/NS 250 ml Inj) 260 ml @ 130.925 mls/hr Q24H IV 11/09/16 22:00 12/01/16 00:00 Hold 11/27/16 22:31 Alteplase, Recombinant (Cathflo Activase Inj) 2 mg UNSCH PRN IV FLUSH FOR CLOGGED CENTRAL LINE 11/14/16 09:30 11/14/16 10:43 Furosemide (Lasix) 10 mg DAILY PO 11/18/16 09:00 12/01/16 09:08 Potassium Chloride (KCl) 20 meq DAILY PO 11/18/16 09:00 12/01/16 09:08 Lisinopril (Prinivil) 20 mg Q12HR PO 11/18/16 21:00 12/01/16 21:42 Amlodipine Besylate (Norvasc) 5 mg DAILY PO 11/24/16 17:00 12/01/16 09:08 Tiotropium [place] (Spiriva Inh) 18 mcg DAILY INH 11/27/16 09:00 12/01/16 09:06 Diphenhydramine HCl (Benadryl) 25 mg Q4H PRN PO PRE-MED BLOOD TRANSFUSION 11/27/16 13:15 11/27/16 13:11 Acetaminophen (Tylenol) 650 mg Q4H PRN PO PRE-MED BLOOD TRANSFUSION 11/27/16 13:15 11/27/16 13:11 Metoprolol Tartrate (Lopressor) 50 mg Q12HR PO 11/29/16 09:15 12/01/16 21:43 Colchicine (Colchicine) 0.6 mg ONCE PRN PO gout 11/30/16 16:15 12/03/16 16:14 11/30/16 21:49 Objective Remarks GENERAL: Elderly male, pleasant disposition, coughs frequently. This is a well- nourished, well-developed patient, in no apparent distress. SKIN: No rashes, ecchymoses or lesions. Cool and dry. HEAD: Atraumatic. Normocephalic. No temporal or scalp tenderness. EYES: Pupils equal round and reactive. Extraocular motions intact. No scleral icterus. No injection or drainage. ENT: Nose without active bleeding, some dried blood in the nares, purulent drainage or septal hematoma. Throat without erythema, tonsillar hypertrophy or exudate. Uvula midline. Airway patent. NECK: Trachea midline. No JVD or lymphadenopathy. Supple, nontender, no meningeal signs. CARDIOVASCULAR: Regular rate and rhythm without murmurs, gallops, or rubs. RESPIRATORY: Prolonged expiratory phase, disbursed crackles occasional rhonchi, prolonged expiratory phase. GASTROINTESTINAL: Abdomen soft, non-tender, nondistended. No hepato-splenomegaly , or palpable masses. No guarding. MUSCULOSKELETAL: Edema resolved in the right leg, mild residual edema in the left leg. No joint tenderness. No calf tenderness. Negative Homans sign bilaterally. NEUROLOGICAL: Awake and alert. Cranial nerves II through XII intact. Motor and sensory grossly within normal limits. Five out of 5 muscle strength in all muscle groups. Normal speech. 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 Arsenic trioxide day 1 was 11/09/2016 Plan 1. Acute promyelocytic leukemia: continue Tretinoin. Arsenic trioxide will resume today after it was held on the night of 11/28/2016. 2. V-tach: last run of V-tach was on 11/28. Myocardial perfusion scan showed no reversible perfusion defect. echo showed only possible small pericardial effusion; cardiology recommended beta blockers. Treatment will be resumed, cardiac rhythm will be monitored very closely. 3. Gout: will give a second dose of Colchicine and start PRN Lortab for pain. Allopurinol 100 mg twice daily has been added on. Problem Qualifiers (1) Acute promyelocytic leukemia: Qualified Code: C92.40 - Acute promyelocytic leukemia not having achieved remission Michael Haley MD December 02, 2016 07:54
[2016-12-02] MEDS: TIOTROPIUM BROMIDE 18 MCG INH INH SCH (08:41)
[2016-12-02] MEDS: PANTOPRAZOLE SOD 40 MG DELAYED RELEASE TAB PO SCH (08:43)
[2016-12-02] MEDS: POTASSIUM CHLORIDE 20 MEQ CONTROLLED RELEASE TAB PO SCH (08:43)
[2016-12-02] MEDS: amLODIPine BESYLATE 5 MG TAB PO SCH (08:44)
[2016-12-02] MEDS: FUROSEMIDE 20 MG TAB PO SCH (08:44)
[2016-12-02] MEDS: METOPROLOL TARTRATE 50 MG TAB PO SCH ×2 (08:44→19:58)
[2016-12-02] MEDS: SODIUM CHLOR 0.9% 1000 ML INJ 1,000 ML IV SCH (08:44)
[2016-12-02] MEDS: LISINOPRIL 20 MG TAB PO SCH ×2 (08:44→19:57)
[2016-12-02] MEDS: TRETINOIN PO SCH ×2 (08:47→17:10)
[2016-12-02] MEDS: ALLOPURINOL 100 MG TAB PO SCH ×2 (08:59→19:58)
[2016-12-02] MEDS: SODIUM CHLORIDE 0.9% FLUSH 10 ML FLUSH IV FLUSH SCH ×3 (09:00→20:18)
--- NOTE | 2016-12-02 09:35 | PD.CARD.PN ---
Subjective Subjective Remarks Feels well. Remains in NSR Objective Vital Signs / I&O Vital Signs Date Time Temp Pulse Resp B/P Pulse Ox O2 Delivery O2 Flow Rate FiO2 12/02/16 08:33 98.4 78 20 125/62 95 12/02/16 04:00 97.2 85 19 151/66 94 12/02/16 00:00 99.0 85 17 106/67 94 12/01/16 20:51 87 12/01/16 20:00 98.7 80 17 133/87 94 12/01/16 15:50 97.4 80 20 109/62 95 12/01/16 11:50 97.7 78 20 127/68 95 I/O 12/01/16 12/01/16 12/01/16 12/02/16 12/02/16 12/02/16 06:59 14:59 22:59 06:59 14:59 22:59 Intake Total 1129 ml 929 ml 400 ml 880 ml Balance 1129 ml 929 ml 400 ml 880 ml Intake Oral 240 ml 480 ml 480 ml IV Total 889 ml 449 ml 400 ml 400 ml # Voids 1 4 6 # Bowel Movements 0 3 0 Physical Exam Lungs clear. RRR no murmur Laboratory Laboratory Tests Test 12/01/16 12/02/16 10:08 05:20 Uric Acid 8.3 MG/DL White Blood Count 5.2 TH/MM3 Red Blood Count 2.49 MIL/MM3 Hemoglobin 8.2 GM/DL Hematocrit 24.6 % Mean Corpuscular Volume 98.8 FL Mean Corpuscular Hemoglobin 32.9 PG Mean Corpuscular Hemoglobin 33.3 % Concent Red Cell Distribution Width 16.6 % Platelet Count 148 TH/MM3 Mean Platelet Volume 8.7 FL Neutrophils (%) (Auto) 82.1 % Lymphocytes (%) (Auto) 15.1 % Monocytes (%) (Auto) 1.1 % Eosinophils (%) (Auto) 1.4 % Basophils (%) (Auto) 0.3 % Neutrophils # (Auto) 4.2 TH/MM3 Lymphocytes # (Auto) 0.8 TH/MM3 Monocytes # (Auto) 0.1 TH/MM3 Eosinophils # (Auto) 0.1 TH/MM3 Basophils # (Auto) 0.0 TH/MM3 CBC Comment DIFF FINAL Differential Comment Assessment and Plan Assessment and Plan Echo and perfusion scan are normal. Tolerating beta blockers well. Ok to send home. will f/u/ as out-patient. Mikel Perkins MD December 02, 2016 09:35
[2016-12-02] MEDS: SODIUM CHLOR 0.9% 250 ML INJ 250 ML IV SCH (11:00)
--- NOTE | 2016-12-02 17:06 | HHI.PR ---
Subjective Remarks No specific complaints currently Pt had a gout flare up in the right ankle over the weekend, some improvement with Colchicine. No noted VT on telemetry Objective Vitals Vital Signs Date Time Temp Pulse Resp B/P Pulse Ox O2 Delivery O2 Flow Rate FiO2 12/02/16 16:40 97.1 78 20 125/65 95 12/02/16 12:40 96.1 71 20 122/59 97 12/02/16 08:47 80 12/02/16 08:33 98.4 78 20 125/62 95 12/02/16 04:00 97.2 85 19 151/66 94 12/02/16 00:00 99.0 85 17 106/67 94 12/01/16 20:51 87 12/01/16 20:00 98.7 80 17 133/87 94 12/01/16 12/01/16 12/02/16 15:00 23:00 07:00 Intake Total 929 ml 400 ml 880 ml Balance 929 ml 400 ml 880 ml Intake Oral 480 ml 480 ml IV Total 449 ml 400 ml 400 ml # Voids 4 6 # Bowel Movements 3 0 Result Diagram: 12/02/16 0520 11/30/16 0600 Other Results Laboratory Tests Test 12/01/16 12/01/16 12/02/16 05:19 10:08 05:20 White Blood Count 5.2 TH/MM3 5.2 TH/MM3 Red Blood Count 2.49 MIL/MM3 2.49 MIL/MM3 Hemoglobin 8.2 GM/DL 8.2 GM/DL Hematocrit 24.6 % 24.6 % Mean Corpuscular Volume 98.8 FL 98.8 FL Mean Corpuscular Hemoglobin 32.9 PG 32.9 PG Mean Corpuscular Hemoglobin 33.3 % 33.3 % Concent Red Cell Distribution Width 16.3 % 16.6 % Platelet Count 127 TH/MM3 148 TH/MM3 Mean Platelet Volume 8.4 FL 8.7 FL Neutrophils (%) (Auto) 83.0 % 82.1 % Lymphocytes (%) (Auto) 14.1 % 15.1 % Monocytes (%) (Auto) 0.7 % 1.1 % Eosinophils (%) (Auto) 1.7 % 1.4 % Basophils (%) (Auto) 0.5 % 0.3 % Neutrophils # (Auto) 4.3 TH/MM3 4.2 TH/MM3 Lymphocytes # (Auto) 0.7 TH/MM3 0.8 TH/MM3 Monocytes # (Auto) 0.0 TH/MM3 0.1 TH/MM3 Eosinophils # (Auto) 0.1 TH/MM3 0.1 TH/MM3 Basophils # (Auto) 0.0 TH/MM3 0.0 TH/MM3 CBC Comment DIFF FINAL DIFF FINAL Differential Comment Uric Acid 8.3 MG/DL Imaging Last Impressions Lower Extremity Ultrasound 12/01/16 0000 Signed Impressions: Service Date/Time: Thursday, December 01, 2016 09:29 - CONCLUSION: Normal examination. Ant Fraser MD Myocardial Perfusion Scan Nuc Med 11/29/16 0000 Signed Impressions: Service Date/Time: Tuesday, November 29, 2016 10:16 - CONCLUSION: No reversible perfusion defects or focal wall motion abnormalities. RISK CATEGORY: 1- Low Risk. Arturo Serrano MD Chest X-Ray 11/10/16 0000 Signed Impressions: Service Date/Time: Thursday, November 10, 2016 11:48 - CONCLUSION: No acute cardiopulmonary disease identified. Arturo Serrano MD Lumbar Spine CT 11/02/16 0000 Signed Impressions: Service Date/Time: Wednesday, November 02, 2016 15:10 - CONCLUSION: 1. Chronic bilateral pars defects at L5-S1 with associated significant spondylolisthesis and hypertrophic changes in the posterior elements. 2. Advanced discogenic degenerative changes from L2-S1, left lumbar scoliosis, and a moderately large left-sided disc protrusion at L2-3 causing probable neural impingement. Lam Parrish MD Abdomen/Pelvis CT 11/02/16 0000 Signed Impressions: Service Date/Time: Wednesday, November 02, 2016 15:10 - CONCLUSION: 1. Left parapelvic cyst and a low density lesion lower pole of the solitary left kidney are similar to images from a prior cryoablation in August 2015. 2. Bilateral adrenal lesions, low density in the right and intermediate density on the left. Recommend correlation with outside prior imaging studies to see if this is a new or old finding. 3. 4.2 cm distal abdominal aortic aneurysm. Bilaterally iliac stents in place. 4. Significant spondylolisthesis at L5-S1 with bilateral pars defects. 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 He reported that he had been having diarrhea for months but this suddenly worsened and was having up to 10x/day, nonbloody. - Labs at admission found the pt to have pancytopenia with neutropenia. No fevers or chills. - CT Abd/pelvis (11/02) noted to have AAA 4.2cm and val adrenal lesions. - Hematology was consulted to assist in etiology of pancytopenia. - Bone marrow biopsy performed on 11/03/2016 with marrow aspiration indicated acute promyelocytic leukemia bone marrow aspirate flow cytometry indicates 81% blasts most consistent with acute promyelocytic leukemia. - Pt started on ATRA , Prednisone , Arsenic trioxide daily per Heme/Onc - PICC line placed on 11/05/16 - Chemo regimen started on 11/06/16 - Received cryoprecipitate 11/09/16 for bleeding and DIC concerns - Pt is on Lasix 10mg po daily for volume overload related to IVF - He had some SOB thought to be related to symptomatic anemia on 11/27 which improved with 2 units blood given on 11/27. He was also resumed on Spiriva. - Pt noted to have VT on 11/28, felt related to medication but evaluated for cardiomyopathy and ischemia. Electrolytes are stable. Cardiology consulted. 2D echo with nml LV function. Lu neg for ischemia on . Arsenic has been on hold since 11/28. Arsenic will resume today per Oncology notes. - Cont. telemetry - Pt developed a gout attack to the right ankle 11/30. Pt was given colchicine. US neg for DVT. - Supportive care (2) VT (ventricular tachycardia) Status: Acute Plan: - See above (3) QT prolongation Status: Acute Plan: - stable - case reviewed by Cardiology - EKG q2 weeks during treatment (4) GERD (gastroesophageal reflux disease) Status: Acute Plan: - improved - protonix - tums prn (5) Pancytopenia Status: Acute Plan: - See above. (6) Neutropenia Status: Acute Plan: - See above (7) Diarrhea Status: Resolved Plan: - Diarrhea resolved - Stools are negative for C. diff - Stools for cryptosporidium and Giardia are negative (8) Weakness generalized Status: Acute Plan: - See above (9) Renal cell carcinoma Status: Resolved Plan: - See above (10) Hypertension Status: Chronic Plan: - Lisinopril 20mg BID - norvasc - Clonidine d/c per pt request. (11) PAD (peripheral artery disease) Status: Chronic Plan: - Pt with hx of PAD s/p 5 stents in lower ext. (12) copd Status: Chronic (13) CKD (chronic kidney disease) stage 3, GFR 30-59 ml/min Status: Chronic Assessment and Plan Patient examined. Assessment and plan formulated with Vanita Son PA-C. I agree with the above. Still with some pain and swelling at right ankle. Continue colchicine. Oncology resume arsenic this evening. 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
[2016-12-02] MEDS: CHOLECALCIFEROL (VIT D3) 1000 UNIT TAB PO SCH (19:57)
[2016-12-02] MEDS: PRAVASTATIN SOD 40 MG TAB PO SCH (19:58)
[2016-12-03] VITALS (8 sets, daily range): BP systolic 110–150; BP diastolic 59–69; PULSE 72–96; RESP 15–20; TEMP 97–98.1; O2SAT 91–96
[2016-12-03] MEDS: SODIUM BICARBONATE 325 MG TAB PO SCH ×3 (05:18→20:33)
[2016-12-03] MEDS: SODIUM CHLOR 0.9% 1000 ML INJ 1,000 ML IV SCH (05:19)
[2016-12-03 06:01] LABS: AUTOMATED NEUTROPHIL # 3.5 TH/MM3 (1.8-7.7); BASOPHIL % 0.3 % (0.0-2.0); EOSINOPHIL % 0.3 % (0.0-4.0); HEMATOCRIT 23.4 % (39.0-51.0); HEMO FLAGS DIFF FINAL; LYMPH % 13.8 % (9.0-44.0); LYMPHOCYTE # 0.6 TH/MM3 (1.0-4.8); MEAN CELL VOLUME 100.4 FL (80.0-100.0); MEAN CORPUSCULAR HEMOGLOBIN 33.4 PG (27.0-34.0); MEAN CORPUSCULAR HGB CONC 33.2 % (32.0-36.0); MONO % 1.4 % (0.0-8.0); NEUT % 84.2 % (16.0-70.0); PLATELET COUNT 150 TH/MM3 (150-450); RED BLOOD COUNT 2.33 MIL/MM3 (4.50-5.90); RED CELL DISTRIBUTION WIDTH 16.4 % (11.6-17.2); WHITE BLOOD COUNT 4.1 TH/MM3 (4.0-11.0)
[2016-12-03 06:21] LABS: BICARBONATE 20.9 MEQ/L (21.0-32.0); POTASSIUM 4.6 MEQ/L (3.5-5.1)
--- NOTE | 2016-12-03 07:58 | PD.ONC.PN ---
Subjective Subjective Remarks Continues to have swollen and painful right ankle, tells me he usually responds very well to prednisone with rapid tapering. Denies having any fevers, chills or night sweats, denies overt bleeding, continues to move his bowels well. Denies chest pain, shortness of breath or headaches. Objective Data Date Time Temp Pulse Resp B/P Pulse Ox O2 Delivery O2 Flow Rate FiO2 12/03/16 04:00 97.0 76 15 136/68 94 12/03/16 00:00 98.1 96 18 110/60 95 12/02/16 20:00 97.9 86 16 119/61 95 12/02/16 20:00 84 12/02/16 16:40 97.1 78 20 125/65 95 12/02/16 12:40 96.1 71 20 122/59 97 12/02/16 08:47 80 12/02/16 08:33 98.4 78 20 125/62 95 12/03/16 12/03/16 12/03/16 07:00 15:00 23:00 Intake Total 809 ml Balance 809 ml Result Diagram: 12/03/1652112/03/16521 Laboratory Results Laboratory Tests Test 12/03/16 05:22 White Blood Count 4.1 TH/MM3 Red Blood Count 2.33 MIL/MM3 Hemoglobin 7.8 GM/DL Hematocrit 23.4 % Mean Corpuscular Volume 100.4 FL Mean Corpuscular Hemoglobin 33.4 PG Mean Corpuscular Hemoglobin 33.2 % Concent Red Cell Distribution Width 16.4 % Platelet Count 150 TH/MM3 Mean Platelet Volume 8.8 FL Neutrophils (%) (Auto) 84.2 % Lymphocytes (%) (Auto) 13.8 % Monocytes (%) (Auto) 1.4 % Eosinophils (%) (Auto) 0.3 % Basophils (%) (Auto) 0.3 % Neutrophils # (Auto) 3.5 TH/MM3 Lymphocytes # (Auto) 0.6 TH/MM3 Monocytes # (Auto) 0.1 TH/MM3 Eosinophils # (Auto) 0.0 TH/MM3 Basophils # (Auto) 0.0 TH/MM3 CBC Comment DIFF FINAL Differential Comment Sodium Level 143 MEQ/L Potassium Level 4.6 MEQ/L Chloride Level 114 MEQ/L Carbon Dioxide Level 20.9 MEQ/L Anion Gap 8 MEQ/L Blood Urea Nitrogen 39 MG/DL Creatinine 2.03 MG/DL Estimat Glomerular Filtration 32 ML/MIN Rate Random Glucose 92 MG/DL Calcium Level 7.9 MG/DL Administered Medications Medications (Trade) Dose Ordered Sig/Sowmya Route PRN Reason Start Time Stop Time Status Last Admin Dose Admin Sodium Chloride (NS Flush) 2 ml UNSCH PRN IV FLUSH FLUSH AFTER USING IV ACCESS 11/02/16 18:00 11/26/16 04:15 Sodium Chloride (NS Flush) 2 ml BID IV FLUSH 11/02/16 21:00 11/29/16 13:24 Acetaminophen (Tylenol) 650 mg Q4H PRN PO TEMP > 100.4 11/02/16 18:00 11/09/16 20:29 Pravastatin Sodium (Pravachol) 40 mg HS PO 11/02/16 21:00 12/02/16 19:58 Cholecalciferol 1000 units 1,000 units HS PO 11/02/16 21:00 12/02/16 19:57 Sodium Chloride (NS 1000 ml Inj) 1,000 ml @ 50 mls/hr Q20H IV 11/03/16 10:00 12/03/16 05:19 Loperamide HCl (Imodium) 2 mg Q4H PRN PO after each episode diarrhea 11/04/16 09:30 12/01/16 10:17 Tretinoin 40 mg 40 mg BIDPC PO 11/05/16 09:00 12/02/16 17:10 Sodium Chloride (NS 250 ml Inj) 250 ml @ 84 mls/hr Q24H IV 11/05/16 11:00 11/27/16 22:30 Sodium Chloride (NS Flush) See Protocol UNSCH PRN IV FLUSH SEE PROTOCOL TABLE 11/05/16 10:45 11/25/16 03:26 Heparin Sodium (Porcine) (Heparin Central Flush) See Protocol DAILY IV FLUSH 11/06/16 09:00 11/29/16 13:24 Sodium Chloride (NS Flush) UNSCH PRN IV FLUSH SEE PROTOCOL TABLE 11/05/16 10:45 11/27/16 04:13 Sodium Bicarbonate (Sodium Bicarbonate) 325 mg Q8HR PO 11/06/16 08:00 12/03/16 05:18 Pantoprazole Sodium (Protonix) 40 mg DAILY PO 11/07/16 09:15 12/02/16 08:43 Calcium Carbonate 500 mg 500 mg Q2H PRN CHEW dyspepsia 11/07/16 09:15 11/07/16 09:30 Arsenic Trioxide/ Sodium Chloride (Trisenox Inj/NS 250 ml Inj) 260 ml @ 130.925 mls/hr Q24H IV 11/09/16 22:00 12/01/16 00:00 11/27/16 22:31 Alteplase, Recombinant (Cathflo Activase Inj) 2 mg UNSCH PRN IV FLUSH FOR CLOGGED CENTRAL LINE 11/14/16 09:30 11/14/16 10:43 Furosemide (Lasix) 10 mg DAILY PO 11/18/16 09:00 12/02/16 08:44 Potassium Chloride (KCl) 20 meq DAILY PO 11/18/16 09:00 12/02/16 08:43 Lisinopril (Prinivil) 20 mg Q12HR PO 11/18/16 21:00 12/02/16 19:57 Amlodipine Besylate (Norvasc) 5 mg DAILY PO 11/24/16 17:00 12/02/16 08:44 Tiotropium [place] (Spiriva Inh) 18 mcg DAILY INH 11/27/16 09:00 12/02/16 08:41 Diphenhydramine HCl (Benadryl) 25 mg Q4H PRN PO PRE-MED BLOOD TRANSFUSION 11/27/16 13:15 11/27/16 13:11 Acetaminophen (Tylenol) 650 mg Q4H PRN PO PRE-MED BLOOD TRANSFUSION 11/27/16 13:15 11/27/16 13:11 Metoprolol Tartrate (Lopressor) 50 mg Q12HR PO 11/29/16 09:15 12/02/16 19:58 Colchicine (Colchicine) 0.6 mg ONCE PRN PO gout 11/30/16 16:15 12/03/16 16:14 11/30/16 21:49 Allopurinol (Zyloprim) 100 mg BID PO 12/02/16 09:00 12/02/16 19:58 Objective Remarks GENERAL: Elderly male, pleasant disposition, coughs frequently. This is a well- nourished, well-developed patient, in no apparent distress. SKIN: No rashes, ecchymoses or lesions. Cool and dry. HEAD: Atraumatic. Normocephalic. No temporal or scalp tenderness. EYES: Pupils equal round and reactive. Extraocular motions intact. No scleral icterus. No injection or drainage. ENT: Nose without active bleeding, some dried blood in the nares, purulent drainage or septal hematoma. Throat without erythema, tonsillar hypertrophy or exudate. Uvula midline. Airway patent. NECK: Trachea midline. No JVD or lymphadenopathy. Supple, nontender, no meningeal signs. CARDIOVASCULAR: Regular rate and rhythm without murmurs, gallops, or rubs. RESPIRATORY: Prolonged expiratory phase, disbursed crackles occasional rhonchi, prolonged expiratory phase. GASTROINTESTINAL: Abdomen soft, non-tender, nondistended. No hepato-splenomegaly , or palpable masses. No guarding. MUSCULOSKELETAL: Edema resolved in the right leg, mild residual edema in the left leg. No joint tenderness. No calf tenderness. Negative Homans sign bilaterally. NEUROLOGICAL: Awake and alert. Cranial nerves II through XII intact. Motor and sensory grossly within normal limits. Five out of 5 muscle strength in all muscle groups. Normal speech. 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 Arsenic trioxide day 1 was 11/09/2016 Plan 1. Acute promyelocytic leukemia: continue Tretinoin. Arsenic trioxide will resume today after it was held on the night of 11/28/2016. 2. V-tach: last run of V-tach was on 11/28. Myocardial perfusion scan showed no reversible perfusion defect. echo showed only possible small pericardial effusion; cardiology recommended beta blockers. Treatment will be resumed, cardiac rhythm will be monitored very closely. 3. Gout: will give a second dose of Colchicine and start PRN Lortab for pain. Allopurinol 100 mg twice daily has been added on 12/02/2016, 12/03/2016: Penicillin 40 MG daily initiated, will rapidly taper over a period of 5-6 days. 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
[2016-12-03] MEDS: SODIUM CHLORIDE 0.9% FLUSH 10 ML FLUSH IV FLUSH SCH ×3 (08:39→20:45)
[2016-12-03] MEDS: TIOTROPIUM BROMIDE 18 MCG INH INH SCH (08:43)
[2016-12-03] MEDS: TRETINOIN PO SCH ×2 (08:43→18:18)
[2016-12-03] MEDS: POTASSIUM CHLORIDE 20 MEQ CONTROLLED RELEASE TAB PO SCH (08:44)
[2016-12-03] MEDS: predniSONE 20 MG TAB PO SCH (08:44)
[2016-12-03] MEDS: METOPROLOL TARTRATE 50 MG TAB PO SCH ×2 (08:44→20:34)
[2016-12-03] MEDS: FUROSEMIDE 20 MG TAB PO SCH (08:44)
[2016-12-03] MEDS: LISINOPRIL 20 MG TAB PO SCH ×2 (08:44→20:33)
[2016-12-03] MEDS: amLODIPine BESYLATE 5 MG TAB PO SCH (08:44)
[2016-12-03] MEDS: PANTOPRAZOLE SOD 40 MG DELAYED RELEASE TAB PO SCH (08:44)
[2016-12-03] MEDS: ALLOPURINOL 100 MG TAB PO SCH ×2 (08:44→20:32)
--- NOTE | 2016-12-03 09:31 | HHI.PR ---
Subjective Remarks Pt reports that his right ankle is still quite painful. He has not been ambulating much due to the pain. Denies any SOB or chest pain. Objective Vitals Vital Signs Date Time Temp Pulse Resp B/P Pulse Ox O2 Delivery O2 Flow Rate FiO2 12/03/16 08:50 97.4 76 20 150/69 95 12/03/16 04:00 97.0 76 15 136/68 94 12/03/16 00:00 98.1 96 18 110/60 95 12/02/16 20:00 97.9 86 16 119/61 95 12/02/16 20:00 84 12/02/16 16:40 97.1 78 20 125/65 95 12/02/16 12:40 96.1 71 20 122/59 97 12/02/16 12/02/16 12/03/16 15:00 23:00 07:00 Intake Total 830 ml 240 ml 809 ml Balance 830 ml 240 ml 809 ml Intake Oral 480 ml 240 ml IV Total 350 ml 809 ml # Voids 7 1 # Bowel Movements 3 Result Diagram: 12/03/1652112/03/16521 Other Results Laboratory Tests Test 12/02/16 12/03/16 05:20 05:22 White Blood Count 5.2 TH/MM3 4.1 TH/MM3 Red Blood Count 2.49 MIL/MM3 2.33 MIL/MM3 Hemoglobin 8.2 GM/DL 7.8 GM/DL Hematocrit 24.6 % 23.4 % Mean Corpuscular Volume 98.8 FL 100.4 FL Mean Corpuscular Hemoglobin 32.9 PG 33.4 PG Mean Corpuscular Hemoglobin 33.3 % 33.2 % Concent Red Cell Distribution Width 16.6 % 16.4 % Platelet Count 148 TH/MM3 150 TH/MM3 Mean Platelet Volume 8.7 FL 8.8 FL Neutrophils (%) (Auto) 82.1 % 84.2 % Lymphocytes (%) (Auto) 15.1 % 13.8 % Monocytes (%) (Auto) 1.1 % 1.4 % Eosinophils (%) (Auto) 1.4 % 0.3 % Basophils (%) (Auto) 0.3 % 0.3 % Neutrophils # (Auto) 4.2 TH/MM3 3.5 TH/MM3 Lymphocytes # (Auto) 0.8 TH/MM3 0.6 TH/MM3 Monocytes # (Auto) 0.1 TH/MM3 0.1 TH/MM3 Eosinophils # (Auto) 0.1 TH/MM3 0.0 TH/MM3 Basophils # (Auto) 0.0 TH/MM3 0.0 TH/MM3 CBC Comment DIFF FINAL DIFF FINAL Differential Comment Sodium Level 143 MEQ/L Potassium Level 4.6 MEQ/L Chloride Level 114 MEQ/L Carbon Dioxide Level 20.9 MEQ/L Anion Gap 8 MEQ/L Blood Urea Nitrogen 39 MG/DL Creatinine 2.03 MG/DL Estimat Glomerular Filtration 32 ML/MIN Rate Random Glucose 92 MG/DL Calcium Level 7.9 MG/DL Imaging Last Impressions Lower Extremity Ultrasound 12/01/16 0000 Signed Impressions: Service Date/Time: Thursday, December 01, 2016 09:29 - CONCLUSION: Normal examination. Ant Fraser MD Myocardial Perfusion Scan Nuc Med 11/29/16 0000 Signed Impressions: Service Date/Time: Tuesday, November 29, 2016 10:16 - CONCLUSION: No reversible perfusion defects or focal wall motion abnormalities. RISK CATEGORY: 1- Low Risk. Arturo Serrano MD Chest X-Ray 11/10/16 0000 Signed Impressions: Service Date/Time: Thursday, November 10, 2016 11:48 - CONCLUSION: No acute cardiopulmonary disease identified. Arturo Serrano MD Lumbar Spine CT 11/02/16 0000 Signed Impressions: Service Date/Time: Wednesday, November 02, 2016 15:10 - CONCLUSION: 1. Chronic bilateral pars defects at L5-S1 with associated significant spondylolisthesis and hypertrophic changes in the posterior elements. 2. Advanced discogenic degenerative changes from L2-S1, left lumbar scoliosis, and a moderately large left-sided disc protrusion at L2-3 causing probable neural impingement. Lam Parrish MD Abdomen/Pelvis CT 11/02/16 0000 Signed Impressions: Service Date/Time: Wednesday, November 02, 2016 15:10 - CONCLUSION: 1. Left parapelvic cyst and a low density lesion lower pole of the solitary left kidney are similar to images from a prior cryoablation in August 2015. 2. Bilateral adrenal lesions, low density in the right and intermediate density on the left. Recommend correlation with outside prior imaging studies to see if this is a new or old finding. 3. 4.2 cm distal abdominal aortic aneurysm. Bilaterally iliac stents in place. 4. Significant spondylolisthesis at L5-S1 with bilateral pars defects. 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 He reported that he had been having diarrhea for months but this suddenly worsened and was having up to 10x/day, nonbloody. - Labs at admission found the pt to have pancytopenia with neutropenia. No fevers or chills. - CT Abd/pelvis (11/02) noted to have AAA 4.2cm and val adrenal lesions. - Hematology was consulted to assist in etiology of pancytopenia. - Bone marrow biopsy performed on 11/03/2016 with marrow aspiration indicated acute promyelocytic leukemia bone marrow aspirate flow cytometry indicates 81% blasts most consistent with acute promyelocytic leukemia. - Pt started on ATRA , Prednisone , Arsenic trioxide daily per Heme/Onc - PICC line placed on 11/05/16 - Chemo regimen started on 11/06/16 - Received cryoprecipitate 11/09/16 for bleeding and DIC concerns - Pt is on Lasix 10mg po daily for volume overload related to IVF - He had some SOB thought to be related to symptomatic anemia on 11/27 which improved with 2 units blood given on 11/27. He was also resumed on Spiriva. - Pt noted to have VT on 11/28, felt related to medication but evaluated for cardiomyopathy and ischemia. Electrolytes are stable. Cardiology consulted. 2D echo with nml LV function. Lu neg for ischemia on . Arsenic has been on hold since 11/28. - Arsenic will resume on 12/03. - Cont. telemetry - Supportive care (2) VT (ventricular tachycardia) Status: Acute Plan: - See above (3) Gout attack Status: Acute Plan: - Pt developed a gout attack to the right ankle 11/30. - Pt was given colchicine. - US neg for DVT. - Pt started on Allopurinol 100mg po BID on 5/22 - Prednisone 40mg po daily started on 12/03 with a quick taper per the Oncology notes. (4) QT prolongation Status: Acute Plan: - stable - case reviewed by Cardiology - EKG q2 weeks during treatment (5) GERD (gastroesophageal reflux disease) Status: Acute Plan: - improved - protonix - tums prn (6) Pancytopenia Status: Acute Plan: - See above. (7) Neutropenia Status: Acute Plan: - See above (8) Diarrhea Status: Resolved Plan: - Diarrhea resolved - Stools are negative for C. diff - Stools for cryptosporidium and Giardia are negative (9) Weakness generalized Status: Acute Plan: - See above (10) Renal cell carcinoma Status: Resolved Plan: - See above (11) Hypertension Status: Chronic Plan: - Lisinopril 20mg BID - norvasc - Clonidine d/c per pt request. (12) PAD (peripheral artery disease) Status: Chronic Plan: - Pt with hx of PAD s/p 5 stents in lower ext. (13) copd Status: Chronic (14) CKD (chronic kidney disease) stage 3, GFR 30-59 ml/min Status: Chronic Assessment and Plan Patient examined. Assessment and plan formulated with Vanita Son PA-C. I agree with the above. 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
[2016-12-03] MEDS: SODIUM CHLORIDE 0.9% IV SCH (14:30)
[2016-12-03] MEDS: [UNRECOGNIZED DRUG - OTHER] IV SCH (14:30)
[2016-12-03] MEDS: SODIUM CHLOR 0.9% 250 ML INJ 250 ML IV SCH (14:35)
[2016-12-03] MEDS: PRAVASTATIN SOD 40 MG TAB PO SCH (20:34)
[2016-12-03] MEDS: CHOLECALCIFEROL (VIT D3) 1000 UNIT TAB PO SCH (20:35)
[2016-12-04] VITALS (11 sets, daily range): BP systolic 106–155; BP diastolic 56–75; PULSE 57–76; RESP 17–20; TEMP 96.5–97.8; O2SAT 92–98
[2016-12-04] MEDS: SODIUM BICARBONATE 325 MG TAB PO SCH ×3 (04:08→21:48)
[2016-12-04] MEDS: SODIUM CHLOR 0.9% 1000 ML INJ 1,000 ML IV SCH ×2 (04:08→22:03)
--- NOTE | 2016-12-04 07:50 | PD.ONC.PN ---
Subjective Subjective Remarks Patient denies acute complaints, reports tolerating treatment well yesterday. Distantly denies palpitations, syncopal episodes or difficulty breathing. Patient reports the pain in his right ankle significantly improved with the addition of prednisone, he is not able to walk more comfortably. I did talk to him about a restaging bone marrow biopsy and he prefers this be done under CT guidance with conscious sedation due to the pain and discomfort he experienced last time when I performed the biopsy at bedside without sedation. Objective Data Date Time Temp Pulse Resp B/P Pulse Ox O2 Delivery O2 Flow Rate FiO2 12/04/16 04:00 96.6 69 17 106/64 94 12/04/16 00:00 97.7 75 18 120/66 95 12/03/16 22:10 97.0 72 17 110/59 94 12/03/16 20:16 73 12/03/16 16:19 97.8 74 20 118/65 95 12/03/16 12:35 97.5 77 20 141/65 96 12/03/16 08:50 97.4 76 20 150/69 95 12/03/16 08:00 76 Result Diagram: 12/03/1652112/03/16521 Administered Medications Medications (Trade) Dose Ordered Sig/Sowmya Route PRN Reason Start Time Stop Time Status Last Admin Dose Admin Sodium Chloride (NS Flush) 2 ml UNSCH PRN IV FLUSH FLUSH AFTER USING IV ACCESS 11/02/16 18:00 11/26/16 04:15 Sodium Chloride (NS Flush) 2 ml BID IV FLUSH 11/02/16 21:00 11/29/16 13:24 Acetaminophen (Tylenol) 650 mg Q4H PRN PO TEMP > 100.4 11/02/16 18:00 11/09/16 20:29 Pravastatin Sodium (Pravachol) 40 mg HS PO 11/02/16 21:00 12/03/16 20:34 Cholecalciferol 1000 units 1,000 units HS PO 11/02/16 21:00 12/03/16 20:35 Sodium Chloride (NS 1000 ml Inj) 1,000 ml @ 50 mls/hr Q20H IV 11/03/16 10:00 12/04/16 04:08 Loperamide HCl (Imodium) 2 mg Q4H PRN PO after each episode diarrhea 11/04/16 09:30 12/01/16 10:17 Tretinoin 40 mg 40 mg BIDPC PO 11/05/16 09:00 12/03/16 18:18 Sodium Chloride (NS 250 ml Inj) 250 ml @ 84 mls/hr Q24H IV 11/05/16 11:00 12/03/16 14:35 Sodium Chloride (NS Flush) See Protocol UNSCH PRN IV FLUSH SEE PROTOCOL TABLE 11/05/16 10:45 11/25/16 03:26 Heparin Sodium (Porcine) (Heparin Central Flush) See Protocol DAILY IV FLUSH 11/06/16 09:00 11/29/16 13:24 Sodium Chloride (NS Flush) UNSCH PRN IV FLUSH SEE PROTOCOL TABLE 11/05/16 10:45 11/27/16 04:13 Sodium Bicarbonate (Sodium Bicarbonate) 325 mg Q8HR PO 11/06/16 08:00 12/04/16 04:08 Pantoprazole Sodium (Protonix) 40 mg DAILY PO 11/07/16 09:15 12/03/16 08:44 Calcium Carbonate (Tums Chew) 500 mg Q2H PRN CHEW dyspepsia 11/07/16 09:15 11/07/16 09:30 Alteplase, Recombinant (Cathflo Activase Inj) 2 mg UNSCH PRN IV FLUSH FOR CLOGGED CENTRAL LINE 11/14/16 09:30 11/14/16 10:43 Furosemide (Lasix) 10 mg DAILY PO 11/18/16 09:00 12/03/16 08:44 Potassium Chloride (KCl) 20 meq DAILY PO 11/18/16 09:00 12/03/16 08:44 Lisinopril (Prinivil) 20 mg Q12HR PO 11/18/16 21:00 12/03/16 20:33 Amlodipine Besylate (Norvasc) 5 mg DAILY PO 11/24/16 17:00 12/03/16 08:44 Tiotropium [place] (Spiriva Inh) 18 mcg DAILY INH 11/27/16 09:00 12/03/16 08:43 Diphenhydramine HCl (Benadryl) 25 mg Q4H PRN PO PRE-MED BLOOD TRANSFUSION 11/27/16 13:15 11/27/16 13:11 Acetaminophen (Tylenol) 650 mg Q4H PRN PO PRE-MED BLOOD TRANSFUSION 11/27/16 13:15 11/27/16 13:11 Metoprolol Tartrate (Lopressor) 50 mg Q12HR PO 11/29/16 09:15 12/03/16 20:34 Allopurinol (Zyloprim) 100 mg BID PO 12/02/16 09:00 12/03/16 20:32 Prednisone 40 mg 40 mg DAILY PO 12/03/16 09:00 12/03/16 08:44 Arsenic Trioxide/ Sodium Chloride (Trisenox Inj/NS 250 ml Inj) 260 ml @ 130.925 mls/hr Q24H IV 12/03/16 14:00 12/04/16 16:00 12/03/16 14:30 Objective Remarks GENERAL: Elderly male, pleasant disposition, coughs frequently. This is a well- nourished, well-developed patient, in no apparent distress. SKIN: No rashes, ecchymoses or lesions. Cool and dry. HEAD: Atraumatic. Normocephalic. No temporal or scalp tenderness. EYES: Pupils equal round and reactive. Extraocular motions intact. No scleral icterus. No injection or drainage. ENT: Nose without active bleeding, some dried blood in the nares, purulent drainage or septal hematoma. Throat without erythema, tonsillar hypertrophy or exudate. Uvula midline. Airway patent. NECK: Trachea midline. No JVD or lymphadenopathy. Supple, nontender, no meningeal signs. CARDIOVASCULAR: Regular rate and rhythm without murmurs, gallops, or rubs. RESPIRATORY: Prolonged expiratory phase, disbursed crackles occasional rhonchi, prolonged expiratory phase. GASTROINTESTINAL: Abdomen soft, non-tender, nondistended. No hepato-splenomegaly , or palpable masses. No guarding. MUSCULOSKELETAL: Edema resolved in the right leg, mild residual edema in the left leg. No joint tenderness. No calf tenderness. Negative Homans sign bilaterally. NEUROLOGICAL: Awake and alert. Cranial nerves II through XII intact. Motor and sensory grossly within normal limits. Five out of 5 muscle strength in all muscle groups. Normal speech. 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 Arsenic trioxide day 1 was 11/09/2016 Plan 1. Acute promyelocytic leukemia: continue Tretinoin, arsenic trioxide has also been restarted. I would like the patient to undergo restaging bone marrow biopsy later today under CT guidance and under conscious sedation. Should he be in remission he will be taken off of daily treatment and will transition to the consolidation phase of treatment. 2. V-tach: No further episodes documented, now on Lopressor. 3. Gout: will give a second dose of Colchicine and start PRN Lortab for pain. Allopurinol 100 mg twice daily has been added on 12/02/2016, 12/03/2016: Penicillin 40 MG daily initiated, will rapidly taper over a period of 5-6 days. 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
[2016-12-04] MEDS: PANTOPRAZOLE SOD 40 MG DELAYED RELEASE TAB PO SCH (08:20)
[2016-12-04] MEDS: POTASSIUM CHLORIDE 20 MEQ CONTROLLED RELEASE TAB PO SCH (08:20)
[2016-12-04] MEDS: ALLOPURINOL 100 MG TAB PO SCH ×2 (08:20→21:48)
[2016-12-04] MEDS: LISINOPRIL 20 MG TAB PO SCH ×2 (08:20→21:48)
[2016-12-04] MEDS: amLODIPine BESYLATE 5 MG TAB PO SCH (08:20)
[2016-12-04] MEDS: predniSONE 20 MG TAB PO SCH (08:20)
[2016-12-04] MEDS: TIOTROPIUM BROMIDE 18 MCG INH INH SCH (08:20)
[2016-12-04] MEDS: METOPROLOL TARTRATE 50 MG TAB PO SCH ×2 (08:20→21:48)
[2016-12-04] MEDS: FUROSEMIDE 20 MG TAB PO SCH (08:21)
[2016-12-04] MEDS: TRETINOIN PO SCH ×2 (08:25→19:01)
[2016-12-04] MEDS: SODIUM CHLORIDE 0.9% FLUSH 10 ML FLUSH IV FLUSH SCH ×3 (08:26→21:00)
--- NOTE | 2016-12-04 10:28 | HHI.PR ---
Subjective Remarks Pt reports that his right ankle pain is improving. He is not ambulating much but is able to move around some with less discomfort. Afebrile. Objective Vitals Vital Signs Date Time Temp Pulse Resp B/P Pulse Ox O2 Delivery O2 Flow Rate FiO2 12/04/16 08:20 74 12/04/16 08:00 96.5 68 20 123/61 98 12/04/16 04:00 96.6 69 17 106/64 94 12/04/16 00:00 97.7 75 18 120/66 95 12/03/16 22:10 97.0 72 17 110/59 94 12/03/16 20:16 73 12/03/16 16:19 97.8 74 20 118/65 95 12/03/16 12:35 97.5 77 20 141/65 96 12/03/16 12/03/16 12/04/16 14:59 22:59 06:59 Intake Total 440 ml 240 ml Balance 440 ml 240 ml Intake Oral 440 ml 240 ml # Voids 7 2 # Bowel Movements 1 Result Diagram: 12/03/1652112/03/16521 Other Results Laboratory Tests Test 12/03/16 05:22 White Blood Count 4.1 TH/MM3 Red Blood Count 2.33 MIL/MM3 Hemoglobin 7.8 GM/DL Hematocrit 23.4 % Mean Corpuscular Volume 100.4 FL Mean Corpuscular Hemoglobin 33.4 PG Mean Corpuscular Hemoglobin 33.2 % Concent Red Cell Distribution Width 16.4 % Platelet Count 150 TH/MM3 Mean Platelet Volume 8.8 FL Neutrophils (%) (Auto) 84.2 % Lymphocytes (%) (Auto) 13.8 % Monocytes (%) (Auto) 1.4 % Eosinophils (%) (Auto) 0.3 % Basophils (%) (Auto) 0.3 % Neutrophils # (Auto) 3.5 TH/MM3 Lymphocytes # (Auto) 0.6 TH/MM3 Monocytes # (Auto) 0.1 TH/MM3 Eosinophils # (Auto) 0.0 TH/MM3 Basophils # (Auto) 0.0 TH/MM3 CBC Comment DIFF FINAL Differential Comment Sodium Level 143 MEQ/L Potassium Level 4.6 MEQ/L Chloride Level 114 MEQ/L Carbon Dioxide Level 20.9 MEQ/L Anion Gap 8 MEQ/L Blood Urea Nitrogen 39 MG/DL Creatinine 2.03 MG/DL Estimat Glomerular Filtration 32 ML/MIN Rate Random Glucose 92 MG/DL Calcium Level 7.9 MG/DL Imaging Last Impressions Lower Extremity Ultrasound 12/01/16 0000 Signed Impressions: Service Date/Time: Thursday, December 01, 2016 09:29 - CONCLUSION: Normal examination. Ant Fraser MD Myocardial Perfusion Scan Nuc Med 11/29/16 0000 Signed Impressions: Service Date/Time: Tuesday, November 29, 2016 10:16 - CONCLUSION: No reversible perfusion defects or focal wall motion abnormalities. RISK CATEGORY: 1- Low Risk. Arturo Serrano MD Chest X-Ray 11/10/16 0000 Signed Impressions: Service Date/Time: Thursday, November 10, 2016 11:48 - CONCLUSION: No acute cardiopulmonary disease identified. Arturo Serrano MD Lumbar Spine CT 11/02/16 0000 Signed Impressions: Service Date/Time: Wednesday, November 02, 2016 15:10 - CONCLUSION: 1. Chronic bilateral pars defects at L5-S1 with associated significant spondylolisthesis and hypertrophic changes in the posterior elements. 2. Advanced discogenic degenerative changes from L2-S1, left lumbar scoliosis, and a moderately large left-sided disc protrusion at L2-3 causing probable neural impingement. Lam Parrish MD Abdomen/Pelvis CT 11/02/16 0000 Signed Impressions: Service Date/Time: Wednesday, November 02, 2016 15:10 - CONCLUSION: 1. Left parapelvic cyst and a low density lesion lower pole of the solitary left kidney are similar to images from a prior cryoablation in August 2015. 2. Bilateral adrenal lesions, low density in the right and intermediate density on the left. Recommend correlation with outside prior imaging studies to see if this is a new or old finding. 3. 4.2 cm distal abdominal aortic aneurysm. Bilaterally iliac stents in place. 4. Significant spondylolisthesis at L5-S1 with bilateral pars defects. 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 He reported that he had been having diarrhea for months but this suddenly worsened and was having up to 10x/day, nonbloody. - Labs at admission found the pt to have pancytopenia with neutropenia. No fevers or chills. - CT Abd/pelvis (11/02) noted to have AAA 4.2cm and val adrenal lesions. - Hematology was consulted to assist in etiology of pancytopenia. - Bone marrow biopsy performed on 11/03/2016 with marrow aspiration indicated acute promyelocytic leukemia bone marrow aspirate flow cytometry indicates 81% blasts most consistent with acute promyelocytic leukemia. - Pt started on ATRA , Prednisone , Arsenic trioxide daily per Heme/Onc - PICC line placed on 11/05/16 - Chemo regimen started on 11/06/16 - Received cryoprecipitate 11/09/16 for bleeding and DIC concerns - Pt is on Lasix 10mg po daily for volume overload related to IVF - He had some SOB thought to be related to symptomatic anemia on 11/27 which improved with 2 units blood given on 11/27. He was also resumed on Spiriva. - Pt noted to have VT on 11/28, felt related to medication but evaluated for cardiomyopathy and ischemia. Electrolytes are stable. Cardiology consulted. 2D echo with nml LV function. Lu neg for ischemia on . Arsenic has been on hold since 11/28. - Arsenic will resumed on 12/03. - Cont. telemetry - Supportive care (2) VT (ventricular tachycardia) Status: Acute Plan: - See above (3) Gout attack Status: Acute Plan: - Pt developed a gout attack to the right ankle 11/30. - Pt was given colchicine. - US neg for DVT. - Pt started on Allopurinol 100mg po BID on 12/02 - Prednisone 40mg po daily started on 12/03 with a quick taper per the Oncology notes. (4) QT prolongation Status: Acute Plan: - stable - case reviewed by Cardiology - EKG q2 weeks during treatment (5) GERD (gastroesophageal reflux disease) Status: Acute Plan: - improved - protonix - tums prn (6) Pancytopenia Status: Acute Plan: - See above. (7) Neutropenia Status: Acute Plan: - See above (8) Diarrhea Status: Resolved Plan: - Diarrhea resolved - Stools are negative for C. diff - Stools for cryptosporidium and Giardia are negative (9) Weakness generalized Status: Acute Plan: - See above (10) Renal cell carcinoma Status: Resolved Plan: - See above (11) Hypertension Status: Chronic Plan: - Lisinopril 20mg BID - norvasc - Clonidine d/c per pt request. (12) PAD (peripheral artery disease) Status: Chronic Plan: - Pt with hx of PAD s/p 5 stents in lower ext. (13) copd Status: Chronic (14) CKD (chronic kidney disease) stage 3, GFR 30-59 ml/min Status: Chronic Assessment and Plan Patient examined. Assessment and plan formulated with Vanita Son PA-C. I agree with the above. 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
[2016-12-04] MEDS ORDERED: fentaNYL CITRATE 250 MCG/5 ML AMP ONE (12:22)
[2016-12-04] MEDS ORDERED: MIDAZOLAM HCL 5 MG/5 ML VIAL ONE (12:22)
[2016-12-04 13:10] LABS: BONE MARROW PROCESSING COMPLETE; IRON STAIN DONE; JENNER GIEMSA STAIN DONE
[2016-12-04] MEDS: SODIUM CHLOR 0.9% 250 ML INJ 250 ML IV SCH (14:39)
[2016-12-04] MEDS: [UNRECOGNIZED DRUG - OTHER] IV SCH (14:42)
[2016-12-04] MEDS: SODIUM CHLORIDE 0.9% IV SCH (14:42)
--- NOTE | 2016-12-04 17:03 | RADRPT ---
EXAM DATE/TIME: 12/04/2016 12:15 [facility] COMPARISON: No previous studies available for comparison. INDICATIONS : [id number] SEDATION TIME: 10 minutes BIOPSY SITE: Right ilium MEDICATION(S): 1.) 3 mg midazolam (Versed) IV 2.) 150 mcg fentanyl (Sublimaze) IV DEVICE(S): 1.) 11 gauge On-Control needle MEDICAL HISTORY : Renal cell carcinoma. Peripheral vascular disease. Chronic obstructive pulmonary disease. Hypertensio n SURGICAL HISTORY : Nephrectomy, right. Leg stents ENCOUNTER: Initial ACUITY: 1 day PAIN SCORE: 0/10 LOCATION: Right ilium A total of one core specimen(s) were obtained and sent to the laboratory for pathologic evaluation. PROCEDURE: 1. CT guided bone marrowrt ilium biopsy. Prior to the procedure informed consent was obtained. Any appropriate prior imaging studies were rev iewed. Using automated exposure control and adjustment of the mA and/or kV according to patient size , radiation dose was kept as low as reasonably achievable to obtain optimal diagnostic quality images . The site was prepped in a sterile fashion. Full sterile technique was used, including cap, mask, russel rile gloves and gown and a large sterile sheet. Hand hygiene and 2% chlorhexidine and/or betadine/al cohol prep was utilized per protocol for cutaneous antisepsis. The skin and subcutaneous tissues wer e infiltrated with local anesthetic solution. With CT guidance the previously identified target was localized. Biopsy was performed using the presc ribed needle as above. Following biopsy marrow aspiration was performed with repeat puncture. Adequa te hemostasis was obtained with compression at the puncture site. Follow-up CT scan reveals no hemorrhage. Conscious sedation was performed with the prescribed dosages and duration as above in the presence of an independent trained radiology nurse to assist in the monitoring of the patient. EKG and oximetry remained stable throughout the procedure. The patient tolerated the procedure well and there were no complications. The patient was sent to Radiology Outpatient Unit in stable condition. CONCLUSION: 1. Uncomplicated CT guided bone marrow aspirate. 2. Uncomplicated CT guided bone marrow biopsy. Ignacio Torre MD on December 04, 2016 at 17:01 Board Certified Radiologist. This report was verified electronically.
[2016-12-04] MEDS: PRAVASTATIN SOD 40 MG TAB PO SCH (21:00)
[2016-12-04] MEDS: CHOLECALCIFEROL (VIT D3) 1000 UNIT TAB PO SCH (21:47)
[2016-12-05] VITALS (8 sets, daily range): BP systolic 108–143; BP diastolic 55–68; PULSE 62–75; RESP 16–18; TEMP 96.5–98.3; O2SAT 93–97
[2016-12-05 04:42] LABS: AUTOMATED NEUTROPHIL # 2.5 TH/MM3 (1.8-7.7); BASOPHIL % 0.1 % (0.0-2.0); EOSINOPHIL % 0.3 % (0.0-4.0); HEMATOCRIT 21.9 % (39.0-51.0); LYMPH % 19.1 % (9.0-44.0); LYMPHOCYTE # 0.6 TH/MM3 (1.0-4.8); NEUT % 74.5 % (16.0-70.0); PLATELET COUNT 185 TH/MM3 (150-450); RED BLOOD COUNT 2.19 MIL/MM3 (4.50-5.90); RED CELL DISTRIBUTION WIDTH 16.9 % (11.6-17.2); WHITE BLOOD COUNT 3.3 TH/MM3 (4.0-11.0)
[2016-12-05 04:43] LABS: HEMO FLAGS AUTO DIFF
[2016-12-05 04:59] LABS: BICARBONATE 21.4 MEQ/L (21.0-32.0); MAGNESIUM 2.2 MG/DL (1.5-2.5); POTASSIUM 4.7 MEQ/L (3.5-5.1)
[2016-12-05 05:41] LABS: SCAN/DIFF AUTO DIFF CONFIRMED
[2016-12-05] MEDS: SODIUM BICARBONATE 325 MG TAB PO SCH ×2 (07:20→15:25)
[2016-12-05] MEDS ORDERED: diphenhydrAMINE HCL 25 MG CAP PO PRN (07:30)
[2016-12-05] MEDS ORDERED: ACETAMINOPHEN 325 MG TAB PO PRN (07:30)
[2016-12-05] MEDS ORDERED: SODIUM CHLOR 0.9% 250 ML INJ 250 ML IV ONE (07:30)
--- NOTE | 2016-12-05 07:59 | PD.ONC.PN ---
Subjective Subjective Remarks Denies acute complaints today, right ankle feels 75% better, he is able to walk again without severe pain. Tolerated bone marrow biopsy without difficulties yesterday. Denies fevers or chills, overt bleeding, chest pain, palpitations or syncopal episodes. Objective Data Date Time Temp Pulse Resp B/P Pulse Ox O2 Delivery O2 Flow Rate FiO2 12/05/16 04:00 96.5 65 17 109/55 96 12/05/16 00:00 96.6 62 18 108/57 95 12/04/16 22:46 65 12/04/16 20:00 97.1 76 17 117/56 96 12/04/16 16:00 96.6 70 20 139/62 97 12/04/16 13:54 57 18 118/70 92 12/04/16 13:24 59 17 119/75 93 12/04/16 13:09 97.8 60 18 112/70 92 12/04/16 12:00 97.3 70 20 155/73 97 12/04/16 08:20 74 12/04/16 08:00 96.5 68 20 123/61 98 Result Diagram: 12/05/16 0407 12/05/16 0407 Laboratory Results Laboratory Tests Test 12/05/16 04:07 White Blood Count 3.3 TH/MM3 Red Blood Count 2.19 MIL/MM3 Hemoglobin 7.5 GM/DL Hematocrit 21.9 % Mean Corpuscular Volume 100.0 FL Mean Corpuscular Hemoglobin 34.0 PG Mean Corpuscular Hemoglobin 34.0 % Concent Red Cell Distribution Width 16.9 % Platelet Count 185 TH/MM3 Mean Platelet Volume 9.1 FL Neutrophils (%) (Auto) 74.5 % Lymphocytes (%) (Auto) 19.1 % Monocytes (%) (Auto) 6.0 % Eosinophils (%) (Auto) 0.3 % Basophils (%) (Auto) 0.1 % Neutrophils # (Auto) 2.5 TH/MM3 Lymphocytes # (Auto) 0.6 TH/MM3 Monocytes # (Auto) 0.2 TH/MM3 Eosinophils # (Auto) 0.0 TH/MM3 Basophils # (Auto) 0.0 TH/MM3 CBC Comment AUTO DIFF Differential Comment AUTO DIFF CONFIRMED Sodium Level 146 MEQ/L Potassium Level 4.7 MEQ/L Chloride Level 118 MEQ/L Carbon Dioxide Level 21.4 MEQ/L Anion Gap 7 MEQ/L Blood Urea Nitrogen 41 MG/DL Creatinine 1.86 MG/DL Estimat Glomerular Filtration 35 ML/MIN Rate Random Glucose 120 MG/DL Calcium Level 7.8 MG/DL Magnesium Level 2.2 MG/DL Administered Medications Medications (Trade) Dose Ordered Sig/Sowmya Route PRN Reason Start Time Stop Time Status Last Admin Dose Admin Sodium Chloride (NS Flush) 2 ml UNSCH PRN IV FLUSH FLUSH AFTER USING IV ACCESS 11/02/16 18:00 11/26/16 04:15 Sodium Chloride (NS Flush) 2 ml BID IV FLUSH 11/02/16 21:00 11/29/16 13:24 Acetaminophen (Tylenol) 650 mg Q4H PRN PO TEMP > 100.4 11/02/16 18:00 11/09/16 20:29 Pravastatin Sodium (Pravachol) 40 mg HS PO 11/02/16 21:00 12/04/16 21:00 Cholecalciferol 1000 units 1,000 units HS PO 11/02/16 21:00 12/04/16 21:47 Sodium Chloride (NS 1000 ml Inj) 1,000 ml @ 50 mls/hr Q20H IV 11/03/16 10:00 12/04/16 22:03 Loperamide HCl (Imodium) 2 mg Q4H PRN PO after each episode diarrhea 11/04/16 09:30 12/01/16 10:17 Tretinoin 40 mg 40 mg BIDPC PO 11/05/16 09:00 12/04/16 19:01 Sodium Chloride (NS 250 ml Inj) 250 ml @ 84 mls/hr Q24H IV 11/05/16 11:00 12/04/16 14:39 Sodium Chloride (NS Flush) See Protocol UNSCH PRN IV FLUSH SEE PROTOCOL TABLE 11/05/16 10:45 11/25/16 03:26 Heparin Sodium (Porcine) (Heparin Central Flush) See Protocol DAILY IV FLUSH 11/06/16 09:00 11/29/16 13:24 Sodium Chloride (NS Flush) UNSCH PRN IV FLUSH SEE PROTOCOL TABLE 11/05/16 10:45 11/27/16 04:13 Sodium Bicarbonate (Sodium Bicarbonate) 325 mg Q8HR PO 11/06/16 08:00 12/04/16 21:48 Pantoprazole Sodium (Protonix) 40 mg DAILY PO 11/07/16 09:15 12/04/16 08:20 Calcium Carbonate (Tums Chew) 500 mg Q2H PRN CHEW dyspepsia 11/07/16 09:15 11/07/16 09:30 Alteplase, Recombinant (Cathflo Activase Inj) 2 mg UNSCH PRN IV FLUSH FOR CLOGGED CENTRAL LINE 11/14/16 09:30 11/14/16 10:43 Furosemide (Lasix) 10 mg DAILY PO 11/18/16 09:00 12/04/16 08:21 Potassium Chloride (KCl) 20 meq DAILY PO 11/18/16 09:00 12/04/16 08:20 Lisinopril (Prinivil) 20 mg Q12HR PO 11/18/16 21:00 12/04/16 21:48 Amlodipine Besylate (Norvasc) 5 mg DAILY PO 11/24/16 17:00 12/04/16 08:20 Tiotropium [place] (Spiriva Inh) 18 mcg DAILY INH 11/27/16 09:00 12/04/16 08:20 Diphenhydramine HCl (Benadryl) 25 mg Q4H PRN PO PRE-MED BLOOD TRANSFUSION 11/27/16 13:15 11/27/16 13:11 Acetaminophen (Tylenol) 650 mg Q4H PRN PO PRE-MED BLOOD TRANSFUSION 11/27/16 13:15 11/27/16 13:11 Metoprolol Tartrate (Lopressor) 50 mg Q12HR PO 11/29/16 09:15 12/04/16 21:48 Allopurinol (Zyloprim) 100 mg BID PO 12/02/16 09:00 12/04/16 21:48 Objective Remarks GENERAL: Elderly male, pleasant disposition, coughs frequently. This is a well- nourished, well-developed patient, in no apparent distress. SKIN: No rashes, ecchymoses or lesions. Cool and dry. HEAD: Atraumatic. Normocephalic. No temporal or scalp tenderness. EYES: Pupils equal round and reactive. Extraocular motions intact. No scleral icterus. No injection or drainage. ENT: Nose without active bleeding, some dried blood in the nares, purulent drainage or septal hematoma. Throat without erythema, tonsillar hypertrophy or exudate. Uvula midline. Airway patent. NECK: Trachea midline. No JVD or lymphadenopathy. Supple, nontender, no meningeal signs. CARDIOVASCULAR: Regular rate and rhythm without murmurs, gallops, or rubs. RESPIRATORY: Prolonged expiratory phase, disbursed crackles occasional rhonchi, prolonged expiratory phase. GASTROINTESTINAL: Abdomen soft, non-tender, nondistended. No hepato-splenomegaly , or palpable masses. No guarding. MUSCULOSKELETAL: Edema resolved in the right leg, mild residual edema in the left leg. No joint tenderness. No calf tenderness. Negative Homans sign bilaterally. NEUROLOGICAL: Awake and alert. Cranial nerves II through XII intact. Motor and sensory grossly within normal limits. Five out of 5 muscle strength in all muscle groups. Normal speech. 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 Arsenic trioxide day 1 was 11/09/2016 Plan 1. Acute promyelocytic leukemia: continue Tretinoin, arsenic trioxide has also been restarted. Restaging bone marrow biopsy done on 12/04/2016, results are pending. I'm hopeful the patient will be in remission and that we will be able to transition him to consolidation treatment after the final results are in. I would like to give him 1 additional dose of arsenic today. I would also like him to receive 1 unit of packed red blood cells today for hemoglobin is 7.5 g/dL. After he receives his arsenic and red cell transfusion today he may be discharged. The patient will continue his tretinoin 40 mg twice daily at home; this has been delivered to his house. I will schedule follow-up with him at my [facility] next Friday12/10/2016. 2. V-tach: No further episodes documented, now on Lopressor. Lopressor should continue at discharge. 3. Gout: will give a second dose of Colchicine and start PRN Lortab for pain. Allopurinol 100 mg twice daily has been added on 12/02/2016, 12/03/2016: Prednisone 40 MG daily initiated, will rapidly taper over a period of 5-6 days. Please discharged home with allopurinol at the current dose, I would advise tapering prednisone over the next 4-5 days. Disposition: Cleared for discharge after transfusion and arsenic infusion today. PICC line may remain in place. Problem Qualifiers (1) Acute promyelocytic leukemia: Qualified Code: C92.40 - Acute promyelocytic leukemia not having achieved remission Michael Haley MD December 05, 2016 07:59
[2016-12-05] MEDS: SODIUM CHLORIDE 0.9% FLUSH 10 ML FLUSH IV FLUSH SCH ×2 (09:00)
[2016-12-05] MEDS ORDERED: predniSONE 20 MG TAB PO SCH (09:00)
[2016-12-05] MEDS: TRETINOIN PO SCH ×2 (09:00→18:05)
[2016-12-05] MEDS ORDERED: PROT40TA PO (09:25)
[2016-12-05] MEDS ORDERED: PRED20 PO (09:25)
[2016-12-05] MEDS ORDERED: AMLO5 PO (09:25)
[2016-12-05] MEDS ORDERED: LISI-515 PO (09:25)
[2016-12-05] MEDS ORDERED: METO-309 PO (09:25)
[2016-12-05] MEDS ORDERED: ALLO100 PO (09:25)
[2016-12-05] MEDS ORDERED: TRET10CA PO (09:25)
--- NOTE | 2016-12-05 09:27 | HHI.DCPOC ---
Discharge Care Plan Diagnosis: (1) Acute promyelocytic leukemia (2) Gout attack (3) VT (ventricular tachycardia) (4) QT prolongation (5) Diarrhea (6) GERD (gastroesophageal reflux disease) (7) copd (8) PAD (peripheral artery disease) (9) CKD (chronic kidney disease) stage 3, GFR 30-59 ml/min (10) Hypertension (11) Pancytopenia Goals to Promote Your Health * To prevent worsening of your condition and complications * To maintain your health at the optimal level Directions to Meet Your Goals Take your medications as prescribed Follow your dietary instruction Follow activity as directed Keep your appointments as scheduled Take your immunizations and boosters as scheduled If your symptoms worsen call your PCP, if no PCP go to Urgent Care Center or Emergency Room Smoking is Dangerous to Your Health. Avoid second hand smoke Call the 24-hour hour crisis hotline for domestic abuse at Vanita Son December 05, 2016 09:27 Kayden Quintana DO December 07, 2016 10:55
--- NOTE | 2016-12-05 09:51 | HHI.DS ---
Discharge Summary Admission Date Nov 02, 2016 at 16:48 Discharge Date: December 05, 2016 Admitting Diagnosis NEUTROPENIA (1) Acute promyelocytic leukemia Diagnosis: Principal (2) VT (ventricular tachycardia) Diagnosis: Secondary (3) Gout attack Diagnosis: Secondary (4) QT prolongation Diagnosis: Secondary (5) GERD (gastroesophageal reflux disease) Diagnosis: Secondary (6) Pancytopenia Diagnosis: Secondary (7) Neutropenia Diagnosis: Secondary (8) Diarrhea Diagnosis: Secondary (9) Weakness generalized Diagnosis: Secondary (10) Renal cell carcinoma Diagnosis: Secondary (11) Hypertension Diagnosis: Secondary (12) PAD (peripheral artery disease) Diagnosis: Secondary (13) copd Diagnosis: Secondary (14) CKD (chronic kidney disease) stage 3, GFR 30-59 ml/min Diagnosis: Secondary Consultants Dr. Michael Haley - Oncology Dr. Mikel Perkins - Cardiology Brief History Patient is a 76-year-old male presenting to the emergency department on the advice of his physician due to abnormal labs. Patient also reports feeling dizzy, generally weak, with severe back pain. He also reports loose stools for the last several days as well. He denies any appetite disturbance, fevers, chills, nausea, vomiting, chest pain or shortness of breath. Patient states he has a history of chronic back pain however for the last few weeks and exacerbated and unrelieved by his normal therapies. Patient has a history of renal cell carcinoma with a right nephrectomy. He's been in remission for a year and a half. On lab work has WBC count at.8 with plt<80 will admit for hematology evaluation note normal cbc earlier this year. CBC/BMP: 12/05/16 0407 12/05/16 0407 Significant Findings Laboratory Tests Test 12/03/16 12/05/16 05:22 04:07 Red Blood Count 2.33 MIL/MM3 2.19 MIL/MM3 (4.50-5.90) (4.50-5.90) Hemoglobin 7.8 GM/DL 7.5 GM/DL (13.0-17.0) (13.0-17.0) Hematocrit 23.4 % 21.9 % (39.0-51.0) (39.0-51.0) Mean Corpuscular Volume 100.4 FL (80.0-100.0) Neutrophils (%) (Auto) 84.2 % 74.5 % (16.0-70.0) (16.0-70.0) Lymphocytes # (Auto) 0.6 TH/MM3 0.6 TH/MM3 (1.0-4.8) (1.0-4.8) Chloride Level 114 MEQ/L 118 MEQ/L (98-107) (98-107) Carbon Dioxide Level 20.9 MEQ/L (21.0-32.0) Blood Urea Nitrogen 39 MG/DL (7-18) 41 MG/DL (7-18) Creatinine 2.03 MG/DL 1.86 MG/DL (0.60-1.30) (0.60-1.30) Estimat Glomerular Filtration 32 ML/MIN (>89) 35 ML/MIN (>89) Rate Calcium Level 7.9 MG/DL 7.8 MG/DL (8.5-10.1) (8.5-10.1) White Blood Count 3.3 TH/MM3 (4.0-11.0) Sodium Level 146 MEQ/L (136-145) Random Glucose 120 MG/DL (74-106) Imaging Last Impressions Bone Biopsy CT 12/04/16 0000 Signed Impressions: Service Date/Time: Sunday, December 04, 2016 12:15 - CONCLUSION: 1. Uncomplicated CT guided bone marrow aspirate. 2. Uncomplicated CT guided bone marrow biopsy. Ignacio Torre MD Lower Extremity Ultrasound 12/01/16 0000 Signed Impressions: Service Date/Time: Thursday, December 01, 2016 09:29 - CONCLUSION: Normal examination. Ant Fraser MD Myocardial Perfusion Scan Nuc Med 11/29/16 0000 Signed Impressions: Service Date/Time: Tuesday, November 29, 2016 10:16 - CONCLUSION: No reversible perfusion defects or focal wall motion abnormalities. RISK CATEGORY: 1- Low Risk. Arturo Serrano MD Chest X-Ray 11/10/16 0000 Signed Impressions: Service Date/Time: Thursday, November 10, 2016 11:48 - CONCLUSION: No acute cardiopulmonary disease identified. Arturo Serrano MD Lumbar Spine CT 11/02/16 0000 Signed Impressions: Service Date/Time: Wednesday, November 02, 2016 15:10 - CONCLUSION: 1. Chronic bilateral pars defects at L5-S1 with associated significant spondylolisthesis and hypertrophic changes in the posterior elements. 2. Advanced discogenic degenerative changes from L2-S1, left lumbar scoliosis, and a moderately large left-sided disc protrusion at L2-3 causing probable neural impingement. Lam Parrish MD Abdomen/Pelvis CT 11/02/16 0000 Signed Impressions: Service Date/Time: Friday, November 02, 2016 15:10 - CONCLUSION: 1. Left parapelvic cyst and a low density lesion lower pole of the solitary left kidney are similar to images from a prior cryoablation in August 2015. 2. Bilateral adrenal lesions, low density in the right and intermediate density on the left. Recommend correlation with outside prior imaging studies to see if this is a new or old finding. 3. 4.2 cm distal abdominal aortic aneurysm. Bilaterally iliac stents in place. 4. Significant spondylolisthesis at L5-S1 with bilateral pars defects. 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 He has baseline CKD stage 3. Pt admitted with c/o worsening diarrhea. He reported that he had been having diarrhea for months but this suddenly worsened and was having up to 10x/ day, nonbloody. Labs at admission found the pt to have pancytopenia with neutropenia. No fevers or chills. Stools were negative for C. diff and stools for cryptosporidium and Giardia were negative. CT Abd/pelvis (11/02) noted to have AAA 4.2cm and val adrenal lesions. Hematology was consulted to assist in etiology of pancytopenia. Bone marrow biopsy performed on 11/03/2016 with marrow aspiration indicated acute promyelocytic leukemia bone marrow aspirate flow cytometry indicates 81% blasts most consistent with acute promyelocytic leukemia. Pt was started on ATRA , Prednisone , Arsenic trioxide daily per Heme/Onc. PICC line placed on 11/05/16. Chemo regimen ATRA day 1 was 11/06/2016 and Arsenic trioxide day 1 was 11/09/2016. Received cryoprecipitate 11/09/16 for bleeding and DIC concerns. He was on Lasix 10mg po daily for volume overload related to IVF. He had some SOB thought to be related to symptomatic anemia on 11/27 which improved with 2 units blood given on 11/27. He was also resumed on Spiriva. Pt did have some noted QT prolongation and Cardiology was consulted but the QTC had normalized into the low 400's at the time of their evaluation and was felt to be stable. They recommended an EKG q2 weeks during treatment Later in the admission the pt was noted to have VT on 11/28, felt related to medication but evaluated for cardiomyopathy and ischemia. Electrolytes were stable. Cardiology was reconsulted. 2D echo with nml LV function. Lu neg for ischemia on 11/30. Pt was started on Metoprolol 50mg Q12H and has done well with that. Arsenic was held from 11/28 to 12/03. He did not have any further noted episodes of VT after starting the Lopressor and none after resuming the Arsenic. Restaging bone marrow biopsy was done on 12/04/2016, results are pending. Oncology is hopeful the patient will be in remission and that they will be able to transition him to consolidation treatment after the final results are in. Pt was given an additional dose of arsenic on 12/05 prior to discharge. And he received 1 unit of packed red blood cells on 12/05 for hemoglobin is 7.5 g/dL. The patient will continue his tretinoin 40 mg twice daily at home; this was delivered to his house. Pt did have a gout flare up in the right ankle on 11/30. Pt was given colchicine x 2 doses. US was neg for DVT. Pt started on Allopurinol 100mg po BID on 12/02 and Prednisone 40mg po daily started on 12/03. Oncology has recommended to be discharged home with allopurinol at the current dose, and tapering prednisone over the next 4-5 days. Pt is scheduled to follow-up with Dr. Haley at [facility] next Friday. Pt is to followup with Dr. Perkins in 2 weeks as well. Pt is to followup with his PCP, Dr. Jayro Canales, in 1-2 weeks as well. Pt Condition on Discharge: Stable Discharge Disposition: Discharge Home Discharge Instructions DIET: Follow Instructions for: Heart Healthy Diet Activities you can perform: Regular-No Restrictions Follow up Referrals: Cardiology - [address] Perkins Oncology - 12/10/[address] Michael Haley PCP Follow-up - [address] Jayro Canales New Medications: Allopurinol (Zyloprim) 100 Mg Tab 100 MG PO BID gout #62 TAB Amlodipine (Norvasc) 5 Mg Tab 5 MG PO DAILY Blood Pressure Management #30 TAB Metoprolol Tartrate (Lopressor) 50 Mg Tab 50 MG PO Q12HR VT #62 TAB Pantoprazole (Protonix) 40 Mg Tab 40 MG PO DAILY GI prophylaxis #30 TAB Prednisone (Prednisone) 20 Mg Tab 20 MG PO DIRECTED Take 20mg once daily for one day, then decrease to 10mg once daily x 2 days, then stop. gout flare #4 TAB Tretinoin (Tretinoin) 10 Mg Cap 40 MG PO BIDPC APL Days 30 CAP Changed Medications: Lisinopril (Lisinopril) 20 Mg Tab 20 MG PO Q12HR #62 Ref 0 TAB (Changed from: DAILY; 30) Continued Medications: Cholecalciferol (D3) 1,000 Unit Tab 1000 UNITS PO HS Pravastatin (Pravastatin) 40 Mg Tab 40 MG PO HS Cholesterol Management #30 Ref 0 TAB Tiotropium Inh (Spiriva Handihaler) 18 Mcg Cap 18 MCG INH DAILY 1 capsule = 18 mcg PRN SOB/WHEEZING #30 Ref 0 CAP Discontinued Medications: Aspirin DR (Aspirin EC) 81 Mg Tabdr 81 MG PO HS Ref 0 TAB Cilostazol (Cilostazol) 100 Mg Tab 100 MG PO HS INTERMITTENT CLAUDICATION Ref 0 TAB [place] 3 Fatty Acids-[place] 6 FA (Hm [place]-3-6-9 Fatty Acid) 1 Cap Cap 1 CAP PO HS Additional Information Patient examined. Assessment and plan formulated with Vanita Son PA-C. I agree with the above. Vanita Son December 05, 2016 09:51 Kayden Quintana DO December 07, 2016 10:55
[2016-12-05] MEDS: TIOTROPIUM BROMIDE 18 MCG INH INH SCH (09:52)
[2016-12-05] MEDS: POTASSIUM CHLORIDE 20 MEQ CONTROLLED RELEASE TAB PO SCH (09:54)
[2016-12-05] MEDS: PANTOPRAZOLE SOD 40 MG DELAYED RELEASE TAB PO SCH (09:55)
[2016-12-05] MEDS: METOPROLOL TARTRATE 50 MG TAB PO SCH (09:55)
[2016-12-05] MEDS: LISINOPRIL 20 MG TAB PO SCH (09:55)
[2016-12-05] MEDS: ALLOPURINOL 100 MG TAB PO SCH (09:55)
[2016-12-05] MEDS: amLODIPine BESYLATE 5 MG TAB PO SCH (09:55)
[2016-12-05] MEDS: FUROSEMIDE 20 MG TAB PO SCH (09:55)
[2016-12-05] MEDS: diphenhydrAMINE HCL 25 MG CAP PO PRN (13:14)
[2016-12-05] MEDS: ACETAMINOPHEN 325 MG TAB PO PRN (13:14)
[2016-12-05] MEDS ORDERED: [UNRECOGNIZED DRUG - OTHER] IV SCH (14:00)
[2016-12-05] MEDS ORDERED: SODIUM CHLORIDE 0.9% IV SCH (14:00)
[2016-12-05] MEDS: SODIUM CHLOR 0.9% 1000 ML INJ 1,000 ML IV SCH (16:30)
[2016-12-05] MEDS: SODIUM CHLOR 0.9% 250 ML INJ 250 ML IV SCH (16:50)
[2016-12-16] MEDS ORDERED: CILO100T PO (14:33)
[2016-12-16] MEDS ORDERED: LISI-515 PO (14:33)
[2016-12-17] MEDS ORDERED: PRED20 PO (08:32)
== END 2016-12-05 19:14 | disposition home or self-care (01) | DRG 834 ==
LOC: NEPE 13:10 → NEDH 16:48 → HOCA 20:58
PROVIDERS: ADMIT Hospitalist; ATTEND Hospitalist
PROC: 07DR3ZX Extraction of Iliac Bone Marrow, Percutaneous Approach, Diagnostic (ICD-10-PCS; principal; 2016-11-03)
PROC: 02HV33Z Insertion of Infusion Device into Superior Vena Cava, Percutaneous Approach (ICD-10-PCS; 2016-11-05)
PROC: 3E04305 Introduction of Other Antineoplastic into Central Vein, Percutaneous Approach (ICD-10-PCS; 2016-11-07)
PROC: 30233M1 Transfusion of Nonautologous Plasma Cryoprecipitate into Peripheral Vein, Percutaneous Approach (ICD-10-PCS; 2016-11-09)
PROC: 30243N1 Transfusion of Nonautologous Red Blood Cells into Central Vein, Percutaneous Approach (ICD-10-PCS; 2016-11-27)
PROC: 07DR3ZX Extraction of Iliac Bone Marrow, Percutaneous Approach, Diagnostic (ICD-10-PCS; 2016-12-04)
DX: C92.40 Acute promyelocytic leukemia, not having achieved remission (principal); D65 Disseminated intravascular coagulation [defibrination syndrome]; E88.3 Tumor lysis syndrome; I47.2 Ventricular tachycardia; D61.818 Other pancytopenia; N18.3 Chronic kidney disease, stage 3 (moderate); M41.9 Scoliosis, unspecified; C64.2 Malignant neoplasm of left kidney, except renal pelvis; R04.2 Hemoptysis; E87.70 Fluid overload, unspecified; J44.9 Chronic obstructive pulmonary disease, unspecified; I12.9 Hypertensive chronic kidney disease with stage 1 through stage 4 chronic kidney disease, or unspecified chronic kidney disease; R19.7 Diarrhea, unspecified; R04.0 Epistaxis; I45.81 Long QT syndrome; I71.4 Abdominal aortic aneurysm, without rupture; I73.9 Peripheral vascular disease, unspecified; M43.16 Spondylolisthesis, lumbar region; M51.26 Other intervertebral disc displacement, lumbar region; M43.17 Spondylolisthesis, lumbosacral region; K21.0 Gastro-esophageal reflux disease with esophagitis; I25.5 Ischemic cardiomyopathy; M10.9 Gout, unspecified; G89.29 Other chronic pain; Z87.891 Personal history of nicotine dependence; Z88.0 Allergy status to penicillin; Z90.5 Acquired absence of kidney
CPT/HCPCS: 36430; 36569; 36584; 38221; 71010; 71020; 72131; 74176; 76937; 77012; 78452; 80048; 80053; 80074; 80076; 81001; 82550; 82552; 82607; 82728; 82746; 83540; 83550; 83615; 83735; 84100; 84443; 84550; 85007; 85025; 85027; 85097; 85384; 85610; 85730; 86703; 86850; 86900; 86901; 86920; 86965; 87328; 87329; 87493; 87497; 87506; 88305; 88311; 88313; 93005; 93017; 93306; 93971; 99152; A9502; C1830; G0364; J1642; J1940; J2250; J2785; J2997; J3010; J3475; J7030; J7050; J7512; J9017; P9016; P9021; Q0163

== ENCOUNTER → 2016-12-17 | Day surgery (SDC) | payer MEDICARE ==
[~2016-12-17] VITALS: Ht 172.7 cm; Wt 77.0 kg
[~2016-12-17] MED LIST changes: +ACETAMINOPHEN 1000 MG/100 ML VIAL IV SCH; +ALLO100 PO; +AMLO5 PO; -ASPI81TA45 PO; +CHLORHEXIDINE GLUCONATE 2 % 1 PACK (2 CLOTHS) TOPICAL PRN; +D31000TA PO; +DO NOT ADM ANY ANTICOAGULANT DRUGS PRN; -DOCU1CAP39 PO; +FAMOTIDINE 20 MG/2 ML VIAL ONE; +HEPARIN SODIUM - IV 10,000 UNITS/10 ML VIAL ONE; +HEPARIN SODIUM - SQ 10,000 UNITS/ML VIAL ONE; +INSULIN HUMAN REGULAR 1,000 UNITS/10 ML VIAL SQ PRN; +KETAMINE HCL 500 MG/5 ML VIAL IV ONE; +LACTATED RINGER'S 1000 ML IV PRN; +LIDOCAINE 1%/EPINEPHrine 1:100,000 SOLN 50 ML VIAL ONE; +LISI-515 PO; +METO-309 PO; +METOPROLOL TARTRATE 25 MG TAB PO PRN; +MIDAZOLAM HCL 2 MG/2 ML VIAL ONE; +MORPHINE SULFATE 4 MG/ML INJ IV PRN; -OMEGCAP21 PO; +ONDANSETRON HCL 4 MG/2 ML VIAL IV PRN; -OXYC1SOL5 PO; +POVIDONE IODINE 5% (ANTISEPSIS KIT) 4 APPLICATIONS EACH NARE PRN; -PRAV80TA PO; +PRED20 PO; -PRIN10TA PO; +PROPOFOL 200 MG/20 ML AMP IV ONE; +SODIUM BICARBONATE 8.4% INJ 50 MEQ/50 ML SYR IV PUSH ONE; +SODIUM BICARBONATE 8.4% INJ 50 ML ONE; +SODIUM CHLORID 0.9% 500 ML IV PRN; +SODIUM CHLORIDE 0.9% 20 ML VIAL ONE; +SODIUM CHLORIDE 0.9% FLUSH 10 ML FLUSH IV FLUSH PRN; +SODIUM CHLORIDE 0.9% FLUSH 10 ML FLUSH IV FLUSH SCH; +SODIUM CHLORIDE 0.9% INJ 100 ML ONE; +TRET10CA PO; +VANCOMYCIN 500 MG VIAL ONE; +VANCOMYCIN 500 MG/NS 100 ML IV SCH; -VITA-13 PO; +ePHEDrine/NS 25 MG/5 ML SYR IV ONE; +oxyCODONE/ACETAMINOPHEN 5 MG/325 MG TAB PO PRN
[2016-12-17 08:33] VITALS: BP 142/77; PULSE 61; RESP 18; TEMP 98.6; O2SAT 98
--- NOTE | 2016-12-17 12:43 | PD.OP ---
cc: Fernando Aaron MD; Jayro Canales MD Operative Report Date of Surgery: Dec 17, 2016 Preoperative Diagnosis: Acute leukemia Postoperative Diagnosis: Acute leukemia Procedure: Placement of left subclavian PowerPort Anesthesia: Local/MAC Surgeon: Fernando Aaron Government Relations Analyst(s): George Gonzalez MS3 Operation and Findings: Operative procedure: The patient was brought to the operating room and after satisfactory sedation by anesthesia, the left chest was prepped and draped in the usual sterile fashion. 1% lidocaine with epinephrine was used to infiltrate skin for local anesthesia. A large-bore needle was used to cannulate the left subclavian vein, which was accomplished without problem. A guidewire was inserted into the superior vena cava, with placement being confirmed on fluoroscopy. The skin was then and anesthetized and incised medial to the guidewire. A subcutaneous pocket was fashioned for the Infuse-a- Port. The port was placed within the pocket and the catheter cut to the appropriate length. The dilator and introducer were placed over the guidewire and the catheter inserted into the superior vena cava, again with placement confirmed on fluoroscopy. A permanent x-ray was taken for future records. To the pectoralis fashion with a 3-0 Vicryl suture. The area was checked for hemostasis which was seen to be satisfactory. The subcutaneous tissue and skin were then closed with interrupted 4-0 PDS subcutaneous stitches. The port was aspirated easily and then flushed with heparinized saline. Steri-Strips were applied and the patient then awakened and taken from the operating room, in satisfactory condition, having tolerated procedure without problem. Estimated blood loss was less than 10 mL's. The instrument, sponge, needle counts were reported as being correct 2 at the end of the procedure. Fernando Aaron MD Dec 17, 2016 12:42
--- NOTE | 2016-12-17 12:50 | RADRPT ---
EXAM DATE/TIME: 12/17/2016 12:03 [facility] COMPARISON: CHEST SINGLE AP, November 10, 2016, 11:48. INDICATIONS : Infusaport placement. FLUORO TIME: 0.9 minutes IMAGE COUNT: 1 MEDICAL HISTORY : Leukemia. Renal cell carcinoma. Peripheral vascular disease. Chronic obstructive pulmonary dise ase. Hypertension. SURGICAL HISTORY : Nephrectomy, right. Leg stents. ENCOUNTER: Subsequent ACUITY: 1 day PAIN SCORE: Non-responsive. LOCATION: chest FINDINGS: Single intraoperative film demonstrates [id number] in place in the left subclavian vein. The priscilla ter tip overlies superior vena cava. Note is made of a PICC which enters from the right side. CONCLUSION: 1. The tip of the [id number] and PICC are both within the superior vena cava. Osman Ashley MD on December 17, 2016 at 12:47 Board Certified Radiologist. This report was verified electronically.
[2016-12-17 14:07] VITALS: BP 140/75; PULSE 62; RESP 18; TEMP 97.6; O2SAT 97
== END | disposition home or self-care (01) ==
LOC: HSDC 07:49
PROVIDERS: ATTEND Surgery
DX: C92.40 Acute promyelocytic leukemia, not having achieved remission (principal); I12.9 Hypertensive chronic kidney disease with stage 1 through stage 4 chronic kidney disease, or unspecified chronic kidney disease; N18.4 Chronic kidney disease, stage 4 (severe); J44.9 Chronic obstructive pulmonary disease, unspecified; M10.9 Gout, unspecified; I73.9 Peripheral vascular disease, unspecified; I71.4 Abdominal aortic aneurysm, without rupture; M50.30 Other cervical disc degeneration, unspecified cervical region; E78.5 Hyperlipidemia, unspecified; I25.10 Atherosclerotic heart disease of native coronary artery without angina pectoris; E55.9 Vitamin D deficiency, unspecified; Z85.528 Personal history of other malignant neoplasm of kidney; Z88.1 Allergy status to other antibiotic agents; Z88.8 Allergy status to other drugs, medicaments and biological substances; Z87.891 Personal history of nicotine dependence
CPT/HCPCS: 36561; C1788; J0131; J1644; J2250; J3010; J3370; J7120

== ENCOUNTER → 2016-12-25 | Outpatient (CLI) | payer MEDICARE ==
[~2016-12-25] MED LIST changes: -ACETAMINOPHEN 1000 MG/100 ML VIAL IV SCH; -CHLORHEXIDINE GLUCONATE 2 % 1 PACK (2 CLOTHS) TOPICAL PRN; -DO NOT ADM ANY ANTICOAGULANT DRUGS PRN; -FAMOTIDINE 20 MG/2 ML VIAL ONE; -HEPARIN SODIUM - IV 10,000 UNITS/10 ML VIAL ONE; -HEPARIN SODIUM - SQ 10,000 UNITS/ML VIAL ONE; -INSULIN HUMAN REGULAR 1,000 UNITS/10 ML VIAL SQ PRN; -KETAMINE HCL 500 MG/5 ML VIAL IV ONE; -LACTATED RINGER'S 1000 ML IV PRN; -LIDOCAINE 1%/EPINEPHrine 1:100,000 SOLN 50 ML VIAL ONE; -METOPROLOL TARTRATE 25 MG TAB PO PRN; -MIDAZOLAM HCL 2 MG/2 ML VIAL ONE; -MORPHINE SULFATE 4 MG/ML INJ IV PRN; -ONDANSETRON HCL 4 MG/2 ML VIAL IV PRN; -POVIDONE IODINE 5% (ANTISEPSIS KIT) 4 APPLICATIONS EACH NARE PRN; -PROPOFOL 200 MG/20 ML AMP IV ONE; -SODIUM BICARBONATE 8.4% INJ 50 MEQ/50 ML SYR IV PUSH ONE; -SODIUM BICARBONATE 8.4% INJ 50 ML ONE; -SODIUM CHLORID 0.9% 500 ML IV PRN; -SODIUM CHLORIDE 0.9% 20 ML VIAL ONE; -SODIUM CHLORIDE 0.9% FLUSH 10 ML FLUSH IV FLUSH PRN; -SODIUM CHLORIDE 0.9% FLUSH 10 ML FLUSH IV FLUSH SCH; -SODIUM CHLORIDE 0.9% INJ 100 ML ONE; -VANCOMYCIN 500 MG VIAL ONE; -VANCOMYCIN 500 MG/NS 100 ML IV SCH; -ePHEDrine/NS 25 MG/5 ML SYR IV ONE; -oxyCODONE/ACETAMINOPHEN 5 MG/325 MG TAB PO PRN
--- NOTE | 2016-12-26 15:18 | EKG ---
Date Performed: 12/25/2016 Time Performed: 15:45:38 PTAGE: 76 years EKG: SINUS TACHYCARDIA WITH OCCASIONAL SUPRAVENTRICULAR PREMATURE COMPLEXES INCOMPLETE RIGHT BUN DLE BRANCH BLOCK ABNORMAL RHYTHM ECG Compared to prior tracing no significant change PREVIOUS TRACING : 11/28/2016 23.23 DOCTOR: Robin Dunbar Interpretating Date/Time 12/26/2016 15:15:57
== END ==
LOC: HRAD 15:21
PROVIDERS: ATTEND Internal Medicine Hematology & Oncology
DX: R42 Dizziness and giddiness (principal)
CPT/HCPCS: 93005

== ENCOUNTER 2017-08-08 08:50 | Day surgery (SDC) | payer MEDICARE ==
[~2017-08-08] VITALS: Ht 172.7 cm; Wt 79.5 kg
[~2017-08-08 08:50] MED LIST changes: +fentaNYL CITRATE 250 MCG/5 ML AMP ONE
[2017-08-08 09:11] VITALS: BP 187/98; PULSE 62; RESP 20; TEMP 97.5; O2SAT 96
[2017-08-08] MEDS ORDERED: fentaNYL CITRATE 250 MCG/5 ML AMP ONE (09:13)
[2017-08-08] MEDS ORDERED: MIDAZOLAM HCL 2 MG/2 ML VIAL ONE (09:22)
[2017-08-08] MEDS ORDERED: SODIUM CHLOR 0.9% 1000 ML IV SCH (09:30)
[2017-08-08] MEDS ORDERED: LIDOCAINE HCL 1% 20 ML VIAL ONE ×2 (09:36→10:50)
[2017-08-08] MEDS ORDERED: PRAV40TA2 PO (09:38)
[2017-08-08] MEDS ORDERED: ASPI-516 CHEW (09:38)
[2017-08-08 09:58] LABS: AUTOMATED NEUTROPHIL # 5.6 TH/MM3 (1.8-7.7); BASOPHIL % 0.4 % (0.0-2.0); EOSINOPHIL # 1.1 TH/MM3 (0-0.4); EOSINOPHIL % 12.5 % (0.0-4.0); HEMATOCRIT 40.8 % (39.0-51.0); HEMOGLOBIN 13.5 GM/DL (13.0-17.0); LYMPH % 10.9 % (9.0-44.0); LYMPHOCYTE # 0.9 TH/MM3 (1.0-4.8); MEAN CELL VOLUME 95.7 FL (80.0-100.0); MEAN CORPUSCULAR HEMOGLOBIN 31.6 PG (27.0-34.0); MEAN PLATELET VOLUME 7.5 FL (7.0-11.0); MONO % 9.9 % (0.0-8.0); MONOCYTE # 0.8 TH/MM3 (0-0.9); NEUT % 66.3 % (16.0-70.0); PLATELET COUNT 202 TH/MM3 (150-450); RED BLOOD COUNT 4.26 MIL/MM3 (4.50-5.90); RED CELL DISTRIBUTION WIDTH 16.3 % (11.6-17.2); WHITE BLOOD COUNT 8.5 TH/MM3 (4.0-11.0)
--- NOTE | 2017-08-08 10:36 | PD.RAD ---
Post CT Procedure Prog Note Pre Procedure Diagnosis: (1) Acute promyelocytic leukemia Post Procedure Diagnosis: (1) Acute promyelocytic leukemia Procedure Date: Aug 08, 2017 Supervising Radiologist: Lam Tian JR Anesthesia: Conscious Sedation Plan of Activity Patient to Unit: ROPU Patient Condition: Good See PACS Report for procedural detail/treatment Biopsy Imaging Guidance: CT Side: Left Biopsy Procedure: Bone Marrow Specimen: Core Biopsy, Fine Needle Aspirate Findings: Uncomplicated BM bx and aspiration. Plan ROPU for 2 hr observation. Jr. Jaylan,Lam Joy MD Aug 08, 2017 10:36
[2017-08-08 10:45] VITALS: BP 149/87; PULSE 59; RESP 18; TEMP 97.5; O2SAT 94
[2017-08-08 11:00] VITALS: BP 153/92; PULSE 59; RESP 20; O2SAT 93
--- NOTE | 2017-08-08 11:08 | RADRPT ---
EXAM DATE/TIME: 08/08/2017 10:16 [facility] COMPARISON: No previous studies available for comparison. INDICATIONS : Bone marrow biopsy, acute Promyelocytic Leukemia SEDATION TIME: 30 minutes BIOPSY SITE: MEDICATION(S): 1.) 1.5 mg midazolam (Versed) IV 2.) 125 mcg fentanyl (Sublimaze) IV Vancomycin within 2 hrs of procedure, Ancef (or alternative) within 1 hr of procedure start. DEVICE(S): 1.) 11 gauge Bone marrow biopsy needle MEDICAL HISTORY : Chronic obstructive pulmonary disease. Renal failure, chronic. Renal cell carcinoma, gout SURGICAL HISTORY : Tonsillectomy. Cryoalbation of left and right kineys, artrial stent bilat lower extremities ENCOUNTER: Initial ACUITY: 1 day PAIN SCORE: 0/10 LOCATION: Left pelvis A total of two core specimen(s) were obtained and sent to the laboratory for pathologic evaluation. PROCEDURE: 1. CT guided bone marrow biopsy. Prior to the procedure informed consent was obtained. Any appropriate prior imaging studies were rev iewed. Using automated exposure control and adjustment of the mA and/or kV according to patient size , radiation dose was kept as low as reasonably achievable to obtain optimal diagnostic quality images . DICOM format image data is available electronically for review and comparison. The site was prepped in a sterile fashion. Full sterile technique was used, including cap, mask, russel rile gloves and gown and a large sterile sheet. Hand hygiene and 2% chlorhexidine and/or betadine/al cohol prep was utilized per protocol for cutaneous antisepsis. The skin and subcutaneous tissues wer e infiltrated with local anesthetic solution. With CT guidance the left posterior iliac wing was localized. Biopsy was performed using the prescrib ed needle as above. Following biopsy marrow aspiration was performed with repeat puncture. Adequate hemostasis was obtained with compression at the puncture site. Follow-up CT scan reveals no hemorrhage. Conscious sedation was performed with the prescribed dosages and duration as above in the presence of an independent trained radiology nurse to assist in the monitoring of the patient. EKG and oximetry remained stable throughout the procedure. The patient tolerated the procedure well and there were no complications. The patient was sent to Radiology Outpatient Unit in stable condition. CONCLUSION: 1. Uncomplicated CT guided bone marrow aspirate. 2. Uncomplicated CT guided bone marrow biopsy. Lam Tian Jr., MD on August 08, 2017 at 11:06 Board Certified Radiologist. This report was verified electronically.
[2017-08-08 11:30] VITALS: BP 148/90; PULSE 62; RESP 20; O2SAT 92
[2017-08-08 12:00] VITALS: BP 138/78; PULSE 60; RESP 20; O2SAT 92
[2017-08-08 12:30] VITALS: BP 144/82; PULSE 66; RESP 20; O2SAT 93
== END 2017-08-08 12:45 | disposition home or self-care (01) ==
LOC: HRIP 08:50 → HRAD 08:50
PROVIDERS: ATTEND Internal Medicine Hematology & Oncology
DX: C92.41 Acute promyelocytic leukemia, in remission (principal); J44.9 Chronic obstructive pulmonary disease, unspecified; Z85.528 Personal history of other malignant neoplasm of kidney; M10.9 Gout, unspecified; N18.9 Chronic kidney disease, unspecified
CPT/HCPCS: 38222; 77012; 85025; 85097; 88305; 88311; 88313; 99152; 99153; C1830; J2250; J3010; J7030